=== PATIENT | male | born 1940 | race Caucasian/White ===

== ENCOUNTER → 2017-06-05 | Outpatient (CLI) | payer MEDICARE ==
[2017-02-08 11:11] VITALS: BMI 26.5
[~2017-06-05] MED LIST: ACE325 PO; ACET500T68 PO; ASPI-715 PO; CEPH500C24 PO; DIAZ-308 PO; DOCU-416 PO; FEXO-72 PO; GOLYTE PO; HYDR-4309 PO; IOPAMIDOL 76% 75 ML INFUS BTL 75 ML ONE; LEV125 PO; LEVO-3 PO; LEVO25TA61 PO; LEVO75TA73 PO; LOPE2CAP15 PO; METH-543 PO; MULT1TAB64 PO; NS 0.9% 20 ML SDV 40 ML ONE; ONDA8TAB94 PO; OXA600 PO; OXYC-854 PO; OXYC-865 PO; PEG4000S21 PO; PER PO; POTA99TA6 PO; PRE20 PO; SIME80TA65 PO; TAMS0.4C70 PO; VITA-131 PO; VITA1CAP46 PO; [UNRECOGNIZED DRUG - CODE] PO; [UNRECOGNIZED DRUG - CODE] TP; potassium PO
--- NOTE | 2017-06-05 11:45 | RADIOLOGY IMAGING REPORT ---
[place] [facility] [place] Coral Voss : 1940 MR: [id number] V: [id number] EXAM DATE: ORDERING PHYSICIAN: JOSE PERALTA TECHNOLOGIST: Location: [facility] - [place] Patient: Coral Voss : 1940 Visit/Account:[id number] Date of Sevice: 06/05/2017 ABDOMEN/PELVIS WITH CONTRAST HISTORY: Abscess of male pelvis, large bowel anastomosis leak, pelvic hematoma TECHNIQUE: Following administration of IV contrast contiguous axial images acquired through the abdom en/pelvis. Coronal and sagittal reformatting also performed. Dose Lowering Technique One of the following dose optimization techniques was utilized in the performance of this exam: Autom ated exposure control; adjustment of the mA and/or kV according to the patient's size; or use of an i terative reconstruction technique. Specific details can be referenced in the facility's radiology C T exam operational policy. CONTRAST: 75 mL Isovue-370 COMPARISON: March 27, 2017 and February 25, 2017 FINDINGS: Visualized lung bases: Negative. Hepatobiliary: Negative. Spleen: Negative. Adrenals: Negative. Pancreas: Negative. Kidneys ureters or bladder: Left renal cysts again noted. Moderate bladder wall thickening again see n. Genitalia: Negative. GI: Again noted is an ileostomy in the right lower quadrant. There is a surgical anastomosis at the rectum. There is soft tissue thickening in the presacral space although the previously noted absces ses no longer seen. There is a pigtail catheter in this location. No other abnormal collections pearl ntified within the abdomen or pelvis. Diverticular disease is noted in the sigmoid colon. Vessels/spaces/nodes: There are mild vascular calcination occasions present Bones/soft tissues: There Is a levoconvex scoliosis of the lumbar spine with associated spondylotic changes. Scarring areas in the intratrochanteric portion of the right hip in the femoral heads and r ight acetabulum all remain stable Additional findings: None pertinent. IMPRESSION: Post surgical changes are seen at the rectum with an ileostomy noted in the right lower quadrant. Th ere is soft tissue thickening in the presacral space although the previously noted abscess is no long er seen. A pigtail catheter remains in the presacral space.. No new collections identified within the abdomen or pelvis Report Dictated By: Emmy Jordan MD at 06/05/2017 11:05 AM Report E-Signed By: Emmy Jordan MD at 06/05/2017 11:41 AM BOON:CHELITA
== END ==
LOC: CT 02:31
PROVIDERS: ATTEND Surgery
DX: N28.1 Cyst of kidney, acquired (principal); K57.30 Diverticulosis of large intestine without perforation or abscess without bleeding
CPT/HCPCS: 74177; J7050; Q9967

== ENCOUNTER → 2017-06-17 | Outpatient (CLI) | payer MEDICARE ==
[2017-02-08 11:11] VITALS: BMI 26.5
[~2017-06-17] MED LIST changes: +NS 0.9% 20 ML SDV 20 ML ONE; -NS 0.9% 20 ML SDV 40 ML ONE; +SIME-8 PO; -[UNRECOGNIZED DRUG - CODE] PO
--- NOTE | 2017-06-17 11:01 | RADIOLOGY IMAGING REPORT ---
FACILITY: [facility] PATIENT NAME: Coral Voss : 1940 MR: [id number] V: [id number] EXAM DATE: ORDERING PHYSICIAN: JOSE PERALTA TECHNOLOGIST: Location: [facility] - [place] Patient: Coral Voss : 1940 Visit/Account:[id number] Date of Sevice: 06/17/2017 PELVIS W CONTRAST HISTORY: Colon cancer. Drain removal. Right hip and thigh pain ADDITIONAL HISTORY: None. TECHNIQUE: Axial CT images were obtained through the pelvis with intravenous contrast. One of the fol lowing dose optimization techniques was utilized in the performance of this exam: automated exposure control; adjustment of the mA and/or kv according to patient size; or use of iterative reconstruction technique. Specific details can be referenced in the facility's radiology CT exam operational policy . CONTRAST: 75 mL of Isovue-370 COMPARISON: CT abdomen/pelvis 06/05/2017 FINDINGS: Pelvic genitourinary: Negative. Bowel/peritoneum/mesentery: Interval removal of a right transgluteal presacral drain. Mild enhancem ent along the drain tract noted. Rectosigmoid anastomosis with a 4.2 x 2.2 x 1.5 cm peripheral enhan cing focus of fluid and gas adjacent to the anastomosis, previously 2.7 x 1.3 x 1.2 cm. Adjacent pre sacral ill-defined soft tissue extending into the right sciatic notch, unchanged. Right lower quadra nt loop ileostomy. Normal appendix. Vessels: Mild arterial calcifications. Lymph nodes: Negative. Bones/body wall: Stable tiny sclerotic lesion within the right proximal femur, likely a bone island. Grade 1 anterolisthesis at L4-L5 with degenerative changes. Other findings: None significant IMPRESSION: 1. Interval removal of a right transgluteal presacral drain. Minimal increasing size of a fluid/gas collection adjacent to the rectosigmoid anastomosis outlined above. Otherwise stable ill-defined so ft tissue in the presacral space extending to the right sciatic notch. 2. Mild enhancement along the drain tract without discrete fluid. Recommend clinical correlation fo r drainage at the skin surface. Report Dictated By: Byron Kaur MD at 06/17/2017 10:49 AM Report E-Signed By: Byron Kaur MD at 06/17/2017 10:56 AM WSN:[email or web address]
== END ==
LOC: CT 01:11
PROVIDERS: ATTEND Surgery
DX: K63.89 Other specified diseases of intestine (principal)
CPT/HCPCS: 72193; J7050; Q9967

== ENCOUNTER 2017-06-20 11:07 | Inpatient (IN) | payer MEDICARE ==
[~2017-06-20] VITALS: Ht 177.8 cm; Wt 82.1 kg
[~2017-06-20 11:07] MED LIST changes: -IOPAMIDOL 76% 75 ML INFUS BTL 75 ML ONE; -NS 0.9% 20 ML SDV 20 ML ONE
[2017-06-20] MEDS ORDERED: ONDANSETRON 4 MG/2 ML VIAL IVP ONE (11:25)
[2017-06-20] MEDS ORDERED: fentaNYL CITR 100 MCG/2 ML AMP IVP ONE (11:25)
[2017-06-20] MEDS ORDERED: NS(*) 0.9% 10 ML VIAL 30 ML ONE (11:38)
--- NOTE | 2017-06-20 11:38 | ER Report ---
History and Physical Time Seen By MD: 11:36 Hx. of Stated Complaint: HAD DRAIN REMOVED FROM RIGHT HIP APPROX 2 WEEKS AGO. REPORTS EXCRUCIATING PAIN AND INABILITY TO AMBULATE DUE TO PAIN. HPI/ROS CHIEF COMPLAINT: Hip and pelvic pain HISTORY OF PRESENT ILLNESS: Patient is a 76-year-old male who presents to department complaining of right hip and sacral pain. Patient has a history of adenocarcinoma of the colon that is post ileostomy approximately one year ago also recently had a sacral drain removed by Dr. Duffy move all of the draining he's been having discomfort and pain he describes the pain as to the right hip area and radiates down the right leg. The pain is so severe it is causing him difficulty with ambulation. The drainage from his prior sacral drain. Denies fevers or chills. REVIEW OF SYSTEMS: Constitutional: No fever, no chills. Eyes: No discharge. ENT: No sore throat. Cardiovascular: No chest pain, no palpitations. Respiratory: No cough, no shortness of breath. Gastrointestinal: No abdominal pain, no vomiting. Genitourinary: No hematuria. Musculoskeletal: Low back pain, right hip pain Skin: No rashes. Neurological: No headache. Allergies: Coded Allergies: No Known Drug Allergies (Verified , 06/20/17) Home Meds Active Scripts Oxycodone Hcl/Acet 5/325 Mg (ENDOCET 5-325 TABLET) 1 Each Tablet, 1-2 TAB PO Q4H Y for PAIN, #40 TAB 0 Refills Prov:CHUY LEE DNP, AUDIENCE DEVELOPMENT MANAGER-BC 06/17/17 Reported Medications Levothyroxine Sodium (LEVOTHYROXINE SODIUM) 0.125 Mg Tab, 125 MCG PO DAILY 02/08/17 Vitamin B Complex (VITAMIN B COMPLEX) 1 Each Capsule, 1 EACH PO QDAY, CAPSULE 02/04/17 Multivitamin (MULTI VITAMIN DAILY) 1 Each Tablet, 1 EACH PO 12/19/14 Discontinued Scripts Diazepam (DIAZEPAM) 5 Mg Tablet, 1 TAB PO TID Y for SPASMS, #15 TAB 0 Refills Prov:JOSE PERALTA MD 04/22/17 Past Medical/Surgical History Past medical history for rectal adenocarcinoma with T3 lesion by MRI of the pelvis. History of hypothyroidism. He has a history of rectal mass measuring approximate 6.1 cm with narrowing of the rectosigmoid junction. Patient did have a colonoscopy with biopsy rectal mass on 09/12/2016 he is currently receiving chemotherapy. Patient had rectal resection done on 02/07/2017 patient is also status post ileostomy. Hx Smoking: No Smoking Status: Never Smoker Exposure to Second Hand Smoke?: No Hx Substance Use Disorder: No Hx Alcohol Use: No Constitutional Vital Sign - Last 24 Hours 06/20/17 06/20/17 06/20/17 06/20/17 11:15 11:30 11:31 12:30 Temp 97.9 Pulse 77 60 54 Resp 20 B/P (MAP) 137/79 95/66 (76) 105/61 (76) Pulse Ox 95 97 100 O2 Delivery Room Air 06/20/17 06/20/17 06/20/17 06/20/17 13:00 13:30 13:30 14:00 Pulse 59 59 63 B/P (MAP) 111/67 (82) 118/64 (82) 126/67 (86) Pulse Ox 100 100 100 Physical Exam General Appearance: The patient is alert, has no immediate need for airway protection and no signs of toxicity. [ ] Eyes: Pupils equal and round no pallor or injection. ENT, Mouth: Mucous membranes are moist. Respiratory: There are no retractions, lungs are clear to auscultation. Cardiovascular: Regular rate and rhythm. [ ] Gastrointestinal: Abdomen is soft and non tender, no masses, bowel sounds normal. Neurological: Awake and alert Skin: Warm and dry, no rashes. Healing drainage track to the right sacral area Musculoskeletal: Neck is supple non tender. Extremities are nontender, nonswollen and have full range of motion. Medical Decision Making Data Points Result Diagram: 06/21/1752506/21/17525 Laboratory EKG/Imaging Imaging FACILITY: [facility] - [place] PATIENT NAME: Coral Voss : 1940 MR: [id number] V: [id number] EXAM DATE: ORDERING PHYSICIAN: BRIGID HANNA TECHNOLOGIST: Location: [facility] Patient: Coral Voss : 1940 Visit/Account:[id number] Date of Sevice: 06/20/2017 CT abdomen and pelvis without contrast Indication: Abdominal and right hip pain. History of colorectal cancer. Drainage tube recently removed from abdomen. Comparison: 06/05/2017 and 06/17/2017. Technique: Axial CT images are obtained through the abdomen and pelvis. Reformatted coronal and sagittal images were reviewed. IV contrast was not administered. One of the following dose optimization techniques was utilized in the performance of this exam: automated exposure control; adjustment of the mA and/ or kV according to the patient's size; or use of an iterative reconstruction technique. Specific details can be referenced in the facility's radiology CT exam operational policy. Findings: Lower lung richardson: Limited views lower lung field are unremarkable. Evaluation of the solid organs of the abdomen is limited without IV contrast. Liver: No focal parenchymal abnormality of the liver. Biliary: Gallbladder appears unremarkable as well as the intra and extra hepatic biliary system. Pancreas: Normal appearance. Spleen: Normal appearance. Adrenal glands: Unremarkable. Kidneys / retroperitoneum: No evidence of nephrolithiasis or hydronephrosis. Stable left renal cyst. No other discrete renal lesions. Bowel / peritoneum / mesenteries: Postsurgical changes to the rectum. There is continued soft tissue density in the presacral space which is unchanged. The previous pigtail catheter in this region has been removed. There is no appreciable fluid collection although there are foci of air within the soft tissue density. Sigmoid colon shows a few diverticula without couple scattered colonic diverticula. No pericolonic inflammation. The colon shows no other focal abnormality. The appendix is normal. A right-sided ileostomy is present and uncomplicated. The small bowel shows no focal normality or obstruction. The stomach is unremarkable. No free air, free fluid, defined fluid collection or areas of inflammation. Lymph node assessment: No pathologic adenopathy identified. Pelvic structures: Appear unremarkable. Vessels: Mild atherosclerotic calcifications seen throughout a nonaneurysmal abdominal aorta and branches. Musculoskeletal / Body wall: No acute or aggressive osseous abnormality. Degenerative changes spine. There is mild anterior spondylolisthesis of L4 over L5 of 5.5 mm due to facet arthropathy. This is stable. Degenerative changes of both hips. IMPRESSION: 1. No acute intra-abdominal abnormality identified. 2. The rectum shows postsurgical changes without sequelae. There is again soft tissue density in the presacral space. The previous pigtail catheter has been removed. No well-defined fluid collection. There is a couple small foci of air within the soft tissue density. The appearance appears not significantly changed from the previous exam. 3. Diverticulosis without radiographic indication diverticulitis. 4. Other stable chronic findings as above. Report Dictated By: Julio Conrteras at 06/20/2017 12:37 PM Report E-Signed By: Julio Contreras at 06/20/2017 12:50 PM WSN:[id number] ED Course/Re-evaluation ED Course Plan at this time will be to have the patient admitted to the hospitalist for elevated creatinine as well as ambulatory dysfunction. Case will be discussed with Dr. Alvin Bonilla. Decision to Disposition Date: Jun 20, 2017 Decision to Disposition Time: 14:00 Depart Departure Latest Vital Signs Vital Signs Date Time Temp Pulse Resp B/P (MAP) Pulse Ox O2 Delivery O2 Flow Rate FiO2 06/20/17 14:00 63 126/67 (86) 100 06/20/17 11:15 97.9 20 Room Air Impression: Primary Impression: Hip pain Additional Impression: Renal insufficiency Condition: Improved Disposition: Admitted from ER (to DR Bonilla) Referrals: JAKUB WOLF PA-C (PCP) Problem Qualifiers Primary Impression: Hip pain Laterality: right Qualified Codes: M25.551 - Pain in right hip BRIGID HANNA MD Jun 20, 2017 11:37
[2017-06-20 11:39] LABS: PLATELET COUNT, AUTOMATED 226 K/uL (150-450)
[2017-06-20] MEDS ORDERED: IOPAMIDOL 76% 75 ML INFUS BTL 75 ML ONE (11:39)
--- NOTE | 2017-06-20 12:56 | RADIOLOGY IMAGING REPORT ---
FACILITY: [facility] - [place] PATIENT NAME: Coral Voss : 1940 MR: [id number] V: [id number] EXAM DATE: ORDERING PHYSICIAN: BRIGID HANNA TECHNOLOGIST: Location: Patient: Coral Voss : 1940 Visit/Account:[id number] Date of Sevice: 06/20/2017 CT abdomen and pelvis without contrast Indication: Abdominal and right hip pain. History of colorectal cancer. Drainage tube recently remove d from abdomen. Comparison: 06/05/2017 and 06/17/2017. Technique: Axial CT images are obtained through the abdomen and pelvis. Reformatted coronal and sagit gera images were reviewed. IV contrast was not administered. One of the following dose optimization techniques was utilized in the performance of this exam: auto mated exposure control; adjustment of the mA and/or kV according to the patient's size; or use of an iterative reconstruction technique. Specific details can be referenced in the facility's radiology C T exam operational policy. Findings: Lower lung richardson: Limited views lower lung field are unremarkable. Evaluation of the solid organs of the abdomen is limited without IV contrast. Liver: No focal parenchymal abnormality of the liver. Biliary: Gallbladder appears unremarkable as well as the intra and extra hepatic biliary system. Pancreas: Normal appearance. Spleen: Normal appearance. Adrenal glands: Unremarkable. Kidneys / retroperitoneum: No evidence of nephrolithiasis or hydronephrosis. Stable left renal cyst. No other discrete renal lesions. Bowel / peritoneum / mesenteries: Postsurgical changes to the rectum. There is continued soft tissue density in the presacral space which is unchanged. The previous pigtail catheter in this region has b een removed. There is no appreciable fluid collection although there are foci of air within the soft tissue density. Sigmoid colon shows a few diverticula without couple scattered colonic diverticula. N o pericolonic inflammation. The colon shows no other focal abnormality. The appendix is normal. A rig ht-sided ileostomy is present and uncomplicated. The small bowel shows no focal normality or obstruct ion. The stomach is unremarkable. No free air, free fluid, defined fluid collection or areas of inflammation. Lymph node assessment: No pathologic adenopathy identified. Pelvic structures: Appear unremarkable. Vessels: Mild atherosclerotic calcifications seen throughout a nonaneurysmal abdominal aorta and bran ches. Musculoskeletal / Body wall: No acute or aggressive osseous abnormality. Degenerative changes spine. There is mild anterior spondylolisthesis of L4 over L5 of 5.5 mm due to facet arthropathy. This is st able. Degenerative changes of both hips. IMPRESSION: 1. No acute intra-abdominal abnormality identified. 2. The rectum shows postsurgical changes without sequelae. There is again soft tissue density in the presacral space. The previous pigtail catheter has been removed. No well-defined fluid collection. Th ere is a couple small foci of air within the soft tissue density. The appearance appears not signific antly changed from the previous exam. 3. Diverticulosis without radiographic indication diverticulitis. 4. Other stable chronic findings as above. Report Dictated By: Julio Contreras at 06/20/2017 12:37 PM Report E-Signed By: Julio Contreras at 06/20/2017 12:50 PM WSN:[id number]
--- NOTE | 2017-06-20 13:03 | RADIOLOGY IMAGING REPORT ---
[place] [facility] [place] NAME: Coral Voss : 1940 MR: [id number] V: [id number] EXAM DATE: ORDERING PHYSICIAN: BRIGID HANNA TECHNOLOGIST: [place] [facility] [place]: Coral Voss : 1940 Visit/Account:[id number] Date of Sevice: 06/20/2017 HIP RIGHT W/O CONTRAST INDICATION: Right hip pain. COMPARISON: CT of the pelvis on 06/17/2017. FINDINGS: Multiple axial images of the right hip were obtained 2 mm reconstructions without intrave nous contrast. Sagittal and coronal reconstructions were obtained. One of the following dose optimiz ation techniques was utilized in the performance of this exam: automated exposure control; adjustment of the mA and/or kV according to the patient's size; or use of an iterative reconstruction technique . Specific details can be referenced in the facility's radiology CT exam operational policy. No fracture or dislocation. The right hip does show degenerative changes including joint space narrow ing and osteophytes. There is mild over covering of the femoral head by the acetabulum. No aggressive bony lesions. No periosteal abnormality. Soft tissues of the hip show no joint effusion or focal abn ormality. The fat and muscle planes are maintained. The presacral space does show persistent soft tissue density couple foci of air without a defined flu id collection. The previously seen pigtail catheter has been removed. The appearance of the presacral region is unchanged. The remaining soft tissues are unremarkable. IMPRESSION: 1. Right hip shows no acute abnormality. There are some degenerative change seen in the right hip. Th ere is mild over covering of the femoral head by the acetabulum which could be secondary to the degen erative osteophytes however could also represent some mild impingement. Report Dictated By: Julio Contreras at 06/20/2017 12:52 PM Report E-Signed By: Julio Contreras at 06/20/2017 12:58 PM WSN:[id number]
[2017-06-20] MEDS ORDERED: methylPREDNIS SUCC 125 MG/2ML IVP ONE (13:15)
[2017-06-20] MEDS ORDERED: NS(*) 0.9% 500 ML BAG 500 ML IV ONE (13:15)
[2017-06-20] MEDS ORDERED: NS(*) 0.9% 1000 ML BAG 1,000 ML IV PRN (14:56)
[2017-06-20] MEDS ORDERED: ACETAMINOPHEN 500 MG TAB PO PRN (15:00)
[2017-06-20] MEDS ORDERED: MORPHINE 1 MG/ML 30 ML PCA IV PRN (15:00)
[2017-06-20] MEDS ORDERED: PROMETHAZINE 25 MG/ML 1 ML AMP IVP PRN (15:00)
[2017-06-20] MEDS ORDERED: NALOXONE HCL 0.4 MG/ML VIAL IVP PRN (15:00)
--- NOTE | 2017-06-20 15:38 | History & Physical ---
History of Present Illness History of Present Illness 76yo male with h/o rectal adenocarcinoma, and recent drain removal for seroma in pelvis came to the ER for worsening right buttock pain that radiates down the post/lat right leg to the knee. The pain is sharp and 12-15/10. He is unable to bear weight on the leg secondary to flaring of the pain. The pain is worsened by any activity, but bearing weight is the worst. Lying or sitting helps the pain. The pain started after placement of sacral drain in early April. The drain was placed for a seroma that was causing coccyx pain. The drain was placed in the upper lateral buttock. The drain was removed about 2 weeks ago. Initially, the pain improved some for a few days after removal, but progressively worsened. A week ago, he started walking with a cane. Yesterday , he couldn't get up on his own because of the pain. Today, he came to the ER because the pain was so excruciating and he couldn't get up. He denies fevers. He continues to have clear drainage from the drain site. He had a CT of the pelvis 3 days ago that showed minimal increasing size of fluid/gas collection compared to the day the drain was removed. No numbness or tingling in the LE's. History Problems: (1) Rectal adenocarcinoma Status: Chronic (2) Hypothyroid Status: Chronic (3) Seroma Home Meds Active Scripts Oxycodone Hcl/Acet 5/325 Mg (ENDOCET 5-325 TABLET) 1 Each Tablet, 1-2 TAB PO Q4H Y for PAIN, #40 TAB 0 Refills Prov:CHUY LEE DNP, CERTIFIED WELLNESS PROGRAM COORDINATOR-BC 06/17/17 Reported Medications Levothyroxine Sodium (LEVOTHYROXINE SODIUM) 0.125 Mg Tab, 125 MCG PO DAILY 02/08/17 Vitamin B Complex (VITAMIN B COMPLEX) 1 Each Capsule, 1 EACH PO QDAY, CAPSULE 02/04/17 Multivitamin (MULTI VITAMIN DAILY) 1 Each Tablet, 1 EACH PO 12/19/14 Discontinued Scripts Diazepam (DIAZEPAM) 5 Mg Tablet, 1 TAB PO TID Y for SPASMS, #15 TAB 0 Refills Prov:JOSE PERALTA MD 04/22/17 Allergies: Coded Allergies: No Known Drug Allergies (Verified , 06/20/17) Patient History: Patient reports no known family medical history. 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 No tobacco or alcohol use. and lives with . Hx Smoking: No Smoking Status: Never Smoker Exposure to Second Hand Smoke?: No Caffeine Intake: Coffee, Tea Caffeine/Cups Per Day: 4 CUPS COFFEE, 2 CUPS TEA PER DAY Hx Alcohol Use: No Hx Substance Use Disorder: No Social Drug Use: Never Review of Systems All Systems Reviewed/Normal: Yes, Except as Noted Exam Vital Signs Vital Signs Date Time Temp Pulse Resp B/P (MAP) Pulse Ox O2 Delivery O2 Flow Rate FiO2 06/20/17 14:00 63 126/67 (86) 100 06/20/17 11:15 97.9 20 Room Air General Appearance: Alert, Awake, Other (Appears moderately uncomfortable) Neuro: No Gross deficits (Normal sensation to light touch in feet. Normal dorsiflexion/plantar flexion strength.) Eyes: PERRLA ENT: Moist Mucous Membranes Cardiovascular: Regular Rate and Rhythm Respiratory: Clear to Auscultation GI: Abd Soft and Non-Tender (ostomy with bag/wafer overlying it. Brown stool in the bag) Musculoskeletal: Other (Right buttock with 1cm open wound with serous drainage in upper lateral quadrant. No overlying erythema/warmth. Pain with palpation around the wound. Mild atrophy of the right quadricep. Pain with passive and active hip flexion on the right.) Extremities: No Edema Integumentary: No Jaundice, No Cyanosis Medical Decision Making Data Points Result Diagram: 06/20/17 1128 06/20/17 1128 Item Value Date Time Neutrophils (%) (Auto) 76.0 % H 06/20/17 1128 Lymphocytes (%) (Auto) 6.4 % L 06/20/17 1128 Monocytes (%) (Auto) 13.4 % H 06/20/17 1128 Creatinine 1.40 mg/dl H 03/29/17 1837 Creatinine 1.30 mg/dl H 05/20/17 1010 Creatinine 2.10 mg/dl H 06/20/17 1128 Carbon Dioxide Level 20 mmol/L L 03/29/17 1837 Carbon Dioxide Level 21 mmol/L L 05/20/17 1010 Carbon Dioxide Level 17 mmol/L L 06/20/17 1128 Creatinine 1.20 mg/dl 02/26/17 1203 Carbon Dioxide Level 20 mmol/L L 02/26/17 1203 Total Bilirubin 0.3 mg/dl 06/20/17 1128 Alanine Aminotransferase (ALT/SGPT) 29 U/L 06/20/17 1128 Aspartate Amino Transf (AST/SGOT) 22 U/L 06/20/17 1128 Alkaline Phosphatase 81 U/L 06/20/17 1128 Total Protein 7.6 gm/dl 06/20/17 1128 Albumin 3.7 g/dl 06/20/17 1128 EKG / Imaging Imaging Abd/Pelvis CT - 1. No acute intra-abdominal abnormality identified. 2. The rectum shows postsurgical changes without sequelae. There is again soft tissue density in the presacral space. The previous pigtail catheter has been removed. No well-defined fluid collection. There is a couple small foci of air within the soft tissue density. The appearance appears not significantly changed from the previous exam. 3. Diverticulosis without radiographic indication diverticulitis. 4. Other stable chronic findings as above. Hip CT - 1. Right hip shows no acute abnormality. There are some degenerative change seen in the right hip. There is mild over covering of the femoral head by the acetabulum which could be secondary to the degenerative osteophytes however could also represent some mild impingement. Assessment and Plan Problems: (1) Sciatic pain Status: Acute Assessment & Plan: The pain started in early April with placement of a drain for a presacral seroma. The drain was placed in the right upper/lateral gluteal region and likely caused sciatic nerve irritation. The drain was removed about 2 weeks prior to admission with initial mild improvement of the pain, but has progressively worsened over the last 1.5 weeks. Now, he is unable to ambulate and any movement of the hip hurts. He has no worrisome neurologic signs or symptoms. CT of the pelvis showed stable presacral fluid. I spoke with Dr. Peralta, who has been following the patient for the drain, and he recommended pain control and an MRI. I spoke with Dr. Arizmendi, who recommended a course of steroids, and an MRI. The patient is getting a lumbar MRI and will be placed on a methylprednisolone IV. Morphine APPLIQUE CUTTER for pain control. Will ask OT/PT to see tomorrow. (2) ARF (acute renal failure) Status: Acute Assessment & Plan: Secondary to dehydration and NSAID use. He has had a creatinine of about 1.2-1.4 since late February. Creatinine today is 2.1. He is getting hydrated and will follow labs. (3) Hypothyroid Status: Chronic Assessment & Plan: Continue chronic levothyroxine. (4) Rectal adenocarcinoma Status: Chronic Assessment & Plan: He had rectal resection and a diverting loop ileostomy done on 02/07/17. Copies to: JAKUB WOLF PA-C; CRISTOPHER GARCIA MD; JOSE PERALTA MD Venous Thromboembolism Antithrombotics Is Pt On Any Antithrombotics?: No Exam Sepsis Risk: No Definite Risk Problem Qualifiers (1) Sciatic pain: Laterality: right Qualified Codes: M54.31 - Sciatica, right side ALESHIA DIAZ MD Jun 20, 2017 15:38
[2017-06-20] MEDS: LIDOCAINE 5% PATCH TP SCH (15:58)
--- NOTE | 2017-06-20 16:11 | RADIOLOGY IMAGING REPORT ---
FAC[place] [facility] [place]IENT NAME: Coral Voss : 1940 MR: [id number] V: [id number] EXAM DATE: ORDERING PHYSICIAN: BRIGID HANNA TECHNOLOGIST: Location: [facility] - [place] Patient: Coral Voss : 1940 Visit/Account:[id number] Date of Sevice: 06/20/2017 EXAMINATION: Lumbar spine MRI without IV contrast HISTORY: Right leg pain. COMPARISON: CT of the abdomen and pelvis from 06/05/2017. TECHNIQUE: Multi-planar, multi-sequence lumbar spine MRI was performed without intravenous contrast administration. FINDINGS: 5 lumbar type vertebral segments. Vertebral body heights are maintained. Alignment: 7 mm anterolisthesis of L4 on L5. Slight retrolisthesis of L1 on L2 and of L2 on L3, uncha nged. Vertebral marrow signal: Mild marrow edema along the posterior elements of L5 along the left L4-5 fac et joint. Distal thoracic cord: Negative. Conus: negative, terminates at L1. Cauda equina: Severe central canal stenosis at the L4-5 level with mild redundancy in the cauda equin a nerve roots above the stenosis. Paravertebral soft tissues: Negative. Visualized abdominal and pelvic structures: Negative. Disc Spaces: Lower thoracic spine: Small disc bulges at T10-11, T11-T12, and T12-L1 and mild facet hypertrophy at T10-11 and T11-T12. The thecal sac is slightly narrowed by the disc bulges at T10-11 through T12-L1. Neural foramina are mildly narrowed bilaterally at the T10-11 and T11-T12 levels. L1-2: Mild diffuse disc bulge and mild bilateral facet hypertrophy. Annular fissure in the posterior disc. The thecal sac is slightly narrowed. Moderate bilateral neural foraminal narrowing. L2-3: Diffuse disc bulge and mild bilateral facet hypertrophy. Mild central spinal canal stenosis. Mo derate left and [id number] right neural foraminal narrowing. L3-4: Diffuse disc bulge and moderate left facet hypertrophy. Ligamentum flavum thickening. Moderate central spinal canal stenosis. Severe left lateral recess stenosis. Moderate left and [id number] e right neural foraminal narrowing. L4-5: Anterolisthesis of L4 on L5 with mild diffuse disc bulge. Severe bilateral facet hypertrophy wi th ligamentum flavum thickening. Severe central spinal canal stenosis. Mild bilateral neural foramina l stenosis. L5-S1: Severe left and mild right facet hypertrophy. Mild diffuse disc bulge. Mild left lateral reces s stenosis. No central spinal canal stenosis. Mild left neural foraminal stenosis. IMPRESSION: Multilevel disc and facet degenerative changes in the lumbar spine. There is grade 1 anterolisthesis of L4 on L5 which is unchanged from prior exam. Severe central spinal canal stenosis at L4-5 and moderate spinal canal stenosis at the L3-4 level. Multilevel neural foraminal narrowing as detailed in the body of report. Report Dictated By: Elie Mills MD at 06/20/2017 3:48 PM Report E-Signed By: Elie Mills MD at 06/20/2017 4:07 PM WSN:[id number]
[2017-06-20] MEDS ORDERED: GABAPENTIN 100 MG CAP PO ONE (17:00)
[2017-06-20] MEDS ORDERED: GABAPENTIN 300 MG CAP PO ONE (17:00)
--- NOTE | 2017-06-20 17:33 | General Surgery Consultation ---
History of Present Illness Requesting Physician Dr. Alvin Bonilla, Hospitalist Service Reason for Consult Sciatica, I have been treating him for rectal cancer Chief Complaint Severe right buttock pain traveling down his posterior right thigh History of Present Illness 76-year-old gentleman, well-known to me as I performed a laparoscopic low anterior resection on him several months ago for a mid rectal cancer. He developed a presacral hematoma and subsequent anastomotic leak and this was treated with presacral drainage and we are allowing the anastomosis to heal before reversing his ileostomy. He had a CT-guided percutaneous drain placed in the presacral space through his right buttock and notes that since the drain was placed he developed right buttock pain with radiation down his right posterior thigh. We removed the drain 2 weeks ago and he noted the pain was improving but then after about a week it started to increase again until it has become unbearable in the last couple of days. This prompted him to come into the emergency department. He feels that his right leg is weaker than the left leg. He will occasionally experience right leg pain even when moving his left leg. He has had to resort to walking with a cane and then now shuffling with a walker. He feels better when he puts his weight on his upper extremities using the walker and then he notes the pain in his buttock and right leg decreases. His pain is also minimal when he is laying down. History Problems: (1) Hypothyroid Status: Chronic (2) Rectal adenocarcinoma Status: Chronic (3) Abscess of male pelvis Status: Resolved (4) Large bowel anastomotic leak Status: Chronic Home Meds Active Scripts Oxycodone Hcl/Acet 5/325 Mg (ENDOCET 5-325 TABLET) 1 Each Tablet, 1-2 TAB PO Q4H Y for PAIN, #40 TAB 0 Refills Prov:CHUY LEE DNP, CONCRETE TILE MACHINE OPERATOR-BC 06/17/17 Reported Medications Levothyroxine Sodium (LEVOTHYROXINE SODIUM) 0.125 Mg Tab, 125 MCG PO DAILY 02/08/17 Vitamin B Complex (VITAMIN B COMPLEX) 1 Each Capsule, 1 EACH PO QDAY, CAPSULE 02/04/17 Multivitamin (MULTI VITAMIN DAILY) 1 Each Tablet, 1 EACH PO 12/19/14 Discontinued Scripts Diazepam (DIAZEPAM) 5 Mg Tablet, 1 TAB PO TID Y for SPASMS, #15 TAB 0 Refills Prov:JOSE PERALTA MD 04/22/17 Allergies: Coded Allergies: No Known Drug Allergies (Verified , 06/20/17) Family History: Patient reports no known family medical history. Review of Systems All Systems Reviewed/Normal: Yes, Except as Noted Musculoskeletal: Pain (right buttock and posterior thigh) Exam Vital Signs Vital Signs Date Time Temp Pulse Resp B/P (MAP) Pulse Ox O2 Delivery O2 Flow Rate FiO2 06/20/17 17:03 16 06/20/17 16:16 94 06/20/17 16:00 Nasal Cannula 2.0 06/20/17 14:00 63 126/67 (86) 06/20/17 11:15 97.9 General Appearance: Alert, Awake, No Acute Distress, Afebrile Neuro: No Gross deficits Eyes: PERRLA GI: Abd Soft and Non-Tender (stoma is pink and functional) Extremities: Warm, Perfused Integumentary: Other (right buttock drain site is clean and dry without erythema or drainage. There is tenderness to palpation inferior to the drain site when palpating the soft tissues of the right buttock.) Medical Decision Making Data Points Result Diagram: 06/20/17 1128 06/20/17 1128 Assessment and Plan Problems: (1) Sciatic pain Status: Acute Assessment & Plan: 06/20/17: This pain really started when the CT guided percutaneous drain was placed in the presacral space through his right buttock and the obturator foramen. I was optimistic that this would improve after removing the drain and it sounds as though it had improved for several days only to worsen and become unbearable over the last several days. The CT scan 2 days ago and then again today reveals only a small fluid collection where the drain had been and this seems to be improving. There is no other findings on the CT scan to explain his symptoms. His lumbar spine MRI shows severe spinal stenosis and other chronic changes. It may be that the drain was a red joaquin or potentially decompensated in his posture or ambulation due to the drain which brought out his sciatic symptoms. I have spoken with Dr. Bonilla with the hospitalist service who has gotten Dr. Arizmendi, the spine surgeon, involved and they are treating his pain with a TELECOMMUNICATION TOWER TECHNICIAN and are adding steroids to decrease inflammation in his spine and sciatic nerve and they are adding Neurontin as well. I agree with all of this. There are no acute general surgical issues but I will follow along as he is my patient and I am actively managing his rectal cancer and recovery from his surgery. Condition Stable Time Spent: < 30 min Venous Thromboembolism Antithrombotics Is Pt On Any Antithrombotics?: No Problem Qualifiers (1) Sciatic pain: Laterality: right Qualified Codes: M54.31 - Sciatica, right side JOSE PERALTA MD Jun 20, 2017 17:33
[2017-06-20] MEDS: methylPREDNIS SUCC 125 MG/2ML IVP SCH (18:47)
[2017-06-20 21:00] VITALS: BP 117/67
[2017-06-20] MEDS ORDERED: PATCH REMOVAL 1 EA TP SCH (21:00)
[2017-06-21] MEDS: methylPREDNIS SUCC 125 MG/2ML IVP SCH ×3 (00:37→12:51)
[2017-06-21 04:01] VITALS: BP 116/72
[2017-06-21 05:45] LABS: PLATELET COUNT, AUTOMATED 214 K/uL (150-450)
[2017-06-21] MEDS ORDERED: LEVOTHYROXINE SOD 0.125 MG TAB PO SCH (06:00)
[2017-06-21 07:49] VITALS: BP 123/66
[2017-06-21] MEDS ORDERED: ENOXAPARIN 30 MG/0.3 ML SYR SC SCH (09:00)
[2017-06-21] MEDS ORDERED: GABAPENTIN 100 MG CAP PO SCH (09:00)
[2017-06-21] MEDS ORDERED: GABAPENTIN 300 MG CAP PO SCH (09:00)
[2017-06-21] MEDS: LIDOCAINE 5% PATCH TP SCH (10:05)
[2017-06-21 10:09] VITALS: Ht 177.8 cm; Wt 82.1 kg
[2017-06-21] MEDS ORDERED: PRED20TA6 PO (11:26)
[2017-06-21] MEDS ORDERED: GABA-547 PO (11:26)
--- NOTE | 2017-06-21 11:32 | Hospitalist Depart ---
Discharge Summary Reason for Hosp/Final Diag: (1) Sciatic pain Status: Acute Hospital Course & Plan: He presented with sciatic pain, which was thought to be secondary to inflammation from a drain placed in early April. However, his MRI did show lumbar stenosis. His case was reviewed with Dr. Amos, who recommended steroids and gabapentin. He is instructed to follow up with Dr. Amos as an outpatient. (2) ARF (acute renal failure) Status: Acute Hospital Course & Plan: His creatinine was elevated, which was thought to be increased secondary to NSAIDs. It has improved with IV Fluids. (3) Hypothyroid Status: Chronic Hospital Course & Plan: He is treated with chronic levothyroxine. (4) Rectal adenocarcinoma Status: Chronic Hospital Course & Plan: He is followed by Dr. Peralta. Departure Latest Vital Signs Vital Signs 06/21/17 06/21/17 07:49 10:18 Temp 97.8 Pulse 72 Resp 16 B/P (MAP) 123/66 (85) Pulse Ox 95 O2 Delivery Room Air O2 Flow Rate 3.0 Weight (Pounds): 181 Result Diagram: 06/21/1752506/21/17525 Condition: Improved Discharge: Home, Home Health Discharge Instructions Home Meds Active Scripts Prednisone (PREDNISONE) 20 Mg Tablet, 40 MG PO QDAY, #3 TAB Prov:JOSE MEJIA DO 06/21/17 Gabapentin (GABAPENTIN) 100 Mg Capsule, 100 MG PO BID, #60 CAPSULE Prov:JOSE MEJIA DO 06/21/17 Oxycodone Hcl/Acet 5/325 Mg (ENDOCET 5-325 TABLET) 1 Each Tablet, 1-2 TAB PO Q4H Y for PAIN, #40 TAB 0 Refills Prov:CHUY LEE DNP, REGULATORY LEAD-BC 06/17/17 Reported Medications Levothyroxine Sodium (LEVOTHYROXINE SODIUM) 0.125 Mg Tab, 125 MCG PO DAILY 02/08/17 Vitamin B Complex (VITAMIN B COMPLEX) 1 Each Capsule, 1 EACH PO QDAY, CAPSULE 02/04/17 Multivitamin (MULTI VITAMIN DAILY) 1 Each Tablet, 1 EACH PO 12/19/14 Discontinued Scripts Diazepam (DIAZEPAM) 5 Mg Tablet, 1 TAB PO TID Y for SPASMS, #15 TAB 0 Refills Prov:JOSE PERALTA MD 04/22/17 Diet: Regular Activity: As Tolerated Copies to: MADHU SANTOS REGULATORY LEAD-BC, ONC; SAV AMOS MD Venous Thromboembolism Antithrombotics Is Pt On Any Antithrombotics?: No Problem Qualifiers (1) Sciatic pain: Laterality: right Qualified Codes: M54.31 - Sciatica, right side JOSE MEJIA DO Jun 21, 2017 11:32
[2017-06-23] MEDS ORDERED: INFLUENZA VIRUS VAC 0.5 ML SYR IM ONLY ONE (09:00)
[2017-06-24] MEDS ORDERED: OXYC-854 PO (09:59)
[2017-06-24] MEDS ORDERED: GABA-547 PO (11:38)
== END 2017-06-21 13:30 | disposition home health service (06) | DRG 552 ==
LOC: ER 11:43 → MED 14:26
PROVIDERS: ADMIT Internal Medicine; ATTEND Internal Medicine
DX: M48.061 Spinal stenosis, lumbar region without neurogenic claudication (principal); M54.31 Sciatica, right side; T39.395A Adverse effect of other nonsteroidal anti-inflammatory drugs [NSAID], initial encounter; E03.9 Hypothyroidism, unspecified; Z92.21 Personal history of antineoplastic chemotherapy; Z93.2 Ileostomy status; Z85.048 Personal history of other malignant neoplasm of rectum, rectosigmoid junction, and anus
CPT/HCPCS: 36415; 72148; 74176; 82040; 82247; 82310; 82374; 82435; 82565; 82947; 84075; 84132; 84155; 84295; 84450; 84460; 84520; 85025; 96361; 96374; 96375; 96376; 97161; 97165; 99285; J1650; J2270; J2405; J2930; J3010; J7030; J7040; Q9967

== ENCOUNTER 2017-06-26 05:04 | Inpatient (IN) | payer MEDICARE ==
[~2017-06-26] VITALS: Ht 177.8 cm; Wt 83.9 kg
[~2017-06-26 05:04] MED LIST changes: -FAMO-67 PO; -GABA-549 PO; -OXYC5TAB38 PO
--- NOTE | 2017-06-26 05:08 | ER Report ---
History and Physical Time Seen By MD: 05:04 (REY JARRELL DO) HPI/ROS CHIEF COMPLAINT: Severe right buttocks pain HISTORY OF PRESENT ILLNESS: 76-year-old male with a history of colorectal cancer status post surgery. He subsequently developed a hematoma from an anastomotic leak. He recently had a CT-guided drainage. He had his tube removed approximately 2 weeks ago. His pain is getting worse. He was seen by Dr. Duffy recently. He had a CAT scan on 06/20/17. Dr. Duffy at plans to follow him up in 2-3 weeks with a repeat CT scan REVIEW OF SYSTEMS: Respiratory: No cough, no dyspnea. Cardiovascular: No chest pain, no palpitations. Gastrointestinal: No vomiting, no abdominal pain. Musculoskeletal: As above (REY JARRELL DO) Allergies: Coded Allergies: No Known Drug Allergies (Verified , 06/26/17) Home Meds Active Scripts Gabapentin (GABAPENTIN) 100 Mg Capsule, 100 MG PO TID, #60 CAPSULE Prov:JOSE PERALTA MD 06/24/17 Oxycodone Hcl/Acet 5/325 Mg (ENDOCET 5-325 TABLET) 1 Each Tablet, 1-2 TAB PO Q4H Y for PAIN, #60 TAB 0 Refills Prov:JOSE PERALTA MD 06/24/17 Reported Medications Levothyroxine Sodium (LEVOTHYROXINE SODIUM) 0.125 Mg Tab, 125 MCG PO DAILY 02/08/17 Vitamin B Complex (VITAMIN B COMPLEX) 1 Each Capsule, 1 EACH PO QDAY, CAPSULE 02/04/17 Multivitamin (MULTI VITAMIN DAILY) 1 Each Tablet, 1 EACH PO 12/19/14 Discontinued Scripts Prednisone (PREDNISONE) 20 Mg Tablet, 40 MG PO QDAY, #3 TAB Prov:JOSE MEJIA DO 06/21/17 Diazepam (DIAZEPAM) 5 Mg Tablet, 1 TAB PO TID Y for SPASMS, #15 TAB 0 Refills Prov:JOSE PERALTA MD 04/22/17 Reviewed Nurses Notes: Yes Old Medical Records Reviewed: Yes (REY JARRELL DO) Hx Smoking: No Smoking Status: Never Smoker Exposure to Second Hand Smoke?: No Hx Substance Use Disorder: No Hx Alcohol Use: No (REY JARRELL DO) Constitutional Vital Sign - Last 24 Hours 06/26/17 06/26/17 06/26/17 06/26/17 05:06 05:15 05:30 05:40 Temp 101.7 Pulse 78 75 57 Resp 20 B/P (MAP) 131/80 111/65 (80) Pulse Ox 98 98 98 O2 Delivery Room Air 06/26/17 06/26/17 06/26/17 06/26/17 05:45 05:50 06:40 06:45 Pulse 64 177 Resp 16 B/P (MAP) 115/63 (80) Pulse Ox 92 100 100 O2 Delivery Nasal Cannula O2 Flow Rate 2.0 2 06/26/17 07:00 B/P (MAP) 119/68 (85) Pulse Ox 100 (JESSICA STOUT MD) Physical Exam Vital signs stable, temperature 101.7 General Appearance: The patient is alert, has no immediate need for airway protection and no current signs of toxicity. Moderate distress HEENT: Pupils equal and round no injection. Oropharynx without redness or exudate, mucous membranes are moist Respiratory: Chest is non tender, lungs are clear to auscultation. Cardiac: regular rate and rhythm Gastrointestinal: Abdomen is soft and non tender, no masses, bowel sounds normal. There is a dressing on the right lateral buttocks area Musculoskeletal: Neck: Neck is supple and non tender. Extremities have full range of motion and are non tender. Right lower extremity neurovascularly intact Skin: No rashes or lesions. DIFFERENTIAL DIAGNOSIS: After history and physical exam differential diagnosis was considered for recurrence of abscess, urinary tract infection (REY JARRELL DO) Medical Decision Making Data Points Result Diagram: 06/26/1752706/26/17527 Laboratory Hematology Test 06/26/17 05:16 06/26/17 05:28 Urine Color Yellow Urine Clarity Clear Urine pH 5.0 pH (4.8-9.5) Urine Specific Holliday 1.019 Urine Protein Negative mg/dL (NEGATIVE) Urine Glucose (UA) Negative mg/dL (NEGATIVE) Urine Ketones Negative mg/dL (NEGATIVE) Urine Blood Negative (NEGATIVE) Urine Nitrite Negative (NEGATIVE) Urine Bilirubin Negative (NEGATIVE) Urine Urobilinogen Negative mg/dL (0.2-1.9) Urine Leukocyte Esterase Negative (NEGATIVE) Urine RBC None /HPF (0-2/HPF) Urine WBC 1 /HPF (0-5/HPF) Urine Squamous Epithelial Cells Few /LPF (</=FEW) Urine Bacteria Negative /HPF (NONE-FEW) Urine Mucus Few /HPF (NONE-FEW) Red Blood Count 3.56 M/uL (4.00-5.60) Mean Corpuscular Volume 84.3 fL (80.0-96.0) Mean Corpuscular Hemoglobin 28.4 pg (26.0-33.0) Mean Corpuscular Hemoglobin Concent 33.7 g/dL (32.0-36.0) Red Cell Distribution Width 16.6 % (11.5-14.5) Mean Platelet Volume 7.0 fL (7.2-11.1) Neutrophils % (Manual) 88 % (39.4-72.5) Lymphocytes % (Manual) 4 % (17.6-49.6) Monocytes % (Manual) 5 % (4.1-12.4) Eosinophils % (Manual) 3 % (0.4-6.7) Basophils % (Manual) 0 % (0.3-1.4) Erythrocyte Sedimentation Rate 48 mm/HOUR (0-20) Sodium Level 134 mmol/L (137-145) Potassium Level 3.9 mmol/L (3.5-5.0) Chloride Level 105 mmol/L (98-107) Carbon Dioxide Level 20 mmol/L (22-30) Blood Urea Nitrogen 27 mg/dl (9-21) Creatinine 1.40 mg/dl (0.66-1.25) Glomerular Filtration Rate Calc 49.1 Random Glucose 84 mg/dl (75-110) Calcium Level 8.4 mg/dl (8.4-10.2) Total Bilirubin 0.3 mg/dl (0.2-1.3) Aspartate Amino Transf (AST/SGOT) 13 U/L (0-35) Alanine Aminotransferase (ALT/SGPT) 33 U/L (0-56) Alkaline Phosphatase 63 U/L (0-126) C-Reactive Protein 5.0 mg/dl (<1.0) Total Protein 6.2 gm/dl (6.3-8.2) Albumin 2.9 g/dl (3.5-5.0) Chemistry Test 06/26/17 05:16 06/26/17 05:28 Urine Color Yellow Urine Clarity Clear Urine pH 5.0 pH (4.8-9.5) Urine Specific Holliday 1.019 Urine Protein Negative mg/dL (NEGATIVE) Urine Glucose (UA) Negative mg/dL (NEGATIVE) Urine Ketones Negative mg/dL (NEGATIVE) Urine Blood Negative (NEGATIVE) Urine Nitrite Negative (NEGATIVE) Urine Bilirubin Negative (NEGATIVE) Urine Urobilinogen Negative mg/dL (0.2-1.9) Urine Leukocyte Esterase Negative (NEGATIVE) Urine RBC None /HPF (0-2/HPF) Urine WBC 1 /HPF (0-5/HPF) Urine Squamous Epithelial Cells Few /LPF (</=FEW) Urine Bacteria Negative /HPF (NONE-FEW) Urine Mucus Few /HPF (NONE-FEW) White Blood Count 10.8 k/uL (4.5-11.0) Red Blood Count 3.56 M/uL (4.00-5.60) Hemoglobin 10.1 g/dL (14.0-18.0) Hematocrit 30.0 % (42.0-52.0) Mean Corpuscular Volume 84.3 fL (80.0-96.0) Mean Corpuscular Hemoglobin 28.4 pg (26.0-33.0) Mean Corpuscular Hemoglobin Concent 33.7 g/dL (32.0-36.0) Red Cell Distribution Width 16.6 % (11.5-14.5) Platelet Count 264 K/uL (150-450) Mean Platelet Volume 7.0 fL (7.2-11.1) Neutrophils % (Manual) 88 % (39.4-72.5) Lymphocytes % (Manual) 4 % (17.6-49.6) Monocytes % (Manual) 5 % (4.1-12.4) Eosinophils % (Manual) 3 % (0.4-6.7) Basophils % (Manual) 0 % (0.3-1.4) Erythrocyte Sedimentation Rate 48 mm/HOUR (0-20) Glomerular Filtration Rate Calc 49.1 Calcium Level 8.4 mg/dl (8.4-10.2) Total Bilirubin 0.3 mg/dl (0.2-1.3) Aspartate Amino Transf (AST/SGOT) 13 U/L (0-35) Alanine Aminotransferase (ALT/SGPT) 33 U/L (0-56) Alkaline Phosphatase 63 U/L (0-126) C-Reactive Protein 5.0 mg/dl (<1.0) Total Protein 6.2 gm/dl (6.3-8.2) Albumin 2.9 g/dl (3.5-5.0) Urinalysis Test 06/26/17 05:16 Urine Color Yellow Urine Clarity Clear Urine pH 5.0 pH (4.8-9.5) Urine Specific Holliday 1.019 Urine Protein Negative mg/dL (NEGATIVE) Urine Glucose (UA) Negative mg/dL (NEGATIVE) Urine Ketones Negative mg/dL (NEGATIVE) Urine Blood Negative (NEGATIVE) Urine Nitrite Negative (NEGATIVE) Urine Bilirubin Negative (NEGATIVE) Urine Urobilinogen Negative mg/dL (0.2-1.9) Urine Leukocyte Esterase Negative (NEGATIVE) Urine RBC None /HPF (0-2/HPF) Urine WBC 1 /HPF (0-5/HPF) Urine Squamous Epithelial Cells Few /LPF (</=FEW) Urine Bacteria Negative /HPF (NONE-FEW) Urine Mucus Few /HPF (NONE-FEW) (JESSICA STOUT MD) EKG/Imaging Imaging X-ray: Single view portable chest x-ray was obtained. I viewed the images myself on the PACS system. My interpretation of the images is: No infiltrate, no effusion, normal mediastinum, there is an intact port in the right internal jugular.. The radiologist interpretation had no clinically significant variation from this interpretation. Results: CT scan of the abdomen and pelvis without contrast was obtained. The results of the study are CT of the abdomen and pelvis without contrast: Indication: Severe right gluteal pain. History of abscess drainage. Technique: Helical CT was performed through the abdomen and pelvis without contrast. Multiplanar reconstructions are reviewed. One of the following dose optimization techniques was utilized in the performance of this exam: Automated exposure control; adjustment of the mA and/ or kV according to the patient's size; or use of an iterative reconstruction technique. Specific details can be referenced in the facility's radiology CT exam operational policy. Comparison: Multiple previous studies, the most recent of which is dated 2017. Lower lung richardson: No parenchymal or pleural abnormality is identified. Liver: Unremarkable and unchanged. Gallbladder/biliary tree: Within normal limits. Pancreas: Unremarkable and unchanged. Spleen: Unremarkable and unchanged. Adrenal glands: Within normal limits. Kidneys/urinary bladder: There are small cysts in left kidney. The kidneys are otherwise unremarkable. There are no signs of obstruction. The bladder is homogeneous and unremarkable. Intestinal structures: No evidence of obstruction or acute interval change. The appendix appears normal. The ileostomy site appears unremarkable and unchanged. Pelvis: A small amount of residual air and fluid are present in the presacral space, without appreciable change from 06/20/2017. No new fluid collections are identified in the deep pelvis, perianal region, or bilateral gluteal regions. Aorta and vascular structures: Stable. Ascites or fluid collections: None seen. Skeletal structures: Stable. Impression: No acute interval change. The study was read by the radiologist. I viewed the images myself on the PACS system. (REY JARRELL DO) ED Course/Re-evaluation Clinical Indication for ER IV: Hydration, IV Access ED Course Patient was admitted to an examination room. H&P was done. The dental diagnoses was considered. Patient with a normal white blood cell count with a left shift. Patient with leg pain and a fever. He has a history of a abscess with history of a drainage catheter that was pulled out a proximal to 2 weeks ago. His pain is recurring. He developed a fever this morning to 101.7. Diagnostic CT is pending. Care signed over to Dr. Stout at shift change with pending CT. Decision to Disposition Date: Jun 26, 2017 Decision to Disposition Time: 07:24 Turned Over The care of the patient was turned over to Dr. Chuckie Jarrell I authorize my typed signature that I authenticated this report. (REY JARRELL DO) ED Course ED clinical course medical decision making 76-year-old male signed out to me by Dr. Jarrell evaluation a CT scan shows no obvious abscess formation but with the bandemia white count shift differential fever we'll start an antibiotic spoke to Gen. surgery will be accepting is a inpatient unclear etiology of his fever pain was managed on here as well as fever management and antibiotics initiated in the emergency department Decision to Disposition Date: Jun 26, 2017 Decision to Disposition Time: 07:30 (JESSICA STOUT MD) Depart Departure Latest Vital Signs Vital Signs Date Time Temp Pulse Resp B/P (MAP) Pulse Ox O2 Delivery O2 Flow Rate FiO2 06/26/17 07:00 119/68 (85) 100 06/26/17 06:45 177 06/26/17 06:40 16 Nasal Cannula 2 06/26/17 05:06 101.7 (JESSICA STOUT MD) Impression: Primary Impression: Fever Additional Impressions: Right leg pain Abscess of male pelvis Rectal adenocarcinoma Renal insufficiency Condition: Improved Disposition: Admitted from ER Referrals: JAKUB WOLF PA-C (PCP) Problem Qualifiers Primary Impression: Fever Fever type: unspecified Qualified Codes: R50.9 - Fever, unspecified REY JARRELL DO Jun 26, 2017 05:08 JESSICA STOUT MD Jun 26, 2017 07:31
[2017-06-26] MEDS ORDERED: HYDROmorphone(ER ONLY) 1 MG/ML IVP ONE (05:20)
[2017-06-26 05:43] LABS: PLATELET COUNT, AUTOMATED 264 K/uL (150-450)
--- NOTE | 2017-06-26 06:55 | RADIOLOGY IMAGING REPORT ---
FACILITY: [facility] - [place] PATIENT NAME: Coral Voss : 1940 MR: [id number] V: [id number] EXAM DATE: ORDERING PHYSICIAN: REY WHITTAKER TECHNOLOGIST: [place] [facility] [place] Coral Voss : 1940 Visit/Account:[id number] Date of Sevice: 06/26/2017 CT of the abdomen and pelvis without contrast: Indication: Severe right gluteal pain. History of abscess drainage. Technique: Helical CT was performed through the abdomen and pelvis without contrast. Multiplanar rec onstructions are reviewed. One of the following dose optimization techniques was utilized in the performance of this exam: Autom ated exposure control; adjustment of the mA and/or kV according to the patient's size; or use of an i terative reconstruction technique. Specific details can be referenced in the facility's radiology C T exam operational policy. Comparison: Multiple previous studies, the most recent of which is dated 06/20/2017. Lower lung richardson: No parenchymal or pleural abnormality is identified. Liver: Unremarkable and unchanged. Gallbladder/biliary tree: Within normal limits. Pancreas: Unremarkable and unchanged. Spleen: Unremarkable and unchanged. Adrenal glands: Within normal limits. Kidneys/urinary bladder: There are small cysts in left kidney. The kidneys are otherwise unremarkable . There are no signs of obstruction. The bladder is homogeneous and unremarkable. Intestinal structures: No evidence of obstruction or acute interval change. The appendix appears norm al. The ileostomy site appears unremarkable and unchanged. Pelvis: A small amount of residual air and fluid are present in the presacral space, without apprecia ble change from 06/20/2017. No new fluid collections are identified in the deep pelvis, perianal regio n, or bilateral gluteal regions. Aorta and vascular structures: Stable. Ascites or fluid collections: None seen. Skeletal structures: Stable. Impression: No acute interval change. Report Dictated By: Saeed Mcrae MD at 06/26/2017 6:38 AM Report E-Signed By: Saeed Mcrae MD at 06/26/2017 6:51 AM WSN:[id number]
[2017-06-26] MEDS ORDERED: ACETAMINOPHEN 500 MG TAB PO ONE (07:25)
[2017-06-26] MEDS ORDERED: ERTAPENEM(*) 1 GM VIAL 1 GM in NS(*) 0.9% 100 ML ADDVANT BAG 100 ML IVPB ONE (07:30)
--- NOTE | 2017-06-26 07:47 | RADIOLOGY IMAGING REPORT ---
FACILITY: [facility] PATIENT NAME: Coral Voss : 1940 MR: [id number] V: [id number] EXAM DATE: ORDERING PHYSICIAN: REY WHITTAKER TECHNOLOGIST: Location: [facility] Patient: Coral Voss : 1940 Visit/Account:[id number] Date of Sevice: 06/26/2017 PORTABLE CHEST: Indication: Fever. Technique: A single frontal film was obtained. Comparison: 02/07/2017 Skeletal and soft tissue structures: There are chronic degenerative changes in the shoulders and spin e. No acute skeletal deformity is identified. Heart and mediastinum: Stable. The port catheter remains in satisfactory position. Lung richardson: Well-expanded and clear. No focal opacity or consolidation is identified. Pleural spaces: Unremarkable. Impression: No acute process. Report Dictated By: Saeed Mcrae MD at 06/26/2017 7:42 AM Report E-Signed By: Saeed Mcrae MD at 06/26/2017 7:44 AM WSN:[id number]
[2017-06-26 08:17] VITALS: BP 117/73
[2017-06-26] MEDS ORDERED: NS(*) 0.9% 1000 ML BAG 1,000 ML IV PRN (08:26)
[2017-06-26] MEDS ORDERED: FLUSH 10 ML SYR IVP PRN (08:30)
[2017-06-26] MEDS ORDERED: ONDANSETRON 4 MG/2 ML VIAL IVP PRN (08:30)
[2017-06-26] MEDS ORDERED: NALOXONE HCL 0.4 MG/ML VIAL IVP PRN (08:30)
[2017-06-26] MEDS ORDERED: ACETAMINOPHEN(*)1000 MG/100 ML 100 ML IVPB SCH (09:00)
[2017-06-26] MEDS: PANTOPRAZOLE SOD 40 MG IV VIAL IVP SCH (09:24)
[2017-06-26] MEDS: ENOXAPARIN 40 MG/0.4ML SYR SC SCH (09:24)
[2017-06-26] MEDS: NS(*) 0.9% 1000 ML BAG 1,000 ML IV PRN (11:50)
[2017-06-26] MEDS ORDERED: KETOROLAC 15 MG/ML VIAL IVP SCH (12:00)
[2017-06-26] MEDS: ACETAMINOPHEN(*)1000 MG/100 ML 100 ML IVPB SCH ×2 (14:42→20:45)
[2017-06-26 15:11] VITALS: BP 109/54
--- NOTE | 2017-06-26 17:28 | Gen Surgery History & Physical ---
History of Present Illness Chief Complaint Severe right sciatica History of Present Illness 76-year-old gentleman, well-known to me as I performed a laparoscopic low anterior resection on him several months ago for a mid rectal cancer. He developed a presacral hematoma and subsequent anastomotic leak and this was treated with presacral drainage and we are allowing the anastomosis to heal before reversing his ileostomy. He had a CT-guided percutaneous drain placed in the presacral space through his right buttock and notes that since the drain was placed he developed right buttock pain with radiation down his right posterior thigh. We removed the drain 2 weeks ago and he noted the pain was improving but then after about a week it started to increase again until it has become unbearable in the last couple of days. This prompted him to come into the emergency department last week and he was admitted to the Hospitalist Service and improved with neurontin and steroids. After discharge, his pain markedly increased and he is now unable to get out of bed. He feels that his right leg is weaker than the left leg. He will occasionally experience right leg pain even when moving his left leg. He has had to resort to walking with a cane and then now shuffling with a walker. He feels better when he puts his weight on his upper extremities using the walker and then he notes the pain in his buttock and right leg decreases. His pain is also minimal when he is laying down. History Problems: (1) Rectal cancer Status: Chronic (2) Hypothyroid Status: Chronic Home Meds Active Scripts Gabapentin (GABAPENTIN) 100 Mg Capsule, 100 MG PO TID, #60 CAPSULE Prov:JOSE PERALTA MD 06/24/17 Oxycodone Hcl/Acet 5/325 Mg (ENDOCET 5-325 TABLET) 1 Each Tablet, 1-2 TAB PO Q4H Y for PAIN, #60 TAB 0 Refills Prov:JOSE PERALTA MD 06/24/17 Reported Medications Levothyroxine Sodium (LEVOTHYROXINE SODIUM) 0.125 Mg Tab, 125 MCG PO DAILY 02/08/17 Vitamin B Complex (VITAMIN B COMPLEX) 1 Each Capsule, 1 EACH PO QDAY, CAPSULE 02/04/17 Multivitamin (MULTI VITAMIN DAILY) 1 Each Tablet, 1 EACH PO 12/19/14 Discontinued Scripts Prednisone (PREDNISONE) 20 Mg Tablet, 40 MG PO QDAY, #3 TAB Prov:OJSE MEJIA DO 06/21/17 Diazepam (DIAZEPAM) 5 Mg Tablet, 1 TAB PO TID Y for SPASMS, #15 TAB 0 Refills Prov:JOSE PERALTA MD 04/22/17 Allergies: Coded Allergies: No Known Drug Allergies (Verified , 06/26/17) Patient History: Patient reports no known family medical history. Review of Systems All Systems Reviewed/Normal: Yes, Except as Noted Exam General Appearance: Alert, Awake, No Acute Distress, Afebrile Neuro: No Gross deficits Eyes: PERRLA GI: Abd Soft and Non-Tender, Other (Stoma is pink and functional) Musculoskeletal: Other (Pain on right buttock adjacent to drain exit site and traveling down posterior right thigh.) Extremities: Warm, Perfused Medical Decision Making Data Points Result Diagram: 06/26/1752706/26/17527 Assessment and Plan Problems: (1) Sciatic pain Status: Chronic Assessment & Plan: 06/26/17: I suspect his pain is related to the drain tract, he probably has infection along the tract since it essentially connects with his rectum. Will admit for pain control and start IV abx. Will plan on transanal exploration of his rectum tomorrow with washout and attempt to close the defect in the rectal anastomosis. Pt is agreeable with this plan. 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 Time Spent: < 30 min Venous Thromboembolism VTE Risk Physician Assess for VTE Risk: Yes Patient's VTE Risk: Low VTE Diagnostic Test 2 Days Prior to Admit: No Antithrombotics Is Pt On Any Antithrombotics?: No Problem Qualifiers (1) Sciatic pain: Laterality: right Qualified Codes: M54.31 - Sciatica, right side JOSE PREALTA MD Jun 26, 2017 17:28
[2017-06-26] MEDS: HYDROmorphone PCA 6 MG/30 ML IV PRN (17:42)
[2017-06-26 19:46] VITALS: BP 154/95
[2017-06-26 22:57] VITALS: BP 118/61
[2017-06-27] VITALS (16 sets, daily range): BP systolic 103–146; BP diastolic 64–75; Ht 177.8 cm; Wt 83.9 kg
[2017-06-27] MEDS: NS(*) 0.9% 1000 ML BAG 1,000 ML IV PRN (02:36)
[2017-06-27] MEDS: ACETAMINOPHEN(*)1000 MG/100 ML 100 ML IVPB SCH ×4 (03:11→21:24)
[2017-06-27 06:58] LABS: PLATELET COUNT, AUTOMATED 265 K/uL (150-450)
--- NOTE | 2017-06-27 07:07 | General Surgery Progress Note ---
Subjective Progress Notes Subjective No new complaints. Continued intermittent "shooting" pains from right buttock down posterior right thigh. Physical Exam Vital Signs Date Time Temp Pulse Resp B/P (MAP) Pulse Ox O2 Delivery O2 Flow Rate FiO2 06/27/17 03:53 16 06/27/17 03:08 99.2 62 127/68 (87) 100 Nasal Cannula 1.0 General Appearance: Alert, Awake, No Acute Distress, Afebrile GI: Soft and Non-Tender Extremities: Warm, Perfused Result Diagram: 06/27/17 0613 06/26/17 0528 Assessment and Plan Problems: (1) Sciatic pain Status: Chronic Assessment & Plan: 06/26/17: I suspect his pain is related to the drain tract, he probably has infection along the tract since it essentially connects with his rectum. Will admit for pain control and start IV abx. Will plan on transanal exploration of his rectum tomorrow with washout and attempt to close the defect in the rectal anastomosis. Pt is agreeable with this plan. 06/27/17: Doing well. Will plan on transanal rectal/anastomosis exploration with possible washout and suture repair of the anastomosis this afternoon. 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 Time Spent: < 30 min Exam Sepsis Risk: No Definite Risk Problem Qualifiers (1) Sciatic pain: Laterality: right Qualified Codes: M54.31 - Sciatica, right side JOSE PERALTA MD Jun 27, 2017 07:06
[2017-06-27] MEDS ORDERED: ERTAPENEM(*) 1 GM VIAL 1 GM in NS(*) 0.9% 100 ML ADDVANT BAG 100 ML IVPB SCH (09:00)
[2017-06-27] MEDS: PANTOPRAZOLE SOD 40 MG IV VIAL IVP SCH (09:21)
[2017-06-27] MEDS ORDERED: NORMOSOL R SOLN(*) 1000 ML BAG 1,000 ML IV ONE ×2 (12:35→18:07)
[2017-06-27] MEDS: HYDROmorphone PCA 6 MG/30 ML IV PRN (13:56)
[2017-06-27] MEDS ORDERED: LIDOCAINE/SOD BICARB 8.4% SYR ONE (14:17)
[2017-06-27] MEDS ORDERED: ROCURONIUM BROM 10 MG/ML 5 ML ONE (16:00)
[2017-06-27] MEDS ORDERED: DEXAMETHASONE SOD PHOS 10MG/ML ONE (16:00)
[2017-06-27] MEDS ORDERED: DEXMEDETOMIDINE IV ONE (16:00)
[2017-06-27] MEDS ORDERED: SUGAMMADEX SOD 500 MG/5 ML SDV ONE (16:00)
[2017-06-27] MEDS ORDERED: ONDANSETRON 4 MG/2 ML VIAL ONE (16:00)
[2017-06-27] MEDS ORDERED: NACL IV ONE (16:00)
[2017-06-27] MEDS ORDERED: BELLADONNA ALK/OPIUM 60MG SUPP PR ONE (16:38)
--- NOTE | 2017-06-27 17:33 | Post Operative Progress Note ---
Post Operative Progress Note Date: Jun 27, 2017 Time: 17:25 Surgeon: Damon Dictation number: [id number] Anesthesia: LMA by Dr. Ortiz Pre-Op Diagnosis: Rectal anastomotic leak Post-Op Diagnosis: SYLVIA Findings: C/W dx Procedure(s): Flexible proctoscopy TAMIS rectal exploration Specimen Removed:(May be N/A): None Complications: None Fluids: See anesthesia record Estimated Blood Loss: Minimal Date OP Note Dictated: Jun 27, 2017 Time OP Note Dictated: 17:27 JOSE PERALTA MD Jun 27, 2017 17:33
[2017-06-27] MEDS ORDERED: NS 0.9% IRRIGATION 1000ML PLCT IR ONE (18:09)
[2017-06-27] MEDS ORDERED: LIDOCAINE 5% PATCH TP SCH ×2 (21:00→21:15)
--- NOTE | 2017-06-27 21:42 | OPERATIVE REPORT 1 ---
EVENT DATE: June 27, 2017 SURGEON: Mateus Jose MD ANESTHESIOLOGIST: Lyle Ortiz MD ANESTHESIA: LMA. PREOPERATIVE DIAGNOSES 1. Rectal cancer. 2. Rectal anastomotic leak. POSTOPERATIVE DIAGNOSES 1. Rectal cancer. 2. Rectal anastomotic leak. PROCEDURES PERFORMED 1. Flexible proctoscopy. 2. Transanal minimally invasive surgery, rectal exploration. COMPLICATIONS None. CONDITION Stable. BLOOD LOSS Minimal. FINDINGS The patient has an anastomotic defect on the posterior side. The rest of the anastomosis is open, and I could easily get into the colon above the anastomosis. 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 INDICATIONS This is a 76-year-old gentleman who I found to have a rectal cancer on colonoscopy last year, and he underwent neoadjuvant chemo and radiation therapy , followed by a laparoscopic low anterior resection with a diverting loop ileostomy. He developed a presacral hematoma which evolved into an abscess which was percutaneously drained through his right buttock and the obturator foramen. We have been following this and waiting for it to heal before reversing his loop ileostomy. He was admitted to the hospital with severe right buttock and posterior thigh consistent with sciatica, which I think is due to where the drain was placed and probably inflammation along the drain tract which is causing a reactive inflammation of his sciatic nerve. While he was here, I asked him if I could take a look in his rectum and see if there is any way to sew the defect shut if it is still present, which it appears to be present on the most CTs. DESCRIPTION OF PROCEDURE The patient was brought to the operating room and placed supine on the operating table. LMA anesthesia was administered, and his legs were placed in candy cane stirrups. I inserted the colonoscope into his rectum and inspected the anastomosis. I saw the posterior defect as well as the lumen, and I went past the anastomosis into the colon, and the colon looked relatively normal. The rectum looked inflamed, consistent with proctitis. I then removed the colonoscope and inserted an anal speculum, but the anastomosis was too far up for me to really do anything through an anal speculum. At this point, we opened up the TAMIS port, and I was able to insert with a little difficulty the TAMIS port through his anus into his rectum, and I secured it to his skin with 0 silk sutures. I then placed the ports through the cap and then applied the cap to the cannula and insufflated the rectum. I then attempted to see if there was enough space to sew the defect shut, but there simply was not enough space. We then used a smaller needle with a 3-0 silk suture, but could not find enough space to sew the defect shut this way. I aborted the procedure and removed the TAMIS port. The patient was awakened, LMA removed, and he was brought to the recovery room in stable condition. NEREYDA
[2017-06-28] VITALS (7 sets, daily range): BP systolic 110–137; BP diastolic 61–77
[2017-06-28] MEDS: ACETAMINOPHEN(*)1000 MG/100 ML 100 ML IVPB SCH (03:04)
--- NOTE | 2017-06-28 08:23 | General Surgery Progress Note ---
Subjective Progress Notes Subjective Feeling better this morning. No pain at the moment. Physical Exam Vital Signs Date Time Temp Pulse Resp B/P (MAP) Pulse Ox O2 Delivery O2 Flow Rate FiO2 06/28/17 07:20 95 Nasal Cannula 0.5 06/28/17 07:20 98.2 81 16 137/77 (97) Intake and Output 06/29/17 07:00 Output Total 150 ml Balance -150 ml Output Urine Total 150 ml General Appearance: Alert, Awake, No Acute Distress, Afebrile GI: Soft and Non-Tender Extremities: Warm, Perfused Result Diagram: 06/27/17 0613 06/27/17 0614 Assessment and Plan Problems: (1) Sciatic pain Status: Chronic Assessment & Plan: 06/26/17: I suspect his pain is related to the drain tract, he probably has infection along the tract since it essentially connects with his rectum. Will admit for pain control and start IV abx. Will plan on transanal exploration of his rectum tomorrow with washout and attempt to close the defect in the rectal anastomosis. Pt is agreeable with this plan. 06/27/17: Doing well. Will plan on transanal rectal/anastomosis exploration with possible washout and suture repair of the anastomosis this afternoon. 06/28/17: Doing much better. Will convert to PO meds, PT/OT today, home tomorrow if pain controlled and he does well with PT/OT today. 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 Time Spent: < 30 min Exam Sepsis Risk: No Definite Risk Problem Qualifiers (1) Sciatic pain: Laterality: right Qualified Codes: M54.31 - Sciatica, right side JOSE PERALTA MD Jun 28, 2017 08:23
[2017-06-28] MEDS ORDERED: LEVOTHYROXINE SOD 0.125 MG TAB PO SCH (09:00)
[2017-06-28] MEDS ORDERED: PATCH REMOVAL 1 EA TP SCH ×3 (09:00→21:00)
[2017-06-28] MEDS: GABAPENTIN 100 MG CAP PO SCH ×3 (09:44→21:24)
[2017-06-28] MEDS ORDERED: LIDOCAINE 5% PATCH TP ONE (11:35)
[2017-06-28] MEDS ORDERED: LIDOCAINE 5% PATCH TP SCH (21:00)
[2017-06-28] MEDS: PATCH REMOVAL 1 EA TP SCH (21:00)
[2017-06-29 05:17] VITALS: BP 123/74
[2017-06-29] MEDS: LEVOTHYROXINE SOD 0.125 MG TAB PO SCH (05:46)
[2017-06-29 07:23] VITALS: BP 140/78
--- NOTE | 2017-06-29 08:36 | General Surgery Progress Note ---
Subjective Progress Notes Subjective Pain this AM in right hip. Physical Exam Vital Signs Date Time Temp Pulse Resp B/P (MAP) Pulse Ox O2 Delivery O2 Flow Rate FiO2 06/29/17 07:46 97 06/29/17 07:23 Nasal Cannula 1.0 06/29/17 07:23 97.8 65 12 140/78 (98) Intake and Output 06/30/17 07:00 Intake Total 120 ml Output Total 475 ml Balance -355 ml Intake Oral 120 ml Output Urine Total 275 ml Stool Total 200 ml General Appearance: Alert, Awake (appears uncomfortable) Neuro: No Gross deficits ENT: Normal, Moist Mucous Membranes Cardiovascular: Normal Rhythm & Peripheral Pulses Respiratory: No Respiratory Distress, Clear to Auscultation GI: Soft and Non-Tender (Ileostomy intact, viable) Musculoskeletal: No Weakness/Pain Extremities: Soft and Non Tender, Warm Integumentary: Skin Intact without Lesion / Mass Psych: Alert & Oriented X3, Appropriate Mood & Affect Result Diagram: 06/27/1713 06/27/17613 Assessment and Plan Problems: (1) Sciatic pain Status: Chronic Assessment & Plan: 06/26/17: I suspect his pain is related to the drain tract, he probably has infection along the tract since it essentially connects with his rectum. Will admit for pain control and start IV abx. Will plan on transanal exploration of his rectum tomorrow with washout and attempt to close the defect in the rectal anastomosis. Pt is agreeable with this plan. 06/27/17: Doing well. Will plan on transanal rectal/anastomosis exploration with possible washout and suture repair of the anastomosis this afternoon. 06/28/17: Doing much better. Will convert to PO meds, PT/OT today, home tomorrow if pain controlled and he does well with PT/OT today. 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
[2017-06-29] MEDS: GABAPENTIN 100 MG CAP PO SCH ×3 (09:24→21:08)
[2017-06-29] MEDS: LIDOCAINE 5% PATCH TP SCH (09:26)
[2017-06-29] MEDS ORDERED: HYDROmorphone HCL 2 MG/ML SDV IVP ONE (10:50)
[2017-06-29 11:18] VITALS: BP 143/79
[2017-06-29 11:18] LABS: PLATELET COUNT, AUTOMATED 299 K/uL (150-450)
[2017-06-29 15:43] VITALS: BP 136/91
[2017-06-29 19:37] VITALS: BP 115/77
[2017-06-29] MEDS: PATCH REMOVAL 1 EA TP SCH (21:08)
[2017-06-29] MEDS: oxyCODONE HCL 5 MG CAP PO PRN (21:17)
[2017-06-29 23:31] VITALS: BP 117/80
[2017-06-30] MEDS: ACETAMINOPHEN 500 MG TAB PO SCH ×3 (00:54→16:45)
[2017-06-30 03:39] VITALS: BP 132/81
[2017-06-30] MEDS: LEVOTHYROXINE SOD 0.125 MG TAB PO SCH (06:00)
[2017-06-30 06:27] VITALS: BP 123/84
[2017-06-30] MEDS: oxyCODONE HCL 5 MG CAP PO PRN ×4 (07:09→22:01)
--- NOTE | 2017-06-30 08:22 | General Surgery Progress Note ---
Subjective Progress Notes Subjective Feeling better, pain better controlled. Stood at edge of bed last evening, but no walking. Physical Exam Vital Signs Date Time Temp Pulse Resp B/P (MAP) Pulse Ox O2 Delivery O2 Flow Rate FiO2 06/30/17 07:21 95 06/30/17 07:10 Nasal Cannula 1.0 06/30/17 06:27 98.8 66 14 123/84 (97) Intake and Output 07/01/17 07:00 Intake Total 120 ml Output Total 450 ml Balance -330 ml Intake Oral 120 ml Output Urine Total 300 ml Stool Total 150 ml General Appearance: Alert, Awake, No Acute Distress Cardiovascular: Normal Rhythm & Peripheral Pulses Respiratory: No Respiratory Distress GI: Soft and Non-Tender (Ileostomy viable, functioning. ) : No CVA Tenderness Extremities: Soft and Non Tender Integumentary: Skin Intact without Lesion / Mass Psych: Alert & Oriented X3, Appropriate Mood & Affect Result Diagram: 06/29/17 1110 06/27/17 0614 Assessment and Plan Problems: (1) Sciatic pain Status: Chronic Assessment & Plan: 06/26/17: I suspect his pain is related to the drain tract, he probably has infection along the tract since it essentially connects with his rectum. Will admit for pain control and start IV abx. Will plan on transanal exploration of his rectum tomorrow with washout and attempt to close the defect in the rectal anastomosis. Pt is agreeable with this plan. 06/27/17: Doing well. Will plan on transanal rectal/anastomosis exploration with possible washout and suture repair of the anastomosis this afternoon. 06/28/17: Doing much better. Will convert to PO meds, PT/OT today, home tomorrow if pain controlled and he does well with PT/OT today. 06/29/2017: Rough day yesterday, but feeling better today. Continue gabapentin , scheduled tylenol, prn oxy. Will see how he does with PT/OT today. 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
[2017-06-30] MEDS: GABAPENTIN 100 MG CAP PO SCH ×3 (08:45→20:38)
[2017-06-30] MEDS: LIDOCAINE 5% PATCH TP SCH (09:06)
[2017-06-30 11:35] VITALS: BP 128/78
[2017-06-30 15:05] VITALS: BP 117/65
[2017-06-30 19:39] VITALS: BP 118/65
[2017-06-30] MEDS: PATCH REMOVAL 1 EA TP SCH (20:39)
[2017-06-30 23:24] VITALS: BP 98/59
[2017-07-01] MEDS: ACETAMINOPHEN 500 MG TAB PO SCH ×3 (01:14→17:04)
[2017-07-01 03:26] VITALS: BP 99/76
[2017-07-01] MEDS: LEVOTHYROXINE SOD 0.125 MG TAB PO SCH (05:32)
[2017-07-01] MEDS: oxyCODONE HCL 5 MG CAP PO PRN ×2 (07:14→11:30)
[2017-07-01 07:22] VITALS: BP 113/71
--- NOTE | 2017-07-01 07:59 | General Surgery Progress Note ---
Subjective Progress Notes Subjective Still having too much right buttock/hip/posterior thigh pain to ambulate. Physical Exam Vital Signs Date Time Temp Pulse Resp B/P (MAP) Pulse Ox O2 Delivery O2 Flow Rate FiO2 07/01/17 07:28 96 Nasal Cannula 0.5 07/01/17 07:22 98.1 18 113/71 (85) 07/01/17 03:26 59 General Appearance: Alert, Awake, No Acute Distress, Afebrile GI: Soft and Non-Tender Musculoskeletal: Other (Right buttock TTP) Extremities: Warm, Perfused Result Diagram: 06/29/17 1110 06/27/17 0614 Assessment and Plan Problems: (1) Sciatic pain Status: Chronic Assessment & Plan: 06/26/17: I suspect his pain is related to the drain tract, he probably has infection along the tract since it essentially connects with his rectum. Will admit for pain control and start IV abx. Will plan on transanal exploration of his rectum tomorrow with washout and attempt to close the defect in the rectal anastomosis. Pt is agreeable with this plan. 06/27/17: Doing well. Will plan on transanal rectal/anastomosis exploration with possible washout and suture repair of the anastomosis this afternoon. 06/28/17: Doing much better. Will convert to PO meds, PT/OT today, home tomorrow if pain controlled and he does well with PT/OT today. 06/29/2017: Rough day yesterday, but feeling better today. Continue gabapentin , scheduled tylenol, prn oxy. Will see how he does with PT/OT today. 07/01/17: Will increase neurontin to 300mg tid today and will start IV steroids since he seemed to respond to these during his last hospitalization. He can go home when he's able to ambulate. 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 Time Spent: < 30 min Exam Sepsis Risk: No Definite Risk Problem Qualifiers (1) Sciatic pain: Laterality: right Qualified Codes: M54.31 - Sciatica, right side JOSE PERALTA MD Jul 01, 2017 07:59
[2017-07-01] MEDS: GABAPENTIN 300 MG CAP PO SCH ×3 (09:38→20:33)
[2017-07-01] MEDS: HYDROCORTISONE 100 MG/2 ML IVP SCH ×2 (09:41→17:05)
[2017-07-01] MEDS: LIDOCAINE 5% PATCH TP SCH (09:42)
[2017-07-01] MEDS: FAMOTIDINE 20 MG TAB PO SCH ×2 (09:42→20:33)
[2017-07-01 11:07] VITALS: BP 115/72
[2017-07-01 15:49] VITALS: BP 114/85
[2017-07-01 19:16] VITALS: BP 117/64
[2017-07-01] MEDS: PATCH REMOVAL 1 EA TP SCH (20:32)
[2017-07-01 23:36] VITALS: BP 127/73
[2017-07-02] MEDS: HYDROCORTISONE 100 MG/2 ML IVP SCH (00:55)
[2017-07-02] MEDS: ACETAMINOPHEN 500 MG TAB PO SCH (00:55)
[2017-07-02] MEDS: LEVOTHYROXINE SOD 0.125 MG TAB PO SCH (06:09)
[2017-07-02 07:05] VITALS: BP 138/104
[2017-07-02 07:28] VITALS: BP 143/79
--- NOTE | 2017-07-02 07:43 | General Surgery Progress Note ---
Subjective Progress Notes Subjective Feeling pretty good this morning. Sciatica pain much better on steroids. Physical Exam Vital Signs Date Time Temp Pulse Resp B/P (MAP) Pulse Ox O2 Delivery O2 Flow Rate FiO2 07/02/17 07:30 92 07/02/17 07:28 143/79 (100) 07/02/17 07:24 Room Air 07/02/17 07:10 12 07/02/17 07:05 97.6 63 General Appearance: Alert, Awake, No Acute Distress, Afebrile GI: Soft and Non-Tender Extremities: Warm, Perfused Result Diagram: 06/29/17 1110 Assessment and Plan Problems: (1) Sciatic pain Status: Chronic Assessment & Plan: 06/26/17: I suspect his pain is related to the drain tract, he probably has infection along the tract since it essentially connects with his rectum. Will admit for pain control and start IV abx. Will plan on transanal exploration of his rectum tomorrow with washout and attempt to close the defect in the rectal anastomosis. Pt is agreeable with this plan. 06/27/17: Doing well. Will plan on transanal rectal/anastomosis exploration with possible washout and suture repair of the anastomosis this afternoon. 06/28/17: Doing much better. Will convert to PO meds, PT/OT today, home tomorrow if pain controlled and he does well with PT/OT today. 06/29/2017: Rough day yesterday, but feeling better today. Continue gabapentin , scheduled tylenol, prn oxy. Will see how he does with PT/OT today. 07/01/17: Will increase neurontin to 300mg tid today and will start IV steroids since he seemed to respond to these during his last hospitalization. He can go home when he's able to ambulate. 07/02/17: Doing much better. Will convert IV hydrocortisone to po prednisone today and we'll see how he does with this. If he does well then will plan on d/ c to home tomorrow with outpatient steroids. 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 Time Spent: < 30 min Exam Sepsis Risk: No Definite Risk Problem Qualifiers (1) Sciatic pain: Laterality: right Qualified Codes: M54.31 - Sciatica, right side JOSE PERALTA MD Jul 02, 2017 07:43
[2017-07-02] MEDS ORDERED: predniSONE 20 MG TAB PO SCH (09:00)
[2017-07-02] MEDS: FAMOTIDINE 20 MG TAB PO SCH ×2 (09:02→20:54)
[2017-07-02] MEDS: GABAPENTIN 300 MG CAP PO SCH ×3 (09:03→20:54)
[2017-07-02] MEDS: LIDOCAINE 5% PATCH TP SCH (09:04)
[2017-07-02] MEDS: ENOXAPARIN 40 MG/0.4ML SYR SC SCH (09:09)
[2017-07-02 10:56] VITALS: BP 118/70
[2017-07-02] MEDS: oxyCODONE HCL 5 MG CAP PO PRN (12:11)
[2017-07-02 15:16] VITALS: BP 122/79
[2017-07-02 20:00] VITALS: BP 123/72
[2017-07-02] MEDS: PATCH REMOVAL 1 EA TP SCH (20:54)
[2017-07-02 23:49] VITALS: BP 120/64
[2017-07-03 03:45] VITALS: BP 141/68
[2017-07-03] MEDS: LEVOTHYROXINE SOD 0.125 MG TAB PO SCH (05:34)
[2017-07-03] MEDS: oxyCODONE HCL 5 MG CAP PO PRN ×4 (07:31→20:46)
[2017-07-03 07:32] VITALS: BP 136/79
--- NOTE | 2017-07-03 08:35 | General Surgery Progress Note ---
Subjective Progress Notes Subjective No new complaints. Pain continues to improve but goes up to about 6-7/10 when transferring from bed to chair this morning. Physical Exam Vital Signs Date Time Temp Pulse Resp B/P (MAP) Pulse Ox O2 Delivery O2 Flow Rate FiO2 07/03/17 07:39 95 07/03/17 07:39 Room Air 07/03/17 07:32 97.2 65 18 136/79 (98) 07/02/17 08:29 1.0 General Appearance: Alert, Awake, No Acute Distress, Afebrile GI: Soft and Non-Tender Extremities: Warm, Perfused Result Diagram: 06/29/17 1110 Assessment and Plan Problems: (1) Sciatic pain Status: Chronic Assessment & Plan: 06/26/17: I suspect his pain is related to the drain tract, he probably has infection along the tract since it essentially connects with his rectum. Will admit for pain control and start IV abx. Will plan on transanal exploration of his rectum tomorrow with washout and attempt to close the defect in the rectal anastomosis. Pt is agreeable with this plan. 06/27/17: Doing well. Will plan on transanal rectal/anastomosis exploration with possible washout and suture repair of the anastomosis this afternoon. 06/28/17: Doing much better. Will convert to PO meds, PT/OT today, home tomorrow if pain controlled and he does well with PT/OT today. 06/29/2017: Rough day yesterday, but feeling better today. Continue gabapentin , scheduled tylenol, prn oxy. Will see how he does with PT/OT today. 07/01/17: Will increase neurontin to 300mg tid today and will start IV steroids since he seemed to respond to these during his last hospitalization. He can go home when he's able to ambulate. 07/02/17: Doing much better. Will convert IV hydrocortisone to po prednisone today and we'll see how he does with this. If he does well then will plan on d/ c to home tomorrow with outpatient steroids. 07/03/17: Continued improvement. Will see how he does with PT/OT this morning and if OK then will d/c to home with o/p steroids and home RN and PT. 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 Time Spent: < 30 min Exam Sepsis Risk: No Definite Risk Problem Qualifiers (1) Sciatic pain: Laterality: right Qualified Codes: M54.31 - Sciatica, right side JOSE PERALTA MD Jul 03, 2017 08:35
[2017-07-03] MEDS: GABAPENTIN 300 MG CAP PO SCH ×3 (08:57→20:46)
[2017-07-03] MEDS: FAMOTIDINE 20 MG TAB PO SCH ×2 (08:58→20:46)
[2017-07-03] MEDS: LIDOCAINE 5% PATCH TP SCH (08:58)
[2017-07-03] MEDS: ENOXAPARIN 40 MG/0.4ML SYR SC SCH (08:58)
[2017-07-03] MEDS ORDERED: predniSONE 20 MG TAB PO SCH (09:00)
[2017-07-03] MEDS: ACETAMINOPHEN 325 MG TAB PO PRN (10:25)
[2017-07-03 11:15] VITALS: BP 105/65
--- NOTE | 2017-07-03 15:15 | Miscellaneous Provider Note ---
Miscellaneous Provider Note Note I checked and on Coral and he reports having a difficult time ambulating this morning with physical therapy area he still is in a lot of pain although feels that he continues to improve. He is very nervous about going home as he still feels that he isn't too much pain to independently ambulate. I have spoken a physical therapy who agrees that he could benefit from further physical therapy. I will ask for an ECF evaluation and see if we can continue physical therapy upstairs in the extended care facility. Coral is a very high risk for readmission to the hospital unless we make sure that he is truly ready for discharge to home. He is agreeable with this plan. JOSE PERALTA MD Jul 03, 2017 15:15
[2017-07-03 15:40] VITALS: BP 129/66
[2017-07-03] MEDS ORDERED: predniSONE 10 MG TAB PO ONE (17:30)
[2017-07-03 19:44] VITALS: BP 123/74
[2017-07-04 00:10] VITALS: BP 151/72
[2017-07-04] MEDS: oxyCODONE HCL 5 MG CAP PO PRN ×3 (04:52→14:13)
[2017-07-04 04:53] VITALS: BP 140/83
[2017-07-04] MEDS: LEVOTHYROXINE SOD 0.125 MG TAB PO SCH (06:04)
--- NOTE | 2017-07-04 07:17 | General Surgery Progress Note ---
Subjective Progress Notes Subjective Pt without complaints this morning but he hasn't yet gotten out of bed or ambulated. Physical Exam Vital Signs Date Time Temp Pulse Resp B/P (MAP) Pulse Ox O2 Delivery O2 Flow Rate FiO2 07/04/17 04:53 98.1 66 16 140/83 (102) 95 Room Air 07/02/17 08:29 1.0 General Appearance: Alert, Awake, No Acute Distress, Afebrile GI: Soft and Non-Tender Extremities: Warm, Perfused Assessment and Plan Problems: (1) Sciatic pain Status: Chronic Assessment & Plan: 06/26/17: I suspect his pain is related to the drain tract, he probably has infection along the tract since it essentially connects with his rectum. Will admit for pain control and start IV abx. Will plan on transanal exploration of his rectum tomorrow with washout and attempt to close the defect in the rectal anastomosis. Pt is agreeable with this plan. 06/27/17: Doing well. Will plan on transanal rectal/anastomosis exploration with possible washout and suture repair of the anastomosis this afternoon. 06/28/17: Doing much better. Will convert to PO meds, PT/OT today, home tomorrow if pain controlled and he does well with PT/OT today. 06/29/2017: Rough day yesterday, but feeling better today. Continue gabapentin , scheduled tylenol, prn oxy. Will see how he does with PT/OT today. 07/01/17: Will increase neurontin to 300mg tid today and will start IV steroids since he seemed to respond to these during his last hospitalization. He can go home when he's able to ambulate. 07/02/17: Doing much better. Will convert IV hydrocortisone to po prednisone today and we'll see how he does with this. If he does well then will plan on d/ c to home tomorrow with outpatient steroids. 07/03/17: Continued improvement. Will see how he does with PT/OT this morning and if OK then will d/c to home with o/p steroids and home RN and PT. 07/04/17: Still with significant pain during ambulation. I have asked for an ECF eval so he can continue skilled rehab to minimize the chance of readmission after discharge. If approved, he can go to ECF today. 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 Time Spent: < 30 min Exam Sepsis Risk: No Definite Risk Problem Qualifiers (1) Sciatic pain: Laterality: right Qualified Codes: M54.31 - Sciatica, right side JOSE PERALTA MD Jul 04, 2017 07:17
[2017-07-04] MEDS: GABAPENTIN 300 MG CAP PO SCH ×2 (08:15→13:23)
[2017-07-04] MEDS: ACETAMINOPHEN 325 MG TAB PO PRN (08:16)
[2017-07-04] MEDS: ENOXAPARIN 40 MG/0.4ML SYR SC SCH (08:16)
[2017-07-04] MEDS: FAMOTIDINE 20 MG TAB PO SCH (08:16)
[2017-07-04 08:37] VITALS: BP 113/79
[2017-07-04] MEDS ORDERED: HEPARIN FLSH (PORT) 500 UN/5ML ONE (08:51)
[2017-07-04] MEDS ORDERED: predniSONE 20 MG TAB PO SCH (09:00)
[2017-07-04 10:39] VITALS: BP 137/70
--- NOTE | 2017-07-04 13:55 | Short(Outpt) Discharge Summary ---
Discharge Summary Reason for Hosp/Final Diag: (1) Sciatic pain Status: Chronic Hospital Course & Plan: 06/26/17: I suspect his pain is related to the drain tract, he probably has infection along the tract since it essentially connects with his rectum. Will admit for pain control and start IV abx. Will plan on transanal exploration of his rectum tomorrow with washout and attempt to close the defect in the rectal anastomosis. Pt is agreeable with this plan. 06/27/17: Doing well. Will plan on transanal rectal/anastomosis exploration with possible washout and suture repair of the anastomosis this afternoon. 06/28/17: Doing much better. Will convert to PO meds, PT/OT today, home tomorrow if pain controlled and he does well with PT/OT today. 06/29/2017: Rough day yesterday, but feeling better today. Continue gabapentin , scheduled tylenol, prn oxy. Will see how he does with PT/OT today. 07/01/17: Will increase neurontin to 300mg tid today and will start IV steroids since he seemed to respond to these during his last hospitalization. He can go home when he's able to ambulate. 07/02/17: Doing much better. Will convert IV hydrocortisone to po prednisone today and we'll see how he does with this. If he does well then will plan on d/ c to home tomorrow with outpatient steroids. 07/03/17: Continued improvement. Will see how he does with PT/OT this morning and if OK then will d/c to home with o/p steroids and home RN and PT. 07/04/17: Still with significant pain during ambulation. I have asked for an ECF eval so he can continue skilled rehab to minimize the chance of readmission after discharge. If approved, he can go to ECF today. 07/04/17: Pt has been accepted to ECF. Will transfer to ECF today for continued rehabilitation. 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 Departure Discharge to: [facility] E[facility] Discharge Instructions Home Meds Active Scripts Gabapentin (GABAPENTIN) 100 Mg Capsule, 100 MG PO TID, #60 CAPSULE Prov:JOSE PERALTA MD 06/24/17 Oxycodone Hcl/Acet 5/325 Mg (ENDOCET 5-325 TABLET) 1 Each Tablet, 1-2 TAB PO Q4H Y for PAIN, #60 TAB 0 Refills Prov:JOSE PERALTA MD 06/24/17 Reported Medications Levothyroxine Sodium (LEVOTHYROXINE SODIUM) 0.125 Mg Tab, 125 MCG PO DAILY 02/08/17 Vitamin B Complex (VITAMIN B COMPLEX) 1 Each Capsule, 1 EACH PO QDAY, CAPSULE 02/04/17 Multivitamin (MULTI VITAMIN DAILY) 1 Each Tablet, 1 EACH PO 12/19/14 Diet: Regular Activity: As Tolerated, With Walker Special Instructions: Problem Qualifiers (1) Sciatic pain: Laterality: right Qualified Codes: M54.31 - Sciatica, right side JOSE PERALTA MD Jul 04, 2017 13:55
== END 2017-07-04 14:20 | DRG 552 ==
LOC: ER 05:09 → MED 07:43
PROVIDERS: ADMIT Surgery; ATTEND Surgery
PROC: 0DJD8ZZ Inspection of Lower Intestinal Tract, Via Natural or Artificial Opening Endoscopic (ICD-10-PCS; principal; 2017-06-27 15:58)
DX: M54.31 Sciatica, right side (principal); K91.89 Other postprocedural complications and disorders of digestive system; E03.9 Hypothyroidism, unspecified; I10 Essential (primary) hypertension; C26.0 Malignant neoplasm of intestinal tract, part unspecified; K62.89 Other specified diseases of anus and rectum; M16.0 Bilateral primary osteoarthritis of hip; M19.011 Primary osteoarthritis, right shoulder; M19.012 Primary osteoarthritis, left shoulder; M62.81 Muscle weakness (generalized); Z93.2 Ileostomy status; Z92.21 Personal history of antineoplastic chemotherapy; Z92.3 Personal history of irradiation
CPT/HCPCS: 36415; 71045; 74176; 81001; 82040; 82247; 82310; 82374; 82435; 82565; 82947; 84075; 84132; 84155; 84295; 84450; 84460; 84520; 85007; 85025; 85027; 85651; 86140; 87040; 87088; 96365; 96375; 97161; 97165; 99285; C9113; J0131; J1100; J1170; J1335; J1642; J1650; J1720; J2001; J2405; J2704; J3010; J7030; J7050; J7512

== ENCOUNTER → 2017-06-26 | Outpatient (CLI) | payer MEDICARE ==
[~2017-06-26] MED LIST changes: +FAMO-67 PO; +GABA-547 PO; +GABA-549 PO; +OXYC5TAB38 PO; +PRED20TA6 PO
[2017-06-27 11:46] VITALS: BMI 26.5
== END ==
LOC: AMB 04:30
PROVIDERS: ATTEND Nurse Practitioner
DX: M25.551 Pain in right hip (principal)
CPT/HCPCS: A0425; A0427

== ENCOUNTER 2017-07-04 14:20 | Inpatient (IN) | payer MEDICARE ==
[2017-06-27 11:46] VITALS: Ht 177.8 cm; Wt 83.9 kg
[~2017-07-04] VITALS: Ht 177.8 cm; Wt 83.9 kg
[2017-07-04 14:40] VITALS: BP 144/69
[2017-07-04] MEDS ORDERED: ONDANSETRON 4 MG/2 ML VIAL IVP PRN (14:56)
[2017-07-04] MEDS ORDERED: FLUSH 10 ML SYR IVP PRN (14:56)
--- NOTE | 2017-07-04 16:01 | OT ECF NOTE ---
Type of Note: Initial Note Primary Medical Diagnosis: Weakness s/p R LE pain Occupational Therapy Evaluation Date: 07/04/17 SUBJECTIVE: Prior Hospitalization: [facility] 06/26/17 thru 07/04/17 with previous admission thru 06/21/17. Prior Level of Function: (I) with ADLs. Assist from spouse for IADLs. Prior Living Status: Multilevel house, Spouse Community Services: Support adequate Home health care No known needs Home Accessibility: Stairs with rails Tub/shower combination Equipment Owned: Front wheeled walker Cane Medical Complications/Past Medical History: Please refer to EMR. Psychosocial Support: Supportive spouse. Pain Scale (0-10): 06/15 upon initial evaluation OBJECTIVE: Strength: MMT: Right Left Shoulder Flexion WFL WFL Elbow Flexion WFL WFL Wrist Extension WFL WFL Fulfillment Mail Clerk WFL WFL (5= normal, 4= good, 3= fair, 2= poor, 1= trace) ROM: Both upper extremities, WFL Sensation: Intact, No concerns Functional Transfer: Assistive Device: Front wheeled walker, Gait belt Transfer Ability: SBA ADL: Upper body dressing: Assistive device: Upper body dressing ability: N/T Lower body dressing: Assistive device: Lower body dressing ability: SBA Toileting: Assistive device: Toileting ability: SBA Grooming/hygiene: Assistive device: Grooming ability: N/T Bathing: Assistive device: Bathing ability: N/T ASSESSMENT: Coral presents to [facility] with significant pain limiting safe and consistent engagement in ADLs/IADLs. Encouraged pt to discuss goals and pt reports he is detention to where he believes he needs to be for a safe discharge home. He will benefit from skilled OT services to improve strength and endurance for engagement in ADLs. He will also benefit from receiving appropriate resources and AE recommendations to ensure a safe discharge home. Problem List/Current Limitations: Pain Short Term Goals: 1) Pt will be Mod (I) tub transfer. 2) Pt will be (I) UB HEP. 3) Pt will be Mod (I) UB/LB dressing. Foot Miter Operator Goals: Return home with assist from spouse and services Patient Goals: "Be able to take care of myself" Rehabilitation Prognosis: Good Barriers to Discharge: Pain, PLAN: The patient will benefit from skilled occupational therapy services 5 times per week for 2 weeks including: Ther ex ADL training Safety training Ther act IADL training Transfer training Adaptive equip training Bed mobility Energy conservation Thank you for this referral. If you have any questions, concerns, or comments about this report or plan, please contact me at . Winsome Penny MS, OTR/L Occupational Therapist [email or web address]
--- NOTE | 2017-07-04 17:48 | Consultant Pharmacy Review ---
Customs Opener Verifier Packer Review Medication Review Do All Mecications have a Diag: Yes Pneumococcal Vaccine HX Pneumo Vac (Ooxqabl23): Yes HX Pneumo Vac (Pneumovax): Yes () Comments Regarding the Review * Print * Help Title OxyCODONE / LEAD SOFTWARE QA ENGINEER Depressants Risk Rating D: Consider therapy modification Summary LEAD SOFTWARE QA ENGINEER Depressants may enhance the LEAD SOFTWARE QA ENGINEER depressant effect of OxyCODONE. Severity Major Reliability Rating Fair Patient Management Avoid concomitant use of oxycodone and benzodiazepines or other LEAD SOFTWARE QA ENGINEER depressants when possible. These agents should only be combined if alternative treatment options are inadequate. If combined, limit the dosages and duration of each drug to the minimum possible while achieving the desired clinical effect. The extended release oxycodone starting dose should be reduced 50% to 67% when initiated in patients already receiving LEAD SOFTWARE QA ENGINEER depressants. Warn patients and caregivers about the risk of slowed or difficult breathing and/or sedation and monitor patients closely for evidence of excessive LEAD SOFTWARE QA ENGINEER depression ( ie, respiratory depression, hypotension, sedation, or coma). LEAD SOFTWARE QA ENGINEER Depressants Interacting Members Acrivastine; Afloqualone; Alcohol (Ethyl); Alfentanil; ALPRAZolam; Amisulpride; Amitriptyline; Amobarbital; Amoxapine; ARIPiprazole; ARIPiprazole Lauroxil; Asenapine; Baclofen; Benperidol; Bilastine ; Blonanserin; Brexpiprazole; Brimonidine (Ophthalmic); Brivaracetam; Bromazepam ; Bromperidol; Brompheniramine; Buclizine; Buprenorphine; BusPIRone; Butabarbital; Butalbital; Butorphanol; CarBAMazepine; Carbinoxamine; Cariprazine ; Carisoprodol; Cetirizine (Systemic); Chloral Betaine; Chloral Hydrate; ChlordiazePOXIDE; Chlormethiazole; Chlorpheniramine; ChlorproMAZINE; Chlorzoxazone; Cinnarizine; Clemastine; CloBAZam; ClomiPRAMINE; ClonazePAM; CloNIDine; Clorazepate; Clothiapine; CloZAPine; Codeine; Cyclizine; Cyclobenzaprine; Cyproheptadine; Dantrolene; Desflurane; Desipramine; Desloratadine; Deutetrabenazine; Dexbrompheniramine; Dexchlorpheniramine; DiazePAM; Difenoxin; Dihydrocodeine; DimenhyDRINATE; Dimethindene (Systemic); DiphenhydrAMINE (Systemic); DiphenhydrAMINE (Topical); Diphenoxylate; Dosulepin ; Doxepin (Systemic); Doxepin (Topical); Doxylamine; Droperidol; Ebastine; Efavirenz; Emedastine; Entacapone; Eperisone; Estazolam; Eszopiclone; Ethosuximide; Ethotoin; Ethyl Loflazepate; Etizolam; Ezogabine; Felbamate; FentaNYL; Fexofenadine; Flibanserin; Flunarizine; Flunitrazepam; Flupentixol; FluPHENAZine; Flurazepam; Fosphenytoin; Gabapentin; Gabapentin Enacarbil; Glutethimide; GuanFACINE; Haloperidol; Halothane; Heroin; HYDROcodone; HYDROmorphone; HydrOXYzine; Iloperidone; Imipramine; Isoflurane; Ketamine; Ketotifen (Systemic); LamoTRIgine; LevETIRAcetam; Levocetirizine; Levorphanol; Lofepramine; Loprazolam; Loratadine; LORazepam; Lormetazepam; Loxapine; Lurasidone; Maprotiline; Meclizine; Melitracen [INT]; Meperidine; Meprobamate; Meptazinol; Mequitazine; Metaxalone; Methadone; Methocarbamol; Methohexital; Methotrimeprazine; Methoxyflurane; Methsuximide; Mianserin; Midazolam; Mirtazapine; Molindone; Morphine (Liposomal); Morphine (Systemic); Moxonidine; Nalbuphine; Nalfurafine; Nefopam; Nitrazepam; Nitrous Oxide; Nordazepam; Nortriptyline; OLANZapine; Olopatadine (Systemic); Opium; Opium Tincture; Orphenadrine; Oxatomide; Oxazepam; Oxomemazine; OxyCODONE; OxyMORphone; Paliperidone; Paraldehyde; Paregoric; Pentazocine; PENTobarbital; Perampanel; Periciazine; Perphenazine; Pheniramine; PHENobarbital; Phenyltoloxamine; Phenytoin; Pholcodine; Pimozide; Pipamperone [INT]; Pipotiazine; Pizotifen; Pomalidomide; Prazepam; Pregabalin; Primidone; Prochlorperazine; Promazine; Promethazine; Propofol; Protriptyline; Pyrilamine (Systemic); Quazepam; QUEtiapine; Ramelteon; Remifentanil; Reserpine; Rilmenidine; RisperiDONE; Rupatadine; Scopolamine (Ophthalmic); Scopolamine (Systemic); Secobarbital; Sevoflurane; Sodium Oxybate; Stiripentol; SUFentanil; Sulpiride; Suvorexant; Tapentadol; Tasimelteon; Temazepam; Tetrabenazine; Thalidomide; Thiopental; Thioridazine; Thiothixene; Thonzylamine; TiaGABine; TiZANidine; Tofisopam; Tolcapone; Topiramate; TraMADol; Triazolam; Trifluoperazine; Trimeprazine; Trimipramine; Triprolidine; Valerian; Vigabatrin; Zaleplon; Ziconotide; Ziprasidone; Zolpidem; Zonisamide; Zopiclone; Zuclopenthixol BRIAN VELEZ Jul 04, 2017 17:48
[2017-07-04] MEDS: GABAPENTIN 300 MG CAP PO SCH (20:44)
[2017-07-04] MEDS: FAMOTIDINE 20 MG TAB PO SCH (20:44)
[2017-07-05] MEDS: LEVOTHYROXINE SOD 0.125 MG TAB PO SCH (06:34)
[2017-07-05] MEDS: oxyCODONE HCL 5 MG CAP PO PRN ×3 (06:48→20:25)
[2017-07-05 07:30] VITALS: BP 121/52
[2017-07-05] MEDS: ENOXAPARIN 40 MG/0.4ML SYR SC SCH (09:02)
[2017-07-05] MEDS: predniSONE 20 MG TAB PO SCH (09:03)
[2017-07-05] MEDS: FAMOTIDINE 20 MG TAB PO SCH ×2 (09:03→20:25)
[2017-07-05] MEDS: GABAPENTIN 300 MG CAP PO SCH ×3 (09:03→20:25)
--- NOTE | 2017-07-05 09:07 | Gen Surgery History & Physical ---
History of Present Illness Chief Complaint Sciatica History of Present Illness 76-year-old male with a history of rectal cancer who received neoadjuvant chemoradiation therapy followed by surgical resection complicated by a presacral hematoma and abscess and anastomotic leak which was drained with a CT guided percutaneous drainage of his right buttock. He began having right buttock pain radiating to his right posterior thigh after the drain was placed. He's had this ever since an infected is been getting worse. He is required to recent hospital admissions to treat the pain. He is now being admitted to extended care facility for further rehabilitation as he is slowly improving but not yet ready for home with the expectation that he would not have to be readmitted. History Problems: (1) Rectal cancer Status: Chronic (2) Hypothyroid Status: Chronic Home Meds Active Scripts Gabapentin (GABAPENTIN) 100 Mg Capsule, 100 MG PO TID, #60 CAPSULE Prov:JOSE PERALTA MD 06/24/17 Oxycodone Hcl/Acet 5/325 Mg (ENDOCET 5-325 TABLET) 1 Each Tablet, 1-2 TAB PO Q4H Y for PAIN, #60 TAB 0 Refills Prov:JOSE PERALTA MD 06/24/17 Reported Medications Levothyroxine Sodium (LEVOTHYROXINE SODIUM) 0.125 Mg Tab, 125 MCG PO DAILY 02/08/17 Vitamin B Complex (VITAMIN B COMPLEX) 1 Each Capsule, 1 EACH PO QDAY, CAPSULE 02/04/17 Multivitamin (MULTI VITAMIN DAILY) 1 Each Tablet, 1 EACH PO 12/19/14 Allergies: Coded Allergies: No Known Drug Allergies (Verified , 06/26/17) Patient History: FH: cancer MOTHER FH: congestive heart failure FATHER Review of Systems All Systems Reviewed/Normal: Yes, Except as Noted Musculoskeletal: Pain Exam General Appearance: Alert, Awake, No Acute Distress, Afebrile Neuro: No Gross deficits Eyes: PERRLA GI: Abd Soft and Non-Tender (stoma is pink and functional) Musculoskeletal: Other (pain on right buttock where the old drain used to be and radiating down the posterior right thigh. There is no erythema and minimal drainage.) Extremities: Warm, Perfused Assessment and Plan Problems: (1) Sciatic pain Status: Chronic Assessment & Plan: 07/04/17: Admitted to extended care facility for further physical therapy. We'll continue the steroids is a seem to be helping his pain. I'm hopeful that he will be ready to go home in the next week or so. Condition Stable Time Spent: < 30 min Venous Thromboembolism VTE Risk Physician Assess for VTE Risk: Yes Patient's VTE Risk: Low VTE Diagnostic Test 2 Days Prior to Admit: No Antithrombotics Is Pt On Any Antithrombotics?: No Problem Qualifiers (1) Sciatic pain: Laterality: right Qualified Codes: M54.31 - Sciatica, right side JOSE PERALTA MD Jul 05, 2017 09:07
[2017-07-05] MEDS: ACETAMINOPHEN 325 MG TAB PO PRN (10:28)
--- NOTE | 2017-07-05 13:47 | Medical Nutrition Therapy ---
Nutrition Anthropometrics Weight (Pounds): 185 BMI Calculated: 26.54 Eric Nutrition Score: Probably Inadequate Eric Nutrition Risk Score: 16 Dietary Referral Nutrition Risk Factors: Nutrition Risk Comment: Physical Findings Physical Appearance: Skin Appearance Skin Appearance: Edema Edema Location Modifier: Both Edema Location: Lower Extremity Type of Edema: Degree of Edema: Gastrointestinal Symptoms GI Symtoms: Tube Present: Bowel Sounds: Recent Bowel Pattern: Stool Characteristics: Nutritional Diagnosis Nutritional Risk Acuity 3: Cancer Nutritional Risk Acuity 4: Good Appetite Nutritional Acuity: 3-Mild Energy Requirement: 2490 (30kcal/kg) Protein Requirement: 83 (1g/kg) Fluid Requirement: 2075 (25mL/kg) Nutrition Intervention: Cont diet as ordered, Encourage intake Nutrition Monitoring & Eval Nutrition Goals: Eat 50-100% Meal RD Patient Assessment Time: [address] Assessment Type: RD Assessment Patient Nutrition Acuity: 3-Mild Follow Up Date: Jul 09, 2017 Nutritional Comment: Pt. admitted from the med floor for rehab. PMH rectal cancer, hypothyroid. No recent significant labs. YUDITH po intake 100% EBONIE BIRMINGHAM Jul 05, 2017 10:18
[2017-07-05 15:45] VITALS: BP 113/63
[2017-07-06] MEDS: LEVOTHYROXINE SOD 0.125 MG TAB PO SCH (05:28)
[2017-07-06 07:35] VITALS: BP 122/73
[2017-07-06] MEDS: ENOXAPARIN 40 MG/0.4ML SYR SC SCH (09:21)
[2017-07-06] MEDS: FAMOTIDINE 20 MG TAB PO SCH ×2 (09:21→20:46)
[2017-07-06] MEDS: oxyCODONE HCL 5 MG CAP PO PRN ×2 (09:21→23:20)
[2017-07-06] MEDS: GABAPENTIN 300 MG CAP PO SCH ×3 (09:22→20:46)
[2017-07-06] MEDS: predniSONE 20 MG TAB PO SCH (09:22)
[2017-07-06] MEDS: ACETAMINOPHEN 325 MG TAB PO PRN (10:01)
--- NOTE | 2017-07-06 12:32 | PT ECF NOTE ---
Type of Note: Initial Note Primary Medical Diagnosis: Weakness s/p R) LE pain Physical Therapy Evaluation Date: 07/05/17 SUBJECTIVE: Prior Hospitalization: [facility] 06/26/17 thru 07/04/17 with previous admission thru 06/21/17. Prior Level of Function: (I) with ADLs. Assist from spouse for IADLs. Prior Living Status: Multilevel house, Spouse Community Services: Support adequate, Home health care, No known needs Home Accessibility: Stairs with rails, Tub/shower combination Equipment Owned: Front wheeled walker, Cane Medical Complications/Past Medical History: Please refer to EMR. Psychosocial Support: Supportive spouse. Pain Scale (0-10): 2/10 upon initial evaluation OBJECTIVE: Strength: Formal MMT not attempted due to increased pain at R) LE, however, functional mobility indicates that pt has at least 3+/5 strength available and pt is able to lift B) LE's in/out of bed indep. ROM: (please note any abnormalities) Limited at R) hip due to discomfort. Sensation: (please note any abnormalities) No paresthesias reported Other Neuro findings: Pt describes a somewhat radiating pain, pointing to SI joint on R) and extending into area of piriformis. Bed Mobility: SBA/CGA for safety Assistive device: Bed rail Transfers: Verbal cues, SBA/CGA for safety Assistive Device: Front wheeled walker Gait: Verbal cues, SBA/CGA Assistive device: Front wheeled walker Stairs: Not yet addressed Assistive device: Timed Up and Go (>12 seconds indicated increased risk for falls): 40 seconds with FWW 10 meter walk test (0.6m/second cannot function independently): n/a Other Objective Measures: Slight anterior rotation of R) SI joint ASSESSMENT: Pt tolerated mobility after pain medications given and notes that the medications seem to take longer to be effective for him. Pt was then agreeable to mobility within the room and was SBA/CGA for transfers and ambulation. Pt managed colostomy bag care in the bathroom indep. Pt then transferred to supine on bed with [id number] instruction for proper log roll technique to protect low back and avoid twisting. PT provided instruction and assist to complete a muscle energy technique to encourage isometric contraction against resistance to R) hamstrings and L) quads in order to rotate SI joint gently into place. This was performed with a 5 second hold and completed with 3 reps followed by brief manual therapy by PT. Pt then tolerated a bridge to recenter himself on the bed and noted that the pain was already decreased with that motion. PT then reviewed log roll technique again with pt, with very little carry over noted from previous instruction. Pt was able to participate in ambulation into hallway x 100' with good step length and some off-loading required with use of walker. Pt encouraged to continue utilizing a variety of tools to assist in managing his discomfort, including moist heat (K-Pad), frequent mobility, medication as prescribed and proper body mechanics, such as log roll technique for bed mobility and off-loading as needed with use of walker. Problem List/Current Limitations: Pain, Decreased activity dimple, Decreased ROM, Decreased balance Short Term Goals: 1. Pt to tolerate muscle energy technique for SI joint alignment and demo understanding of self application for home use. 2. Pt to be modified indep with all bed mobility and supine to/from sit transfers using proper log roll technique. 3. Pt to be modified indep with all sit to/from stand transfers. 4. Pt to ambulate 100' with least restrictive device and pain in manageable range throughout. 5. Pt to dimple up/down 4 steps with rail and one platform step with FWW and CGA /SBA. Halfway Goals: Pt to return home with ability to attend out pt PT sessions , to continue with musculoskeletal manual therapy techniques to address pt's pain/spasm cycle and encourage improved self modulation of pain management. Patient Goals: Reduce pain such that he is indep with basic ADL's and improved quality of life. Rehabilitation Prognosis: Good Barriers for Discharge: Pt does demo limited carry over of instruction. Written instructions as well as repetition will likely be required to foster indep with self-management of pain with more conservative methods in addition to medication. PLAN: The patient will benefit from skilled physical therapy services 5 times per week for 2 weeks including: Therapeutic Exercise, Therapeutic Activities, Transfer Training, Gait Training, Stair Training, Manual Therapy, ADL's, Safety Training, Pt/Caregiver Training, Bed Mobility Thank you for this referral. If you have any questions, concerns, or comments about this report or plan, please contact me at . h. Scarlet Zuñiga, PT, MPT MTDD
[2017-07-07] MEDS: LEVOTHYROXINE SOD 0.125 MG TAB PO SCH (05:36)
[2017-07-07 08:10] VITALS: BP 137/78
[2017-07-07] MEDS: GABAPENTIN 300 MG CAP PO SCH ×3 (08:41→21:32)
[2017-07-07] MEDS: ENOXAPARIN 40 MG/0.4ML SYR SC SCH (08:41)
[2017-07-07] MEDS: FAMOTIDINE 20 MG TAB PO SCH ×2 (08:41→21:32)
[2017-07-07] MEDS: predniSONE 20 MG TAB PO SCH (08:42)
[2017-07-07] MEDS: oxyCODONE HCL 5 MG CAP PO PRN ×2 (13:23→21:32)
[2017-07-07 17:02] VITALS: BP 103/66
[2017-07-08] MEDS: LEVOTHYROXINE SOD 0.125 MG TAB PO SCH (06:06)
[2017-07-08 08:33] VITALS: BP 134/76
[2017-07-08] MEDS: GABAPENTIN 300 MG CAP PO SCH ×3 (09:13→21:21)
[2017-07-08] MEDS: FAMOTIDINE 20 MG TAB PO SCH ×2 (09:14→21:21)
[2017-07-08] MEDS: predniSONE 20 MG TAB PO SCH (09:14)
[2017-07-08] MEDS: ENOXAPARIN 40 MG/0.4ML SYR SC SCH (09:14)
--- NOTE | 2017-07-08 09:18 | General Surgery Progress Note ---
Subjective Progress Notes Subjective Patient reports that his pain is slowly improving over time. He still goes up to about a 6 out of 10 when ambulating. He has a small amount of drainage from the drain opening site on his right buttock and a small amount of mucus discharge from his rectum which she thinks is tapering off. Physical Exam Vital Signs Date Time Temp Pulse Resp B/P (MAP) Pulse Ox O2 Delivery O2 Flow Rate FiO2 07/08/17 08:33 97.8 44 20 134/76 (95) 94 Room Air General Appearance: Alert, Awake, No Acute Distress, Afebrile GI: Soft and Non-Tender Extremities: Warm, Perfused Assessment and Plan Problems: (1) Sciatic pain Status: Chronic Assessment & Plan: 07/04/17: Admitted to extended care facility for further physical therapy. We'll continue the steroids is a seem to be helping his pain. I'm hopeful that he will be ready to go home in the next week or so. 07/08/17: Doing well. Slow pain control. We'll keep him on 60 mg a day of prednisone for now. We'll need to start tapering it down his his pain improves. He will be able to go home when he is able to ambulate and perform all activities of daily living with minimal or no assistance and his pain is adequately controlled with oral pain medications. Condition Stable. Time Spent: < 30 min Problem Qualifiers (1) Sciatic pain: Laterality: right Qualified Codes: M54.31 - Sciatica, right side JOSE PERALTA MD Jul 08, 2017 09:18
[2017-07-08] MEDS: oxyCODONE HCL 5 MG CAP PO PRN ×3 (10:55→21:21)
--- NOTE | 2017-07-08 16:23 | Medical Nutrition Therapy ---
Nutrition Anthropometrics Height (Inches): 70 (stated) Weight (Pounds): 185 BMI Calculated: 26.54 Eric Nutrition Score: Probably Inadequate Eric Nutrition Risk Score: 16 Dietary Referral Nutrition Risk Factors: Nutrition Risk Comment: Nutritional Diagnosis Nutritional Risk Acuity 3: Cancer Nutritional Risk Acuity 4: Good Appetite Nutritional Acuity: 3-Mild Energy Requirement: 2490 (30kcal/kg) Protein Requirement: 83 (1g/kg) Fluid Requirement: 2075 (25mL/kg) Diet Type: Diet as Tolerated YUDITH/REG Nutrition Intervention: Cont diet as ordered, Encourage intake Nutrition Monitoring & Eval Nutrition Goals: Eat 75-100% Meal Nutrition Follow-Up: Good Intake RD Patient Assessment Time: [address] Assessment Type: RD Re-Assessment Patient Nutrition Acuity: 3-Mild Follow Up Date: Jul 16, 2017 Nutritional Comment: Pt. admitted from the med floor for rehab. PMH rectal cancer, hypothyroid. No recent significant labs. YUDITH po intake 100% 3/5 Pt eating 75 -100% of meals. No new wt or labs. Will cont to monitor and encourage intake. ARMOND WALLER Jul 08, 2017 16:23
[2017-07-08 16:55] VITALS: BP 118/53
[2017-07-09] MEDS: LEVOTHYROXINE SOD 0.125 MG TAB PO SCH (06:17)
[2017-07-09 07:35] VITALS: BP 132/65
[2017-07-09] MEDS: oxyCODONE HCL 5 MG CAP PO PRN ×2 (07:41→13:20)
[2017-07-09] MEDS: ENOXAPARIN 40 MG/0.4ML SYR SC SCH (09:28)
[2017-07-09] MEDS: GABAPENTIN 300 MG CAP PO SCH ×3 (09:29→20:35)
[2017-07-09] MEDS: predniSONE 20 MG TAB PO SCH (09:29)
[2017-07-09] MEDS: FAMOTIDINE 20 MG TAB PO SCH ×2 (09:29→20:35)
[2017-07-09 16:15] VITALS: BP 116/63
[2017-07-10] MEDS: LEVOTHYROXINE SOD 0.125 MG TAB PO SCH (05:49)
[2017-07-10 08:04] VITALS: BP 126/78
[2017-07-10] MEDS: predniSONE 20 MG TAB PO SCH (09:03)
[2017-07-10] MEDS: FAMOTIDINE 20 MG TAB PO SCH ×2 (09:03→20:34)
[2017-07-10] MEDS: GABAPENTIN 300 MG CAP PO SCH ×3 (09:03→20:34)
[2017-07-10] MEDS: oxyCODONE HCL 5 MG CAP PO PRN (09:03)
[2017-07-10] MEDS: ENOXAPARIN 40 MG/0.4ML SYR SC SCH (09:04)
[2017-07-10 16:35] VITALS: BP 142/63
[2017-07-11] MEDS: LEVOTHYROXINE SOD 0.125 MG TAB PO SCH (05:56)
[2017-07-11 08:05] VITALS: BP 102/55
[2017-07-11] MEDS: GABAPENTIN 300 MG CAP PO SCH ×3 (09:19→20:34)
[2017-07-11] MEDS: FAMOTIDINE 20 MG TAB PO SCH ×2 (09:19→20:34)
[2017-07-11] MEDS: ENOXAPARIN 40 MG/0.4ML SYR SC SCH (09:19)
[2017-07-11] MEDS: ACETAMINOPHEN 325 MG TAB PO PRN (09:20)
[2017-07-11] MEDS: predniSONE 20 MG TAB PO SCH (09:20)
--- NOTE | 2017-07-11 13:00 | OT ECF NOTE ---
Type of Note: Discharge Note Primary Medical Diagnosis: Weakness s/p R LE pain Occupational Therapy Evaluation Date: 07/04/17 SUBJECTIVE: Prior Hospitalization: [facility] 06/26/17 thru 07/04/17 with previous admission thru 06/21/17. Prior Level of Function: (I) with ADLs. Assist from spouse for IADLs. Prior Living Status: Multilevel house, Spouse Community Services: Support adequate Home health care No known needs Home Accessibility: Stairs with rails Tub/shower combination Equipment Owned: Front wheeled walker Cane Medical Complications/Past Medical History: Please refer to EMR. Psychosocial Support: Supportive spouse. Pain Scale (0-10): 10 upon initial evaluation OBJECTIVE: Strength: MMT: Right Left Shoulder Flexion WFL WFL Elbow Flexion WFL WFL Wrist Extension WFL WFL Martial Arts Instructor WFL WFL (5= normal, 4= good, 3= fair, 2= poor, 1= trace) ROM: Both upper extremities, WFL Sensation: Intact, No concerns Functional Transfer: Assistive Device: Front wheeled walker Transfer Ability: Modified Independent ADL: Upper body dressing: Assistive device: None Upper body dressing ability: Independent Lower body dressing: Assistive device: None Lower body dressing ability: Independent Toileting: Assistive device: None Toileting ability: Independent Grooming/hygiene: Assistive device: Standing Grooming ability: Independent Bathing: Assistive device: Recommending shower chair or extended tub transfer bench Bathing ability: Independent ASSESSMENT: Coral presented to [facility] with significant pain limiting safe and consistent engagement in ADLs/IADLs. Recommendations have been provided for equipment including shower chair/extended tub transfer bench, medication process planner to be completed with spouse/HH, and bed cane to promote safe log roll technique. He has met all skilled OT goals and presents with no further questions/concerns for OT at time of discharge. Problem List/Current Limitations: Pain Short Term Goals: 1) Pt will be Mod (I) tub transfer. Goal Met. 2) Pt will be (I) UB HEP. Goal Met. 3) Pt will be Mod (I) UB/LB dressing. Goal Met. Facility Technician Goals: Return home with assist from spouse and HH services Patient Goals: "Be able to take care of myself" Rehabilitation Prognosis: Good Barriers to Discharge: Pain, PLAN: The patient will discharge home with HH services and assist from spouse. Thank you for this referral. If you have any questions, concerns, or comments about this report or plan, please contact me at . Winsome Penny MS, OTR/L Occupational Therapist NEREYDA
[2017-07-11 20:00] VITALS: BP 131/70
[2017-07-12] MEDS: LEVOTHYROXINE SOD 0.125 MG TAB PO SCH (05:54)
[2017-07-12] MEDS ORDERED: OXYC5TAB38 PO (08:08)
[2017-07-12] MEDS ORDERED: PRED20TA6 PO (08:08)
[2017-07-12] MEDS ORDERED: FAMO-67 PO (08:08)
[2017-07-12] MEDS ORDERED: GABA-549 PO (08:08)
--- NOTE | 2017-07-12 08:09 | Short(Outpt) Discharge Summary ---
Discharge Summary Reason for Hosp/Final Diag: (1) Sciatic pain Status: Chronic Hospital Course & Plan: 07/04/17: Admitted to extended care facility for further physical therapy. We'll continue the steroids is a seem to be helping his pain. I'm hopeful that he will be ready to go home in the next week or so. 07/08/17: Doing well. Slow pain control. We'll keep him on 60 mg a day of prednisone for now. We'll need to start tapering it down his his pain improves. He will be able to go home when he is able to ambulate and perform all activities of daily living with minimal or no assistance and his pain is adequately controlled with oral pain medications. 07/12/17: Doing well. Plan is to send him home tomorrow with home health RN and PT. I will see him back in the office next week and will start tapering the steroids. Departure Discharge to: Home, Home Health Discharge Instructions Home Meds Active Scripts Prednisone (PREDNISONE) 20 Mg Tablet, 3 TAB PO QDAY, #60 TAB 0 Refills Prov:JOSE PERALTA MD 07/12/17 Oxycodone Hcl (OXYCODONE HCL) 5 Mg Tablet, 1-2 TAB PO Q4H Y for PAIN, #60 TAB 0 Refills Prov:JOSE PERALTA MD 07/12/17 Gabapentin (GABAPENTIN) 300 Mg Capsule, 1 CAP PO TID, #90 CAPSULE 3 Refills Prov:JOSE PERALTA MD 07/12/17 Famotidine (FAMOTIDINE) 20 Mg Tablet, 1 TAB PO BID, #60 TAB 3 Refills Prov:JOSE PERALTA MD 07/12/17 Gabapentin (GABAPENTIN) 100 Mg Capsule, 100 MG PO TID, #60 CAPSULE Prov:JOSE PERALTA MD 06/24/17 Oxycodone Hcl/Acet 5/325 Mg (ENDOCET 5-325 TABLET) 1 Each Tablet, 1-2 TAB PO Q4H Y for PAIN, #60 TAB 0 Refills Prov:JOSE PERALTA MD 06/24/17 Reported Medications Levothyroxine Sodium (LEVOTHYROXINE SODIUM) 0.125 Mg Tab, 125 MCG PO DAILY 02/08/17 Vitamin B Complex (VITAMIN B COMPLEX) 1 Each Capsule, 1 EACH PO QDAY, CAPSULE 02/04/17 Multivitamin (MULTI VITAMIN DAILY) 1 Each Tablet, 1 EACH PO 12/19/14 Follow up Referrals: General Surgery - 07/16/17 @ Surgery, General with Jose Peralta Md You have a follow up appointment scheduled with Dr. Peralta on 07/16/17, at 11: 30am. Diet: Regular Activity: As Tolerated Problem Qualifiers (1) Sciatic pain: Laterality: right Qualified Codes: M54.31 - Sciatica, right side JOSE PERALTA MD Jul 12, 2017 08:09
[2017-07-12 08:18] VITALS: BP 122/60
[2017-07-12] MEDS: predniSONE 20 MG TAB PO SCH (08:30)
[2017-07-12] MEDS: FAMOTIDINE 20 MG TAB PO SCH ×2 (08:31→20:35)
[2017-07-12] MEDS: ENOXAPARIN 40 MG/0.4ML SYR SC SCH (08:31)
[2017-07-12] MEDS: ACETAMINOPHEN 325 MG TAB PO PRN (08:31)
[2017-07-12] MEDS: GABAPENTIN 300 MG CAP PO SCH ×3 (08:31→20:35)
--- NOTE | 2017-07-12 11:09 | PT ECF NOTE ---
Type of Note: Discharge Summary Primary Medical Diagnosis: Weakness s/p R) LE pain Physical Therapy Discharge Date: 07/12/17 SUBJECTIVE: Prior Hospitalization: [facility] 06/26/17 thru 07/04/17 with previous admission thru 06/21/17. Prior Level of Function: (I) with ADLs. Assist from spouse for IADLs. Prior Living Status: Multilevel house, Spouse Community Services: Support adequate, Home health care, No known needs Home Accessibility: Stairs with rails, Tub/shower combination Equipment Owned: Front wheeled walker, Cane Medical Complications/Past Medical History: Please refer to EMR. Psychosocial Support: Supportive spouse. Pain Scale (0-10): no pain number given at d/c OBJECTIVE: Strength: R) LE: Hip flexion: 4/5 Knee extension: 4/5 Knee flexion: 4/5 DF: 5/5 L) LE: Hip flexion: 5/5 Knee extension: 5/5 Knee flexion: 5/5 DF: 5/5 ROM: (please note any abnormalities) Limited at R) hip due to discomfort. Sensation: distal L) LE diminished to light touch Other Neuro findings: Pt describes a somewhat radiating pain, pointing to SI joint on R) and extending into area of piriformis. Bed Mobility: Nori with verbal and printed cues for log roll provided Transfers: Nori with RW Gait: Nori x400' with RW Stairs: mod! x 4 Timed Up and Go (>12 seconds indicated increased risk for falls): 13 seconds with FWW ASSESSMENT: Pt has met all PT goals and is safe to d/c home with assistance from spouse and [facility] services when medically appropriate. Coral demonstrates increased tolerance to all functional mobility and improved pain management allowing for increased safety. He improved his TUG test time from 40 seconds at evaluation, to 13 seconds at discharge. We recommend that the pt f/u with OP PT services upon d/c from [facility] services. The patient was provided with tools to assist with conservative pain management with MET and gentle stretching. Problem List/Current Limitations: Pain, Decreased activity dimple, Decreased ROM, Decreased balance Short Term Goals: *all goals met 1. Pt to tolerate muscle energy technique for SI joint alignment and demo understanding of self application for home use. 2. Pt to be modified indep with all bed mobility and supine to/from sit transfers using proper log roll technique. 3. Pt to be modified indep with all sit to/from stand transfers. 4. Pt to ambulate 100' with least restrictive device and pain in manageable range throughout. 5. Pt to dimple up/down 4 steps with rail and one platform step with FWW and CGA /SBA. Jail Goals: Pt to return home with ability to attend out pt PT sessions , to continue with musculoskeletal manual therapy techniques to address pt's pain/spasm cycle and encourage improved self modulation of pain management. (goal met, it was decided to start with [facility] services and transition to OP PT) Patient Goals: Reduce pain such that he is indep with basic ADL's and improved quality of life. (met) PLAN: The patient will discharge home with [facility] services and assistance from spouse. It was recommended that the patient continue with OP PT services upon d/ c from [facility]. Thank you for this referral. If you have any questions, concerns, or comments about this report or plan, please contact me at . Marilu Butler, PT, DPT NEILD
[2017-07-12 15:37] VITALS: BP 137/74
[2017-07-13] MEDS: LEVOTHYROXINE SOD 0.125 MG TAB PO SCH (06:02)
[2017-07-13 08:06] VITALS: BP 112/47
[2017-07-13] MEDS: predniSONE 20 MG TAB PO SCH (08:17)
[2017-07-13] MEDS: GABAPENTIN 300 MG CAP PO SCH ×2 (08:17→14:28)
[2017-07-13] MEDS: FAMOTIDINE 20 MG TAB PO SCH (08:17)
[2017-07-13] MEDS: ENOXAPARIN 40 MG/0.4ML SYR SC SCH (08:18)
[2017-07-13] MEDS: ACETAMINOPHEN 325 MG TAB PO PRN (10:56)
== END 2017-07-13 15:08 | disposition home health service (06) | DRG 552 ==
LOC: ECF 14:20
PROVIDERS: ADMIT Surgery; ATTEND Surgery
DX: M54.31 Sciatica, right side (principal); C20 Malignant neoplasm of rectum; E03.9 Hypothyroidism, unspecified; Z93.2 Ileostomy status; Z92.21 Personal history of antineoplastic chemotherapy
CPT/HCPCS: 81001; 87088; 97161; 97165; J1650; J7512

== ENCOUNTER 2017-07-22 10:09 | Outpatient (RCR) | payer MEDICARE ==
[2017-02-08 11:11] VITALS: Ht 177.8 cm; Wt 86.2 kg
[2017-05-20 10:24] LABS: PLATELET COUNT, AUTOMATED 334 K/uL (150-450)
[2017-05-20 10:42] VITALS: BP 108/55
[2017-05-20] MEDS: HEPARIN FLSH (PORT) 500 UN/5ML IVP PRN (10:43)
[2017-05-20] MEDS: LIDOCAINE/SOD BICARB 8.4% SYR ID PRN (10:44)
[2017-05-23 13:06] VITALS: BP 133/69
--- NOTE | 2017-05-23 18:43 | ONCOLOGY FOLLOW UP NOTE ---
EVENT DATE: May 23, 2017 DIAGNOSIS 1. 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 2. Hypothyroidism. 3. Hayfever. CHIEF COMPLAINT Patient is here today for followup of his rectal adenocarcinoma. ONCOLOGY HISTORY Patient is a 76-year-old male who presented with passing small amounts of bright red blood when he passes a bowel movement. CT pelvis, chest, abdomen done on September 13, 2016 did reveal soft tissue defect within the rectum consistent with clinical history of rectal mass measuring about 6.1 cm. There was moderate narrowing of the rectosigmoid junction. There was 4 mm noncalcified nodule in the right middle lobe of the lung. MRI of the pelvis done on September 14, 2016 did reveal rectal mass measuring 5 cm with findings suggesting of transmural extension of the tumor into the posterior perirectal fat, but no evidence of organ invasion or distant metastatic disease. Patient had a colonoscopy with biopsy of the rectal mass done on September 12, 2016. A polyp was removed from the hepatic flexure of the colon with hyperplastic polyp. Two polyps from the splenic flexure, one was hyperplastic polyp and the other one was tubular adenoma. Biopsy of the rectal mass came back positive for invasive colonic adenocarcinoma. MLH1, MSH2, MSH6, and PMAC2 all came back positive. This is not consistent with microsatellite instability. Patient started chemoradiation on October 08, 2016 with weekly 5-FU intravenous continuous infusion. Patient received six weekly doses of 5FU intravenous continuous infusion completed on November 16, 2016. Patient had rectal resection done on February 07, 2017, and the pathology came back negative for residual cancer. HISTORY OF PRESENT ILLNESS Patient is here today for followup of his rectal adenocarcinoma. He is complaining of bilateral shoulder pain. He has tingling and numbness in the hands and feet. He has weakness and fatigue. Patient has a drain also, most probably for a seroma. He has pain at the site of the drain. CURRENT MEDICATIONS 1. Levothyroxine 125 mcg daily. 2. Michelle 60 mg daily. ALLERGIES No known drug allergies. PAST MEDICAL HISTORY 1. Hypothyroidism. 2. Hayfever. PAST SURGICAL HISTORY 1. Right rotator cuff surgery. 2. Bilateral carpal tunnel surgery. 3. Bilateral cataract surgery. 4. Rectal excision done on February 07, 2017. FAMILY HISTORY Patient does not know about his family history. SOCIAL HISTORY The patient is with four children. 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 He is never a smoker, never a drinker. Denies any abuse of illicit drugs. REVIEW OF SYSTEMS CONSTITUTIONAL: No appetite or weight change. No fever, chills or sweating. No recent infection. HEENT: Ears: No tinnitus or hearing problem. Nose: He has a runny nose. Throat: He has sore throat. Eyes: No diplopia or visual changes. RESPIRATORY: No shortness of breath. No cough, expectoration or hemoptysis. CARDIOVASCULAR: No chest pain, orthopnea, or paroxysmal nocturnal dyspnea (PND) . No edema. No palpitations. GASTROINTESTINAL: He has gaseous distention and wet gases. GENITOURINARY: He has urgency of urine. MUSCULOSKELETAL: Patient has bilateral shoulder pain. NEUROLOGICAL: He has tingling and numbness of the hands and feet. HEMATOLOGIC/LYMPHATIC: He is weak, tired and fatigued. SKIN: He has a skin rash over the forearms bilaterally. PSYCHIATRIC: No anxiety or depression. PHYSICAL EXAMINATION GENERAL: Looks stable. Well-developed, well-nourished, and in no acute distress. VITAL SIGNS: Blood pressure 133/69, pulse 66 per minute, respirations 16 per minute, temperature 97.5, pulse ox 94% on room air. HEENT: Head: Atraumatic. No sinus tenderness to palpation. Eyes: No icterus or conjunctivitis. Mouth and throat: No oral thrush or mucositis. NECK: Supple. No cervical or supraclavicular lymphadenopathy. LUNGS: Clear to auscultation and percussion bilaterally. HEART: Regular rate and rhythm. No gallops, murmurs, clicks or rubs. ABDOMEN: Stoma is noted and working well. Also the bag from the drainage is also noted. EXTREMITIES: No cyanosis, clubbing or edema. LYMPHATICS: No peripheral lymphadenopathy. NEUROLOGICAL: Conscious, alert and oriented times three. No focal motor or sensory deficits. PSYCHIATRIC: Mood and affect appear normal. SKIN: No skin rash, bruise or purpuric eruption. DIAGNOSTIC DATA CBC showed white count 7.2, hemoglobin 10.4, hematocrit 31.7, platelets 334, 000. Chem panel totally normal except carbon dioxide 21, BUN 24, creatinine 1.3. CEA is 2.1. ASSESSMENT 1. Rectal adenocarcinoma with stage T3 lesion by MRI of the pelvis done September, which showed 5 cm rectal mass with findings suggestive of transmural extension of the tumor into the posterior perirectal fat. No evidence of organ invasion or metastatic disease. Colonoscopy with biopsy done September 12, 2016 did reveal three polyps, one from the hepatic flexure which was hyperplastic polyp, two from the splenic flexure, one was hyperplastic polyp, the other one was tubular adenoma. The rectal mass biopsy came back positive for invasive colonic adenocarcinoma. Patient received neoadjuvant chemoradiation between October 08, 2016 through November 16, 2016. He finished radiation therapy November 19, 2016. He had rectal resection of the tumor done February 07, 2017, and the pathology was negative for residual disease. He had what looks like a seroma, and the patient has drainage for that. Given all this situation and given that the patient is nearly three months since his surgery, I do not think adjuvant chemotherapy will be reasonable or beneficial at this point of time. I am planning to continue followup. I will see him again in 3 months with CBC, chem panel and CEA. 2. Anemia due to previous chemotherapy and surgery. Current hemoglobin 10.4, which is stable. Will continue to monitor. 3. Hypothyroidism on supplement. PLAN 1. Continue followup. 2. Patient to return in three months with CBC, chem panel and CEA. 3. Patient to contact us for any new concern or complaints. NEILD
[2017-06-24] MEDS: LIDOCAINE/SOD BICARB 8.4% SYR ID PRN (10:41)
[2017-06-24 10:42] VITALS: BP 116/62
[2017-06-24] MEDS: HEPARIN FLSH (PORT) 500 UN/5ML IVP PRN (10:42)
[~2017-07-22] VITALS: Ht 177.8 cm; Wt 86.2 kg
[~2017-07-22 10:09] MED LIST changes: +ALTEPLASE RECOMB 2 MG VIAL IVP PRN; +DEXAMETHASONE SOD PHOS 10MG/ML ONE; +DEXTROSE 5%(*) 100 ML BAG 100 ML IVPB PRN; +FAMO-67 PO; +GABA-549 PO; +LIDOCAINE 2% JELLY 5 ML TUBE ONE; +LIDOCAINE MPF 1% 5 ML VIAL ONE; +NS(*) 0.9% 100 ML BAG 100 ML IVPB PRN; +NS(*) 0.9% 500 ML BAG 500 ML IV PRN; +ONDANSETRON 4 MG/2 ML VIAL ONE; +OXYC5TAB38 PO; +PROPOFOL EMUL(*) 10MG/ML 20 ML 20 ML ONE; +WATER STERILE 10 ML VIAL IVP PRN; +ePHEDrine 25 MG/5 ML DISP.SYR IVP ONE; +fentaNYL CITR 100 MCG/2 ML AMP ONE
[2017-07-22 11:22] VITALS: BP 116/62
[2017-07-22] MEDS: HEPARIN FLSH (PORT) 500 UN/5ML IVP PRN (11:25)
[2017-07-22] MEDS: LIDOCAINE/SOD BICARB 8.4% SYR ID PRN (11:25)
[2017-08-07] MEDS ORDERED: FAMO-67 PO (13:53)
[2017-08-07] MEDS ORDERED: GABA-549 PO (13:53)
== END 2017-08-15 ==
LOC: SPU 10:09
PROVIDERS: ATTEND Internal Medicine Hematology
DX: Z85.048 Personal history of other malignant neoplasm of rectum, rectosigmoid junction, and anus (principal); D64.81 Anemia due to antineoplastic chemotherapy; Z92.21 Personal history of antineoplastic chemotherapy; Z92.3 Personal history of irradiation; E03.9 Hypothyroidism, unspecified; R53.1 Weakness; R53.83 Other fatigue; M25.512 Pain in left shoulder; M25.511 Pain in right shoulder
CPT/HCPCS: 82378; 85025; 96523; G0463; J1642; 82040; 82247; 82310; 82374; 82435; 82565; 82947; 84075; 84132; 84155; 84295; 84450; 84460; 84520; 99212; J1100; J2001; J2405; J2704; J3010

== ENCOUNTER → 2017-08-27 | Outpatient (CLI) | payer MEDICARE ==
[2017-06-27 11:46] VITALS: BMI 26.5
[~2017-08-27] MED LIST changes: -ALTEPLASE RECOMB 2 MG VIAL IVP PRN; +ASCO-182 PO; -DEXAMETHASONE SOD PHOS 10MG/ML ONE; -DEXTROSE 5%(*) 100 ML BAG 100 ML IVPB PRN; +FERR325T24 PO; -LIDOCAINE 2% JELLY 5 ML TUBE ONE; -LIDOCAINE MPF 1% 5 ML VIAL ONE; -NS(*) 0.9% 100 ML BAG 100 ML IVPB PRN; -NS(*) 0.9% 500 ML BAG 500 ML IV PRN; -ONDANSETRON 4 MG/2 ML VIAL ONE; -PROPOFOL EMUL(*) 10MG/ML 20 ML 20 ML ONE; -WATER STERILE 10 ML VIAL IVP PRN; -ePHEDrine 25 MG/5 ML DISP.SYR IVP ONE; -fentaNYL CITR 100 MCG/2 ML AMP ONE
== END ==
LOC: LAB 12:20
PROVIDERS: ATTEND Surgery
DX: C20 Malignant neoplasm of rectum (principal); N17.9 Acute kidney failure, unspecified
CPT/HCPCS: 36415; 82565

== ENCOUNTER → 2017-08-28 | Outpatient (CLI) | payer MEDICARE ==
[2017-06-27 11:46] VITALS: BMI 26.5
[~2017-08-28] MED LIST changes: +AZIT-17 PO; +GADOBENATE 529MG/1ML 15ML VIAL IVP ONE; +NS 0.9% 20 ML SDV 40 ML ONE; +RIVA15TA PO; +RIVA20TA PO
--- NOTE | 2017-08-28 12:54 | RADIOLOGY IMAGING REPORT ---
FACILITY: [facility] PATIENT NAME: Coral Voss : 1940 MR: [id number] V: [id number] EXAM DATE: ORDERING PHYSICIAN: JOSE PERALTA TECHNOLOG[place]: [place] [facility] [place] : 1940 Visit/Account:[id number] Date of Sevice: 08/28/2017 CHEST PA AND LAT Indication: See Dx Comparison: Chest x-ray 06/26/2017. Findings: Lungs: Hazy airspace opacities are seen throughout the right lung, increased from the prior study. L eft lung is clear. Mediastinum/pulmonary vasculature: Heart size and pulmonary vasculature are normal. Bones/soft tissues: Severe degenerative changes in the right shoulder are seen. There is a right-ledy ed portacatheter with its tip in the low superior vena cava in good position. IMPRESSION: 1. Mild hazy opacity right lung, which may represent early pneumonia. 2. Clear left lung. Report Dictated By: Stanford Gray at 08/28/2017 12:48 PM Report E-Signed By: Stanford Gray at 08/28/2017 12:49 PM WSN:[id number]
--- NOTE | 2017-08-28 15:13 | RADIOLOGY IMAGING REPORT ---
FACILITY: [facility] [place] PATIENT NAME: Coral Voss : 1940 MR: [id number] V: [id number] EXAM DATE: ORDERING PHYSICIAN: JOSE PERALTA TECHNOLOGIST: Location: [facility] [place] Patient: Coral Voss : 1940 Visit/Account:[id number] Date of Sevice: 08/28/[address] scan without contrast HISTORY: Rectal carcinoma COMPARISONS: February 04, 2009 TECHNIQUE: Non-contrast head CT was performed with sagittal and coronal reformations. One of the following dose optimization techniques was utilized in the performance of this exam: autom ated exposure control; adjustment of the mA and/or kV according to patient size; or use of iterative reconstruction technique. Specific details can be referenced in the facility's radiology CT exam ope rational policy. FINDINGS: There is no intracranial hemorrhage, hydrocephalus or midline shift. The basal cisterns, de la torre-white differentiation, and convexity sulci are maintained. Right cataract postsurgical change noted. Mild patchy white matter hypoattenuation. No apparent mass. The mastoid air cells are clear. The paranasal sinuses are clear. The osseous structures are normal . IMPRESSION: No acute intracranial abnormality. Mild chronic small vessel ischemic change. Report Dictated By: Stephen Cho MD at 08/28/2017 2:51 PM Report E-Signed By: Stephen Cho MD at 08/28/2017 3:09 PM WSN:[id number]
--- NOTE | 2017-08-29 12:24 | RADIOLOGY IMAGING REPORT ---
[place] [facility] [place] Coral Voss : 1940 MR: [id number] V: [id number] EXAM DATE: ORDERING PHYSICIAN: JOSE PERALTA TECHNOLOGIST: Location: [facility] Patient: Coral Voss : 1940 Visit/Account:[id number] Date of Sevice: 08/28/2017 PELVIS W W/O CONTRAST HISTORY: Rectal adenocarcinoma TECHNIQUE: Multiplanar multisequence magnetic resonance imaging of the pelvis without and with intra venous contrast. CONTRAST: 20 mL MultiHance IV contrast COMPARISON: December 18, 2016. FINDINGS: Visualized GI: Interval postsurgical changes from right lower quadrant loop ileostomy. Post interva l changes at the rectosigmoid colon. There is edema within the presacral fat, likely related to nader tment changes. No definitive persistent rectal wall thickening. There is a focal gas and fluid deb ection posterior to the anastomosis with probable direct connection measuring approximately 3.4 x 1.7 x 2.7 cm (image 15 of series 6 and image 21 of series 8). There is restricted diffusion and periphe ral enhancement of this collection. Findings are concerning for a anastomotic breakdown with contain ed perforation and subsequent abscess. No visualized mesorectal lymphadenopathy. : Negative. Vessels/spaces/nodes: There appears to be thrombus within the left common femoral vein extending into the superficial and deep femoral veins. There is thrombus within the visualized right superficial f emoral vein. No visualized lymphadenopathy. Bones/soft tissues: There is a enhancing linear tract within the right gluteal soft tissues, possibly related to a prior drainage catheter. There could be a direct connection to the presacral fluid col lection/stranding. IMPRESSION: 1. Post surgical changes at the rectosigmoid junction without definitive evidence for residual/recur rent disease. There are findings suggestive of an anastomotic breakdown with a small abscess in the presacral space with a direct connection to the posterior aspect of the anastomosis. There is surrou nding presacral heterogeneity and enhancement which may be postsurgical or infectious in etiology. 2. Subcutaneous track within the right gluteal soft tissues which may have a direct connection to th e presacral heterogeneity and the small abscess. Recommend correlation for drainage. 3. No evidence for metastatic disease. 4. Incidental note of bilateral lower extremity DVTs. Recommend correlation with ultrasound. Results were discussed with JOSE PERALTA at 08/29/2017 12:20 PM. Report Dictated By: Stephen Marrufo MD at 08/29/2017 10:49 AM Report E-Signed By: Stephen Marrufo MD at 08/29/2017 12:20 PM WSN:[id number]
== END ==
LOC: RAD 10:18
PROVIDERS: ATTEND Surgery
DX: R91.8 Other nonspecific abnormal finding of lung field (principal); I82.403 Acute embolism and thrombosis of unspecified deep veins of lower extremity, bilateral; R06.02 Shortness of breath; R97.0 Elevated carcinoembryonic antigen [CEA]
CPT/HCPCS: 70450; 71046; 72197; A9577; J7050

== ENCOUNTER → 2017-08-30 | Outpatient (CLI) | payer MEDICARE ==
[2017-06-27 11:46] VITALS: BMI 26.5
[~2017-08-30] MED LIST changes: -GADOBENATE 529MG/1ML 15ML VIAL IVP ONE; -NS 0.9% 20 ML SDV 40 ML ONE
--- NOTE | 2017-08-30 13:34 | RADIOLOGY IMAGING REPORT ---
FACILITY: [facility] - [place] PATIENT NAME: Coral Voss : 1940 MR: [id number] V: [id number] EXAM DATE: ORDERING PHYSICIAN: JOSE PERALTA TECHNOLOGIST: [place] [facility] [place]: Coral Voss : 1940 Visit/Account:[id number] Date of Sevice: 08/30/2017 Exam type: VENOUS DOPP LOWER BILAT EXTREM History: Bilateral leg swelling Comparison: December 19, 2016. Findings: Extensive thrombus is identified in the proximal mid right superficial femoral vein, profunda femoral vein, the right popliteal vein, right peroneal vein distal right posterior tibial vein Extensive thrombus also identified in the left common femoral vein greater saphenous vein throughout the superficial femoral vein profunda femoral vein popliteal vein peroneal vein posterior tibial vein and anterior tibial vein IMPRESSION: 1. Extensive DVT seen throughout the lower extremity veins bilaterally. Findings were conveyed to Dr. Duffy's office by the child care attendant at the time the examination Report Dictated By: Emmy Jordan MD at 08/30/2017 1:24 PM Report E-Signed By: Emmy Jordan MD at 08/30/2017 1:28 PM WSN:[email or web address]
== END ==
LOC: US 09:47
PROVIDERS: ATTEND Surgery
DX: I82.413 Acute embolism and thrombosis of femoral vein, bilateral (principal); I82.890 Acute embolism and thrombosis of other specified veins; I82.443 Acute embolism and thrombosis of tibial vein, bilateral; I82.433 Acute embolism and thrombosis of popliteal vein, bilateral
CPT/HCPCS: 93970

== ENCOUNTER 2017-09-18 01:11 | Day surgery (SDC) | payer MEDICARE ==
[2017-06-27 11:46] VITALS: Ht 177.8 cm; Wt 83.0 kg
[~2017-09-18] VITALS: Ht 177.8 cm; Wt 83.0 kg
[2017-09-18 06:05] VITALS: BP 117/78
[2017-09-18] MEDS ORDERED: NORMOSOL R SOLN(*) 1000 ML BAG 1,000 ML IV PRN (06:30)
[2017-09-18] MEDS ORDERED: LIDOCAINE/SOD BICARB 8.4% SYR ID ONE (06:30)
[2017-09-18] MEDS ORDERED: PROPOFOL EMUL(*) 10MG/ML 20 ML 20 ML ONE (07:06)
[2017-09-18 08:00] VITALS: BP 93/57
--- NOTE | 2017-09-18 08:10 | Short(Outpt) Discharge Summary ---
Discharge Summary Reason for Hosp/Final Diag: (1) Rectal adenocarcinoma Status: Chronic Hospital Course & Plan: Colonoscopy to proximal sigmoid colon/descending colon with biopsies at anastomosis completed without problems. (2) Colocutaneous fistula Status: Chronic Departure Discharge to: Home, Self Care Discharge Instructions Home Meds Active Scripts Gabapentin (GABAPENTIN) 300 Mg Capsule, 1 CAP PO TID, #90 CAPSULE 3 Refills Prov:JOSE PERALTA MD 09/10/17 Rivaroxaban 20 Mg (XARELTO 20 MG) 20 Mg Tablet, 1 TAB PO QDAY, #60 TAB 3 Refills Take 1 tablet every day AFTER finishing the 21 day course of twice a day 15mg tablets Prov:JOSE PERALTA MD 08/30/17 Rivaroxaban 15 Mg (XARELTO 15 MG) 15 Mg Tablet, 1 TAB PO BID, #42 TAB 0 Refills Prov:JOSE PERALTA MD 08/30/17 Ascorbic Acid (VITAMIN C) 500 Mg Tablet, 1 TAB PO TID, #90 TAB 3 Refills Prov:JOSE PERALTA MD 08/27/17 Ferrous Sulfate (IRON) 325 Mg Tablet, 1 TAB PO TID, #90 TAB 3 Refills Prov:JOSE PERALTA MD 08/27/17 Famotidine (FAMOTIDINE) 20 Mg Tablet, 1 TAB PO BID, #60 TAB 3 Refills Prov:JOSE PERALTA MD 08/07/17 Reported Medications Levothyroxine Sodium (LEVOTHYROXINE SODIUM) 0.125 Mg Tab, 125 MCG PO DAILY 02/08/17 Vitamin B Complex (VITAMIN B COMPLEX) 1 Each Capsule, 1 EACH PO QDAY, CAPSULE 02/04/17 Multivitamin (MULTI VITAMIN DAILY) 1 Each Tablet, 1 EACH PO 12/19/14 Discontinued Scripts Azithromycin (Z-PACK) 250 Mg Tablet, 1 TAB PO QDAY, #6 DOSE-PACK 0 Refills Take 2 tablets on day 1, then 1 tablet per day on days 2-5. Prov:JOSE PERALTA MD 08/30/17 Follow up Referrals: General Surgery - 10/07/17 @ Surgery, General with Jose Peralta Md You have a follow up appointment scheduled with Dr. Peralta on 10/07/17, at 10:00am. Diet: Regular Activity: As Tolerated Special Instructions: Your scope was completed without problems. There continues to be a lot of inflammation in your rectum and the hole in the anastomosis is still open and is not healing. I biopsied some tissue in the cavity next to the anastomosis. Because of the biopsies, don't restart the Xarelto until 09/21/17. Decrease gabapentin to 1 pill twice each day for 1 week then decrease to 1 pill once each day for 1 week then stop it. JOSE PERALTA MD September 18, 2017 08:10
[2017-09-18 08:23] VITALS: BP 113/67
== END 2017-09-18 10:20 | disposition home health service (06) ==
LOC: OR 01:11
PROVIDERS: ATTEND Surgery
DX: K62.89 Other specified diseases of anus and rectum (principal)
CPT/HCPCS: 00811; 45380; 88305; J2704

== ENCOUNTER → 2017-10-07 | Outpatient (CLI) | payer MEDICARE ==
[2017-06-27 11:46] VITALS: BMI 26.5
[2017-10-07 11:30] LABS: PLATELET COUNT, AUTOMATED 303 K/uL (150-450)
== END ==
LOC: LAB 10:58
PROVIDERS: ATTEND Surgery
DX: C20 Malignant neoplasm of rectum (principal)
CPT/HCPCS: 36415; 82040; 82247; 82248; 82310; 82374; 82435; 82565; 82947; 84075; 84132; 84155; 84295; 84450; 84460; 84520; 85025

== ENCOUNTER 2017-10-22 14:00 | Outpatient (RCR) | payer MEDICARE ==
[2017-06-27 11:46] VITALS: Wt 84.7 kg
[2017-08-22] MEDS: HEPARIN FLSH (PORT) 500 UN/5ML IVP PRN (13:35)
[2017-08-22 13:36] LABS: PLATELET COUNT, AUTOMATED 270 K/uL (150-450)
[2017-08-22] MEDS: LIDOCAINE/SOD BICARB 8.4% SYR ID PRN (13:36)
[2017-08-22 13:41] VITALS: BP 112/68
--- NOTE | 2017-08-23 16:32 | ONCOLOGY FOLLOW UP NOTE ---
EVENT DATE: August 22, 2017 DIAGNOSIS 1. 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 2. Hypothyroidism. 3. Hayfever. CHIEF COMPLAINT Patient is here today for followup of his rectal adenocarcinoma. ONCOLOGY HISTORY Patient is a 76-year-old male who presented with passing small amounts of bright red blood when he passes a bowel movement. CT pelvis, chest, abdomen done on September 13, 2016 did reveal soft tissue defect within the rectum consistent with clinical history of rectal mass measuring about 6.1 cm. There was moderate narrowing of the rectosigmoid junction. There was 4 mm noncalcified nodule in the right middle lobe of the lung. MRI of the pelvis done on September 14, 2016 did reveal rectal mass measuring 5 cm with findings suggesting of transmural extension of the tumor into the posterior perirectal fat, but no evidence of organ invasion or distant metastatic disease. Patient had a colonoscopy with biopsy of the rectal mass done on September 12, 2016. A polyp was removed from the hepatic flexure of the colon with hyperplastic polyp. Two polyps from the splenic flexure, one was hyperplastic polyp and the other one was tubular adenoma. Biopsy of the rectal mass came back positive for invasive colonic adenocarcinoma. MLH1, MSH2, MSH6, and PMAC2 all came back positive. This is not consistent with microsatellite instability. Patient started chemoradiation on October 08, 2016 with weekly 5-FU intravenous continuous infusion. Patient received six weekly doses of 5FU intravenous continuous infusion completed on November 16, 2016. Patient had rectal resection done on February 07, 2017, and the pathology came back negative for residual cancer. HISTORY OF PRESENT ILLNESS Patient is here today for followup of his rectal adenocarcinoma. He is complaining of Pain in his right hip and right shoulder. He has also cramps in his legs. 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 He has headache. He bruises easily. He is weak, tired and fatigued and he has chills lately. CURRENT MEDICATIONS 1. Levothyroxine 125 mcg daily. 2. Michelle 60 mg daily. ALLERGIES No known drug allergies. PAST MEDICAL HISTORY 1. Hypothyroidism. 2. Hayfever. PAST SURGICAL HISTORY 1. Right rotator cuff surgery. 2. Bilateral carpal tunnel surgery. 3. Bilateral cataract surgery. 4. Rectal excision done on February 07, 2017. FAMILY HISTORY Patient does not know about his family history. SOCIAL HISTORY The patient is with four children. 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 He is never a smoker, never a drinker. Denies any abuse of illicit drugs. REVIEW OF SYSTEMS CONSTITUTIONAL: No appetite or weight change. No fever or sweating. Patient has some chills. No recent infection. HEENT: Ears: No tinnitus or hearing problem. Nose: He has a runny nose. Throat: He has sore throat. Eyes: No diplopia or visual changes. RESPIRATORY: No shortness of breath. No cough, expectoration or hemoptysis. CARDIOVASCULAR: No chest pain, orthopnea, or paroxysmal nocturnal dyspnea (PND) . No edema. No palpitations. GASTROINTESTINAL: He has gaseous distention and wet gases. GENITOURINARY: He has urgency of urine. MUSCULOSKELETAL: He has pain in the right hip and the right shoulder. He has also cramps in his legs. NEUROLOGICAL: He has tingling and numbness in his hands and headache. HEMATOLOGIC/LYMPHATIC: He bruises easily. He is weak, tired and fatigued. SKIN: He has a skin rash over the forearms bilaterally. PSYCHIATRIC: No anxiety or depression. PHYSICAL EXAMINATION GENERAL: Looks stable. Well-developed, well-nourished, and in no acute distress. VITAL SIGNS: Blood pressure 112/65, pulse 90 per minute, respirations 16 per minute, temperature 98.8, pulse ox 91% on room air. HEENT: Head: Atraumatic. No sinus tenderness to palpation. Eyes: No icterus or conjunctivitis. Mouth and throat: No oral thrush or mucositis. NECK: Supple. No cervical or supraclavicular lymphadenopathy. LUNGS: Clear to auscultation and percussion bilaterally. HEART: Regular rate and rhythm. No gallops, murmurs, clicks or rubs. ABDOMEN: Stoma is noted and working well. Also the bag from the drainage is also noted. EXTREMITIES: No cyanosis, clubbing or edema. LYMPHATICS: No peripheral lymphadenopathy. NEUROLOGICAL: Conscious, alert and oriented times three. No focal motor or sensory deficits. PSYCHIATRIC: Mood and affect appear normal. SKIN: No skin rash, bruise or purpuric eruption. DIAGNOSTIC DATA CBC showed white count 8.7, hemoglobin 10.3, hematocrit 30, platelets 270,000. Chem panel and CEA are still pending. ASSESSMENT 1. Rectal adenocarcinoma with stage T3 lesion by MRI of the pelvis done September, which showed 5 cm rectal mass with findings suggestive of transmural extension of the tumor into the posterior perirectal fat. There is no evidence of organ invasion or metastatic disease. Colonoscopy with biopsy done September 12, 2016 did reveal three polyps, one from the hepatic flexure which was hyperplastic polyp, two from the splenic flexure, one was hyperplastic polyp, the other one was tubular adenoma. The rectal mass biopsy came back positive for invasive colonic adenocarcinoma. Patient received neoadjuvant chemoradiation between October 08, 2016 through November 16, 2016. He finished radiation therapy November 19, 2016. He had rectal resection of the tumor done February 07, 2017. Pathology came back negative for residual disease. He had a seroma after surgery which was drained. Patient currently in complete remission. He is doing very well. I am planning to see him again in three months with CBC, chem panel and CEA. 2. Anemia due to previous chemotherapy and surgery. Current hemoglobin 10.3, which is stable. I will continue to monitor. 3. Hypothyroidism on supplement. PLAN 1. Continue followup. 2. Patient to return in three months with CBC, chem panel and CEA. 3. Patient to contact us for any new concerns or complaints. [facility]
[2017-08-28] MEDS: HEPARIN FLSH (PORT) 500 UN/5ML IVP PRN (11:30)
[2017-08-28] MEDS: LIDOCAINE/SOD BICARB 8.4% SYR ID PRN (11:30)
[2017-09-16 14:40] VITALS: BP 102/73
[2017-09-16] MEDS: HEPARIN FLSH (PORT) 500 UN/5ML IVP PRN (14:47)
[~2017-10-22 14:00] MED LIST changes: +ALTEPLASE RECOMB 2 MG VIAL IVP PRN; +DEXTROSE 5%(*) 100 ML BAG 100 ML IVPB PRN; +NS(*) 0.9% 100 ML BAG 100 ML IVPB PRN; +NS(*) 0.9% 500 ML BAG 500 ML IV PRN; +WATER FOR INJ,STERILE 20 ML IVP PRN
[2017-10-22] MEDS: HEPARIN FLSH (PORT) 500 UN/5ML IVP PRN (14:13)
[2017-10-22] MEDS: LIDOCAINE/SOD BICARB 8.4% SYR ID PRN (14:13)
[2017-10-22 14:14] VITALS: BP 109/66
== END 2017-11-14 ==
LOC: SPU 14:00
PROVIDERS: ATTEND Internal Medicine Hematology
DX: Z85.048 Personal history of other malignant neoplasm of rectum, rectosigmoid junction, and anus (principal); D64.81 Anemia due to antineoplastic chemotherapy; Z92.21 Personal history of antineoplastic chemotherapy; Z92.3 Personal history of irradiation; E03.9 Hypothyroidism, unspecified; G62.9 Polyneuropathy, unspecified; R51 Headache; R53.1 Weakness; R53.83 Other fatigue
CPT/HCPCS: 36591; 82378; 85025; 96523; G0463; J1642; 70450; 71046; 72197; 82040; 82247; 82310; 82374; 82435; 82565; 82947; 84075; 84132; 84155; 84295; 84450; 84460; 84520; 99212; A9577; J7050

== ENCOUNTER → 2017-11-18 | Outpatient (CLI) | payer MEDICARE ==
[2017-06-27 11:46] VITALS: BMI 26.5
[~2017-11-18] MED LIST changes: -ALTEPLASE RECOMB 2 MG VIAL IVP PRN; -DEXTROSE 5%(*) 100 ML BAG 100 ML IVPB PRN; -NS(*) 0.9% 100 ML BAG 100 ML IVPB PRN; -NS(*) 0.9% 500 ML BAG 500 ML IV PRN; -WATER FOR INJ,STERILE 20 ML IVP PRN
[2017-11-18 13:23] LABS: PLATELET COUNT, AUTOMATED 280 K/uL (150-450)
== END ==
LOC: LAB 12:18
PROVIDERS: ATTEND Surgery
DX: C20 Malignant neoplasm of rectum (principal); Z86.718 Personal history of other venous thrombosis and embolism
CPT/HCPCS: 36415; 82040; 82247; 82248; 82310; 82374; 82378; 82435; 82565; 82947; 84075; 84132; 84155; 84295; 84450; 84460; 84520; 85025

== ENCOUNTER 2017-11-19 13:00 | Outpatient (RCR) | payer MEDICARE ==
[2017-06-27 11:46] VITALS: BMI 26.5
--- NOTE | 2017-08-23 15:12 | PT INITIAL EVALUATION ---
MEDICAL DIAGNOSIS: Lumbar spinal stenosis, R leg pain TREATMENT DIAGNOSIS: same DATE OF ONSET: 07/01/17 SUBJECTIVE: Coral Voss presents to physical therapy with complaints of R buttock pain that radiates to R posterior/lateral thigh that started following a procedure to place a drain tube near his R buttock sometime in April 2017. He reports that he continues to have drainage from where the drain tube that was placed in the right buttock. He reports that his changes the dressing two times per day. He reports that he becomes extremely fatigued with simple activities such as walking from room to room or going to the bathroom, which requires him to rest for 30 minutes following. He reports that over the last 5 days, he has had moments of being freezing cold, trembling, and shacking. He denies that it is associated with a fever. He reports that he is currently utilizing the walker since his R LE will give out on him requiring him to use his B UE's to prevent a fall. He reports that his activity level has significantly decreased since his rectal cancer treatment along with these different procedures performed since April. Furthermore, he reports that he would like to get back to his active lifestyle, which includes feeding and working with his three horses and with his tractor. He reports that he was independent with all functional activities and hobbies prior to his medical problems. The reports that his R low back pain with radiating pain is worse with bending, standing, and walking and better with sitting and lying. He reports that he has not received any treatment for this current pain. He reports that he feels like it is getting better. He reports that he occasionally has that sharp pain that makes him lose his balance since his R LE feels like it gives out. He reports that changing his posture while sitting does not change the pain for the better or worse. He rates his current pain to be 0/10. He reports that if he stands or walks his pain will increase to at least a 5/10. REHAB PROBLEM LIST: Increased Pain Decreased ROM Decreased Strength Decreased Endurance Decreased Balance Decreased Function Decreased ADL's Decreased Mobility Decreased Gait PREVIOUS MEDICAL HISTORY: See EMR OCCUPATION: Retired OBJECTIVE: Posture: He demonstrates B rounded shoulders, increased thoracic kyphosis, and decreased lumbar lordosis. ROM: Trunk AROM: flexion: moderate restriction with muscular end feel. extension: minimal restriction with muscular end feel. side gliding R: minimal restriction with muscular end feel. Strength: R hip flexion, abduction, extension: 4-/5. R knee extension and flexion: 4/5, R ankle DF and PF: 4/5. L hip flexion, abduction, extension: 4/ 5. L knee extension and flexion: 4+/5. L ankle DF and PF: 4+/5. Special Tests: Repeated standing extension: muscular stretch during the test and better following the test. Repeated standing flexion: muscular stretch during the test and worse following the test. Mobility: Modified independent Gait: With his FWW, he demonstrated the following mechanics: increased base of support, decreased velocity, decreased B step lengths, decreased pelvic rotation, decreased swing time during the gait cycle, increased double limb stance time during the gait cycle, increased stance time during the gait cycle , and no LOB. Balance: Will test in the future ASSESSMENT: Coral Voss will benefit from skilled physical therapy to address the listed impairments to improve function and QOL. Based on his examination, his provisional classification is a posterior derangement that responded well to extension based ther ex with decreased pain and increased trunk AROM. He is independent on his specific exercise. Short Term Goals 2 weeks: Pt will demonstrate centralized low back pain and abolished R radiating pain to improve function and QOL. 4 weeks: Pt will demonstrate abolished low back pain along with abolished radiating pain to improve function and QOL. 6 weeks: Pt will improve core and B LE strength from baseline to 4+/5 or greater to improve function and QOL. 8 weeks: Pt will demonstrate a significant improvement with gait mechanics, endurance, and returning closer to prior level of function. Patient's Goals reduce R hip pain, improve strength, improve walking, and improve strength PLAN: Patient to be seen for Manual Therapy/STM/MET Strengthening/condition Range of Motion Spinal Stabilization Work Hardening/Cond Stretching Neuromuscular Re-ed Closed Chain Program Posture/Body mechanics Gait Trg/Balance Trg Home Exercise Program Therapeutic Activities 2-3x/week for 2 Months If you have any questions, comments, or concerns about this report or plan, please contact me at . Thank you, Roberto Louis, PT, DPT MTDD
--- NOTE | 2017-09-26 16:14 | PT PLAN OF CARE ---
Physician: Mateus Jose MD Patient is being seen: 2x/week Therapist: Roberto Louis, PT, DPT Medical Diagnosis: Lumbar spinal stenosis, R leg pain Treatment Diagnosis: same, B shoulder pain, cervical and thoracic pain Date of Onset: 07/01/17 Date of Initial Evaluation: 08/22/17 Date patient was last seen: 09/26/17 Number of treatments: 10 Number of cancellations/No shows: 0 INTERVENTIONS: Manual Therapy/STM/MET Strengthening/condition Range of Motion Spinal Stabilization Work Hardening/Cond Stretching Neuromuscular Re-ed Closed Chain Program Posture/Body mechanics Gait Trg/Balance Trg Home Exercise Program Therapeutic Activities GOALS: 2 weeks: Pt will demonstrate centralized low back pain and abolished R radiating pain to improve function and QOL. MET 4 weeks: Pt will demonstrate abolished low back pain along with abolished radiating pain to improve function and QOL. MET 6 weeks: Pt will improve core and B LE strength from baseline to 4+/5 or greater to improve function and QOL. Progressing well 8 weeks: Pt will demonstrate a significant improvement with gait mechanics, endurance, and returning closer to prior level of function. Progressing well PATIENT'S GOAL: reduce R hip pain, improve strength, improve walking, and improve strength: Progressing well Status of Patient's Goals: Progressing well Patient Compliance: Good Prognosis: Good Reasons for continuing therapy: This is a progress note for Coral Voss. He reports that he feels like he is doing much better. He reports that his low back pain and his hip pain have abolished. He reports that he has developed some shoulder pain along with some thoracic and cervical pain. He reports that he feels like his endurance has improved. He denies any falls or buckling of his B LE's. He reports that he was able to work outside and put up an electric fence today for the first time, which he feels like is a significant accomplishment. He continues to report initial lightheadedness when moving from sitting to standing for a few seconds. He reports that the lightheadedness has improved but continues to bother him.He has demonstrated significant improvements within PT with the following items: abolished low back pain, abolished R hip pain, improved gait mechanics and transitioned from FWW to independent without any recorded falls or his B LE's giving out, reduced Oswestry from 51% to 37%, increased endurance, and increased B LE strength. We will continue to improve strength, balance, ROM, and return to prior level of function. Posture: He demonstrates B rounded shoulders, increased thoracic kyphosis, and decreased lumbar lordosis. ROM: Trunk AROM: flexion: moderate restriction with muscular end feel. extension: minimal restriction with muscular end feel. side gliding R: minimal restriction with muscular end feel. Strength: R hip flexion, abduction, extension: 4+/5. R knee extension and flexion: 4+/5, R ankle DF and PF: 4+/5. L hip flexion, abduction, extension: 4+ /5. L knee extension and flexion: 4+/5. L ankle DF and PF: 4+/5. Special Tests: Repeated standing extension: muscular stretch during the test and better following the test. Repeated standing flexion: muscular stretch during the test and worse following the test. Mobility: Independent If you have any questions or concerns, please contact me at [phone]. Thank you, Roberto Louis, PT, DPT NEREYDA
--- NOTE | 2017-11-05 16:08 | PT PLAN OF CARE ---
Physician: Mateus Jose MD Patient is being seen: 2x/week Therapist: Roberto Louis, PT, DPT Medical Diagnosis: Lumbar spinal stenosis, R leg pain, L shoulder pain Treatment Diagnosis: same Date of Onset: 07/01/17 Date of Initial Evaluation: 08/22/17 Date patient was last seen: 11/05/17 Number of treatments: 20 Number of cancellations/No shows: 2 INTERVENTIONS: Manual Therapy/STM/MET Strengthening/condition Range of Motion Spinal Stabilization Work Hardening/Cond Stretching Neuromuscular Re-ed Closed Chain Program Posture/Body mechanics Gait Trg/Balance Trg Home Exercise Program Therapeutic Activities GOALS: 2 weeks: Pt will demonstrate centralized low back pain and abolished R radiating pain to improve function and QOL. MET 4 weeks: Pt will demonstrate abolished low back pain along with abolished radiating pain to improve function and QOL. MET 6 weeks: Pt will improve core and B LE strength from baseline to 4+/5 or greater to improve function and QOL. Progressing well 8 weeks: Pt will demonstrate a significant improvement with gait mechanics, endurance, and returning closer to prior level of function. Progressing well 10 weeks: Pt will demonstrate full PROM of L shoulder in all directions equal to R shoulder PROM in all directions. Progressing 12 weeks: Pt will demonstrate full AAROM of L shoulder in all directions equal to R shoulder AAROM in all directions. Progressing 14 weeks: Pt will demonstrated full AROM of L shoulder in all directions equal to R shoulder AROM in all directions. Progressing PATIENT'S GOAL: reduce R hip pain, improve strength, improve walking, and improve strength: Progressing well Status of Patient's Goals: Progressing well Patient Compliance: Good Prognosis: Good Reasons for continuing therapy: This is a progress note for Coral Voss. He reports that he feels like he is doing much better. He reports that his low back pain and his hip pain have abolished. He reports that he feels like his endurance has improved. He denies any falls or buckling of his B LE's. Coral reports that the taping seems to be helping. That his shoulder pain now is 0/10 with activity it increases to 3/10. He also feels like he is able to do more ( dishes on 2nd shelf). He has demonstrated significant improvements within PT with the following items: abolished low back pain, abolished R hip pain, improved gait mechanics and transitioned from FWW to independent without any recorded falls or his B LE's giving out, reduced Oswestry from 51% to 37%, increased endurance, and increased B LE strength. We will continue to improve strength, balance, ROM, and return to prior level of function. Posture: He demonstrates B rounded shoulders, increased thoracic kyphosis, and decreased lumbar lordosis. ROM: Trunk AROM: flexion: minimal restriction with muscular end feel. extension : NIL restriction with muscular end feel. side gliding R: NIL restriction with muscular end feel. Strength: R hip flexion, abduction, extension: 4+/5. R knee extension and flexion: 4+/5, R ankle DF and PF: 4+/5. L hip flexion, abduction, extension: 4+ /5. L knee extension and flexion: 4+/5. L ankle DF and PF: 4+/5. Special Tests: Repeated standing extension: muscular stretch during the test and better following the test. Repeated standing flexion: muscular stretch during the test and worse following the test. Mobility: Independent If you have any questions or concerns, please contact me at [phone]. Thank you, Roberto Louis, PT, DPT MTDD
[2017-12-02] MEDS ORDERED: FERR325T24 PO (09:37)
== END 2017-11-20 ==
LOC: PT 13:00
PROVIDERS: ATTEND Surgery
DX: M48.061 Spinal stenosis, lumbar region without neurogenic claudication (principal); M79.604 Pain in right leg; M25.551 Pain in right hip; C20 Malignant neoplasm of rectum; Z93.3 Colostomy status
CPT/HCPCS: 97163

== ENCOUNTER → 2017-11-22 | Outpatient (CLI) | payer MEDICARE ==
[2017-06-27 11:46] VITALS: BMI 26.5
--- NOTE | 2017-11-22 15:17 | RADIOLOGY IMAGING REPORT ---
FACILITY: [facility] - [place] PATIENT NAME: Coral Voss : 1940 MR: [id number] V: [id number] EXAM DATE: ORDERING PHYSICIAN: JOSE PERALTA TECHNOLOGIST: [place] [facility] [place] Coral Voss : 1940 Visit/Account:[id number] Date of Sevice: 11/22/2017 VENOUS DOPP LOWER BILAT EXTREM HISTORY: History of DVT. COMPARISON: Ultrasound dated August 30, 2017 FINDINGS: Grayscale, duplex and color Doppler interrogation of the bilateral lower extremity deep veins from co mmon femoral vein to proximal calf was completed. The greater saphenous vein in the right and left pr oximal thigh was evaluated using similar technique. RIGHT lower extremity: Common femoral vein - Negative. Femoral vein - Negative. Deep femoral vein - Negative. Popliteal vein - Negative. Visualized deep calf veins - Negative. Popliteal fossa: Negative. Greater saphenous vein in the proximal thigh: Negative. LEFT lower extremity: Common femoral vein - Negative. Femoral vein - Negative. Deep femoral vein - Negative. Popliteal vein - Negative. Visualized deep calf veins - Negative. Popliteal fossa: Negative. Greater saphenous vein in the proximal thigh: Negative. IMPRESSION: Resolution of previously identified DVT. No thrombus currently identified. Report Dictated By: Stephen Marrufo MD at 11/22/2017 3:12 PM Report E-Signed By: Stephen Marrufo MD at 11/22/2017 3:14 PM WSN:[id number]
== END ==
LOC: US 03:01
PROVIDERS: ATTEND Surgery
DX: Z86.718 Personal history of other venous thrombosis and embolism (principal)
CPT/HCPCS: 93970

== ENCOUNTER 2018-01-27 08:00 | Outpatient (RCR) | payer MEDICARE ==
[2017-06-27 11:46] VITALS: BMI 26.5
[~2018-01-27 08:00] MED LIST changes: -HYDR-4309 PO; +HYDR-653 PO
[2018-01-27 13:05] LABS: PLATELET COUNT, AUTOMATED 243 K/uL (150-450)
[2018-01-27] MEDS ORDERED: FERR325T24 PO (13:14)
[2018-01-30] MEDS ORDERED: GADOBENATE 529MG/1ML 15ML VIAL IVP ONE (08:18)
[2018-01-30] MEDS ORDERED: NS(*) 0.9% 50 ML BAG 50 ML ONE (08:18)
--- NOTE | 2018-02-03 14:10 | RADIOLOGY IMAGING REPORT ---
FACILITY: [facility] - [place] PATIENT NAME: Coral Voss : 1940 MR: [id number] V: [id number] EXAM DATE: ORDERING PHYSICIAN: JOSE PERALTA TECHNOLOGIST: Location: [facility] Patient: Coral Voss : 1940 Visit/Account:[id number] Date of Sevice: 01/30/2018 EXAMINATION: MRI pelvis without MRI pelvis with IV contrast 01/30/2018 8:00 AM HISTORY: Rectal adenocarcinoma. Fistula. TECHNIQUE: Multiplanar multisequence imaging of the pelvis was done before and after intravenous cont rast. Contrast: 15 mL of IV MultiHance COMPARISON STUDIES: 08/28/2017 FINDINGS: Bowel / mesenteries: Patient is status post rectal resection with reanastomosis. There is a small fl uid collection extending above the anastomotic site which measures about 1.5 cm oblique craniocaudal by 1.3 cm oblique AP by 1.5 cm transverse. This is smaller than the August study. On sagittal images , the configuration raises the possibility that this is the blind-ending rectal loop with an end to s pearl rectosigmoid anastomosis, but given the diminishment in caliber of this from the previous think t his probably is a small persistent leak or abscess although correlation with patient's surgical anato my would be useful in that regard. There is some edema and enhancement of tissues around this which might favor that this is a small abscess rather than simply a blind-ending bowel loop with end to ledy e anastomosis. Diverticulosis of the colon is present. Patient does have a right lower quadrant ostom y. Bladder and prostate: negative Musculoskeletal/soft tissue: Cutaneous defect in the right gluteal area with a fistulous tract which extends deep along the inferior edge of the SI joint. There is fluid and enhancement within the joint itself and there is also edema and enhancement within the adjacent iliac bone and probably more subt ly the right sacral tirny. There is a just over 1 cm focal collection along the inferior edge of the S I joint and an additional 7 mm rim-enhancing collection just above and in front of this along the ant erior-inferior aspect of the SI joint itself. In addition to the joint and bony involvement there is significant asymmetric swelling and enhancement of iliac is muscle on the right without a well-define d intramuscular abscess. Vascular structures: negative. Other: none significant. LN assessment: No substantially enlarged lymph nodes evident. IMPRESSION: 1. Persistent fluid collection along the top of the rectosigmoid anastomosis. As discussed above I th ink this is probably a persistent small extra luminal collection with surrounding inflammation althou gh conceivably could be a blind ending loop for an end-to-side bowel anastomosis. Correlation with th e postsurgical anatomy would be useful in that regard. 2. 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
== END 2018-01-30 18:00 | disposition home or self-care (01) ==
LOC: MRI 08:00 → EDSTATUS 14:47 → MRI 01-30 18:00
PROVIDERS: ATTEND Surgery
DX: D64.9 Anemia, unspecified (principal); N17.9 Acute kidney failure, unspecified; C20 Malignant neoplasm of rectum; K60.4 Rectal fistula; M86.9 Osteomyelitis, unspecified
CPT/HCPCS: 36415; 72197; 82310; 82374; 82378; 82435; 82565; 82947; 84132; 84295; 84520; 85025; A9577; J7050

== ENCOUNTER 2018-01-30 14:00 | Outpatient (RCR) | payer MEDICARE ==
[2017-06-27 11:46] VITALS: Wt 83.9 kg
[2017-11-19] MEDS: LIDOCAINE/SOD BICARB 8.4% SYR ID PRN (14:20)
[2017-11-19] MEDS: HEPARIN FLSH (PORT) 500 UN/5ML IVP PRN (14:20)
[2017-11-26 08:55] VITALS: BP 124/62
[2017-11-26 09:10] LABS: PLATELET COUNT, AUTOMATED 282 K/uL (150-450)
[2017-11-28 08:49] VITALS: BP 116/65
--- NOTE | 2017-11-28 16:33 | ONCOLOGY FOLLOW UP NOTE ---
EVENT DATE: November 28, 2017 DIAGNOSES 1. 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 2. Hypothyroidism. 3. Hayfever. CHIEF COMPLAINT Patient is here today for followup of his rectal adenocarcinoma. ONCOLOGY HISTORY Patient is a 77-year-old male who presented with passing small amounts of bright red blood when he passes a bowel movement. CT pelvis, chest, abdomen done on September 13, 2016 did reveal soft tissue defect within the rectum consistent with clinical history of rectal mass measuring about 6.1 cm. There was moderate narrowing of the rectosigmoid junction. There was 4 mm noncalcified nodule in the right middle lobe of the lung. MRI of the pelvis done on September 14, 2016 did reveal rectal mass measuring 5 cm with findings suggesting of transmural extension of the tumor into the posterior perirectal fat, but no evidence of organ invasion or distant metastatic disease. Patient had a colonoscopy with biopsy of the rectal mass done on September 12, 2016. A polyp was removed from the hepatic flexure of the colon with hyperplastic polyp. Two polyps from the splenic flexure, one was hyperplastic polyp and the other one was tubular adenoma. Biopsy of the rectal mass came back positive for invasive colonic adenocarcinoma. MLH1, MSH2, MSH6, and PMAC2 all came back positive. This is not consistent with microsatellite instability. Patient started chemoradiation on October 08, 2016 with weekly 5-FU intravenous continuous infusion. Patient received six weekly doses of 5FU intravenous continuous infusion completed on November 16, 2016. Patient had rectal resection done on February 07, 2017, and the pathology came back negative for residual cancer. HISTORY OF PRESENT ILLNESS Patient is here today for followup of his rectal adenocarcinoma. He is doing fine currently. He had a permanent ileostomy and he noticed dark stools, but he is taking iron pills. He still has drainage from his seroma. He has occasional epistaxis. He has pain in his shoulders. He has numbness in his left hand. PAST MEDICAL HISTORY 1. Hypothyroidism. 2. Hayfever. PAST SURGICAL HISTORY 1. Right rotator cuff surgery. 2. Bilateral carpal tunnel surgery. 3. Bilateral cataract surgery. 4. Rectal excision done on February 07, 2017. FAMILY HISTORY Patient does not know about his family history. SOCIAL HISTORY The patient is with four children. 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 He is never a smoker, never a drinker. Denies any abuse of illicit drugs. CURRENT MEDICATIONS 1. Levothyroxine 125 mcg daily. 2. Michelle 60 mg daily. ALLERGIES No known drug allergies. REVIEW OF SYSTEMS CONSTITUTIONAL: No appetite or weight change. No fever or sweating. Patient has some chills. No recent infection. HEENT: Ears: No tinnitus or hearing problem. Nose: He has occasional epistaxis. Throat: He has sore throat. Eyes: No diplopia or visual changes. RESPIRATORY: No shortness of breath. No cough, expectoration or hemoptysis. CARDIOVASCULAR: No chest pain, orthopnea, or paroxysmal nocturnal dyspnea (PND) . No edema. No palpitations. GASTROINTESTINAL: The ileostomy is working well. He has some dark stools sometimes, but he is taking iron. He still has bloody drainage from s seroma after his surgery. GENITOURINARY: He has urgency of urine. MUSCULOSKELETAL: He has pain in the shoulders. NEUROLOGICAL: He has numbness in the left hand. HEMATOLOGIC/LYMPHATIC: He bruises easily. He is weak, tired and fatigued. SKIN: He has a skin rash over the forearms bilaterally. PSYCHIATRIC: No anxiety or depression. PHYSICAL EXAMINATION GENERAL: Looks stable. Well-developed, well-nourished, and in no acute distress. VITAL SIGNS: Blood pressure 116/65, pulse 64 per minute, respirations 16 per minute, temperature 96.7, pulse ox 96% on room air. HEENT: Head: Atraumatic. No sinus tenderness to palpation. Eyes: No icterus or conjunctivitis. Mouth and throat: No oral thrush or mucositis. NECK: Supple. No cervical or supraclavicular lymphadenopathy. LUNGS: Clear to auscultation and percussion bilaterally. HEART: Regular rate and rhythm. No gallops, murmurs, clicks or rubs. ABDOMEN: Stoma is noted and working well. Also the bag from the drainage is also noted. EXTREMITIES: No cyanosis, clubbing or edema. LYMPHATICS: No peripheral lymphadenopathy. NEUROLOGICAL: Conscious, alert and oriented times three. No focal motor or sensory deficits. PSYCHIATRIC: Mood and affect appear normal. SKIN: No skin rash, bruise or purpuric eruption. DIAGNOSTIC DATA CBC showed white count 5.6, hemoglobin 12.1, hematocrit 36.4, platelets 282, 000. Chem panel totally normal except chloride 111, carbon dioxide 20, BUN 38, creatinine 1.8. CEA is normal at 2.8 which is stable. ASSESSMENT 1. Rectal adenocarcinoma with stage T3 lesion by MRI of the pelvis done September, which showed 5 cm rectal mass with findings suggestive of transmural extension of the tumor into the posterior perirectal fat. There is no evidence of organ invasion or metastatic disease. Colonoscopy with biopsy done September 12, 2016 did reveal three polyps, one from the hepatic flexure which was hyperplastic polyp, two from the splenic flexure, one was hyperplastic polyp, the other one was tubular adenoma. The rectal mass biopsy came back positive for invasive colonic adenocarcinoma. Patient received neoadjuvant chemoradiation between October 08, 2016 through November 16, 2016. He finished radiation therapy November 19, 2016. He had rectal resection of the tumor February. Pathology came back negative for residual disease. He had a seroma after surgery which continues to drain so far. He is currently in complete remission. His CEA is normal at 2.8. I am planning to continue followup. I will see him again in three months with CBC, chem panel and CEA. 2. Anemia due to previous chemotherapy and surgery. Current hemoglobin is 12.1 , which is up from 10.3 last visit. We will continue to monitor. 3. Hypothyroidism, on supplement. PLAN 1. Continue followup. 2. Patient to return in three months with CBC, chem panel and CEA. 3. Patient to contact us for any new concerns or complaints. NEILD
[2017-12-30 10:05] VITALS: BP 117/68
[2017-12-30] MEDS: HEPARIN FLSH (PORT) 500 UN/5ML IVP PRN (10:18)
[2017-12-30] MEDS: LIDOCAINE/SOD BICARB 8.4% SYR ID PRN (10:18)
[~2018-01-30 14:00] MED LIST changes: +ALTEPLASE RECOMB 2 MG VIAL IVP PRN; +DEXTROSE 5%(*) 100 ML BAG 100 ML IVPB PRN; +NS(*) 0.9% 100 ML BAG 100 ML IVPB PRN; +NS(*) 0.9% 500 ML BAG 500 ML IV PRN; +WATER FOR INJ,STERILE 20 ML IVP PRN
[2018-01-30] MEDS: LIDOCAINE/SOD BICARB 8.4% SYR ID PRN (14:44)
[2018-01-30] MEDS: HEPARIN FLSH (PORT) 500 UN/5ML IVP PRN (14:44)
== END 2018-02-16 ==
LOC: SPU 14:00
PROVIDERS: ATTEND Internal Medicine Hematology
DX: Z85.048 Personal history of other malignant neoplasm of rectum, rectosigmoid junction, and anus (principal); D64.81 Anemia due to antineoplastic chemotherapy; Z92.21 Personal history of antineoplastic chemotherapy; Z92.3 Personal history of irradiation; E03.9 Hypothyroidism, unspecified; G62.9 Polyneuropathy, unspecified; R51 Headache; R53.1 Weakness; R53.83 Other fatigue
CPT/HCPCS: 36415; 72197; 82378; 85025; 96523; A9577; G0463; J1642; J7050; 82040; 82247; 82310; 82374; 82435; 82565; 82947; 84075; 84132; 84155; 84295; 84450; 84460; 84520; 99212

== ENCOUNTER 2018-02-04 13:00 | Outpatient (RCR) | payer MEDICARE ==
[2017-06-27 11:46] VITALS: BMI 26.5
--- NOTE | 2017-11-27 14:16 | PT PLAN OF CARE ---
Physician: Mateus Jose MD Patient is being seen: 2x/week Therapist: Roberto Louis, PT, DPT Medical Diagnosis: Lumbar spinal stenosis, R leg pain Treatment Diagnosis: same Date of Onset: 07/01/17 Date of Initial Evaluation: 08/22/17 Date patient was last seen: 11/26/17 Number of treatments: 26 Number of cancellations/No shows: 0 INTERVENTIONS: Manual Therapy/STM/MET Strengthening/condition Range of Motion Spinal Stabilization Work Hardening/Cond Stretching Neuromuscular Re-ed Closed Chain Program Posture/Body mechanics Gait Trg/Balance Trg Home Exercise Program Therapeutic Activities GOALS: 2 weeks: Pt will demonstrate centralized low back pain and abolished R radiating pain to improve function and QOL. MET 4 weeks: Pt will demonstrate abolished low back pain along with abolished radiating pain to improve function and QOL. MET 6 weeks: Pt will improve core and B LE strength from baseline to 4+/5 or greater to improve function and QOL. Progressing well 8 weeks: Pt will demonstrate a significant improvement with gait mechanics, endurance, and returning closer to prior level of function. Progressing well 10 weeks: Pt will demonstrate full PROM of L shoulder in all directions equal to R shoulder PROM in all directions. Progressing 12 weeks: Pt will demonstrate full AAROM of L shoulder in all directions equal to R shoulder AAROM in all directions. Progressing 14 weeks: Pt will demonstrated full AROM of L shoulder in all directions equal to R shoulder AROM in all directions. Progressing PATIENT'S GOAL: reduce R hip pain, improve strength, improve walking, and improve strength: Progressing well Status of Patient's Goals: Progressing well Patient Compliance: Good Prognosis: Good Reasons for continuing therapy: This is a progress note for Coral Voss. He reports that he feels like he is doing much better. He reports that his low back pain and his hip pain have abolished. He reports that he feels like his endurance has improved. He denies any falls or buckling of his B LE's. Coral reports that the taping seems to be helping. That his shoulder pain now is 0/10 with activity it increases to 3/10. He also feels like he is able to do more ( dishes on 2nd shelf). He has demonstrated significant improvements within PT with the following items: abolished low back pain, abolished R hip pain, improved gait mechanics and transitioned from FWW to independent without any recorded falls or his B LE's giving out, reduced Oswestry from 51% to 37%, increased endurance, and increased B LE strength. We will continue to improve strength, balance, ROM, and return to prior level of function. Posture: He demonstrates B rounded shoulders, increased thoracic kyphosis, and decreased lumbar lordosis. ROM: Trunk AROM: flexion: minimal restriction with muscular end feel. extension : NIL restriction with muscular end feel. side gliding R: NIL restriction with muscular end feel. Strength: R hip flexion, abduction, extension: 4+/5. R knee extension and flexion: 4+/5, R ankle DF and PF: 4+/5. L hip flexion, abduction, extension: 4+ /5. L knee extension and flexion: 4+/5. L ankle DF and PF: 4+/5. Special Tests: Repeated standing extension: muscular stretch during the test and better following the test. Repeated standing flexion: muscular stretch during the test and worse following the test. Mobility: Independent If you have any questions or concerns, please contact me at [phone]. Thank you, Roberto Louis, PT, DPT NEREYDA
--- NOTE | 2018-01-02 14:09 | PT PLAN OF CARE ---
Physician: Mateus Jose MD Patient is being seen: 2x/week Therapist: Roberto Louis, PT, DPT Medical Diagnosis: Lumbar spinal stenosis, R leg pain Treatment Diagnosis: same Date of Onset: 07/01/17 Date of Initial Evaluation: 08/22/17 Date patient was last seen: 01/02/18 Number of treatments: 36 Number of cancellations/No shows: 0 INTERVENTIONS: Manual Therapy/STM/MET Strengthening/condition Range of Motion Spinal Stabilization Work Hardening/Cond Stretching Neuromuscular Re-ed Closed Chain Program Posture/Body mechanics Gait Trg/Balance Trg Home Exercise Program Therapeutic Activities GOALS: 2 weeks: Pt will demonstrate centralized low back pain and abolished R radiating pain to improve function and QOL. MET 4 weeks: Pt will demonstrate abolished low back pain along with abolished radiating pain to improve function and QOL. MET 6 weeks: Pt will improve core and B LE strength from baseline to 4+/5 or greater to improve function and QOL. Progressing well 8 weeks: Pt will demonstrate a significant improvement with gait mechanics, endurance, and returning closer to prior level of function. Progressing well 10 weeks: Pt will demonstrate full PROM of L shoulder in all directions equal to R shoulder PROM in all directions. Progressing 12 weeks: Pt will demonstrate full AAROM of L shoulder in all directions equal to R shoulder AAROM in all directions. Progressing 14 weeks: Pt will demonstrated full AROM of L shoulder in all directions equal to R shoulder AROM in all directions. Progressing PATIENT'S GOAL: reduce R hip pain, improve strength, improve walking, and improve strength: Progressing well Status of Patient's Goals: Progressing well Patient Compliance: Good Prognosis: Good Reasons for continuing therapy: This is a progress note for Coral Jordanagely. He reports that he feels like he is improving with his endurance, muscle strength, and motion in B shoulders. He reports that he has occasional achiness in his B shoulder joints with the L being worse than the R. Overall, he reports that he is able to do much more activities and feels like he continues to be less and less restricted by pain or running out of gas. He continues to progress with increased PROM-AROM of B shoulders into flexion, abduction, scaption, IR, and ER. He also continues to increase with periscapular and RTC strength, increased overall endurance, and increased trunk AROM with centralized low back pain. We will continue to improve flexibility, strength, endurance, and reduce his overall low back pain along with his B shoulder pain over the next 10 sessions. Posture: He demonstrates B rounded shoulders, increased thoracic kyphosis, and decreased lumbar lordosis. ROM: Trunk AROM: flexion: minimal restriction with muscular end feel. extension: NIL restriction with muscular end feel. side gliding R: NIL restriction with muscular end feel. Strength: R hip flexion, abduction, extension: 4+/5. R knee extension and flexion: 4+/5, R ankle DF and PF: 4+/5. L hip flexion, abduction, extension: 4+/5. L knee extension and flexion: 4+/5. L ankle DF and PF: 4+/5. Special Tests: Repeated standing extension: muscular stretch during the test and better following the test. Repeated standing flexion: muscular stretch during the test and worse following the test. Mobility: Independent If you have any questions or concerns, please contact me at [phone]. Thank you, Roberto Louis, PT, DPT NEREYDA
--- NOTE | 2018-01-31 10:01 | RADIOLOGY IMAGING REPORT ---
FACILITY: PATIENT NAME: Coral Voss : 1940 MR: [id number] V: [id number] EXAM DATE: ORDERING PHYSICIAN: JOSE PERALTA TECHNOLOGIST: Location: [facility] - [place] Patient: Coral Voss : 1940 Visit/Account:[id number] Date of Sevice: 01/30/2018 EXAMINATION: MRI pelvis without MRI pelvis with IV contrast 01/30/2018 8:00 AM HISTORY: Rectal adenocarcinoma. Fistula. TECHNIQUE: Multiplanar multisequence imaging of the pelvis was done before and after intravenous cont rast. Contrast: 15 mL of IV MultiHance COMPARISON STUDIES: 08/28/2017 FINDINGS: Bowel / mesenteries: Patient is status post rectal resection with reanastomosis. There is a small fl uid collection extending above the anastomotic site which measures about 1.5 cm oblique craniocaudal by 1.3 cm oblique AP by 1.5 cm transverse. This is smaller than the August study. On sagittal images , the configuration raises the possibility that this is the blind-ending rectal loop with an end to s pearl rectosigmoid anastomosis, but given the diminishment in caliber of this from the previous think t his probably is a small persistent leak or abscess although correlation with patient's surgical anato my would be useful in that regard. There is some edema and enhancement of tissues around this which might favor that this is a small abscess rather than simply a blind-ending bowel loop with end to ledy e anastomosis. Diverticulosis of the colon is present. Patient does have a right lower quadrant ostom y. Bladder and prostate: negative Musculoskeletal/soft tissue: Cutaneous defect in the right gluteal area with a fistulous tract which extends deep along the inferior edge of the SI joint. There is fluid and enhancement within the joint itself and there is also edema and enhancement within the adjacent iliac bone and probably more subt ly the right sacral triny. There is a just over 1 cm focal collection along the inferior edge of the S I joint and an additional 7 mm rim-enhancing collection just above and in front of this along the ant erior-inferior aspect of the SI joint itself. In addition to the joint and bony involvement there is significant asymmetric swelling and enhancement of iliac is muscle on the right without a well-define d intramuscular abscess. Vascular structures: negative. Other: none significant. LN assessment: No substantially enlarged lymph nodes evident. IMPRESSION: 1. Persistent fluid collection along the top of the rectosigmoid anastomosis. As discussed above I th ink this is probably a persistent small extra luminal collection with surrounding inflammation althou gh conceivably could be a blind ending loop for an end-to-side bowel anastomosis. Correlation with th e postsurgical anatomy would be useful in that regard. 2. 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
[~2018-02-04 13:00] MED LIST changes: -ALTEPLASE RECOMB 2 MG VIAL IVP PRN; -DEXTROSE 5%(*) 100 ML BAG 100 ML IVPB PRN; +HYDR-4309 PO; -HYDR-653 PO; -NS(*) 0.9% 100 ML BAG 100 ML IVPB PRN; -NS(*) 0.9% 500 ML BAG 500 ML IV PRN; -WATER FOR INJ,STERILE 20 ML IVP PRN
--- NOTE | 2018-02-10 10:00 | PT PLAN OF CARE ---
Physician: Mateus Jose MD Patient is being seen: 2x/week Therapist: Roberto Louis, PT, DPT Medical Diagnosis: Lumbar spinal stenosis, R leg pain Treatment Diagnosis: same Date of Onset: 07/01/17 Date of Initial Evaluation: 08/22/17 Date patient was last seen: 02/07/18 Number of treatments: 45 Number of cancellations/No shows: 3 INTERVENTIONS: Manual Therapy/STM/MET Strengthening/condition Range of Motion Spinal Stabilization Work Hardening/Cond Stretching Neuromuscular Re-ed Closed Chain Program Posture/Body mechanics Gait Trg/Balance Trg Home Exercise Program Therapeutic Activities GOALS: 2 weeks: Pt will demonstrate centralized low back pain and abolished R radiating pain to improve function and QOL. MET 4 weeks: Pt will demonstrate abolished low back pain along with abolished radiating pain to improve function and QOL. MET 6 weeks: Pt will improve core and B LE strength from baseline to 4+/5 or greater to improve function and QOL. Progressing well 8 weeks: Pt will demonstrate a significant improvement with gait mechanics, endurance, and returning closer to prior level of function. Progressing well 10 weeks: Pt will demonstrate full PROM of L shoulder in all directions equal to R shoulder PROM in all directions. Progressing 12 weeks: Pt will demonstrate full AAROM of L shoulder in all directions equal to R shoulder AAROM in all directions. Progressing 14 weeks: Pt will demonstrated full AROM of L shoulder in all directions equal to R shoulder AROM in all directions. Progressing PATIENT'S GOAL: reduce R hip pain, improve strength, improve walking, and improve strength: Progressing well Status of Patient's Goals: Progressing well Patient Compliance: Good Prognosis: Good Reasons for continuing therapy: This is a discharge note for Coral Jordanagely. He reports that he feels like he is improving with his endurance, muscle strength, and motion in B shoulders. He reports that he has occasional achiness in his B shoulder joints with the L being worse than the R. Overall, he reports that he is able to do much more activities and feels like he continues to be less and less restricted by pain or running out of gas. He continues to progress with increased PROM-AROM of B shoulders into flexion, abduction, scaption, IR, and ER. He also continues to increase with periscapular and RTC strength, increased overall endurance, and increased trunk AROM with centralized low back pain. He will be discharged from PT as he is going to have surgery. Posture: He demonstrates B rounded shoulders, increased thoracic kyphosis, and decreased lumbar lordosis. ROM: Trunk AROM: flexion: minimal restriction with muscular end feel. extension: NIL restriction with muscular end feel. side gliding R: NIL restriction with muscular end feel. Strength: R hip flexion, abduction, extension: 4+/5. R knee extension and flexion: 4+/5, R ankle DF and PF: 4+/5. L hip flexion, abduction, extension: 4+/5. L knee extension and flexion: 4+/5. L ankle DF and PF: 4+/5. Special Tests: Repeated standing extension: muscular stretch during the test and better following the test. Repeated standing flexion: muscular stretch during the test and worse following the test. Mobility: Independent If you have any questions or concerns, please contact me at [phone]. Thank you, Roberto Louis, PT, DPT NEREYDA
== END 2018-02-04 18:00 | disposition home or self-care (01) ==
LOC: PT 13:00
PROVIDERS: ATTEND Surgery
DX: M48.061 Spinal stenosis, lumbar region without neurogenic claudication (principal); M79.604 Pain in right leg; M25.551 Pain in right hip; C20 Malignant neoplasm of rectum; Z93.3 Colostomy status
CPT/HCPCS: 72197

== ENCOUNTER 2018-02-05 00:58 | Day surgery (SDC) | payer MEDICARE ==
[2017-06-27 11:46] VITALS: Ht 177.8 cm; Wt 83.5 kg
[~2018-02-05] VITALS: Ht 177.8 cm; Wt 83.5 kg
[2018-02-05 09:31] VITALS: BP 138/74
[2018-02-05] MEDS ORDERED: LIDOCAINE/SOD BICARB 8.4% SYR ID ONE (09:50)
[2018-02-05] MEDS ORDERED: NORMOSOL R SOLN(*) 1000 ML BAG 1,000 ML IV PRN (09:50)
[2018-02-05] MEDS ORDERED: PROPOFOL EMUL(*) 10MG/ML 20 ML 60 ML ONE (10:36)
[2018-02-05] MEDS ORDERED: LIDOCAINE MPF 1% 5 ML VIAL ONE (10:36)
[2018-02-05 11:31] VITALS: BP 105/66
--- NOTE | 2018-02-05 11:39 | Short(Outpt) Discharge Summary ---
Discharge Summary Reason for Hosp/Final Diag: (1) Rectal adenocarcinoma Status: Chronic Hospital Course & Plan: Colonoscopy completed without problems. (2) Colocutaneous fistula Status: Chronic (3) History of low anterior resection of rectum Status: Chronic Departure Discharge to: Home, Self Care Discharge Instructions Home Meds Active Scripts Ferrous Sulfate (IRON) 325 Mg Tablet, 1 TAB PO TID, #90 TAB 3 Refills Prov:JOSE PERALTA MD 01/27/18 Reported Medications Levothyroxine Sodium (LEVOTHYROXINE SODIUM) 0.125 Mg Tab, 125 MCG PO DAILY 02/08/17 Vitamin B Complex (VITAMIN B COMPLEX) 1 Each Capsule, 1 EACH PO QDAY, CAPSULE 02/04/17 Multivitamin (MULTI VITAMIN DAILY) 1 Each Tablet, 1 EACH PO 12/19/14 Diet: Regular Activity: As Tolerated Special Instructions: I was able to advance the colonoscope all the way to the first part of your colon although there is some residual stool in your colon. I would not call this a thorough screening test for colon cancer due to the residual stool but I didn't find any other cancers in your colon and I didn't find any recurrent cancer in your rectum. The opening to the fistula is still present. You may experience increased bloody discharge from your rectum due to irritation from the colonoscopy for the next several days so don't be alarmed about this. I will have Bisi call you to go over the pre-operative instructions with you and I will see you before surgery on 02/11/18. JOSE PERALTA MD Feb 05, 2018 11:39
[2018-02-05 12:08] VITALS: BP 123/70
[2018-02-05 12:10] VITALS: BP 115/87
[2018-02-12] MEDS ORDERED: NORMOSOL R SOLN(*) 1000 ML BAG 1,000 ML IV PRN (09:40)
[2018-02-12] MEDS ORDERED: LIDOCAINE/SOD BICARB 8.4% SYR ID ONE (09:40)
== END 2018-02-05 12:50 | disposition home or self-care (01) ==
LOC: OR 00:58
PROVIDERS: ATTEND Surgery
DX: K63.2 Fistula of intestine (principal); K91.89 Other postprocedural complications and disorders of digestive system; Z85.048 Personal history of other malignant neoplasm of rectum, rectosigmoid junction, and anus
CPT/HCPCS: 00811; 45378; J2001; J2704

== ENCOUNTER 2018-02-11 00:08 | Inpatient (IN) | payer MEDICARE ==
[2017-06-27 11:46] VITALS: Ht 177.8 cm; Wt 89.4 kg
[2018-02-10 10:27] LABS: PLATELET COUNT, AUTOMATED 233 K/uL (150-450)
[2018-02-11] VITALS (10 sets, daily range): BP systolic 111–151; BP diastolic 63–88
[~2018-02-11] VITALS: Ht 177.8 cm; Wt 89.4 kg
[~2018-02-11 00:08] MED LIST changes: -HYDR-4309 PO; +HYDR-653 PO
[2018-02-11] MEDS ORDERED: PREGABALIN 75 MG CAPSULE PO ONE ×2 (08:10→08:12)
[2018-02-11] MEDS ORDERED: fentaNYL CITR 250 MCG/5 ML AMP ONE (08:15)
[2018-02-11] MEDS ORDERED: ROPIVACAINE 0.5% 20 ML VIAL ONE (08:16)
[2018-02-11] MEDS ORDERED: LIDOCAINE MPF 1% 5 ML VIAL ONE (08:17)
[2018-02-11] MEDS ORDERED: DEXAMETHASONE SOD 4 MG/ML VIAL ONE (08:17)
[2018-02-11] MEDS ORDERED: PROPOFOL EMUL(*) 10MG/ML 20 ML 20 ML ONE (08:17)
[2018-02-11] MEDS ORDERED: ONDANSETRON 4 MG/2 ML VIAL ONE (08:17)
[2018-02-11] MEDS ORDERED: KETAMINE HCL 200 MG/20 ML MDV ONE ×3 (08:21→14:56)
[2018-02-11] MEDS ORDERED: FAMOTIDINE 20 MG TAB PO ONE (08:40)
[2018-02-11] MEDS ORDERED: ACETAMINOPHEN 500 MG TAB PO ONE (08:40)
[2018-02-11] MEDS ORDERED: NORMOSOL R SOLN(*) 1000 ML BAG 1,000 ML IV PRN (08:40)
[2018-02-11] MEDS ORDERED: LIDOCAINE/SOD BICARB 8.4% SYR ID ONE (08:40)
[2018-02-11] MEDS ORDERED: metroNIDAZOLE* 500MG/100ML BAG 100 ML IVPB ONE (08:40)
[2018-02-11] MEDS ORDERED: PREGABALIN 150 MG CAPSULE PO ONE (08:40)
[2018-02-11] MEDS ORDERED: ENOXAPARIN 40 MG/0.4ML SYR SC ONE (08:40)
[2018-02-11] MEDS ORDERED: LEVOFLOXACIN/D5W*500 MG/100 ML 100 ML IVPB ONE (08:40)
[2018-02-11] MEDS ORDERED: MIDAZOLAM 2 MG/2 ML VIAL IVP PRN (08:40)
[2018-02-11] MEDS ORDERED: INDOCYANINE GREEN 25 MG VIAL IVP ONE (10:02)
[2018-02-11] MEDS ORDERED: ROCURONIUM BROM 10 MG/ML 10 ML ONE (10:30)
[2018-02-11] MEDS ORDERED: SUGAMMADEX SOD 200 MG/2 ML SDV ONE (11:03)
[2018-02-11] MEDS ORDERED: ARTIFICIAL TEARS OINT 3.5 GM ONE (11:10)
[2018-02-11] MEDS ORDERED: HYDROmorphone HCL 2 MG/ML SDV ONE (11:25)
[2018-02-11] MEDS ORDERED: NS(*) 0.9% 100 ML BAG 100 ML ONE (16:04)
[2018-02-11] MEDS ORDERED: HYDROGEN PEROXID 3% 473 ML BTL TP ONE (17:30)
[2018-02-11] MEDS ORDERED: fentaNYL CITR 100 MCG/2 ML AMP ONE (18:21)
[2018-02-11] MEDS ORDERED: NALOXONE HCL 0.4 MG/ML VIAL IVP PRN (18:50)
[2018-02-11] MEDS ORDERED: FLUSH 10 ML SYR IVP PRN (18:50)
--- NOTE | 2018-02-11 19:10 | Post Operative Progress Note ---
Post Operative Progress Note Date: Feb 11, 2018 Time: 18:58 Surgeon: Damon Dictation number: [id number] Anesthesia: GETA by Dr. Montero Pre-Op Diagnosis: Rectal cancer, s/p LAR Anastomotic dehiscence Colocutaneous fistula Sacral osteomyelitis Post-Op Diagnosis: SYLVIA Findings: C/W dx Procedure(s): Ileostomy takedown Robotic pelvic anastomosis takedown Colostomy Specimen Removed:(May be N/A): Anastomosis Complications: None Fluids: 4L crystalloid 250mL UOP Estimated Blood Loss: 400mL Date OP Note Dictated: Feb 11, 2018 Time OP Note Dictated: 19:01 JOSE PERALTA MD Feb 11, 2018 19:10
[2018-02-11] MEDS: metroNIDAZOLE* 500MG/100ML BAG 100 ML IVPB SCH (19:15)
[2018-02-11] MEDS: HYDROmorphone PCA 6 MG/30 ML IV PRN (20:46)
[2018-02-11] MEDS: NS(*) 0.9% 1000 ML BAG 1,000 ML IV PRN (20:47)
[2018-02-11] MEDS ORDERED: PCA LOCKBOX KEYS XX ONE (20:48)
[2018-02-11] MEDS ORDERED: PCA LOCKBOX KEYS XX PRN (21:00)
[2018-02-11] MEDS: ACETAMINOPHEN(*)1000 MG/100 ML 100 ML IVPB SCH (23:26)
[2018-02-12] VITALS (13 sets, daily range): BP systolic 92–130; BP diastolic 51–69
[2018-02-12] MEDS: metroNIDAZOLE* 500MG/100ML BAG 100 ML IVPB SCH ×4 (02:18→19:33)
[2018-02-12 06:00] LABS: PLATELET COUNT, AUTOMATED 180 K/uL (150-450)
[2018-02-12] MEDS: LEVOTHYROXINE SOD 0.125 MG TAB PO SCH (06:03)
[2018-02-12] MEDS: ACETAMINOPHEN(*)1000 MG/100 ML 100 ML IVPB SCH ×4 (06:03→23:35)
[2018-02-12] MEDS: NS(*) 0.9% 1000 ML BAG 1,000 ML IV PRN ×2 (06:10→18:37)
--- NOTE | 2018-02-12 07:24 | General Surgery Progress Note ---
Subjective Progress Notes Subjective Main complaint is postop pain. No other complaints today. Pain seems to be controlled. Physical Exam Vital Signs Date Time Temp Pulse Resp B/P (MAP) Pulse Ox O2 Delivery O2 Flow Rate FiO2 02/12/18 05:15 14 94 02/12/18 04:00 101/57 (72) 02/12/18 03:10 70 Nasal Cannula 1.0 02/12/18 02:06 98.7 Intake and Output 02/12/18 06:59 Intake Total 9557 ml Output Total 2060 ml Balance 7497 ml Intake IV Total 5407 ml Other 4150 ml Output Urine Total 1550 ml Drainage Total 110 ml Estimated Blood Loss 400 ml General Appearance: Alert, Awake, No Acute Distress, Afebrile GI: Other (Soft, appropriate postop TTP, dressings C/D/I. Stoma is pink. No gas or stool in bag yet.) Extremities: Warm, Perfused Result Diagram: 02/12/18 0536 02/12/1836 Assessment and Plan Problems: (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 Doing well. H/H down as expected. Will follow and transfuse if it gets below Hb of 8. Will start ice chips, popsickles, etc today but limit volume. PPI for GI prophylaxis, lovenox for VTE prophylaxis. Ambulate and OOB to chair today. PT/OT, pulmonary hygiene, IS. Await return of bowel function. 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 Time Spent: < 30 min Exam Sepsis Risk: No Definite Risk JOSE PERALTA MD Feb 12, 2018 07:24
[2018-02-12] MEDS: PANTOPRAZOLE SOD 40 MG IV VIAL IVP SCH (08:20)
[2018-02-12] MEDS: ENOXAPARIN 40 MG/0.4ML SYR SC SCH (08:20)
[2018-02-12] MEDS: LEVOFLOXACIN/D5W*500 MG/100 ML 100 ML IVPB SCH (09:33)
--- NOTE | 2018-02-12 09:57 | OPERATIVE REPORT 1 ---
EVENT DATE: February 11, 2018 SURGEON: Mateus Jose M.D. ANESTHESIOLOGIST: Roberto Montero MD ANESTHESIA: General endotracheal. PREOPERATIVE DIAGNOSIS 1. Rectal cancer treated with laparoscopic lower anterior resection (LAR) a year ago. 2. Anastomotic dehiscence. 3. Colocutaneous fistula. 4. Sacral osteomyelitis. POSTOPERATIVE DIAGNOSIS 1. Rectal cancer treated with laparoscopic lower anterior resection (LAR) a year ago. 2. Anastomotic dehiscence. 3. Colocutaneous fistula. 4. Sacral osteomyelitis. PROCEDURE PERFORMED 1. Ileostomy reversal. 2. Robotic deep pelvic anastomosis takedown. 3. Colostomy. COMPLICATIONS None. CONDITION Stable. ESTIMATED BLOOD LOSS 400 mL. URINE OUTPUT 250 Ml. IV FLUIDS 4L Crystalloid SPECIMEN 1. Anastomosis. 2. Ileostomy. INDICATIONS This is a 77-year-old gentleman who was diagnosed with rectal cancer over a year ago and this was treated with neoadjuvant chemo and radiation therapy. After this was completed, he underwent a laparoscopic lower anterior resection complicated by anastomotic dehiscence and then presacral fluid collection treated with percutaneous drainage and then he developed a fistula tract where the drain had been. He has really been doing pretty well all things considered, although he has persistent low volume drainage out of his right buttock where the drain site was and where the fistula opening currently is. A recent MRI to look at his pelvis for evidence of cancer recurrence suspicious for osteomyelitis in the sacrum related to the fistula. There is no evidence of continued recurring rectal cancer. With this information, I have recommended that we take down the anastomosis as well as the source of the fistula and take down his ileostomy and give him a colostomy. DESCRIPTION OF PROCEDURE The patient was brought to the operating room and placed supine on the operating table. General endotracheal anesthesia was administered and his abdomen was prepped and draped in sterile fashion. Time-out was completed and I injected the skin around the ileostomy with 0.5% rup1 plain. I made an incision in the skin right where the mucosa joins the skin on the ileostomy and dissected completely around this through the dermis and subcutaneous tissues. I then dissected the small bowel completely free from the surrounding tissues, entered the peritoneal cavity where there was really no adhesions and then delivered the small bowel through this ileostomy wound outside the abdomen. It did not appear that it would come together very well by just closing the ileostomy so I found healthy bowel proximal and distal to the ileostomy without removing too much length that made windows in the mesentery and then used the JUAN MANUEL stapler with blue load and divided the small bowel proximal and distal to the ileostomy and then suture ligated the mesentery with a 2-0 silk suture and removed the small bowel and passed it off the field. I then created a [id number]-yc-[id number] functional end-to-end anastomosis by laying the two segments of small bowel next to each other, making a neurotomy next to each other and using the JUAN MANUEL stapler with blue load and fired it to create this anastomosis. The resulting conjoined enterotomy was closed with a running 4-0 Monocryl suture, inner layer suture, and then I oversewed the entire staple and suture line with Lembert interrupted 3-0 silk sutures. It looked nice and under no tension and with good blood flow in the tissue that all looked nice and perfused. I reduced the small bowel back into the abdomen and then closed the fascia with running 0 Vicryl suture but left a space to accommodate a 12 mm Beasley-type robotic port, which I inserted into this after changing to clean gloves. I insufflated the abdomen to a pressure of 15 mmHg and under direct visualization placed an 8 mm port in the left upper quadrant, one in the epigastric midline and one in the right mid abdomen, all about 8 cm apart from each other and in the diagonal. We then placed the patient in steep Trendelenburg and brought in the robot, docked he robot, targeted the robot and inserted the instruments. I then went to the console and pulled the small bowel out of the pelvis and began dissecting the colon away from the pelvis. There had been adhesions that formed laterally and these were easily taken down and ultimately with some work was able to identify the staple line. I could not get enough exposure down on the rectum and so ended up just cutting the anastomosis down and pulling the colon back up into the abdomen. Then I basically debrided the rectal stump to get rid of all of the staple line and also got it well away from the fistula. I could clearly see the fistula opening posteriorly. Once it was debrided, I oversewed the rectal stump with two layers of V-Loc absorbable suture. It closed quite nicely. I then irrigated and dried the pelvis and then inserted a specimen bag and then removed all of the debrided portions of the rectum out in the specimen bag. I then placed a 10 mm flat Wale-Hurd drain down in the pelvis, running especially where the opening to the fistula tract was and this exited through one of the 8 mm port sites up in the right mid abdomen. I then went and scrubbed back in and made a quarter-size hole in the left abdominal skin, which I had previously marked after assessing a good place for the stoma. I removed this circular piece of skin and then dissected to the fat and identified the anterior rectus sheath and then made a cruciate incision in this, split the muscles without dividing them and then went through the peritoneum and into the abdominal cavity. I was then able to pull the colon up through this and fashioned the colostomy by sewing it in a Oxana-type fashion to the skin with series of interrupted 4-0 Monocryl sutures and then another layer on the skin to mucosa of running 4-0 Monocryl sutures. Also, before bringing up the colostomy, while I was still at the console, I did place a running V-Loc absorbable suture in the abdominal wall at the ileostomy site with good closure at this site as well. I then placed a second fascial layer of #1 PDS suture on the anterior rectus sheath and the ileostomy site. His abdomen was then cleaned and dried and I placed a stoma appliance around the colostomy and closed the skin at the port site with 4-0 Monocryl subcuticular sutures and then sewed the drain in with an 0 silk suture and then closed the skin loosely at the ileostomy takedown site with vickie and 0.25-inch Elliot drains going into the wound to facilitate continued drainage so this will heal by secondary intention. I then applied steri-strips over the small incisions followed by sterile surgical dressings and then drain dressings around the drain site and dry 4x4 gauze, which were taped into place over the ostomy site. The patient was awakened and extubated in the operating room and transported to the recovery room in stable condition, having tolerated the procedure without any apparent problems. NEREYDA
--- NOTE | 2018-02-12 15:24 | Medical Nutrition Therapy ---
Nutrition Anthropometrics Height (Inches): 70.50 Height (Calculated Centimeters: 179.011421 Weight (Pounds): 190 Weight (Calculated Kilograms): 86.183 Eric Nutrition Score: Probably Inadequate Eric Nutrition Risk Score: 17 Dietary Referral Nutrition Risk Factors: Nutrition Risk Comment: Physical Findings Physical Appearance: Overweight BMI 25-29 Skin Appearance Skin Appearance: Edema Edema Location Modifier: Both Edema Location: Ankle Type of Edema: Degree of Edema: 1+ Gastrointestinal Symptoms GI Symtoms: Change in Bowel Pattern Tube Present: Bowel Sounds: Recent Bowel Pattern: Stool Characteristics: Nutritional Diagnosis Nutritional Risk Acuity 2: Head/Neck/GI Cancer (rectal Ca), New Colostomy Nutritional Acuity: 2-Moderate Nutrition Diagnosis: Inadequate Food Intake Nutrition Etiology: Physiological Causes Nutrition Problem/Etiology/Sym: AEB Pt NPO Energy Requirement: 2430 (M- StJ X 1.2 SF) Protein Requirement: 85 (1.1gm/kg) Fluid Requirement: 2580 (30ml/kg) Diet Type: NPO (Nothing by Mouth) Nutrition Intervention: Incr diet as tolerated Nutrition Monitoring & Eval RD Patient Assessment Time: [address] Assessment Type: RD Assessment Patient Nutrition Acuity: 2-Moderate Follow Up Date: Feb 15, 2018 Nutritional Comment: 02/12 Pt with dx rectal Ca and new colostomy. Currently NPO with hypoactive bowel sounds. BUN and creatinine elevated at 32 and 1.8. Will cont to monitor. ARMOND WALLER Feb 12, 2018 15:23
[2018-02-13] MEDS: metroNIDAZOLE* 500MG/100ML BAG 100 ML IVPB SCH ×4 (02:17→20:02)
[2018-02-13 02:28] VITALS: BP 130/69
[2018-02-13] MEDS: NS(*) 0.9% 1000 ML BAG 1,000 ML IV PRN (04:52)
[2018-02-13] MEDS: ACETAMINOPHEN(*)1000 MG/100 ML 100 ML IVPB SCH ×4 (05:24→23:16)
[2018-02-13] MEDS: LEVOTHYROXINE SOD 0.125 MG TAB PO SCH (05:25)
[2018-02-13 05:48] LABS: PLATELET COUNT, AUTOMATED 175 K/uL (150-450)
--- NOTE | 2018-02-13 06:59 | General Surgery Progress Note ---
Subjective Progress Notes Subjective C/O weakness and postop abdominal pain. Physical Exam Vital Signs Date Time Temp Pulse Resp B/P (MAP) Pulse Ox O2 Delivery O2 Flow Rate FiO2 02/13/18 05:34 14 93 02/13/18 02:28 98.7 80 130/69 (89) Room Air 1.0 Intake and Output 02/13/18 06:59 Intake Total 2791 ml Output Total 2110 ml Balance 681 ml Intake Oral 0 ml IV Total 2791 ml Output Urine Total 1675 ml Drainage Total 435 ml General Appearance: Alert, Awake, No Acute Distress, Afebrile GI: Other (Soft, appropriate postop TTP, stoma is a little pale, light pink, not purple or dusky. Dressings removed, incisions look good. RLQ wound looks good, jose manuel drains in place. Drain with serous output.) Extremities: Warm, Perfused Result Diagram: 02/13/1852102/13/18521 Assessment and Plan Problems: (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 Doing well. H/H down as expected. Will follow and transfuse if it gets below Hb of 8. Will start ice chips, popsickles, etc today but limit volume. PPI for GI prophylaxis, lovenox for VTE prophylaxis. Ambulate and OOB to chair today. PT/OT, pulmonary hygiene, IS. Await return of bowel function. 02/13/18: POD#2. Doing well. H/H stable. Stoma a little pale, will need to keep an eye on this. Continue current limited diet. Continue ambulation, IS, pulmonary hygiene, PT/OT, lovenox, PPI. Awaiting return of bowel function. Recommended removing jaffe this morning but pt reports feeling too weak to get up and use the restroom. Will continue PT today and will recommend removing the catheter tomorrow morning. 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 Time Spent: < 30 min Exam Sepsis Risk: No Definite Risk JOSE PERALTA MD Feb 13, 2018 06:59
[2018-02-13] MEDS: KCL/D1/2NS 20 MEQ 1000 ML 1,000 ML IV SCH ×2 (08:07→23:15)
[2018-02-13] MEDS: ENOXAPARIN 40 MG/0.4ML SYR SC SCH (09:07)
[2018-02-13] MEDS: PANTOPRAZOLE SOD 40 MG IV VIAL IVP SCH (09:08)
[2018-02-13] MEDS: LEVOFLOXACIN/D5W*500 MG/100 ML 100 ML IVPB SCH (09:33)
[2018-02-13 09:53] VITALS: BP 130/81
[2018-02-13 12:12] VITALS: BP 122/80
[2018-02-13 14:53] VITALS: BP 140/78
[2018-02-13 19:55] VITALS: BP 133/82
[2018-02-13 23:21] VITALS: BP 136/81
[2018-02-14] MEDS: metroNIDAZOLE* 500MG/100ML BAG 100 ML IVPB SCH ×4 (01:45→19:29)
[2018-02-14 04:24] VITALS: BP 149/84
[2018-02-14] MEDS: LEVOTHYROXINE SOD 0.125 MG TAB PO SCH (05:37)
[2018-02-14] MEDS: ACETAMINOPHEN(*)1000 MG/100 ML 100 ML IVPB SCH ×3 (05:37→17:15)
[2018-02-14 06:03] LABS: PLATELET COUNT, AUTOMATED 205 K/uL (150-450)
--- NOTE | 2018-02-14 07:16 | General Surgery Progress Note ---
Subjective Progress Notes Subjective Main complaint is postop abdominal pain. No other complaints today. Physical Exam Vital Signs Date Time Temp Pulse Resp B/P (MAP) Pulse Ox O2 Delivery O2 Flow Rate FiO2 02/14/18 05:52 16 94 02/14/18 04:24 98.3 78 149/84 (105) Nasal Cannula 1.0 Intake and Output 02/14/18 07:00 Intake Total 2204 ml Output Total 2380 ml Balance -176 ml IV Total 2204 ml Output Urine Total 1375 ml Stool Total 75 ml Drainage Total 930 ml General Appearance: Alert, Awake, No Acute Distress, Afebrile GI: Other (Soft, appropriate postop TTP, incisions look good. Removed stoma bag and inspected stoma, there was a lot of mucus on stoma but after wiping this off, the mucosa is bright red and perfused.) Extremities: Warm, Perfused Result Diagram: 02/14/1854502/14/18545 Assessment and Plan Problems: (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 Doing well. H/H down as expected. Will follow and transfuse if it gets below Hb of 8. Will start ice chips, popsickles, etc today but limit volume. PPI for GI prophylaxis, lovenox for VTE prophylaxis. Ambulate and OOB to chair today. PT/OT, pulmonary hygiene, IS. Await return of bowel function. 02/13/18: POD#2. Doing well. H/H stable. Stoma a little pale, will need to keep an eye on this. Continue current limited diet. Continue ambulation, IS, pulmonary hygiene, PT/OT, lovenox, PPI. Awaiting return of bowel function. Recommended removing jaffe this morning but pt reports feeling too weak to get up and use the restroom. Will continue PT today and will recommend removing the catheter tomorrow morning.' 02/14/18: POD#3. Doing well. H/H stable. Stoma looks good. No gas or stool in bag. Will continue current very limited diet as we await return of bowel f unction. Continue ambulation, IS, pulmonary hygiene, PT/OT, lovenox, PPI. Will see how he does today with PT and getting out of bed. Will, in any case, remove the jaffe later today or tomorrow morning. (2) Rectal adenocarcinoma Status: Chronic (3) History of low anterior resection of rectum Status: Chronic Condition STable. Time Spent: < 30 min Exam Sepsis Risk: No Definite Risk JOSE PERALTA MD Feb 14, 2018 07:16
[2018-02-14 07:22] VITALS: BP 107/69
[2018-02-14] MEDS ORDERED: NEOMYCIN/POLYMYX/BACITR OINT 1 PACKET TP ONE (07:32)
[2018-02-14] MEDS: ENOXAPARIN 40 MG/0.4ML SYR SC SCH (08:24)
[2018-02-14] MEDS: PANTOPRAZOLE SOD 40 MG IV VIAL IVP SCH (08:25)
[2018-02-14] MEDS: LEVOFLOXACIN/D5W*500 MG/100 ML 100 ML IVPB SCH (09:20)
[2018-02-14 11:15] VITALS: BP_SYST 117; BP_DIAS 7; BP_DIAS 77
[2018-02-14] MEDS: KCL/D1/2NS 20 MEQ 1000 ML 1,000 ML IV SCH (13:38)
[2018-02-14 15:17] VITALS: BP 109/73
[2018-02-14 19:27] VITALS: BP 111/78
[2018-02-15] VITALS (7 sets, daily range): BP systolic 105–126; BP diastolic 59–81
[2018-02-15] MEDS: ACETAMINOPHEN(*)1000 MG/100 ML 100 ML IVPB SCH ×5 (00:15→23:14)
[2018-02-15] MEDS: KCL/D1/2NS 20 MEQ 1000 ML 1,000 ML IV SCH ×2 (01:56→16:24)
[2018-02-15] MEDS: metroNIDAZOLE* 500MG/100ML BAG 100 ML IVPB SCH ×4 (01:56→23:25)
[2018-02-15] MEDS: LEVOTHYROXINE SOD 0.125 MG TAB PO SCH (05:48)
[2018-02-15 06:18] LABS: PLATELET COUNT, AUTOMATED 207 K/uL (150-450)
--- NOTE | 2018-02-15 09:51 | General Surgery Progress Note ---
Subjective Progress Notes Subjective "I just don't feel clear headed this morning" Physical Exam Vital Signs Date Time Temp Pulse Resp B/P (MAP) Pulse Ox O2 Delivery O2 Flow Rate FiO2 02/15/18 08:06 Room Air 02/15/18 08:06 91 02/15/18 07:20 16 02/15/18 07:20 98.6 54 105/66 (79) 02/15/18 04:00 1.0 Intake and Output 02/15/18 06:59 Intake Total 3085 ml Output Total 1435 ml Balance 1650 ml Intake Oral 200 ml IV Total 2885 ml Output Urine Total 850 ml Stool Total 25 ml Drainage Total 560 ml General Appearance: Alert, Awake, Other (Sitting up in chair) ENT: Moist Mucous Membranes Cardiovascular: Regular Rate and Rhythm, Other (heart sounds distant) Respiratory: Clear to Auscultation, Other (except slightly decreased breath sounds at the bases of his lungs) GI: Other (Mildly protuberant, robotic incisions ok, drain site draining serous fluid, moderate amounts, drains in old ileostomy site, colostomy with some flatus and some stool) Result Diagram: 02/15/1853202/15/18532 Assessment and Plan Problems: (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 Doing well. H/H down as expected. Will follow and transfuse if it gets below Hb of 8. Will start ice chips, popsickles, etc today but limit volume. PPI for GI prophylaxis, lovenox for VTE prophylaxis. Ambulate and OOB to chair today. PT/OT, pulmonary hygiene, IS. Await return of bowel function. 02/13/18: POD#2. Doing well. H/H stable. Stoma a little pale, will need to keep an eye on this. Continue current limited diet. Continue ambulation, IS, pulmonary hygiene, PT/OT, lovenox, PPI. Awaiting return of bowel function. Recommended removing jaffe this morning but pt reports feeling too weak to get up and use the restroom. Will continue PT today and will recommend removing the catheter tomorrow morning.' 02/14/18: POD#3. Doing well. H/H stable. Stoma looks good. No gas or stool in bag. Will continue current very limited diet as we await return of bowel function. Continue ambulation, IS, pulmonary hygiene, PT/OT, lovenox, PPI. Will see how he does today with PT and getting out of bed. Will, in any case, remove the jaffe later today or tomorrow morning. 02/15/2018 10am, POD#4: Continues to slowly improve. Stoma viable and functioning this morning, although not large volumes. Continue limited diet today. decrease intravenous fluids slightly. As above, continue ambulation, IS, lovenox. Voiding. 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
[2018-02-15] MEDS: LEVOFLOXACIN/D5W*500 MG/100 ML 100 ML IVPB SCH (10:22)
[2018-02-15] MEDS: PANTOPRAZOLE SOD 40 MG IV VIAL IVP SCH (10:23)
[2018-02-15] MEDS: ENOXAPARIN 40 MG/0.4ML SYR SC SCH (10:27)
--- NOTE | 2018-02-15 13:05 | Medical Nutrition Therapy ---
Nutrition Anthropometrics Height (Inches): 70.50 Height (Calculated Centimeters: 179.392751 Weight (Pounds): 190 Weight (Calculated Kilograms): 86.183 Eric Nutrition Score: Probably Inadequate Eric Nutrition Risk Score: 17 Dietary Referral Nutrition Risk Factors: Nutrition Risk Comment: Physical Findings Physical Appearance: Overweight BMI 25-29 Skin Appearance Skin Appearance: Edema Edema Location Modifier: Both Edema Location: Ankle Type of Edema: Degree of Edema: 1+ Gastrointestinal Symptoms GI Symtoms: Appetite Changes, Change in Bowel Pattern Tube Present: Bowel Sounds: Recent Bowel Pattern: Stool Characteristics: Nutritional Diagnosis Nutritional Risk Acuity 1: NPO/CL > 3 days Nutritional Risk Acuity 2: Head/Neck/GI Cancer (rectal Ca), New Colostomy Nutritional Acuity: 1-High Nutrition Diagnosis: Inadequate Food Intake Nutrition Etiology: Physiological Causes Nutrition Problem/Etiology/Sym: AEB Pt NPO Energy Requirement: 2430 (M- StJ X 1.2 SF) Protein Requirement: 85 (1.1gm/kg) Fluid Requirement: 2580 (30ml/kg) Diet Type: NPO (Nothing by Mouth) Nutrition Intervention: Incr diet as tolerated Nutritional Support Recommended Enteral / Parental: TPN Recommended Rate: start at 1L/24 hrs, increase to 2L/24 hrs + lipids Recommended Duration: 24 Recommended Calories: 1760 Recommended Protein: 100 Recommended Lipids Calories: 500 Nutrition Monitoring & Eval RD Patient Assessment Time: [address] Assessment Type: RD Assessment Patient Nutrition Acuity: 2-Moderate Follow Up Date: Feb 17, 2018 Nutritional Comment: 02/12 Pt with dx rectal Ca and new colostomy. Currently NPO with hypoactive bowel sounds. BUN and creatinine elevated at 32 and 1.8. Will cont to monitor. 02/15 Pt cont 4th day NPO. Recommend nutr support unless diet advanced. TPN at 2L/24 hrs + lipids would provide 2260 kcal and 100gm protein which would meet 93% est kcal and 117% est protein needs. Will cont to monitor. ARMOND CASTILLO Feb 15, 2018 13:05
--- NOTE | 2018-02-15 14:03 | Antimicrobial Stewardship ---
Antimicrobial Time Out Antimicrobial Stewardship MD Service: Other (GENERAL SURGERY) Indications: Other (ABDOMINAL SURGERY-POSSIBLE FISTULA) Antimicrobial Used LEVAQUIN 500 Q24H METRONIDAZOLE 500 Q6H Start Date: Feb 11, 2018 Culture Results: N/A Eligible for PO Conversion Eligable for PO Conversion: No (NPO) Reviewed with Provider Reviewed w/ Provider on Rounds: Yes Date Reviewed w/ Provider: Feb 15, 2018 Comments Comments CONSULTED WITH DR CASIANO VIA TELEPHONE REGARDING ABX DOSING RECOMMENDED SWITCH TO LEVAQUIN 750 Q48H BASED ON CRCL OF 45ML/MIN RECOMMENDED SWITCH TO METRONIDAZOLE 500MG Q8H BASED ON INDICATION DR CASIANO AGREED TO BOTH DOSING CHANGES AND PATIENT IS NOT A CANDIDATE FOR PO CONVERSION BECAUSE HE IS NPO AT THIS TIME ARSLAN PANTOJA Feb 15, 2018 14:03
[2018-02-16 04:11] VITALS: BP 104/68
[2018-02-16] MEDS: KCL/D1/2NS 20 MEQ 1000 ML 1,000 ML IV SCH ×2 (05:21→21:12)
[2018-02-16] MEDS: ACETAMINOPHEN(*)1000 MG/100 ML 100 ML IVPB SCH ×4 (05:28→23:29)
[2018-02-16] MEDS: LEVOTHYROXINE SOD 0.125 MG TAB PO SCH (05:28)
[2018-02-16] MEDS: metroNIDAZOLE* 500MG/100ML BAG 100 ML IVPB SCH ×3 (07:18→23:29)
[2018-02-16] MEDS: HYDROmorphone PCA 6 MG/30 ML IV PRN (07:49)
[2018-02-16 07:53] VITALS: BP 115/74
[2018-02-16] MEDS: ENOXAPARIN 40 MG/0.4ML SYR SC SCH (08:32)
[2018-02-16] MEDS: PANTOPRAZOLE SOD 40 MG IV VIAL IVP SCH (08:33)
[2018-02-16] MEDS ORDERED: LEVOFLOXACIN/D5W 750 MG/150 ML 150 ML IVPB SCH (10:00)
--- NOTE | 2018-02-16 11:34 | General Surgery Progress Note ---
Subjective Progress Notes Subjective "I feel more clear mentally than I did yesterday and I feel better than I did." Physical Exam Vital Signs Date Time Temp Pulse Resp B/P (MAP) Pulse Ox O2 Delivery O2 Flow Rate FiO2 02/16/18 10:19 94 Room Air 02/16/18 07:53 98.1 56 16 115/74 (88) 1.0 Intake and Output 02/16/18 07:00 Intake Total 3060 ml Output Total 560 ml Balance 2500 ml Intake Oral 300 ml IV Total 2760 ml Output Urine Total 200 ml Stool Total 75 ml Drainage Total 285 ml # Voids 5 # Bowel Movements 2 General Appearance: Alert, Awake, No Acute Distress, Other (Sitting up in chair) Cardiovascular: Regular Rate and Rhythm, Other (distant heart sounds) Respiratory: Clear to Auscultation GI: Other (right lower quadrant site clean with jose manuel drains in place, without cellulitis, MARK drain with serous drainage and leaking around drain, (L) lower quadrant stoma somewhat pale but with some liquid stool, + bowel sounds) Extremities: Soft and Non Tender, Edema, Other (SCDs in place, 1+ edema at ankles) Result Diagram: 02/15/18 0502/15/18 0533 Assessment and Plan Problems: (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 Doing well. H/H down as expected. Will follow and transfuse if it gets below Hb of 8. Will start ice chips, popsickles, etc today but limit volume. PPI for GI prophylaxis, lovenox for VTE prophylaxis. Ambulate and OOB to chair today. PT/OT, pulmonary hygiene, IS. Await return of bowel function. 02/13/18: POD#2. Doing well. H/H stable. Stoma a little pale, will need to keep an eye on this. Continue current limited diet. Continue ambulation, IS, pulmonary hygiene, PT/OT, lovenox, PPI. Awaiting return of bowel function. Recommended removing jaffe this morning but pt reports feeling too weak to get up and use the restroom. Will continue PT today and will recommend removing the catheter tomorrow morning.' 02/14/18: POD#3. Doing well. H/H stable. Stoma looks good. No gas or stool in bag. Will continue current very limited diet as we await return of bowel function. Continue ambulation, IS, pulmonary hygiene, PT/OT, lovenox, PPI. Will see how he does today with PT and getting out of bed. Will, in any case, remove the jaffe later today or tomorrow morning. 02/15/2018 10am, POD#4: Continues to slowly improve. Stoma viable and functioning this morning, although not large volumes. Continue limited diet today. decrease intravenous fluids slightly. As above, continue ambulation, IS, lovenox. Voiding. Creatinine stable at 1.8 02/16/2018 11:30am POD#5: Slow progress. Improved stoma function. Advance diet to more full liquids/soft. Doing well with ambulation with less pain getting up. Lab repeat in am. 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
[2018-02-16 11:44] VITALS: BP 96/67
[2018-02-16 14:28] VITALS: BP 103/64
[2018-02-16 18:32] VITALS: BP_SYST 158; BP_SYST 99; BP_DIAS 66; BP_DIAS 96
[2018-02-16 23:43] VITALS: BP 148/75
[2018-02-17 03:47] VITALS: BP 112/71
[2018-02-17] MEDS: ACETAMINOPHEN(*)1000 MG/100 ML 100 ML IVPB SCH ×4 (05:30→23:59)
[2018-02-17] MEDS: LEVOTHYROXINE SOD 0.125 MG TAB PO SCH (05:30)
[2018-02-17 06:09] LABS: PLATELET COUNT, AUTOMATED 248 K/uL (150-450)
--- NOTE | 2018-02-17 07:24 | General Surgery Progress Note ---
Subjective Progress Notes Subjective No complaints today. Postop abdominal pain is improving. Urinating without problems. Physical Exam Vital Signs Date Time Temp Pulse Resp B/P (MAP) Pulse Ox O2 Delivery O2 Flow Rate FiO2 02/17/18 05:40 16 98 02/17/18 03:47 98.1 55 112/71 (85) Nasal Cannula 1.0 Intake and Output 02/17/18 06:59 Intake Total 1920 ml Output Total 87 ml Balance 1833 ml Intake Oral 400 ml IV Total 1520 ml Stool Total 50 ml Drainage Total 37 ml # Voids 5 General Appearance: Alert, Awake, No Acute Distress, Afebrile GI: Other (Soft, appropriate postop TTP, incisions look good. Stoma is pink, small amount of mucus and stool in the bag, mostly mucus. Small amount of gas in the bag. MARK drain removed, only serous fluid in it. Ileostomy takedown wound looks good, jose manuel drains removed this morning.) Integumentary: Other (Fistula opening on right buttock is clean with scant drainage. 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 Doing well. H/H down as expected. Will follow and transfuse if it gets below Hb of 8. Will start ice chips, popsickles, etc today but limit volume. PPI for GI prophylaxis, lovenox for VTE prophylaxis. Ambulate and OOB to chair today. PT/OT, pulmonary hygiene, IS. Await return of bowel function. 02/13/18: POD#2. Doing well. H/H stable. Stoma a little pale, will need to keep an eye on this. Continue current limited diet. Continue ambulation, IS, pulmonary hygiene, PT/OT, lovenox, PPI. Awaiting return of bowel function. Recommended removing jaffe this morning but pt reports feeling too weak to get up and use the restroom. Will continue PT today and will recommend removing the catheter tomorrow morning.' 02/14/18: POD#3. Doing well. H/H stable. Stoma looks good. No gas or stool in bag. Will continue current very limited diet as we await return of bowel function. Continue ambulation, IS, pulmonary hygiene, PT/OT, lovenox, PPI. Will see how he does today with PT and getting out of bed. Will, in any case, remove the jaffe later today or tomorrow morning. 02/15/2018 10am, POD#4: Continues to slowly improve. Stoma viable and functioning this morning, although not large volumes. Continue limited diet today. decrease intravenous fluids slightly. As above, continue ambulation, IS, lovenox. Voiding. Creatinine stable at 1.8 02/16/2018 11:30am POD#5: Slow progress. Improved stoma function. Advance diet to more full liquids/soft. Doing well with ambulation with less pain getting up. Lab repeat in am. 02/17/18: POD#6. Doing well but awaiting return of bowel function. Tolerating clear diet. Will try full liquid diet today. Continue ambulation, IS, PT/OT, lovenox, PPI, etc. Labs look good this morning. Will stop checking them unless clinically he is looking worse. Continue IV abx, will switch to PO abx when tolerating diet and will keep him on these for at least 30 days. 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 Time Spent: < 30 min Exam Sepsis Risk: No Definite Risk JOSE PERALTA MD Feb 17, 2018 07:24
[2018-02-17] MEDS: metroNIDAZOLE* 500MG/100ML BAG 100 ML IVPB SCH ×2 (07:34→15:38)
[2018-02-17 07:41] VITALS: BP 101/69
[2018-02-17] MEDS: HYDROmorphone PCA 6 MG/30 ML IV PRN (09:25)
--- NOTE | 2018-02-17 09:27 | Medical Nutrition Therapy ---
Nutrition Anthropometrics Height (Inches): 70.50 Height (Calculated Centimeters: 179.980294 Weight (Pounds): 190 Weight (Calculated Kilograms): 86.183 Eric Nutrition Score: Probably Inadequate Eric Nutrition Risk Score: 19 Dietary Referral Nutrition Risk Factors: Nutrition Risk Comment: Physical Findings Physical Appearance: Overweight BMI 25-29 Skin Appearance Skin Appearance: Edema Edema Location Modifier: Both Edema Location: Ankle Type of Edema: Degree of Edema: 1+ Gastrointestinal Symptoms GI Symtoms: Bloating Tube Present: Bowel Sounds: Recent Bowel Pattern: Stool Characteristics: Nutritional Diagnosis Nutritional Risk Acuity 2: Head/Neck/GI Cancer (rectal Ca), New Colostomy Nutritional Acuity: 2-Moderate Nutrition Diagnosis: Inadequate Food Intake Nutrition Etiology: Physiological Causes Nutrition Problem/Etiology/Sym: AEB Pt NPO Energy Requirement: 2430 (M- StJ X 1.2 SF) Protein Requirement: 85 (1.1gm/kg) Fluid Requirement: 2580 (30ml/kg) Diet Type: Medical Liquid/GI soft Nutrition Intervention: Incr diet as tolerated Additional Diet Restrictions: OFFER NUTR SUPPLMENTS Nutrition Monitoring & Eval Nutrition Goals: Eat 75-100% Meal Nutrition Follow-Up: Poor Intake RD Patient Assessment Time: [address] Assessment Type: RD Re-Assessment Patient Nutrition Acuity: 2-Moderate Follow Up Date: Feb 20, 2018 Nutritional Comment: 02/12 Pt with dx rectal Ca and new colostomy. Currently NPO with hypoactive bowel sounds. BUN and creatinine elevated at 32 and 1.8. Will cont to monitor. 02/15 Pt cont 4th day NPO. Recommend nutr support unless diet advanced. TPN at 2L/24 hrs + lipids would provide 2260 kcal and 100gm protein which would meet 93% est kcal and 117% est protein needs. Will cont to monitor. BK 02/17 Diet advanced to med liquids/GI soft. Significant labs; Hgb 10.1, Hct 30.5, BUN 23, creatinine 1.7. Will offer nutr supplment to increase kcal and protein intake. ARMOND CASTILLO Feb 17, 2018 09:27
[2018-02-17] MEDS: ENOXAPARIN 40 MG/0.4ML SYR SC SCH (09:43)
[2018-02-17] MEDS: PANTOPRAZOLE SOD 40 MG IV VIAL IVP SCH (09:43)
[2018-02-17] MEDS: KCL/D1/2NS 20 MEQ 1000 ML 1,000 ML IV SCH ×2 (10:26→23:59)
[2018-02-17 11:57] VITALS: BP 114/67
[2018-02-17 14:33] VITALS: BP 116/64
[2018-02-17 18:37] VITALS: BP 145/105
[2018-02-17 19:01] VITALS: BP 103/70
[2018-02-18 00:02] VITALS: BP 128/79
[2018-02-18] MEDS: metroNIDAZOLE* 500MG/100ML BAG 100 ML IVPB SCH (00:10)
[2018-02-18 05:38] VITALS: BP 130/78
[2018-02-18] MEDS: LEVOTHYROXINE SOD 0.125 MG TAB PO SCH (05:41)
[2018-02-18] MEDS: ACETAMINOPHEN(*)1000 MG/100 ML 100 ML IVPB SCH (05:41)
--- NOTE | 2018-02-18 07:28 | General Surgery Progress Note ---
Subjective Progress Notes Subjective Only complaint is postop pain (improving) and he's fearful of being discharged too early and he's concerned that he's not able to get out of bed on his own and get up and do the things he'll need to do at home after discharge. Physical Exam Vital Signs Date Time Temp Pulse Resp B/P (MAP) Pulse Ox O2 Delivery O2 Flow Rate FiO2 02/18/18 05:40 16 95 02/18/18 05:38 98.3 65 130/78 (95) Room Air 02/18/18 00:02 0.5 Intake and Output 02/18/18 07:00 Intake Total 2845 ml Output Total 157 ml Balance 2688 ml Intake Oral 170 ml IV Total 2675 ml Stool Total 150 ml Drainage Total 7 ml # Voids 5 General Appearance: Alert, Awake, No Acute Distress, Afebrile GI: Other (Soft, appropriate postop TTP, stoma is pink with stool and flatus in the bag. Ileostomy wound is clean with serous drainage. 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 Doing well. H/H down as expected. Will follow and transfuse if it gets below Hb of 8. Will start ice chips, popsickles, etc today but limit volume. PPI for GI prophylaxis, lovenox for VTE prophylaxis. Ambulate and OOB to chair today. PT/OT, pulmonary hygiene, IS. Await return of bowel function. 02/13/18: POD#2. Doing well. H/H stable. Stoma a little pale, will need to keep an eye on this. Continue current limited diet. Continue ambulation, IS, pulmonary hygiene, PT/OT, lovenox, PPI. Awaiting return of bowel function. Recommended removing jaffe this morning but pt reports feeling too weak to get up and use the restroom. Will continue PT today and will recommend removing the catheter tomorrow morning.' 02/14/18: POD#3. Doing well. H/H stable. Stoma looks good. No gas or stool in bag. Will continue current very limited diet as we await return of bowel function. Continue ambulation, IS, pulmonary hygiene, PT/OT, lovenox, PPI. Will see how he does today with PT and getting out of bed. Will, in any case, remove the jaffe later today or tomorrow morning. 02/15/2018 10am, POD#4: Continues to slowly improve. Stoma viable and functioning this morning, although not large volumes. Continue limited diet today. decrease intravenous fluids slightly. As above, continue ambulation, IS, lovenox. Voiding. Creatinine stable at 1.8 02/16/2018 11:30am POD#5: Slow progress. Improved stoma function. Advance diet to more full liquids/soft. Doing well with ambulation with less pain getting up. Lab repeat in am. 02/17/18: POD#6. Doing well but awaiting return of bowel function. Tolerating clear diet. Will try full liquid diet today. Continue ambulation, IS, PT/OT, lovenox, PPI, etc. Labs look good this morning. Will stop checking them unless clinically he is looking worse. Continue IV abx, will switch to PO abx when tolerating diet and will keep him on these for at least 30 days. 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 02/18/18: POD#7. Doing well. Bowel function returning. Will advance his diet to regular today. Convert meds to PO. Continue PT, OT, IS, ambulation, pu lmonary hygiene, PPI. 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 Switch abx to PO today. He is looking very good today; his main concern is going home too soon although I've reassured him that he's doing very good and almost ready to go home, possibly even tomorrow, and he'll have help including his and home health nursing and PT and I'll be seeing him in the office. Will change his stoma appliance today and he can shower as well. 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 Time Spent: < 30 min Exam Sepsis Risk: No Definite Risk JOSE PERALTA MD Feb 18, 2018 07:28
[2018-02-18 07:33] VITALS: BP 108/74
[2018-02-18] MEDS: METRONIDAZOLE 500 MG TABLET PO SCH ×4 (08:50→20:52)
[2018-02-18] MEDS: PANTOPRAZOLE SOD 40 MG TABEC PO SCH (08:51)
[2018-02-18] MEDS: RIVAROXABAN 10 MG TAB PO SCH (08:51)
[2018-02-18] MEDS: LEVOFLOXACIN 500 MG TAB PO SCH (08:52)
[2018-02-18 14:16] VITALS: BP 103/73
[2018-02-18 20:00] VITALS: BP 120/74
[2018-02-19] VITALS (7 sets, daily range): BP systolic 104–131; BP diastolic 67–80
[2018-02-19] MEDS: LEVOTHYROXINE SOD 0.125 MG TAB PO SCH (05:57)
--- NOTE | 2018-02-19 06:21 | General Surgery Progress Note ---
Subjective Progress Notes Subjective Feeling a little better this morning, less lower abdominal cramps, less left shoulder pain with k-pad. No N/V, less belching, doesn't feel bloated. Physical Exam Vital Signs Date Time Temp Pulse Resp B/P (MAP) Pulse Ox O2 Delivery O2 Flow Rate FiO2 02/19/18 04:18 93 02/19/18 03:50 78 14 126/67 (86) Room Air 02/19/18 01:30 98.1 02/18/18 07:33 0.1 Intake and Output 02/19/18 07:00 Intake Total 1603 ml Output Total 232 ml Balance 1371 ml Intake Oral 903 ml IV Total 700 ml Stool Total 225 ml Drainage Total 7 ml # Voids 6 # Bowel Movements 1 General Appearance: Alert, Awake, No Acute Distress, Afebrile GI: Soft and Non-Tender (Incisions look good without erythema or drainage. Stoma is pink with gas/stool in bag. 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 Doing well. H/H down as expected. Will follow and transfuse if it gets below Hb of 8. Will start ice chips, popsickles, etc today but limit volume. PPI for GI prophylaxis, lovenox for VTE prophylaxis. Ambulate and OOB to chair today. PT/OT, pulmonary hygiene, IS. Await return of bowel function. 02/13/18: POD#2. Doing well. H/H stable. Stoma a little pale, will need to keep an eye on this. Continue current limited diet. Continue ambulation, IS, pulmonary hygiene, PT/OT, lovenox, PPI. Awaiting return of bowel function. Recommended removing jaffe this morning but pt reports feeling too weak to get up and use the restroom. Will continue PT today and will recommend removing the catheter tomorrow morning.' 02/14/18: POD#3. Doing well. H/H stable. Stoma looks good. No gas or stool in bag. Will continue current very limited diet as we await return of bowel function. Continue ambulation, IS, pulmonary hygiene, PT/OT, lovenox, PPI. Will see how he does today with PT and getting out of bed. Will, in any case, remove the jaffe later today or tomorrow morning. 02/15/2018 10am, POD#4: Continues to slowly improve. Stoma viable and functioning this morning, although not large volumes. Continue limited diet today. decrease intravenous fluids slightly. As above, continue ambulation, IS, lovenox. Voiding. Creatinine stable at 1.8 02/16/2018 11:30am POD#5: Slow progress. Improved stoma function. Advance diet to more full liquids/soft. Doing well with ambulation with less pain getting up. Lab repeat in am. 02/17/18: POD#6. Doing well but awaiting return of bowel function. Tolerating clear diet. Will try full liquid diet today. Continue ambulation, IS, PT/OT, lovenox, PPI, etc. Labs look good this morning. Will stop checking them unless clinically he is looking worse. Continue IV abx, will switch to PO abx when tolerating diet and will keep him on these for at least 30 days. 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 02/18/18: POD#7. Doing well. Bowel function returning. Will advance his diet to regular today. Convert meds to PO. Continue PT, OT, IS, ambulation, pulmo nary hygiene, PPI. 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 Switch abx to PO today. He is looking very good today; his main concern is going home too soon although I've reassured him that he's doing very good and almost ready to go home, possibly even tomorrow, and he'll have h elp including his and home health nursing and PT and I'll be seeing him in the office. Will change his stoma appliance today and he can shower as well. 02/19/18: POD#8. Doing well. Still feeling weak. He's very tentative about going home. He would like to work on strength and testing out ADLs today. Tolerating diet. Stoma seems to be functioning well. Continue PT/OT, IS, pulmonary hygiene, ambulation, xarelto, PPI, etc. Hopeful for d/c to home tomorrow. 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 Time Spent: < 30 min Exam Sepsis Risk: No Definite Risk JOSE PERALTA MD Feb 19, 2018 06:21
[2018-02-19] MEDS: METRONIDAZOLE 500 MG TABLET PO SCH ×4 (07:56→21:12)
[2018-02-19] MEDS: RIVAROXABAN 10 MG TAB PO SCH (07:57)
[2018-02-19] MEDS: PANTOPRAZOLE SOD 40 MG TABEC PO SCH (07:57)
[2018-02-19] MEDS: LEVOFLOXACIN 500 MG TAB PO SCH (09:14)
[2018-02-20 01:31] VITALS: BP 99/59
[2018-02-20 04:27] VITALS: BP 124/76
[2018-02-20] MEDS: LEVOTHYROXINE SOD 0.125 MG TAB PO SCH (05:48)
[2018-02-20] MEDS ORDERED: FUROSEMIDE 40 MG TAB PO ONE (07:00)
[2018-02-20] MEDS ORDERED: POTASSIUM CHL 20 MEQ TABCR PO ONE (07:05)
--- NOTE | 2018-02-20 07:08 | General Surgery Progress Note ---
Subjective Progress Notes Subjective Not much pain this morning. Not much from stoma since yesterday morning. Periods of bloating and belching, no N/V. Physical Exam Vital Signs Date Time Temp Pulse Resp B/P (MAP) Pulse Ox O2 Delivery O2 Flow Rate FiO2 02/20/18 04:27 97.8 84 16 124/76 (92) 93 Room Air 02/18/18 07:33 0.1 Intake and Output 02/20/18 06:59 Intake Total 1398 ml Output Total 32 ml Balance 1366 ml Intake Oral 1398 ml Stool Total 25 ml Drainage Total 7 ml # Voids 7 General Appearance: Alert, Awake, No Acute Distress, Afebrile GI: Soft and Non-Tender (Incisions look good, stoma takedown site is healing well. 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 Doing well. H/H down as expected. Will follow and transfuse if it gets below Hb of 8. Will start ice chips, popsi ckles, etc today but limit volume. PPI for GI prophylaxis, lovenox for VTE prophylaxis. Ambulate and OOB to chair today. PT/OT, pulmonary hygiene, IS. Await return of bowel function. 02/13/18: POD#2. Doing well. H/H stable. Stoma a little pale, will need to keep an eye on this. Continue current limited diet. Continue ambulation, IS, pulmonary hygiene, PT/OT, lovenox, PPI. Awaiting return of bowel function. Recommended removing jaffe this morning but pt reports feeling too weak to get up and use the restroom. Will continue PT today and will recommend removing the catheter tomorrow morning.' 02/14/18: POD#3. Doing well. H/H stable. Stoma looks good. No gas or stool in bag. Will continue current very limited diet as we await return of bowel function. Continue ambulation, IS, pulmonary hygiene, PT/OT, lovenox, PPI. Will see how he does today with PT and getting out of bed. Will, in any case, remove the jaffe later today or tomorrow morning. 02/15/2018 10am, POD#4: Continues to slowly improve. Stoma viable and functioning this morning, although not large volumes. Continue limited diet today. decrease intravenous fluids slightly. As above, continue ambulation, IS, lovenox. Voiding. Creatinine stable at 1.8 02/16/2018 11:30am POD#5: Slow progress. Improved stoma function. Advance diet to more full liquids/soft. Doing well with ambulation with less pain getting up. Lab repeat in am. 02/17/18: POD#6. Doing well but awaiting return of bowel function. Tolerating clear diet. Will try full liquid diet today. Continue ambulation, IS, PT/OT, lovenox, PPI, etc. Labs look good this morning. Will stop checking them unless clinically he is looking worse. Continue IV abx, will switch to PO abx when tolerating diet and will keep him on these for at least 30 days. 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 02/18/18: POD#7. Doing well. Bowel function returning. Will advance his diet to regular today. Convert meds to PO. Continue PT, OT, IS, ambulation, pulmonary hygiene, PPI. 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 Switch abx to PO today. He is looking very good today; his main concern is going home too soon although I've reassured him that he's doing very good and almost ready to go home, possibly even tomorrow, and he'll have help including his and home health nursing and PT and I'll be seeing him in the office. Will change his stoma appliance today and he can shower as well. 02/19/18: POD#8. Doing well. Still feeling weak. He's very tentative about going home. He would like to work on strength and testing out ADLs today. Megha erating diet. Stoma seems to be functioning well. Continue PT/OT, IS, pulmonary hygiene, ambulation, xarelto, PPI, etc. Hopeful for d/c to home tomorrow. 02/20/18: POD#9. Bowel function is worse and stoma isn't putting much out over the last 24 hours. Pt advised to decrease PO intake if bloated or nauseated and we'll have to follow this. He also has bilateral LE edema. I have him on xarel to for DVT prophylaxis given his h/o DVT. Will give him lasix and potassium today and will check BNP and electrolytes today and tomorrow morning. Continue inpatient care until GI function returns with consistently good stoma output. Continue PPI, xarelto, IS, PT/OT, pulmonary hygiene, ambulation, etc. 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 Time Spent: < 30 min Exam Sepsis Risk: No Definite Risk JOSE PERALTA MD Feb 20, 2018 07:08
[2018-02-20 07:42] VITALS: BP 124/73
[2018-02-20 07:47] LABS: PLATELET COUNT, AUTOMATED 295 K/uL (150-450)
[2018-02-20] MEDS: RIVAROXABAN 10 MG TAB PO SCH (07:56)
[2018-02-20] MEDS: PANTOPRAZOLE SOD 40 MG TABEC PO SCH (07:56)
[2018-02-20] MEDS: METRONIDAZOLE 500 MG TABLET PO SCH ×4 (07:56→21:15)
[2018-02-20] MEDS: ACETAMINOPHEN 325 MG TAB PO PRN ×2 (13:13→19:15)
[2018-02-20] MEDS: LEVOFLOXACIN 500 MG TAB PO SCH (13:14)
[2018-02-20 19:45] VITALS: BP 115/71
[2018-02-21 03:12] VITALS: BP 110/75
[2018-02-21] MEDS: LEVOTHYROXINE SOD 0.125 MG TAB PO SCH (05:53)
[2018-02-21 05:55] LABS: PLATELET COUNT, AUTOMATED 344 K/uL (150-450)
--- NOTE | 2018-02-21 07:21 | General Surgery Progress Note ---
Subjective Progress Notes Subjective Doesn't feel too bad this morning. Still poor appetite. Stoma not putting much out. Physical Exam Vital Signs Date Time Temp Pulse Resp B/P (MAP) Pulse Ox O2 Delivery O2 Flow Rate FiO2 02/21/18 05:00 96 02/21/18 03:12 98.4 74 16 110/75 (87) Room Air 02/18/18 07:33 0.1 Intake and Output 02/21/18 07:00 Intake Total 1300 ml Output Total 150 ml Balance 1150 ml Intake Oral 1300 ml Stool Total 150 ml # Voids 8 General Appearance: Alert, Awake, No Acute Distress, Afebrile GI: Other (Soft, mild TTP, incisions look good. stoma is pink with small stool and no gas in bag. 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 Doing well. H/H down as expected. Will follow and transfuse if it gets below Hb of 8. Will start ice chips, popsickles, etc today but limit volume. PPI for GI prophylaxis, lovenox for VTE prophylaxis. Ambulate and OOB to chair today. PT/OT, pulmonary hygiene, IS. Await return of bowel function. 02/13/18: POD#2. Doing well. H/H stable. Stoma a little pale, will need to keep an eye on this. Continue current limited diet. Continue ambulation, IS, pulmonary hygiene, PT/OT, lovenox, PPI. Awaiting return of bowel function. Recommended removing jaffe this morning but pt reports feeling too weak to get up and use the restroom. Will continue PT today and will recommend removing the catheter tomorrow morning.' 02/14/18: POD#3. Doing well. H/H stable. Stoma looks good. No gas or stool in bag. Will continue current very limited diet as we await return of bowel function. Continue ambulation, IS, pulmonary hygiene, PT/OT, lovenox, PPI. Will see how he does today with PT and getting out of bed. Will, in any case, remove the jaffe later today or tomorrow morning. 02/15/2018 10am, POD#4: Continues to slowly improve. Stoma viable and functioning this morning, although not large volumes. Continue limited diet today. decrease intravenous fluids slightly. As above, continue ambulation, IS, lovenox. Voiding. Creatinine stable at 1.8 02/16/2018 11:30am POD#5: Slow progress. Improved stoma function. Advance diet to more full liquids/soft. Doing well with ambulation with less pain getti ng up. Lab repeat in am. 02/17/18: POD#6. Doing well but awaiting return of bowel function. Tolerating clear diet. Will try full liquid diet today. Continue ambulation, IS, PT/OT, lovenox, PPI, etc. Labs look good this morning. Will stop checking them unless clinically he is looking worse. Continue IV abx, will switch to PO abx when tolerating diet and will keep him on these for at least 30 days. 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 02/18/18: POD#7. Doing well. Bowel function returning. Will advance his diet to regular today. Convert meds to PO. Continue PT, OT, IS, ambulation, pulmonary hygiene, PPI. 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 Switch abx to PO today. He is looking very good today; his main concern is going home too soon although I've reassured him that he's doing very good and almost ready to go home, possibly even tomorrow, and he'll have help including his and home health nursing and PT and I'll be seeing him in the office. Will change his stoma appliance today and he can shower as well. 02/19/18: POD#8. Doing well. Still feeling weak. He's very tentative about going home. He would like to work on strength and testing out ADLs today. Tolerating diet. Stoma seems to be functioning well. Continue PT/OT, IS, pulmonary hygiene, ambulation, xarelto, PPI, etc. Hopeful for d/c to home tomorrow. 02/20/18: POD#9. Bowel function is worse and stoma isn't putting much out over the last 24 hours. Pt advised to decrease PO intake if bloated or nauseated and we'll have to follow this. He also has bilateral LE edema. I have him on xarelto for DVT prophylaxis given his h/o DVT. Will give him lasix and potassium today and will check BNP and electrolytes today and tomorrow morning. Continue inpatient care until GI function returns with consistently good stoma output. Continue PPI, xarelto, IS, PT/OT, pulmonary hygiene, ambulation, etc. 02/21/18: POD#10. Bowel function isn't great. Will place PICC line and start TPN, back off on PO intake and give bowel more time to recover. Will give more lasix and potassium today to decrease edema which may be affecting bowel as well. BNP normal so I think this is a postop inflammatory response causing his 3rd space fluids. No fevers and labs all look good, no WBC, etc. Continue xarelto, avoid narcotics, continue PPI, IS, pulmonary hygiene, ambulation, etc. Will await bowel function to improve. 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 Time Spent: < 30 min Exam Sepsis Risk: No Definite Risk JOSE PERALTA MD Feb 21, 2018 07:21
[2018-02-21] MEDS ORDERED: POTASSIUM CHL 20 MEQ TABCR PO ONE ×2 (07:25→10:30)
[2018-02-21] MEDS ORDERED: FUROSEMIDE 40 MG TAB PO ONE ×2 (07:25→10:30)
[2018-02-21 08:07] VITALS: BP 117/69
[2018-02-21] MEDS: PANTOPRAZOLE SOD 40 MG TABEC PO SCH (10:21)
[2018-02-21] MEDS: RIVAROXABAN 10 MG TAB PO SCH (10:22)
[2018-02-21] MEDS: METRONIDAZOLE 500 MG TABLET PO SCH ×4 (10:22→20:32)
[2018-02-21] MEDS: LEVOFLOXACIN 500 MG TAB PO SCH (10:22)
[2018-02-21 11:34] VITALS: BP 141/86
--- NOTE | 2018-02-21 15:13 | RADIOLOGY IMAGING REPORT ---
FACILITY: [facility] - [place] PATIENT NAME: Coral Voss : 1940 MR: [id number] V: [id number] EXAM DATE: ORDERING PHYSICIAN: JOSE PERALTA TECHNOLOGIST: Location: [facility] Patient: Coral Voss : 1940 Visit/Account:[id number] Date of Sevice: 02/21/2018 Exam type: PICC LINE PLACEMENT, PICC LINE INSERTION History: prolonged ileus, will need TPN Comparison: None. Findings: Informed consent was obtained. The patient's left arm was prepped and draped usual sterile fashion. Local anesthesia was accomplished with 1% lidocaine. Utilizing both fluoroscopic and sonographic gu idance a 40 cm long trimmed 5 [place] double lumen power PICC was inserted via the patent left basilic vein with the distal tip resting in superior vena cava. Both lumens of power PICC were flushed with 5 mL of saline flush. Proximal portion PICC line was adhered the patient's arm the sterile dressing . The sonographic images were saved to PACS. The procedure was accomplished without apparent compli cation. The fluoroscopy dose area product was 67.07 micro-Salas per meter squared. IMPRESSION: 1. Successful placement of a 40 cm long trimmed 5 [place] double lumen power PICC inserted via the pa tent left basilic vein with the distal tip resting in superior vena cava Report Dictated By: Emmy Jordan MD at 02/21/2018 3:05 PM Report E-Signed By: Emmy Jordan MD at 02/21/2018 3:08 PM WSN:[email or web address]
--- NOTE | 2018-02-21 15:13 | RADIOLOGY IMAGING REPORT ---
FACILITY: [facility] - [place] PATIENT NAME: Coral Voss : 1940 MR: [id number] V: [id number] EXAM DATE: ORDERING PHYSICIAN: JOSE PERALTA TECHNOLOGIST: Location: [facility] Patient: Coral Voss : 1940 Visit/Account:[id number] Date of Sevice: 02/21/2018 Exam type: PICC LINE PLACEMENT, PICC LINE INSERTION History: prolonged ileus, will need TPN Comparison: None. Findings: Informed consent was obtained. The patient's left arm was prepped and draped usual sterile fashion. Local anesthesia was accomplished with 1% lidocaine. Utilizing both fluoroscopic and sonographic gu idance a 40 cm long trimmed 5 [place] double lumen power PICC was inserted via the patent left basilic vein with the distal tip resting in superior vena cava. Both lumens of power PICC were flushed with 5 mL of saline flush. Proximal portion PICC line was adhered the patient's arm the sterile dressing . The sonographic images were saved to PACS. The procedure was accomplished without apparent compli cation. The fluoroscopy dose area product was 67.07 micro-Salas per meter squared. IMPRESSION: 1. Successful placement of a 40 cm long trimmed 5 [place] double lumen power PICC inserted via the pa tent left basilic vein with the distal tip resting in superior vena cava Report Dictated By: Emmy Jordan MD at 02/21/2018 3:05 PM Report E-Signed By: Emmy Jordan MD at 02/21/2018 3:08 PM WSN:[email or web address]
[2018-02-21 15:50] VITALS: BP 99/79
[2018-02-21] MEDS ORDERED: INSULIN HUM REG 100 UN/ML 3 ML 10 UNIT, MULTIVITAMINS(*) 10 ML VIAL 10 ML, TRACE METALS... IV ONE (16:00)
--- NOTE | 2018-02-21 16:05 | Medical Nutrition Therapy ---
Nutrition Anthropometrics Height (Inches): 70.00 Height (Calculated Centimeters: 177.110010 Weight (Pounds): 200 Weight (Calculated Kilograms): 90.718 Eric Nutrition Score: Probably Inadequate Eric Nutrition Risk Score: 19 Dietary Referral Nutrition Risk Factors: Nutrition Risk Comment: Nutritional Diagnosis Nutritional Risk Acuity 1: TPN/PPN Nutritional Risk Acuity 2: Head/Neck/GI Cancer (rectal Ca), New Colostomy Nutritional Acuity: 1-High Nutrition Diagnosis: Inadequate Food Intake Nutrition Etiology: Physiological Causes Nutrition Problem/Etiology/Sym: AEB Pt NPO Energy Requirement: 2430 (M- StJ X 1.2 SF) Protein Requirement: 85 (1.1gm/kg) Fluid Requirement: 2580 (30ml/kg) Diet Type: NPO (Nothing by Mouth) Nutrition Intervention: Nutrition support, Incr diet as tolerated Additional Diet Restrictions: OFFER NUTR SUPPLMENTS Nutritional Support Current Enteral / Parental: TPN Current Tube Feeding Formula C: 75ml/hr Current Duration: 24 Current Calories: 1584 Current Protein: 90 Recommended Enteral / Parental: TPN Recommended Tube Feeding Formu: 83ml/hr + lipids Recommended Duration: 24 Recommended Calories: 1760 Recommended Protein: 100 Recommended Lipids Calories: 500 Total Recommended Calories: 2260 Nutritional Education Nutrition Education Topic: Other (colostomy) Learning Readiness: Interested Teaching Methods: Discussion, Handout Response to Teaching: Verbalize understanding Teaching Recipient: Patient Nutrition Monitoring & Eval RD Patient Assessment Time: [address] Assessment Type: RD Re-Assessment Patient Nutrition Acuity: 1-High Follow Up Date: Feb 24, 2018 Nutritional Comment: 02/12 Pt with dx rectal Ca and new colostomy. Currently NPO with hypoactive bowel sounds. BUN and creatinine elevated at 32 and 1.8. Will cont to monitor. 02/15 Pt cont 4th day NPO. Recommend nutr support unless diet advanced. TPN at 2L/24 hrs + lipids would provide 2260 kcal and 100gm protein which would meet 93% est kcal and 117% est protein needs. Will cont to monitor. BK 02/17 Diet advanced to med liquids/GI soft. Significant labs; Hgb 10.1, Hct 30.5, BUN 23, creatinine 1.7. Will offer nutr supplment to increase kcal and protein intake. BK 02/21 Bowel function poor per surgeon. Pt started on TPN and changed to NPO. Pt recieving TPN at 75ml/hr which is meeting 65% est kcal and 88% est protien needs Recommend increase to 83ml/hr and add lipids to provide additional 500 kcal and % est kcal and 117% est protein needs. Will cont to monitor. . ARMOND WALLER Feb 21, 2018 16:05
[2018-02-21 18:56] VITALS: BP 114/70
[2018-02-21] MEDS: ACETAMINOPHEN 325 MG TAB PO PRN (20:32)
[2018-02-21 23:41] VITALS: BP 125/68
[2018-02-22 03:47] VITALS: BP 122/74
[2018-02-22] MEDS: LEVOTHYROXINE SOD 0.125 MG TAB PO SCH (05:34)
[2018-02-22 06:29] LABS: PLATELET COUNT, AUTOMATED 364 K/uL (150-450)
[2018-02-22 09:20] VITALS: BP 124/67
[2018-02-22] MEDS: METRONIDAZOLE 500 MG TABLET PO SCH ×4 (09:32→20:41)
[2018-02-22] MEDS: RIVAROXABAN 10 MG TAB PO SCH (09:32)
[2018-02-22] MEDS: PANTOPRAZOLE SOD 40 MG TABEC PO SCH (09:32)
[2018-02-22] MEDS: LEVOFLOXACIN 500 MG TAB PO SCH (09:32)
[2018-02-22] MEDS: ACETAMINOPHEN 325 MG TAB PO PRN ×2 (09:34→20:41)
--- NOTE | 2018-02-22 12:05 | General Surgery Progress Note ---
Subjective Progress Notes Subjective No complaints this morning. Less abdominal pain. No bloating or N/V. Feeling stronger. Physical Exam Vital Signs Date Time Temp Pulse Resp B/P (MAP) Pulse Ox O2 Delivery O2 Flow Rate FiO2 02/22/18 10:00 94 Room Air 02/22/18 09:20 98.8 73 16 124/67 (86) 02/18/18 07:33 0.1 Intake and Output 02/22/18 06:59 Intake Total 554 ml Output Total 150 ml Balance 404 ml IV Total 554 ml Stool Total 150 ml # Voids 6 General Appearance: Alert, Awake, No Acute Distress, Afebrile GI: Other (Soft, mild appropriate improving lower TTP, stoma is pink with stool in bag. Ileostomy takedown wound is clean with decreasing serous drainage. Rest of incisions look good withou erythema or drainage.) Extremities: Warm, Perfused Result Diagram: 02/22/1853202/22/18532 Assessment and Plan Problems: (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 Doing well. H/H down as expected. Will follow and transfuse if it gets below Hb of 8. Will start ice chips, popsickles, etc today but limit volume. PPI for GI prophylaxis, lovenox for VTE prophylaxis. Ambulate and OOB to chair today. PT/OT, pulmonary hygiene, IS. Await return of bowel function. 02/13/18: POD#2. Doing well. H/H stable. Stoma a little pale, will need to keep an eye on this. Continue current limited diet. Continue ambulation, IS, pulmonary hygiene, PT/OT, lovenox, PPI. Awaiting return of bowel function. Recommended removing jaffe this morning but pt reports feeling too weak to get up and use the restroom. Will continue PT today and will recommend removing the catheter tomorrow morning.' 02/14/18: POD#3. Doing well. H/H stable. Stoma looks good. No gas or stool in bag. Will continue current very limited diet as we await return of bowel function. Continue ambulation, IS, pulmonary hygiene, PT/OT, lovenox, PPI. Will see how he does today with PT and getting out of bed. Will, in any case, remove the jaffe later today or tomorrow morning. 02/15/2018 10am, POD#4: Continues to slowly improve. Stoma viable and functioning this morning, although not large volumes. Continue limited diet today. decrease intravenous fluids slightly. As above, continue ambulation, IS, lovenox. Voiding. Creatinine stable at 1.8 02/16/2018 11:30am POD#5: Slow progress. Improved stoma function. Advance diet to more full liquids/soft. Doing well with ambulation with less pain getting up. Lab repeat in am. 02/17/18: POD#6. Doing well but awaiting return of bowel function. Tolerating clear diet. Will try full liquid diet today. Continue ambulation, IS, PT/OT, lovenox, PPI, etc. Labs look good this morning. Will stop checking them unless clinically he is looking worse. Continue IV abx, will switch to PO abx when tolerating diet and will keep him on these for at least 30 days. 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 02/18/18: POD#7. Doing well. Bowel function returning. Will advance his diet to regular today. Convert meds to PO. Continue PT, OT, IS, ambulation, pulmonary hygiene, PPI. 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 Switch abx to PO today. He is looking very good today; his main concern is going home too soon although I've reassured him that he's doing very good and almost ready to go home, possibly even tomorrow, and he'll have help including his and home health nursing and PT and I'll be seeing him in the office. Will change his stoma appliance today and he can shower as well. 02/19/18: POD#8. Doing well. Still feeling weak. He's very tentative about going home. He would like to work on strength and testing out ADLs today. Tolerating diet. Stoma seems to be functioning well. Continue PT/OT, IS, pulmonary hygiene, ambulation, xarelto, PPI, etc. Hopeful for d/c to home tomorrow. 02/20/18: POD#9. Bowel function is worse and stoma isn't putting much out over the last 24 hours. Pt advised to decrease PO intake if bloated or nauseated and we'll have to follow this. He also has bilateral LE edema. I have him on xarelto for DVT prophylaxis given his h/o DVT. Will give him lasix and potassium today and will check BNP and electrolytes today and tomorrow morning. Continue inpatient care until GI function returns with consistently good stoma output. Continue PPI, xarelto, IS, PT/OT, pulmonary hygiene, ambulation, etc. 02/21/18: POD#10. Bowel function isn't great. Will place PICC line and start TPN, back off on PO intake and give bowel more time to recover. Will give more lasix and potassium today to decrease edema which may be affecting bowel as well. BNP normal so I think this is a postop inflammatory response causing his 3rd space fluids. No fevers and labs all look good, no WBC, etc. Continue xarelto, avoid narcotics, continue PPI, IS, pulmonary hygiene, ambulation, etc. Will await bowel function to improve. 02/22/18: POD#11. Bowel function possibly improving? Will restart clear liquid diet today. Continue TPN, will increase rate and add lipids per dietary's recs. Lasix and potassium dose today, wt today is 89kg down from 90kg yesterday..his baseline is 82kg. Labs, vitals all look good. Creatinine stable with the diuresis. Continue xarelto, avoid narcotics, continue PPI, IS, pulmonary hygiene, ambulation, etc. 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 Time Spent: < 30 min Exam Sepsis Risk: No Definite Risk JOSE PERALTA MD Feb 22, 2018 12:05
[2018-02-22] MEDS ORDERED: KCL (*) 20 MEQ/100 ML PREMIX 100 ML IV ONE (12:15)
[2018-02-22] MEDS ORDERED: FUROSEMIDE 40 MG/4 ML VIAL IVP ONE (12:15)
[2018-02-22 13:42] VITALS: BP 118/85
[2018-02-22] MEDS ORDERED: KCL (*) 20 MEQ/100 ML PREMIX 100 ML ONE (15:41)
[2018-02-22] MEDS ORDERED: 1: INSULIN HUM REG 100 UN/ML 3 ML 10 UNIT, MULTIVITAMINS(*) 10 ML VIAL 10 ML, TRACE META IV SCH ×2 (16:00)
[2018-02-22] MEDS: FAT EMULSION 20% 250 ML BAG 250 ML IVPB SCH (16:29)
[2018-02-22] MEDS: INS HUM REG* 100 U/ML(ER ONLY) 20 UNIT, MULTIVITAMINS(*) 10 ML VIAL 10 ML, TRACE METALS... IV SCH (16:31)
[2018-02-22 17:24] VITALS: BP 110/74
[2018-02-22 19:11] VITALS: BP 137/77
[2018-02-22 23:28] VITALS: BP 108/73
[2018-02-23] MEDS: INSULIN HUM LISPRO 100 UN/ML 3 ML VIAL SUBQ PRN (00:01)
[2018-02-23 05:17] VITALS: BP 119/65
[2018-02-23] MEDS: LEVOTHYROXINE SOD 0.125 MG TAB PO SCH (05:19)
[2018-02-23 06:46] LABS: PLATELET COUNT, AUTOMATED 392 K/uL (150-450)
[2018-02-23 08:02] VITALS: BP_SYST 119; BP_SYST 97; BP_DIAS 65; BP_DIAS 70
[2018-02-23] MEDS: ACETAMINOPHEN 325 MG TAB PO PRN (08:15)
[2018-02-23] MEDS: RIVAROXABAN 10 MG TAB PO SCH (08:15)
[2018-02-23] MEDS: PANTOPRAZOLE SOD 40 MG TABEC PO SCH (08:15)
[2018-02-23] MEDS: METRONIDAZOLE 500 MG TABLET PO SCH ×4 (08:15→20:22)
[2018-02-23] MEDS: LEVOFLOXACIN 500 MG TAB PO SCH (09:31)
--- NOTE | 2018-02-23 09:51 | General Surgery Progress Note ---
Subjective Progress Notes Subjective No complaints today. Not much pain. Some stool and flatus from stoma. No other complaints today. Physical Exam Vital Signs Date Time Temp Pulse Resp B/P (MAP) Pulse Ox O2 Delivery O2 Flow Rate FiO2 02/23/18 08:02 99.2 75 14 119/65 (83) 95 Room Air Intake and Output 02/23/18 07:00 Intake Total 2096 ml Output Total 1850 ml Balance 246 ml Intake Oral 150 ml IV Total 1946 ml Output Urine Total 1850 ml # Voids 4 # Bowel Movements 1 General Appearance: Alert, Awake, No Acute Distress, Afebrile GI: Other (Soft, appropriate postop TTP, stoma is pink with softserve stool in bag, a little gas. 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 Doing well. H/H down as expected. Will follow and transfuse if it gets below Hb of 8. Will start ice chips, popsickles, etc today but limit volume. PPI for GI prophylaxis, lovenox for VTE prophylaxis. Ambulate and OOB to chair today. PT/OT, pulmonary hygiene, IS. Await return of bowel function. 02/13/18: POD#2. Doing well. H/H stable. Stoma a little pale, will need to keep an eye on this. Continue current limited diet. Continue ambulation, IS, pulmonary hygiene, PT/OT, lovenox, PPI. Awaiting return of bowel function. Recommended removing jaffe this morning but pt reports feeling too weak to get up and use the restroom. Will continue PT today and will recommend removing the catheter tomorrow morning.' 02/14/18: POD#3. Doing well. H/H stable. Stoma looks good. No gas or stool in bag. Will continue current very limited diet as we await return of bowel function. Continue ambulation, IS, pulmonary hygiene, PT/OT, lovenox, PPI. Will see how he does today with PT and getting out of bed. Will, in any case, remove the jaffe later today or tomorrow morning. 02/15/2018 10am, POD#4: Continues to slowly improve. Stoma viable and functioning this morning, although not large volumes. Continue limited diet today. decrease intravenous fluids slightly. As above, continue ambulation, IS, lovenox. Voiding. Creatinine stable at 1.8 02/16/2018 11:30am POD#5: Slow progress. Improved stoma function. Advance diet to more full liquids/soft. Doing well with ambulation with less pain getting up. Lab repeat in am. 02/17/18: POD#6. Doing well but awaiting return of bowel function. Tolerating clear diet. Will try full liquid diet today. Continue ambulation, IS, PT/OT, lovenox, PPI, etc. Labs look good this morning. Will stop checking them unless clinically he is looking worse. Continue IV abx, will switch to PO abx when tolerating diet and will keep him on these for at least 30 days. 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 02/18/18: POD#7. Doing well. Bowel function returning. Will advance his diet to regular today. Convert meds to PO. Continue PT, OT, IS, ambulation, pulmonary hygiene, PPI. 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 Switch abx to PO today. He is looking very good today; his main concern is going home too soon although I've reassured him that he's doing very good and almost ready to go home, possibly even tomorrow, and he'll have help including his and home health nursing and PT and I'll be seeing him in the office. Will change his stoma appliance today and he can shower as well. 02/19/18: POD#8. Doing well. Still feeling weak. He's very tentative about going home. He would like to work on strength and testing out ADLs today. Tolerating diet. Stoma seems to be functioning well. Continue PT/OT, IS, pulmonary hygiene, ambulation, xarelto, PPI, etc. Hopeful for d/c to home tomorrow. 02/20/18: POD#9. Bowel function is worse and stoma isn't putting much out over the last 24 hours. Pt advised to decrease PO intake if bloated or nauseated and we'll have to follow this. He also has bilateral LE edema. I have him on xarelto for DVT prophylaxis given his h/o DVT. Will give him lasix and potassium today and will check BNP and electrolytes today and tomorrow morning. Continue inpatient care until GI function returns with consistently good stoma output. Continue PPI, xarelto, IS, PT/OT, pulmonary hygiene, ambulation, etc. 02/21/18: POD#10. Bowel function isn't great. Will place PICC line and start TPN, back off on PO intake and give bowel more time to recover. Will give more lasix and potassium today to decrease edema which may be affecting bowel as we ll. BNP normal so I think this is a postop inflammatory response causing his 3rd space fluids. No fevers and labs all look good, no WBC, etc. Continue xarelto, avoid narcotics, continue PPI, IS, pulmonary hygiene, ambulation, etc. Will await bowel function to improve. 02/22/18: POD#11. Bowel function possibly improving? Will restart clear liquid diet today. Continue TPN, will increase rate and add lipids per dietary's recs. Lasix and potassium dose today, wt today is 89kg down from 90kg yesterday..his baseline is 82kg. Labs, vitals all look good. Creatinine stable with the diuresis. Continue xarelto, avoid narcotics, continue PPI, IS, pulmonary hygiene, ambulation, etc. 02/23/18: POD#12. Doing better. Has some bowel function but wish it was putting out more gas. Will try regular diet today but will continue TPN/lipids until he's clearly tolerating regular diet. Will give him another round of lasix/KCl today to get more fluid off, he is still 6Kg above his baseline we ight. Labs/vitals all look good. Creatinine is stable. Continue xarelto, PPI, IS, pulmonary hygiene, ambulation, etc. 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 Time Spent: < 30 min Exam Sepsis Risk: No Definite Risk JOSE PERALTA MD Feb 23, 2018 09:51
[2018-02-23] MEDS ORDERED: FUROSEMIDE 40 MG/4 ML VIAL IVP ONE (10:00)
[2018-02-23] MEDS: KCL (*) 20 MEQ/100 ML PREMIX 100 ML IV SCH ×2 (11:38→13:56)
[2018-02-23 12:15] VITALS: BP 109/75
[2018-02-23 16:42] VITALS: BP 131/77
[2018-02-23] MEDS: FAT EMULSION 20% 250 ML BAG 250 ML IVPB SCH (17:05)
[2018-02-23] MEDS: INS HUM REG* 100 U/ML(ER ONLY) 20 UNIT, MULTIVITAMINS(*) 10 ML VIAL 10 ML, TRACE METALS... IV SCH (17:05)
[2018-02-23 19:05] VITALS: BP 107/71
[2018-02-24 00:09] VITALS: BP 130/71
[2018-02-24] MEDS: ACETAMINOPHEN 325 MG TAB PO PRN ×2 (00:09→10:56)
[2018-02-24 05:47] LABS: PLATELET COUNT, AUTOMATED 415 K/uL (150-450)
[2018-02-24] MEDS: LEVOTHYROXINE SOD 0.125 MG TAB PO SCH (06:01)
[2018-02-24] MEDS ORDERED: FUROSEMIDE 40 MG/4 ML VIAL IVP ONE (07:55)
[2018-02-24] MEDS ORDERED: KCL (*) 20 MEQ/100 ML PREMIX 100 ML IV ONE (07:55)
--- NOTE | 2018-02-24 07:59 | General Surgery Progress Note ---
Subjective Progress Notes Subjective No complaints this morning. Not much pain. Tolerating regular diet but not eating much. Occasional abdominal cramps, quite a bit of belching. Physical Exam Vital Signs Date Time Temp Pulse Resp B/P (MAP) Pulse Ox O2 Delivery O2 Flow Rate FiO2 02/24/18 00:09 98.3 80 20 130/71 (90) 95 Room Air Intake and Output 02/24/18 06:59 Intake Total 770 ml Output Total 250 ml Balance 520 ml Intake Oral 770 ml Stool Total 250 ml # Voids 7 General Appearance: Alert, Awake, No Acute Distress, Afebrile GI: Soft and Non-Tender (Incisions look good. RLQ wound is clean with de creasing serous drainage. 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 Doing well. H/H down as expected. Will follow and transfuse if it gets below Hb of 8. Will start ice chips, popsickles, etc today but limit volume. PPI for GI prophylaxis, lovenox for VTE prophylaxis. Ambulate and OOB to chair today. PT/OT, pulmonary hygiene, IS. Await return of bowel function. 02/13/18: POD#2. Doing well. H/H stable. Stoma a little pale, will need to keep an eye on this. Continue current limited diet. Continue ambulation, IS, pulmonary hygiene, PT/OT, lovenox, PPI. Awaiting return of bowel function. Recommended removing jaffe this morning but pt reports feeling too weak to get up and use the restroom. Will continue PT today and will recommend removing the catheter tomorrow morning.' 02/14/18: POD#3. Doing well. H/H stable. Stoma looks good. No gas or stool in bag. Will continue current very limited diet as we await return of bowel function. Continue ambulation, IS, pulmonary hygiene, PT/OT, lovenox, PPI. Will see how he does today with PT and getting out of bed. Will, in any case, remove the jaffe later today or tomorrow morning. 02/15/2018 10am, POD#4: Continues to slowly improve. Stoma viable and functioning this morning, although not large volumes. Continue limited diet today. decrease intravenous fluids slightly. As above, continue ambulation, IS, lovenox. Voiding. Creatinine stable at 1.8 02/16/2018 11:30am POD#5: Slow progress. Improved stoma function. Advance diet to more full liquids/soft. Doing well with ambulation with less pain getting up. Lab repeat in am. 02/17/18: POD#6. Doing well but awaiting return of bowel function. Tolerating clear diet. Will try full liquid diet today. Continue ambulation, IS, PT/OT, lovenox, PPI, etc. Labs look good this morning. Will stop checking them unless clinically he is looking worse. Continue IV abx, will switch to PO abx when tolerating diet and will keep him on these for at least 30 days. 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 02/18/18: POD#7. Doing well. Bowel function returning. Will advance his diet to regular today. Convert meds to PO. Continue PT, OT, IS, ambulation, pulmonary hygiene, PPI. 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 Switch abx to PO today. He is looking very good today; his main concern is going home too soon although I've reassured him that he's doing very good and almost ready to go home, possibly even tomorrow, and he'll have help including his and home health nursing and PT and I'll be seeing him in the office. Will change his stoma appliance today and he can shower as well. 02/19/18: POD#8. Doing well. Still feeling weak. He's very tentative about going home. He would like to work on strength and testing out ADLs today. Tolerating diet. Stoma seems to be functioning well. Continue PT/OT, IS, pu lmonary hygiene, ambulation, xarelto, PPI, etc. Hopeful for d/c to home tomorrow. 02/20/18: POD#9. Bowel function is worse and stoma isn't putting much out over the last 24 hours. Pt advised to decrease PO intake if bloated or nauseated and we'll have to follow this. He also has bilateral LE edema. I have him on xarelto for DVT prophylaxis given his h/o DVT. Will give him lasix and potassi um today and will check BNP and electrolytes today and tomorrow morning. Continue inpatient care until GI function returns with consistently good stoma output. Continue PPI, xarelto, IS, PT/OT, pulmonary hygiene, ambulation, etc. 02/21/18: POD#10. Bowel function isn't great. Will place PICC line and start TPN, back off on PO intake and give bowel more time to recover. Will give more lasix and potassium today to decrease edema which may be affecting bowel as well. BNP normal so I think this is a postop inflammatory response causing his 3rd space fluids. No fevers and labs all look good, no WBC, etc. Continue xarelto, avoid narcotics, continue PPI, IS, pulmonary hygiene, ambulation, etc. Will await bowel function to improve. 02/22/18: POD#11. Bowel function possibly improving? Will restart clear liquid diet today. Continue TPN, will increase rate and add lipids per dietary' s recs. Lasix and potassium dose today, wt today is 89kg down from 90kg yesterday..his baseline is 82kg. Labs, vitals all look good. Creatinine stable with the diuresis. Continue xarelto, avoid narcotics, continue PPI, IS, pulmonary hygiene, ambulation, etc. 02/23/18: POD#12. Doing better. Has some bowel function but wish it was putting out more gas. Will try regular diet today but will continue TPN/lipids until he's clearly tolerating regular diet. Will give him another round of lasix/KCl today to get more fluid off, he is still 6Kg above his baseline weight. Labs/vitals all look good. Creatinine is stable. Continue xarelto, PPI, IS, pulmonary hygiene, ambulation, etc. 02/24/18? POD#13. Continued improvement but still waiting for better bowel function as there's not much stool and almost no gas in the bag. Will continue regular diet, pt encourage to increase intake, will come down on TPN and will try prune juice and activia yogurt to see how his bowels respond to this. He still has LE edema and he's still 7kg above his baseline, even 1kg up from yesterday in spite if getting lasix although his creatinine is stable. H/H stable. WBC normal, no fevers. Will give another dose of lasix 40mg and 60mEq KCl since K is down this morning. Continue xarelto, PPI, IS, pulmonary hygiene, ambulation, etc. 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 Time Spent: < 30 min Exam Sepsis Risk: No Definite Risk JOSE PERALTA MD Feb 24, 2018 07:59
[2018-02-24 08:21] VITALS: BP 121/67
[2018-02-24] MEDS: PANTOPRAZOLE SOD 40 MG TABEC PO SCH (08:22)
[2018-02-24] MEDS: RIVAROXABAN 10 MG TAB PO SCH (08:23)
[2018-02-24] MEDS: METRONIDAZOLE 500 MG TABLET PO SCH ×4 (08:23→20:32)
[2018-02-24] MEDS: KCL (*) 20 MEQ/100 ML PREMIX 100 ML IV SCH ×2 (08:24→10:56)
[2018-02-24 10:36] VITALS: BP 106/73
[2018-02-24] MEDS: LEVOFLOXACIN 500 MG TAB PO SCH (10:55)
--- NOTE | 2018-02-24 14:13 | Medical Nutrition Therapy ---
Nutrition Anthropometrics Height (Inches): 70.00 Height (Calculated Centimeters: 177.428992 Weight (Pounds): 197 Weight (Calculated Kilograms): 89.358 Eric Nutrition Score: Adequate Eric Nutrition Risk Score: 20 Dietary Referral Nutrition Risk Factors: Nutrition Risk Comment: Nutritional Diagnosis Nutritional Risk Acuity 1: TPN/PPN Nutritional Risk Acuity 2: Head/Neck/GI Cancer (rectal Ca), New Colostomy Nutritional Acuity: 1-High Nutrition Diagnosis: Inadequate Food Intake Nutrition Etiology: Physiological Causes Nutrition Problem/Etiology/Sym: AEB intake 75-100% of small portions Energy Requirement: 2430 (M- StJ X 1.2 SF) Protein Requirement: 85 (1.1gm/kg) Fluid Requirement: 2580 (30ml/kg) Diet Type: Diet as Tolerated YUDITH/REG Nutrition Intervention: Cont diet as ordered, Nutrition support Additional Diet Restrictions: OFFER NUTR SUPPLMENTS & YOUGURT Diet Comment To [facility]: PROVIDE PRUNE JUICE AT BREAKFAST AND SUPPER Nutritional Support Current Enteral / Parental: TPN Current Tube Feeding Formula C: 50ml/hr + LIPIDS Current Duration: 24 Current Calories: 1056 Current Protein: 60 Current Lipids Calories: 500 Total Current Calories: 1556 Nutrition Monitoring & Eval Nutrition Goals: Eat 75-100% Meal RD Patient Assessment Time: [address] Assessment Type: RD Re-Assessment Patient Nutrition Acuity: 1-High Follow Up Date: Feb 27, 2018 Nutritional Comment: 02/12 Pt with dx rectal Ca and new colostomy. Currently NPO with hypoactive bowel sounds. BUN and creatinine elevated at 32 and 1.8. Will cont to monitor. 02/15 Pt cont 4th day NPO. Recommend nutr support unless diet advanced. TPN at 2L/24 hrs + lipids would provide 2260 kcal and 100gm protein which would meet 93% est kcal and 117% est protein needs. Will cont to monitor. BK 02/17 Diet advanced to med liquids/GI soft. Significant labs; Hgb 10.1, Hct 30.5, BUN 23, creatinine 1.7. Will offer nutr supplment to increase kcal and protein intake. BK 02/21 Bowel function poor per surgeon. Pt started on TPN and changed to NPO. Pt recieving TPN at 75ml/hr which is meeting 65% est kcal and 88% est protien needs Recommend increase to 83ml/hr and add lipids to provide additional 500 kcal and [id number]% est kcal and 117% est protein needs. Will cont to monitor. 02/24 Diet advanced to regular. Pt eating 75-100% of small portions. TPN tapered down to 50ml/hr plus lipid which meet 64% est kcal and 70% est protein needs. Pt cont hypoactive bowel with little output. Provideing prune ashley bid and yogurt 1X/ day. Pt agreed to try this. alb 2.3. Wt up 18#. Will cont to monitor and encourage intake. ARMOND HINTON Feb 24, 2018 14:13
[2018-02-24] MEDS ORDERED: [UNRECOGNIZED DRUG - OTHER] IV SCH (16:00)
[2018-02-24] MEDS ORDERED: INS HUM REG U IV SCH (16:00)
[2018-02-24] MEDS ORDERED: MULTIVITAMINS IV SCH (16:00)
[2018-02-24] MEDS: FAT EMULSION 20% 250 ML BAG 250 ML IVPB SCH (16:28)
[2018-02-24 16:56] VITALS: BP 119/80
[2018-02-24 20:23] VITALS: BP 109/67
[2018-02-24] MEDS: ONDANSETRON 4 MG/2 ML VIAL IVP PRN (21:10)
[2018-02-24 22:49] VITALS: BP 123/73
[2018-02-25] MEDS: INSULIN HUM LISPRO 100 UN/ML 3 ML VIAL SUBQ PRN ×3 (00:43→13:14)
[2018-02-25 05:10] VITALS: BP 124/81
[2018-02-25 05:53] LABS: PLATELET COUNT, AUTOMATED 454 K/uL (150-450)
[2018-02-25] MEDS: LEVOTHYROXINE SOD 0.125 MG TAB PO SCH (06:00)
--- NOTE | 2018-02-25 06:21 | RADIOLOGY IMAGING REPORT ---
FACILITY: [facility] - [place] PATIENT NAME: Coral Voss : 1940 MR: [id number] V: [id number] EXAM DATE: ORDERING PHYSICIAN: JOSE PERALTA TECHNOLOGIST: Location: [facility] - [place] Patient: Coral Voss : 1940 Visit/Account:[id number] Date of Sevice: 02/25/2018 Abdomen: Indication: Bloating Technique: Supine views of the abdomen and pelvis were obtained. Comparison: None. Findings: There are multiple dilated loops of small intestine in the upper abdomen and mid abdomen. T here appears to be a small amount of gas in the proximal colon, which is not dilated. The pattern sug gests partial small bowel obstruction. A few surgical clips are present in the left midabdomen and pa raspinal region. No suspicious calcifications are identified. There are are mild degenerative changes and scoliosis in the spine. Impression: Partial small bowel obstruction is suspected. Report Dictated By: Saeed Mcrae MD at 02/25/2018 6:13 AM Report E-Signed By: Saeed Mcrae MD at 02/25/2018 6:18 AM WSN:[id number]
[2018-02-25] MEDS: INS HUM REG* 100 U/ML(ER ONLY) 20 UNIT, MULTIVITAMINS(*) 10 ML VIAL 10 ML, TRACE METALS... IV SCH (08:02)
[2018-02-25] MEDS: ONDANSETRON 4 MG/2 ML VIAL IVP PRN (08:02)
--- NOTE | 2018-02-25 08:33 | General Surgery Progress Note ---
Subjective Progress Notes Subjective Developed N/V overnight. Feels poorly this morning due to N/V. Not much pain. Physical Exam Vital Signs Date Time Temp Pulse Resp B/P (MAP) Pulse Ox O2 Delivery O2 Flow Rate FiO2 02/25/18 08:10 Room Air 02/25/18 05:10 98.9 87 14 124/81 (95) 93 Intake and Output 02/25/18 07:00 Intake Total 2821 ml Output Total 125 ml Balance 2696 ml Intake Oral 356 ml IV Total 2465 ml Stool Total 125 ml # Voids 6 # Emeses 1 General Appearance: Alert, Awake, Afebrile GI: Other (Soft, distended, mild diffuse TTP, no peritoneal signs. Stoma is pink, no gas in bag, small stool in bag.) Extremities: Warm, Perfused Result Diagram: 02/25/18 0530 02/25/18 0530 Assessment and Plan Problems: (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 Doing well. H/H down as expected. Will follow and transfuse if it gets below Hb of 8. Will start ice chips, popsickles, etc today but limit volume. PPI for GI prophylaxis, lovenox for VTE prophylaxis. Ambulate and OOB to chair today. PT/OT, pulmonary hygiene, IS. Await return of bowel function. 02/13/18: POD#2. Doing well. H/H stable. Stoma a little pale, will need to keep an eye on this. Continue current limited diet. Continue ambulation, IS, pulmonary hygiene, PT/OT, lovenox, PPI. Awaiting return of bowel function. Recommended removing jaffe this morning but pt reports feeling too weak to get up and use the restroom. Will continue PT today and will recommend removing the catheter tomorrow morning.' 02/14/18: POD#3. Doing well. H/H stable. Stoma looks good. No gas or stool in bag. Will continue current very limited diet as we await return of bowel function. Continue ambulation, IS, pulmonary hygiene, PT/OT, lovenox, PPI. Will see how he does today with PT and getting out of bed. Will, in any case, remove the jaffe later today or tomorrow morning. 02/15/2018 10am, POD#4: Continues to slowly improve. Stoma viable and functioning this morning, although not large volumes. Continue limited diet today. decrease intravenous fluids slightly. As above, continue ambulation, IS, lovenox. Voiding. Creatinine stable at 1.8 02/16/2018 11:30am POD#5: Slow progress. Improved stoma function. Advance diet to more full liquids/soft. Doing well with ambulation with less pain getting up. Lab repeat in am. 02/17/18: POD#6. Doing well but awaiting return of bowel function. Tolerating clear diet. Will try full liquid diet today. Continue ambulation, IS, PT/OT, lovenox, PPI, etc. Labs look good this morning. Will stop checking them unless clinically he is looking worse. Continue IV abx, will switch to PO abx when tolerating diet and will keep him on these for at least 30 days. 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 02/18/18: POD#7. Doing well. Bowel function returning. Will advance his diet to regular today. Convert meds to PO. Continue PT, OT, IS, ambulation, pulmonary hygiene, PPI. 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 Switch abx to PO today. He is looking very good today; his main concern is going home too soon although I've reassured him that he's doing very good and almost ready to go home, possibly even tomorrow, and he'll have help including his and home health nursing and PT and I'll be seeing him in the office. Will change his stoma appliance today and he can shower as well. 02/19/18: POD#8. Doing well. Still feeling weak. He's very tentative about going home. He would like to work on strength and testing out ADLs today. Tolerating diet. Stoma seems to be functioning well. Continue PT/OT, IS, pulmonary hygiene, ambulation, xarelto, PPI, etc. Hopeful for d/c to home tomorrow. 02/20/18: POD#9. Bowel function is worse and stoma isn't putting much out over the last 24 hours. Pt advised to decrease PO intake if bloated or nauseated and we'll have to follow this. He also has bilateral LE edema. I have him on xarelto for DVT prophylaxis given his h/o DVT. Will give him lasix and potassium today and will check BNP and electrolytes today and tomorrow morning. Continue inpatient care until GI function returns with consistently good stoma output. Continue PPI, xarelto, IS, PT/OT, pulmonary hygiene, ambulation, etc. 02/21/18: POD#10. Bowel function isn't great. Will place PICC line and start TPN, back off on PO intake and give bowel more time to recover. Will give more lasix and potassium today to decrease edema which may be affecting bowel as well. BNP normal so I think this is a postop inflammatory response causing his 3rd space fluids. No fevers and labs all look good, no WBC, etc. Continue xarelto, avoid narcotics, continue PPI, IS, pulmonary hygiene, ambulation, etc. Will await bowel function to improve. 02/22/18: POD#11. Bowel function possibly improving? Will restart clear liquid diet today. Continue TPN, will increase rate and add lipids per dietary's recs. Lasix and potassium dose today, wt today is 89kg down from 90kg yesterday..his baseline is 82kg. Labs, vitals all look good. Creatinine stable with the diuresis. Continue xarelto, avoid narcotics, continue PPI, IS, pulmonary hygiene, ambulation, etc. 02/23/18: POD#12. Doing better. Has some bowel function but wish it was putting out more gas. Will try regular diet today but will continue TPN/lipids until he's clearly tolerating regular diet. Will give him another round of lasix/KCl today to get more fluid off, he is still 6Kg above his baseline weight. Labs/vitals all look good. Creatinine is stable. Continue xarelto, PPI, IS, pulmonary hygiene, ambulation, etc. 02/24/18: POD#13. Continued improvement but still waiting for better bowel function as there's not much stool and almost no gas in the bag. Will continue regular diet, pt encourage to increase intake, will come down on TPN and will try prune juice and activia yogurt to see how his bowels respond to this. He still has LE edema and he's still 7kg above his baseline, even 1kg up from yesterday in spite if getting lasix although his creatinine is stable. H/H stable. WBC normal, no fevers. Will give another dose of lasix 40mg and 60mEq KCl since K is down this morning. Continue xarelto, PPI, IS, pulmonary hygiene, ambulation, etc. 02/25/18: POD#14. Pt has developed an SBO. Will place NG tube to decompress GI tract and stop diet, increase TPN to goal. Vitals and labs OK, no fevers although WBC is slightly elevated this morning, likely related to the obstruction and N/V. Will recheck tomorrow. If he fails to clinically improve over the next couple of days then will need to get an abdominal CT. Will convert blood thinner to lovenox and rest of meds to IV although will continue PO levothyroxine. Continue PPI, IS, pulmonary hygiene, ambulation, etc. 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 Time Spent: < 30 min Exam Sepsis Risk: No Definite Risk JOSE PEARLTA MD Feb 25, 2018 08:33
[2018-02-25] MEDS ORDERED: MORPHINE 2 MG/ML SYR IVP ONE (08:55)
[2018-02-25] MEDS ORDERED: BENZOCAINE/MENTHOL 1 EACH LOZG PO ONE (08:55)
[2018-02-25] MEDS ORDERED: LIDOCAINE 2% JELLY 5 ML TUBE TP ONE (08:55)
[2018-02-25] MEDS ORDERED: NS(*) 0.9% 250 ML BAG 250 ML ONE (09:23)
[2018-02-25 09:28] VITALS: BP 125/79
[2018-02-25] MEDS: PANTOPRAZOLE SOD 40 MG IV VIAL IVP SCH (09:30)
[2018-02-25] MEDS: ENOXAPARIN 40 MG/0.4ML SYR SC SCH (09:31)
[2018-02-25] MEDS: metroNIDAZOLE* 500MG/100ML BAG 100 ML IVPB SCH ×3 (09:37→20:52)
[2018-02-25] MEDS: LEVOFLOXACIN/D5W*500 MG/100 ML 100 ML IVPB SCH (10:35)
--- NOTE | 2018-02-25 11:22 | RADIOLOGY IMAGING REPORT ---
[place] [facility] [place] NAME: Coral Voss : 1940 MR: [id number] V: [id number] EXAM DATE: ORDERING PHYSICIAN: JOSE PERALTA TECHNOLOGIST: Location: [facility] Patient: Coral Voss : 1940 Visit/Account:[id number] Date of Sevice: 02/25/2018 CHEST SINGLE AP Indication: NG tube placement Comparison: Chest x-ray 08/28/2017 Findings: Lungs: Clear. Mediastinum/pulmonary vasculature: Heart size and pulmonary vasculature are normal. Bones/soft tissues: There is a new nasogastric tube with its tip in the fundus of the stomach in good position. There is a right-sided portacatheter with its tip in the low superior vena cava. Degener ative changes are seen in the right shoulder. IMPRESSION: 1. New nasogastric tube with tip in good position in the stomach. 2. Clear lungs. Report Dictated By: Stanford Gray at 02/25/2018 11:14 AM Report E-Signed By: Stanford Gray at 02/25/2018 11:18 AM WSN:[id number]
--- NOTE | 2018-02-25 13:52 | Medical Nutrition Therapy ---
Nutrition Anthropometrics Height (Inches): 70.00 Height (Calculated Centimeters: 177.433737 Weight (Pounds): 198 Weight (Calculated Kilograms): 89.811 Eric Nutrition Score: Probably Inadequate Eric Nutrition Risk Score: 19 Dietary Referral Nutrition Risk Factors: Nutrition Risk Comment: Nutritional Diagnosis Nutritional Risk Acuity 1: TPN/PPN Nutritional Risk Acuity 2: Head/Neck/GI Cancer (rectal Ca), New Colostomy Nutritional Acuity: 1-High Nutrition Diagnosis: Altered GI Function Nutrition Etiology: Physiological Causes Nutrition Problem/Etiology/Sym: AEB dx SBO on TPN Energy Requirement: 2430 (M- StJ X 1.2 SF) Protein Requirement: 85 (1.1gm/kg) Fluid Requirement: 2580 (30ml/kg) Diet Type: NPO (Nothing by Mouth), TPN/PPN Nutrition Intervention: Nutrition support, Incr diet as tolerated Nutritional Support Current Enteral / Parental: TPN Current Tube Feeding Formula C: 83ml/hr + LIPIDS Current Duration: 24 Current Calories: 1760 Current Protein: 100 Current Lipids Calories: 500 Total Current Calories: 2260 Nutrition Monitoring & Eval Nutritional Goals Comment: TPN will meet nutr needs until oral intake can meet needs RD Patient Assessment Time: [address] Assessment Type: RD Re-Assessment Patient Nutrition Acuity: 1-High Follow Up Date: Feb 27, 2018 Nutritional Comment: 02/12 Pt with dx rectal Ca and new colostomy. Currently NPO with hypoactive bowel sounds. BUN and creatinine elevated at 32 and 1.8. Will cont to monitor. 02/15 Pt cont 4th day NPO. Recommend nutr support unless diet advanced. TPN at 2L/24 hrs + lipids would provide 2260 kcal and 100gm protein which would meet 93% est kcal and 117% est protein needs. Will cont to monitor. BK 02/17 Diet advanced to med liquids/GI soft. Significant labs; Hgb 10.1, Hct 30.5, BUN 23, creatinine 1.7. Will offer nutr supplment to increase kcal and protein intake. BK 02/21 Bowel function poor per surgeon. Pt started on TPN and changed to NPO. Pt recieving TPN at 75ml/hr which is meeting 65% est kcal and 88% est protien needs Recommend increase to 83ml/hr and add lipids to provide additional 500 kcal and ozpxpwp51% est kcal and 117% est protein needs. Will cont to monitor. 02/24 Diet advanced to regular. Pt eating 75-100% of small portions. TPN tapered down to 50ml/hr plus lipid which meet 64% est kcal and 70% est protein needs. Pt cont hypoactive bowel with little output. Provideing prune ashley bid and yogurt 1X/ day. Pt agreed to try this. alb 2.3. Wt up 18#. Will cont to monitor and encourage intake. BK 02/25 Pt has SBO. TPN resumed to 83ml/hr plus lipids which is meeting 93% est kcal and 117% est protein needs. Will cont to monitor. BETO . ARMOND WALLER Feb 25, 2018 13:12
[2018-02-25] MEDS: FAT EMULSION 20% 250 ML BAG 250 ML IVPB SCH (16:27)
[2018-02-25 16:35] VITALS: BP 105/65
[2018-02-25 20:19] VITALS: BP 112/66
[2018-02-26 00:51] VITALS: BP 106/60
[2018-02-26] MEDS: INSULIN HUM LISPRO 100 UN/ML 3 ML VIAL SUBQ PRN (00:57)
[2018-02-26] MEDS: metroNIDAZOLE* 500MG/100ML BAG 100 ML IVPB SCH ×4 (02:20→20:38)
[2018-02-26] MEDS: LEVOTHYROXINE SOD 0.125 MG TAB PO SCH (05:47)
--- NOTE | 2018-02-26 06:01 | RADIOLOGY IMAGING REPORT ---
FACILITY: [facility] PATIENT NAME: Coral Voss : 1940 MR: [id number] V: [id number] EXAM DATE: ORDERING PHYSICIAN: JOSE PERALTA TECHNOLOGIST: Location: [facility] Patient: Coral Voss : 1940 Visit/Account:[id number] Date of Sevice: 02/26/2018 Abdomen: Indication: Small bowel obstruction. Technique: Supine views of the abdomen and pelvis were obtained. Comparison: 02/25/2018 Findings: A nasogastric tube is now in place. There is persistent dilatation of multiple small bowel loops, compatible with obstruction. There has been no significant change. The skeletal and soft tissu e structures are also unchanged. IMPRESSION: The pattern of small bowel obstruction is not significantly changed. Report Dictated By: Saeed Mcrae MD at 02/26/2018 5:53 AM Report E-Signed By: Saeed Mcrae MD at 02/26/2018 5:57 AM WSN:[id number]
[2018-02-26 06:11] LABS: PLATELET COUNT, AUTOMATED 364 K/uL (150-450)
--- NOTE | 2018-02-26 06:51 | General Surgery Progress Note ---
Subjective Progress Notes Subjective Main complaint this morning is a sore throat due to the NG tube. Not much abdominal pain or belching. 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 Doing well. H/H down as expected. Will follow and transfuse if it gets below Hb of 8. Will start ice chips, popsickles, etc today but limit volume. PPI for GI prophylaxis, lovenox for VTE prophylaxis. Ambulate and OOB to chair today. PT/OT, pulmonary hygiene, IS. Await return of bowel function. 02/13/18: POD#2. Doing well. H/H stable. Stoma a little pale, will need to keep an eye on this. Continue current limited diet. Continue ambulation, IS, pulmonary hygiene, PT/OT, lovenox, PPI. Awaiting return of bowel function. Recommended removing jaffe this morning but pt reports feeling too weak to get up and use the restroom. Will continue PT today and will recommend removing the catheter tomorrow morning.' 02/14/18: POD#3. Doing well. H/H stable. Stoma looks good. No gas or stool in bag. Will continue current very limited diet as we await return of bowel function. Continue ambulation, IS, pulmonary hygiene, PT/OT, lovenox, PPI. Will see how he does today with PT and getting out of bed. Will, in any case, remove the jaffe later today or tomorrow morning. 02/15/2018 10am, POD#4: Continues to slowly improve. Stoma viable and functioning this morning, although not large volumes. Continue limited diet today. decrease intravenous fluids slightly. As above, continue ambulation, IS, lovenox. Voiding. Creatinine stable at 1.8 02/16/2018 11:30am POD#5: Slow progress. Improved stoma function. Advance diet to more full liquids/soft. Doing well with ambulation with less pain getting up. Lab repeat in am. 02/17/18: POD#6. Doing well but awaiting return of bowel function. Tolerating clear diet. Will try full liquid diet today. Continue ambulation, IS, PT/OT, lovenox, PPI, etc. Labs look good this morning. Will stop checking them unless clinically he is looking worse. Continue IV abx, will switch to PO abx when tolerating diet and will keep him on these for at least 30 days. 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 02/18/18: POD#7. Doing well. Bowel function returning. Will advance his diet to regular today. Convert meds to PO. Continue PT, OT, IS, ambulation, pulmonary hygiene, PPI. 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 Switch abx to PO today. He is looking very good today; his main concern is going home too soon although I've reassured him that he's doing very good and almost ready to go home, possibly even tomorrow, and he'll have help including his and home health nursing and PT and I'll be seeing him in the office. Will change his stoma appliance today and he can shower as well. 02/19/18: POD#8. Doing well. Still feeling weak. He's very tentative about going home. He would like to work on strength and testing out ADLs today. Tolerating diet. Stoma seems to be functioning well. Continue PT/OT, IS, pulmonary hygiene, ambulation, xarelto, PPI, etc. Hopeful for d/c to home tomorrow. 02/20/18: POD#9. Bowel function is worse and stoma isn't putting much out over the last 24 hours. Pt advised to decrease PO intake if bloated or nauseated and we'll have to follow this. He also has bilateral LE edema. I have him on xarelto for DVT prophylaxis given his h/o DVT. Will give him lasix and potassium today and will check BNP and electrolytes today and tomorrow morning. Continue inpatient care until GI function returns with consistently good stoma output. Continue PPI, xarelto, IS, PT/OT, pulmonary hygiene, ambulation, etc. 02/21/18: POD#10. Bowel function isn't great. Will place PICC line and start TPN, back off on PO intake and give bowel more time to recover. Will give more lasix and potassium today to decrease edema which may be affecting bowel as well. BNP normal so I think this is a postop inflammatory response causing his 3rd space fluids. No fevers and labs all look good, no WBC, etc. Continue xarelto, avoid narcotics, continue PPI, IS, pulmonary hygiene, ambulation, etc. Will await bowel function to improve. 02/22/18: POD#11. Bowel function possibly improving? Will restart clear liquid diet today. Continue TPN, will increase rate and add lipids per dietary's recs. Lasix and potassium dose today, wt today is 89kg down from 90kg yesterday..his baseline is 82kg. Labs, vitals all look good. Creatinine stable with the diuresis. Continue xarelto, avoid narcotics, continue PPI, IS, pulmonary hygiene, ambulation, etc. 02/23/18: POD#12. Doing better. Has some bowel function but wish it was putting out more gas. Will try regular diet today but will continue TPN/lipids until he's clearly tolerating regular diet. Will give him another round of lasix/KCl today to get more fluid off, he is still 6Kg above his baseline weight. Labs/vitals all look good. Creatinine is stable. Continue xarelto, PPI, IS, pulmonary hygiene, ambulation, etc. 02/24/18: POD#13. Continued improvement but still waiting for better bowel function as there's not much stool and almost no gas in the bag. Will continue regular diet, pt encourage to increase intake, will come down on TPN and will try prune juice and activia yogurt to see how his bowels respond to this. He still has LE edema and he's still 7kg above his baseline, even 1kg up from yesterday in spite if getting lasix although his creatinine is stable. H/H stable. WBC normal, no fevers. Will give another dose of lasix 40mg and 60mEq KCl since K is down this morning. Continue xarelto, PPI, IS, pulmonary hygiene, ambulation, etc. 02/25/18: POD#14. Pt has developed an SBO. Will place NG tube to decompress GI tract and stop diet, increase TPN to goal. Vitals and labs OK, no fevers although WBC is slightly elevated this morning, likely related to the obstruction and N/V. Will recheck tomorrow. If he fails to clinically improve over the next couple of days then will need to get an abdominal CT. Will convert blood thinner to lovenox and rest of meds to IV although will continue PO levothyroxine. Continue PPI, IS, pulmonary hygiene, ambulation, etc. 02/26/18: POD#15. Continued SBO without anything from stoma and KUB still with dilated small bowel and minimal gas in colon. Will continue bowel rest and TPN. Will get a CT abd/pelvis today. H/H is down a little but no other evidence of bleeding. Will follow this. Continue lovenox, ambulation, PPI, IS, ambulation, pulmonary hygiene, etc. 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 Time Spent: < 30 min Exam Sepsis Risk: No Definite Risk JOSE PERALTA MD Feb 26, 2018 06:51
[2018-02-26 08:03] VITALS: BP 107/69
[2018-02-26] MEDS: INS HUM REG* 100 U/ML(ER ONLY) 20 UNIT, MULTIVITAMINS(*) 10 ML VIAL 10 ML, TRACE METALS... IV SCH (09:10)
[2018-02-26] MEDS: ENOXAPARIN 40 MG/0.4ML SYR SC SCH (09:10)
[2018-02-26] MEDS: PANTOPRAZOLE SOD 40 MG IV VIAL IVP SCH (09:11)
--- NOTE | 2018-02-26 10:55 | RADIOLOGY IMAGING REPORT ---
FACILITY: [facility] [place] PATIENT NAME: Coral Voss : 1940 MR: [id number] V: [id number] EXAM DATE: ORDERING PHYSICIAN: JOSE PERALTA TECHNOLOGIST: Location: [facility] Patient: Coral Voss : 1940 Visit/Account:[id number] Date of Sevice: 02/26/2018 ABDOMEN/PELVIS W/O CONTRAST HISTORY: Postop SBO TECHNIQUE: Axial images acquired through the abdomen/pelvis. Coronal and sagittal reformatting also performed. No IV contrast administered.Dose Lowering Technique One of the following dose optimization techniques was utilized in the performance of this exam: Autom ated exposure control; adjustment of the mA and/or kV according to the patient's size; or use of an i terative reconstruction technique. Specific details can be referenced in the facility's radiology C T exam operational policy. COMPARISON: June 26, 2017 FINDINGS: Visualized lung bases: Calcified granuloma in the right middle lobe. Peripheral reticular changes a re seen throughout the lower lungs with subtle groundglass opacities seen in the right middle lobe an d right lower lobe . This may represent dependent change versus mild developing infiltrates Hepatobiliary: Negative. Spleen: Negative. Adrenals: There is mild nodular thickening of the left adrenal gland that appear some are to the levon or study Pancreas: Negative. Kidneys ureters and bladder: There is mild to moderate perinephric stranding bilaterally there is a 1 mm nonobstructing calculus lower pole calyx of the left kidney. There is a 1.2 cm cortical hypoatte nuating mass anterior lower pole the left kidney appears relatively unchanged and likely represents a cyst also noted is a 9 mm anterior cortical mass in the left kidney which is too small to character ize although appears slightly more prominent compared the prior study no evidence of hydronephrosis o r hydroureter. Genitalia: Negative. GI: There is a descending colon ostomy in the left lower quadrant. There is a peristomal hernia con taining edematous fat. The previous ileostomy has been reversed a small amount of soft tissue air an d induration the subcutaneous fat and anastomosis is seen at the rectum. There are several small bow el anastomoses seen low within the pelvis. There are multiple loops of moderately distended fluid-fi lled small bowel throughout the abdomen measuring up to 4.3 cm in diameter. The distalmost portion o f the small bowel appears decompressed a definite transitional point is not seen . There is an esophagogastric tube in the stomach the distal tip is in the anterior gastric body Vessels/spaces/nodes: There is soft tissue thickening seen in the presacral space similar to the levon or study although the previously noted air is no longer identified there are moderate vascular calcif ications in the abdominal aorta and branch vessels. Bones/soft tissues: Left lower quadrant ostomy with peristomal hernia containing fat and postsurgica l changes from reversal of previous ileostomy. A sclerotic changes seen in the pelvis and hips appea r relatively unchanged. There are increasing arthritic changes at the right SI joint. There is a levoconvex scoliosis lumbar spine with spondylotic changes Additional findings: None pertinent. IMPRESSION: Postsurgical changes from descending colon ostomy in the left lower quadrant with a small peristomal hernia containing fat Postsurgical changes from reversal of previous ileostomy Multiple moderately distended loops of small bowel are seen throughout the abdomen which may be relat ed to an ileus versus small bowel obstruction. Definite transitional point is not seen Peripheral reticular changes are seen throughout the lower lung richardson with subtle groundglass opacit ies in the right middle and right lower lobe which may represent dependent changes versus developing infiltrates Nonobstructing nephrolithiasis left kidney 1.2 cm cortical hypoattenuating mass lower pole the left kidney appears w ll totally unchanged likely represents a cyst. There is an additional 9 mm anterior cortical mass left kidney which appears slightly increased in si ze when compared the prior study and is too small to characterizeIncreasing arthritic changes of the right SI joint Report Dictated By: Emmy Jordan MD at 02/26/2018 10:20 AM Report E-Signed By: Emmy Jordan MD at 02/26/2018 10:50 AM WSN:[id number]
[2018-02-26] MEDS: LEVOFLOXACIN/D5W*500 MG/100 ML 100 ML IVPB SCH (11:01)
[2018-02-26 11:12] VITALS: BP 116/71
[2018-02-26 14:47] VITALS: BP 103/67
[2018-02-26] MEDS: FAT EMULSION 20% 250 ML BAG 250 ML IVPB SCH (16:14)
[2018-02-26 19:45] VITALS: BP 123/68
[2018-02-26] MEDS ORDERED: NS(*) 0.9% 500 ML BAG 500 ML ONE (20:45)
[2018-02-26 23:48] VITALS: BP 128/79
[2018-02-27] MEDS: metroNIDAZOLE* 500MG/100ML BAG 100 ML IVPB SCH ×4 (02:45→20:40)
--- NOTE | 2018-02-27 05:47 | General Surgery Progress Note ---
Subjective Progress Notes Subjective No complaints this morning. No abdominal pain. Stoma with increased stool output overnight, not much gas. Physical Exam Vital Signs Date Time Temp Pulse Resp B/P (MAP) Pulse Ox O2 Delivery O2 Flow Rate FiO2 02/26/18 23:48 98.0 84 16 128/79 (95) 95 Room Air 02/26/18 08:03 0.1 Intake and Output 02/27/18 07:00 Intake Total 460 ml Output Total 200 ml Balance 260 ml IV Total 460 ml Stool Total 175 ml Gastric Drainage Total 25 ml # Voids 3 General Appearance: Alert, Awake, No Acute Distress, Afebrile GI: Soft and Non-Tender (Incisions all look good. Stoma is pink with stool in the bag. 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 Doing well. H/H down as expected. Will follow and transfuse if it gets below Hb of 8. Will start ice chips, popsickles, etc today but limit volume. PPI for GI prophylaxis, lovenox for VTE prophylaxis. Ambulate and OOB to chair today. PT/OT, pulmonary hygiene, IS. Await return of bowel function. 02/13/18: POD#2. Doing well. H/H stable. Stoma a little pale, will need to keep an eye on this. Continue current limited diet. Continue ambulation, IS, pulmonary hygiene, PT/OT, lovenox, PPI. Awaiting return of bowel function. Recommended removing jaffe this morning but pt reports feeling too weak to get up and use the restroom. Will continue PT today and will recommend removing the catheter tomorrow morning.' 02/14/18: POD#3. Doing well. H/H stable. Stoma looks good. No gas or stool in bag. Will continue current very limited diet as we await return of bowel function. Continue ambulation, IS, pulmonary hygiene, PT/OT, lovenox, PPI. Will see how he does today with PT and getting out of bed. Will, in any case, remove the jaffe later today or tomorrow morning. 02/15/2018 10am, POD#4: Continues to slowly improve. Stoma viable and functioning this morning, although not large volumes. Continue limited diet today. decrease intravenous fluids slightly. As above, continue ambulation, IS, lovenox. Voiding. Creatinine stable at 1.8 02/16/2018 11:30am POD#5: Slow progress. Improved stoma function. Advance diet to more full liquids/soft. Doing well with ambulation with less pain getting up. Lab repeat in am. 02/17/18: POD#6. Doing well but awaiting return of bowel function. Tolerating clear diet. Will try full liquid diet today. Continue ambulation, IS, PT/OT, lovenox, PPI, etc. Labs look good this morning. Will stop checking them unless clinically he is looking worse. Continue IV abx, will switch to PO abx when tolerating diet and will keep him on these for at least 30 days. 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 02/18/18: POD#7. Doing well. Bowel function returning. Will advance his diet to regular today. Convert meds to PO. Continue PT, OT, IS, ambulation, pulmonary hygiene, PPI. 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 Switch abx to PO today. He is looking very good today; his main concern is going home too soon although I've reassured him that he's doing very good and almost ready to go home, possibly even tomorrow, and he'll have help including his and home health nursing and PT and I'll be seeing him in the office. Will change his stoma appliance today and he can shower as well. 02/19/18: POD#8. Doing well. Still feeling weak. He's very tentative about going home. He would like to work on strength and testing out ADLs today. Tolerating diet. Stoma seems to be functioning well. Continue PT/OT, IS, pulmonary hygiene, ambulation, xarelto, PPI, etc. Hopeful for d/c to home tomorrow. 02/20/18: POD#9. Bowel function is worse and stoma isn't putting much out over the last 24 hours. Pt advised to decrease PO intake if bloated or nauseated and we'll have to follow this. He also has bilateral LE edema. I have him on xarelto for DVT prophylaxis given his h/o DVT. Will give him lasix and potassium today and will check BNP and electrolytes today and tomorrow morning. Continue inpatient care until GI function returns with consistently good stoma output. Continue PPI, xarelto, IS, PT/OT, pulmonary hygiene, ambulation, etc. 02/21/18: POD#10. Bowel function isn't great. Will place PICC line and start TPN, back off on PO intake and give bowel more time to recover. Will give more lasix and potassium today to decrease edema which may be affecting bowel as w ell. BNP normal so I think this is a postop inflammatory response causing his 3rd space fluids. No fevers and labs all look good, no WBC, etc. Continue xarelto, avoid narcotics, continue PPI, IS, pulmonary hygiene, ambulation, etc. Will await bowel function to improve. 02/22/18: POD#11. Bowel function possibly improving? Will restart clear liquid diet today. Continue TPN, will increase rate and add lipids per dietary's recs. Lasix and potassium dose today, wt today is 89kg down from 90kg yesterday..his baseline is 82kg. Labs, vitals all look good. Creatinine stable with the diuresis. Continue xarelto, avoid narcotics, continue PPI, IS, pulmonary hygiene, ambulation, etc. 02/23/18: POD#12. Doing better. Has some bowel function but wish it was putting out more gas. Will try regular diet today but will continue TPN/lipids until he's clearly tolerating regular diet. Will give him another round of lasix/KCl today to get more fluid off, he is still 6Kg above his baseline w eight. Labs/vitals all look good. Creatinine is stable. Continue xarelto, PPI, IS, pulmonary hygiene, ambulation, etc. 02/24/18: POD#13. Continued improvement but still waiting for better bowel function as there's not much stool and almost no gas in the bag. Will continue regular diet, pt encourage to increase intake, will come down on TPN and will try prune juice and activia yogurt to see how his bowels respond to this. He still has LE edema and he's still 7kg above his baseline, even 1kg up from yesterday in spite if getting lasix although his creatinine is stable. H/H stable. WBC normal, no fevers. Will give another dose of lasix 40mg and 60mEq KCl since K is down this morning. Continue xarelto, PPI, IS, pulmonary hygiene, ambulation, etc. 02/25/18: POD#14. Pt has developed an SBO. Will place NG tube to decompress GI tract and stop diet, increase TPN to goal. Vitals and labs OK, no fevers although WBC is slightly elevated this morning, likely related to the obstruct ion and N/V. Will recheck tomorrow. If he fails to clinically improve over the next couple of days then will need to get an abdominal CT. Will convert blood thinner to lovenox and rest of meds to IV although will continue PO levothyroxine. Continue PPI, IS, pulmonary hygiene, ambulation, etc. 02/26/18: POD#15. Continued SBO without anything from stoma and KUB still with dilated small bowel and minimal gas in colon. Will continue bowel rest and TPN. Will get a CT abd/pelvis today. H/H is down a little but no other evidence of bleeding. Will follow this. Continue lovenox, ambulation, PPI, IS, ambulation, pulmonary hygiene, etc. 02/27/18: POD#16. Seems to be improving; had increased stool from stoma but not much gas. NG tube isn't putting out much. KUB has not yet been done. Labs not yet done either. CT yesterday looks good without fluid collection, evidence of anastomotic leak or other issues other than ileus vs SBO (no transition point seen). Continue current management of bowel rest and TPN, decompression with NG tube. If KUB reveals decreasing small bowel dilation then may remove the NG tube later today vs tomorrow. O/W CCM. 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 Time Spent: < 30 min Exam Sepsis Risk: No Definite Risk Problem Qualifiers (1) Anemia: Anemia type: unspecified type Qualified Codes: D64.9 - Anemia, unspecified JOSE PERALTA MD Feb 27, 2018 05:47
[2018-02-27] MEDS: LEVOTHYROXINE SOD 0.125 MG TAB PO SCH (06:09)
[2018-02-27 06:39] LABS: PLATELET COUNT, AUTOMATED 376 K/uL (150-450)
--- NOTE | 2018-02-27 07:16 | RADIOLOGY IMAGING REPORT ---
FACILITY: [facility] [place] PATIENT NAME: Coral Voss : 1940 MR: [id number] V: [id number] EXAM DATE: ORDERING PHYSICIAN: JOSE PERALTA TECHNOLOGIST: Location: [facility] - [place] Patient: Coral Voss : 1940 Visit/Account:[id number] Date of Sevice: 02/27/2018 KUB SINGLE VIEW ABDOMEN COMPARISONS: Views of the abdomen dated February 26, 2018 ADDITIONAL PERTINENT HISTORY: Follow-up small bowel obstruction versus ileus. FINDINGS: Lung bases: Negative. Supine evidence of free air: None. Bowel gas pattern: NG tube with its tip in the midportion of the stomach. Continued multiple dilated loops of small bowel without significant air noted within the colon most consistent with an underlyin g small bowel obstruction. Degree of distention is stable from previous exam. Surrounding soft tissues and solid organs: Multiple surgical clips in the left abdomen. Osseous structures: Negative. IMPRESSION: 1. Continued findings of multiple dilated loops of small bowel most consistent with a small bowel obs truction. 2. No new findings from previous exam. Report Dictated By: Eliot Robledo MD at 02/27/2018 7:10 AM Report E-Signed By: Eliot Robledo MD at 02/27/2018 7:13 AM [id number]
[2018-02-27] MEDS: INS HUM REG* 100 U/ML(ER ONLY) 20 UNIT, MULTIVITAMINS(*) 10 ML VIAL 10 ML, TRACE METALS... IV SCH (07:49)
[2018-02-27 08:00] VITALS: BP 134/71
[2018-02-27] MEDS: ENOXAPARIN 40 MG/0.4ML SYR SC SCH (08:57)
[2018-02-27] MEDS: PANTOPRAZOLE SOD 40 MG IV VIAL IVP SCH (08:58)
[2018-02-27] MEDS: LEVOFLOXACIN/D5W*500 MG/100 ML 100 ML IVPB SCH (10:08)
[2018-02-27] MEDS ORDERED: FUROSEMIDE 40 MG/4 ML VIAL IVP ONE (10:15)
[2018-02-27] MEDS ORDERED: KCL (*) 20 MEQ/100 ML PREMIX 100 ML IV ONE (10:30)
[2018-02-27 13:11] VITALS: BP 115/64
[2018-02-27] MEDS: KCL (*) 20 MEQ/100 ML PREMIX 100 ML IV SCH ×2 (14:24→18:01)
[2018-02-27] MEDS: FAT EMULSION 20% 250 ML BAG 250 ML IVPB SCH (15:34)
--- NOTE | 2018-02-27 16:51 | Medical Nutrition Therapy ---
Nutrition Anthropometrics Height (Inches): 70.00 Height (Calculated Centimeters: 177.603681 Weight (Pounds): 202 Weight (Calculated Kilograms): 91.626 Eric Nutrition Score: Probably Inadequate Eric Nutrition Risk Score: 19 Dietary Referral Nutrition Risk Factors: Nutrition Risk Comment: Nutritional Diagnosis Nutritional Risk Acuity 1: TPN/PPN Nutritional Risk Acuity 2: Head/Neck/GI Cancer (rectal Ca), New Colostomy Nutritional Acuity: 1-High Nutrition Diagnosis: Altered GI Function Nutrition Etiology: Physiological Causes Nutrition Problem/Etiology/Sym: AEB dx SBO on TPN Energy Requirement: 2430 (M- StJ X 1.2 SF) Protein Requirement: 85 (1.1gm/kg) Fluid Requirement: 2580 (30ml/kg) Diet Type: NPO (Nothing by Mouth), TPN/PPN Nutrition Intervention: Nutrition support, Incr diet as tolerated Nutritional Support Current Enteral / Parental: TPN Current Tube Feeding Formula C: 83ml/hr + LIPIDS Current Duration: 24 Current Calories: 1760 Current Protein: 100 Current Lipids Calories: 500 Total Current Calories: 2260 Nutrition Monitoring & Eval Nutritional Goals Comment: TPN will meet nutr needs until oral intake can meet needs. RD Patient Assessment Time: [address] Assessment Type: RD Re-Assessment Patient Nutrition Acuity: 1-High Follow Up Date: Mar 02, 2018 Nutritional Comment: 02/12 Pt with dx rectal Ca and new colostomy. Currently NPO with hypoactive bowel sounds. BUN and creatinine elevated at 32 and 1.8. Will cont to monitor. 02/15 Pt cont 4th day NPO. Recommend nutr support unless diet advanced. TPN at 2L/24 hrs + lipids would provide 2260 kcal and 100gm protein which would meet 93% est kcal and 117% est protein needs. Will cont to monitor. BK 02/17 Diet advanced to med liquids/GI soft. Significant labs; Hgb 10.1, Hct 30.5, BUN 23, creatinine 1.7. Will offer nutr supplment to increase kcal and protein intake. BK 02/21 Bowel function poor per surgeon. Pt started on TPN and changed to NPO. Pt recieving TPN at 75ml/hr which is meeting 65% est kcal and 88% est protien needs Recommend increase to 83ml/hr and add lipids to provide additional 500 kcal and [id number]% est kcal and 117% est protein needs. Will cont to monitor. 02/24 Diet advanced to regular. Pt eating 75-100% of small portions. TPN tapered down to 50ml/hr plus lipid which meet 64% est kcal and 70% est protein needs. Pt cont hypoactive bowel with little output. Provideing prune ashley bid and yogurt 1X/ day. Pt agreed to try this. alb 2.3. Wt up 18#. Will cont to monitor and encourage intake. BETO 02/25 Pt has SBO. TPN resumed to 83ml/hr plus lipids which is meeting 93% est kcal and 117% est protein needs. Will cont to monitor. BETO 02/27 Pt cont TPN which is meeting 93% est kcal, 117% est protein needs. Alb stable at 2.3. Wt is up 21# probably r/t fluids. Will cont to monitor. BETO . ARMOND WALLER Feb 27, 2018 16:51
[2018-02-27] MEDS ORDERED: HEPARIN FLSH (PORT) 500 UN/5ML ONE (17:16)
[2018-02-27 19:21] VITALS: BP 134/74
[2018-02-27] MEDS ORDERED: NS(*) 0.9% 250 ML BAG 250 ML ONE (21:51)
[2018-02-28] MEDS: metroNIDAZOLE* 500MG/100ML BAG 100 ML IVPB SCH ×4 (03:11→20:19)
[2018-02-28 04:37] VITALS: BP 141/76
[2018-02-28 05:29] LABS: PLATELET COUNT, AUTOMATED 344 K/uL (150-450)
[2018-02-28] MEDS: LEVOTHYROXINE SOD 0.125 MG TAB PO SCH (06:25)
--- NOTE | 2018-02-28 07:19 | RADIOLOGY IMAGING REPORT ---
FACILITY: [facility] PATIENT NAME: Coral Voss : 1940 MR: [id number] V: [id number] EXAM DATE: ORDERING PHYSICIAN: JOSE PERALTA TECHNOLOGIST: Location: [facility] Patient: Coral Voss : 1940 Visit/Account:[id number] Date of Sevice: 02/28/2018 KUB SINGLE VIEW ABDOMEN COMPARISONS: February 27, 2018 ADDITIONAL PERTINENT HISTORY: Follow-up small bowel obstruction versus ileus. FINDINGS: Lung bases: Negative. Supine evidence of free air: None. Bowel gas pattern: Continued NG tube with its tip in the midportion of the stomach. Continued dilated loops of small bowel in the midabdomen again most consistent with a small bowel obstruction. Degree of dilatation is stable from previous exam. Surrounding soft tissues and solid organs: Multiple surgical clips in the left midabdomen. Osseous structures: Negative. IMPRESSION: 1. Continued findings most consistent with an underlying small bowel obstruction. 2. No new findings from previous exam. Report Dictated By: Eliot Robledo MD at 02/28/2018 7:13 AM Report E-Signed By: Eliot Robledo MD at 02/28/2018 7:14 AM WSN:[id number]
[2018-02-28] MEDS: INS HUM REG* 100 U/ML(ER ONLY) 20 UNIT, MULTIVITAMINS(*) 10 ML VIAL 10 ML, TRACE METALS... IV SCH (07:35)
[2018-02-28 07:48] VITALS: BP 120/66
[2018-02-28] MEDS ORDERED: FUROSEMIDE 40 MG/4 ML VIAL IVP ONE (07:55)
--- NOTE | 2018-02-28 07:57 | General Surgery Progress Note ---
Subjective Progress Notes Subjective No complaints this morning. Not much pain. Main complaint is sore throat due to NG tube. Physical Exam Vital Signs Date Time Temp Pulse Resp B/P (MAP) Pulse Ox O2 Delivery O2 Flow Rate FiO2 02/28/18 07:48 98.8 87 16 120/66 (84) 94 Room Air 02/26/18 08:03 0.1 Intake and Output 02/28/18 07:00 Intake Total 1880 ml Output Total 499 ml Balance 1381 ml IV Total 1880 ml Stool Total 235 ml Gastric Drainage Total 250 ml Drainage Total 14 ml # Voids 6 General Appearance: Alert, Awake, No Acute Distress, Afebrile GI: Soft and Non-Tender (Stoma is pink with some gas and stool in the bag, RLQ stoma takedown wound is clean with small amount of serous drainage.) Extremities: Warm, Perfused Result Diagram: 02/28/18 0502/28/18 06 Assessment and Plan Problems: (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 Doing well. H/H down as expected. Will follow and transfuse if it gets below Hb of 8. Will start ice chips, popsickles, etc today but limit volume. PPI for GI prophylaxis, lovenox for VTE prophylaxis. Ambulate and OOB to chair today. PT/OT, pulmonary hygiene, IS. Await return of bowel function. 02/13/18: POD#2. Doing well. H/H stable. Stoma a little pale, will need to keep an eye on this. Continue current limited diet. Continue ambulation, IS, pulmonary hygiene, PT/OT, lovenox, PPI. Awaiting return of bowel function. Recommended removing jaffe this morning but pt reports feeling too weak to get up and use the restroom. Will continue PT today and will recommend removing the catheter tomorrow morning.' 02/14/18: POD#3. Doing well. H/H stable. Stoma looks good. No gas or stool in bag. Will continue current very limited diet as we await return of bowel function. Continue ambulation, IS, pulmonary hygiene, PT/OT, lovenox, PPI. Will see how he does today with PT and getting out of bed. Will, in any case, remove the jaffe later today or tomorrow morning. 02/15/2018 10am, POD#4: Continues to slowly improve. Stoma viable and functioning this morning, although not large volumes. Continue limited diet today. decrease intravenous fluids slightly. As above, continue ambulation, IS, lovenox. Voiding. Creatinine stable at 1.8 02/16/2018 11:30am POD#5: Slow progress. Improved stoma function. Advance diet to more full liquids/soft. Doing well with ambulation with less pain getting up. Lab repeat in am. 02/17/18: POD#6. Doing well but awaiting return of bowel function. Tolerating clear diet. Will try full liquid diet today. Continue ambulation, IS, PT/OT, lovenox, PPI, etc. Labs look good this morning. Will stop checking them unless clinically he is looking worse. Continue IV abx, will switch to PO abx when tolerating diet and will keep him on these for at least 30 days. 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 02/18/18: POD#7. Doing well. Bowel function returning. Will advance his diet to regular today. Convert meds to PO. Continue PT, OT, IS, ambulation, pulmonary hygiene, PPI. 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 Switch abx to PO today. He is looking very good today; his main concern is going home too soon although I've reassured him that he's doing very good and almost ready to go home, possibly even tomorrow, and he'll have help including his and home health nursing and PT and I'll be seeing him in the office. Will change his stoma appliance today and he can shower as well. 02/19/18: POD#8. Doing well. Still feeling weak. He's very tentative about going home. He would like to work on strength and testing out ADLs today. Tolerating diet. Stoma seems to be functioning well. Continue PT/OT, IS, pulmonary hygiene, ambulation, xarelto, PPI, etc. Hopeful for d/c to home tomorrow. 02/20/18: POD#9. Bowel function is worse and stoma isn't putting much out over the last 24 hours. Pt advised to decrease PO intake if bloated or nauseated and we'll have to follow this. He also has bilateral LE edema. I have him on xarelto for DVT prophylaxis given his h/o DVT. Will give him lasix and potassium today and will check BNP and electrolytes today and tomorrow morning. Continue inpatient care until GI function returns with consistently good stoma output. Continue PPI, xarelto, IS, PT/OT, pulmonary hygiene, ambulation, etc. 02/21/18: POD#10. Bowel function isn't great. Will place PICC line and start TPN, back off on PO intake and give bowel more time to recover. Will give more lasix and potassium today to decrease edema which may be affecting bowel as well. BNP normal so I think this is a postop inflammatory response causing his 3rd space fluids. No fevers and labs all look good, no WBC, etc. Continue xarelto, avoid narcotics, continue PPI, IS, pulmonary hygiene, ambulation, etc. Will await bowel function to improve. 02/22/18: POD#11. Bowel function possibly improving? Will restart clear l iquid diet today. Continue TPN, will increase rate and add lipids per dietary's recs. Lasix and potassium dose today, wt today is 89kg down from 90kg yesterday..his baseline is 82kg. Labs, vitals all look good. Creatinine stable with the diuresis. Continue xarelto, avoid narcotics, continue PPI, IS, pulmonary hygiene, ambulation, etc. 02/23/18: POD#12. Doing better. Has some bowel function but wish it was putting out more gas. Will try regular diet today but will continue TPN/lipids until he's clearly tolerating regular diet. Will give him another round of lasix/KCl today to get more fluid off, he is still 6Kg above his baseline weight. Labs/vitals all look good. Creatinine is stable. Continue xarelto, PPI, IS, pulmonary hygiene, ambulation, etc. 02/24/18: POD#13. Continued improvement but still waiting for better bowel function as there's not much stool and almost no gas in the bag. Will continue regular diet, pt encourage to increase intake, will come down on TPN and will try prune juice and activia yogurt to see how his bowels respond to this. He still has LE edema and he's still 7kg above his baseline, even 1kg up from yesterday in spite if getting lasix although his creatinine is stable. H/H stable. WBC normal, no fevers. Will give another dose of lasix 40mg and 60mEq KCl since K is down this morning. Continue xarelto, PPI, IS, pulmonary hygiene, ambulation, etc. 02/25/18: POD#14. Pt has developed an SBO. Will place NG tube to decompress GI tract and stop diet, increase TPN to goal. Vitals and labs OK, no fevers although WBC is slightly elevated this morning, likely related to the obstruction and N/V. Will recheck tomorrow. If he fails to clinically improve over the next couple of days then will need to get an abdominal CT. Will conve rt blood thinner to lovenox and rest of meds to IV although will continue PO levothyroxine. Continue PPI, IS, pulmonary hygiene, ambulation, etc. 02/26/18: POD#15. Continued SBO without anything from stoma and KUB still with dilated small bowel and minimal gas in colon. Will continue bowel rest and TPN. Will get a CT abd/pelvis today. H/H is down a little but no other evidence of bleeding. Will follow this. Continue lovenox, ambulation, PPI, IS, ambulation, pulmonary hygiene, etc. 02/27/18: POD#16. Seems to be improving; had increased stool from stoma but not much gas. NG tube isn't putting out much. KUB has not yet been done. Labs not yet done either. CT yesterday looks good without fluid collection, evidence of anastomotic leak or other issues other than ileus vs SBO (no transition point seen). Continue current management of bowel rest and TPN, decompression with NG tube. If KUB reveals decreasing small bowel dilation then may remove the NG tube later today vs tomorrow. O/W CCM. 02/28/18: POD#17. Continued improvement. Stoma output is slowly increasing. KUB still with dilated small bowel but improving. Not a whole lot out of NG tube. Continue bowel rest, NG tube decompression, TPN, etc. Will remove NG tube hopefully in the next day or two if stoma output and KUB continue to improve. Continue PPI, lovenox, ambulation, IS, etc. 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 Time Spent: < 30 min Exam Sepsis Risk: No Definite Risk Problem Qualifiers (1) Anemia: Anemia type: unspecified type Qualified Codes: D64.9 - Anemia, unspecified JOSE PERALTA MD Feb 28, 2018 07:57
[2018-02-28] MEDS ORDERED: KCL (*) 20 MEQ/100 ML PREMIX 100 ML IV SCH (08:00)
[2018-02-28] MEDS: PANTOPRAZOLE SOD 40 MG IV VIAL IVP SCH (09:19)
[2018-02-28] MEDS: ENOXAPARIN 40 MG/0.4ML SYR SC SCH (09:20)
[2018-02-28] MEDS: LEVOFLOXACIN/D5W*500 MG/100 ML 100 ML IVPB SCH (10:37)
[2018-02-28] MEDS: KCL (*) 20 MEQ/100 ML PREMIX 100 ML IV SCH ×2 (11:39→13:56)
[2018-02-28] MEDS: FAT EMULSION 20% 250 ML BAG 250 ML IVPB SCH (15:35)
[2018-02-28 15:39] VITALS: BP 115/76
[2018-02-28 20:27] VITALS: BP 125/74
[2018-03-01] MEDS: metroNIDAZOLE* 500MG/100ML BAG 100 ML IVPB SCH ×4 (03:34→21:04)
[2018-03-01] MEDS: LEVOTHYROXINE SOD 0.125 MG TAB PO SCH (05:39)
--- NOTE | 2018-03-01 06:01 | RADIOLOGY IMAGING REPORT ---
[place] [facility] [place] Coral Voss : 1940 MR: [id number] V: [id number] EXAM DATE: ORDERING PHYSICIAN: JOSE PERALTA TECHNOLOGIST: Location: [facility] - [place] Patient: Coral Voss : 1940 Visit/Account:[id number] Date of Sevice: 03/01/2018 INDICATION: Ileus versus small bowel obstruction. EXAM DATE: 03/01/2018 5:00 AM COMPARISON: Yesterday and previous. FINDINGS: Single AP view of the abdomen Redemonstration multiple dilated loops of small bowel, grossly similar to prior. No pneumatosis, pneu moperitoneum or portal venous gas. No evidence of large volume ascites or mass. Multiple surgical cl ips over the abdomen compared No acute osseous abnormality. IMPRESSION: Dilated small bowel similar to yesterday. Report Dictated By: Jordan Lambert MD at 03/01/2018 5:54 AM Report E-Signed By: Jordan Lambert MD at 03/01/2018 5:57 AM [id number]
[2018-03-01 06:53] LABS: PLATELET COUNT, AUTOMATED 362 K/uL (150-450)
[2018-03-01 09:00] VITALS: BP 111/66
[2018-03-01] MEDS: PANTOPRAZOLE SOD 40 MG IV VIAL IVP SCH (09:04)
[2018-03-01] MEDS: INS HUM REG* 100 U/ML(ER ONLY) 20 UNIT, MULTIVITAMINS(*) 10 ML VIAL 10 ML, TRACE METALS... IV SCH (09:04)
[2018-03-01] MEDS ORDERED: NS(*) 0.9% 500 ML BAG 500 ML ONE (09:19)
[2018-03-01] MEDS: ENOXAPARIN 40 MG/0.4ML SYR SC SCH (09:28)
[2018-03-01] MEDS ORDERED: FUROSEMIDE 40 MG/4 ML VIAL IVP ONE (09:45)
--- NOTE | 2018-03-01 09:54 | General Surgery Progress Note ---
Subjective Progress Notes Subjective No complaints this morning. Not much abdominal pain. Physical Exam Vital Signs Date Time Temp Pulse Resp B/P (MAP) Pulse Ox O2 Delivery O2 Flow Rate FiO2 03/01/18 09:00 98.7 82 14 111/66 (81) 96 Room Air 02/26/18 08:03 0.1 Intake and Output 03/01/18 07:00 Intake Total 2689 ml Output Total 540 ml Balance 2149 ml IV Total 2689 ml Stool Total 215 ml Gastric Drainage Total 325 ml # Voids 4 General Appearance: Alert, Awake, No Acute Distress, Afebrile GI: Soft and Non-Tender (Incisions all look good. Stoma is pink and functional. 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 Doing well. H/H down as expected. Will follow and transfuse if it gets below Hb of 8. Will start ice chips, popsickles, etc today but limit volume. PPI for GI prophylaxis, lovenox for VTE prophylaxis. Ambulate and OOB to chair today. PT/OT, pulmonary hygiene, IS. Await return of bowel function. 02/13/18: POD#2. Doing well. H/H stable. Stoma a little pale, will need to keep an eye on this. Continue current limited diet. Continue ambulation, IS, pulmonary hygiene, PT/OT, lovenox, PPI. Awaiting return of bowel function. Recommended removing jaffe this morning but pt reports feeling too weak to get up and use the restroom. Will continue PT today and will recommend removing the catheter tomorrow morning.' 02/14/18: POD#3. Doing well. H/H stable. Stoma looks good. No gas or stool in bag. Will continue current very limited diet as we await return of bowel function. Continue ambulation, IS, pulmonary hygiene, PT/OT, lovenox, PPI. Will see how he does today with PT and getting out of bed. Will, in any case, remove the jaffe later today or tomorrow morning. 02/15/2018 10am, POD#4: Continues to slowly improve. Stoma viable and fu nctioning this morning, although not large volumes. Continue limited diet today. decrease intravenous fluids slightly. As above, continue ambulation, IS, lovenox. Voiding. Creatinine stable at 1.8 02/16/2018 11:30am POD#5: Slow progress. Improved stoma function. Advance diet to more full liquids/soft. Doing well with ambulation with less pain getting up. Lab repeat in am. 02/17/18: POD#6. Doing well but awaiting return of bowel function. Tolerating clear diet. Will try full liquid diet today. Continue ambulation, IS, PT/OT, lovenox, PPI, etc. Labs look good this morning. Will stop checking them unless clinically he is looking worse. Continue IV abx, will switch to PO abx when tolerating diet and will keep him on these for at least 30 days. 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 02/18/18: POD#7. Doing well. Bowel function returning. Will advance his diet to regular today. Convert meds to PO. Continue PT, OT, IS, ambulation, pulmonary hygiene, PPI. 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 Switch abx to PO today. He is looking very good today; his main concern is going home too soon although I've reassured him that he's doing very good and almost ready to go home, possibly even tomorrow, and he'll have help including his and home health nursing and PT and I'll be seeing him in the office. Will change his stoma appliance today and he can shower as well. 02/19/18: POD#8. Doing well. Still feeling weak. He's very tentative about going home. He would like to work on strength and testing out ADLs today. Tolerating diet. Stoma seems to be functioning well. Continue PT/OT, IS, pulmonary hygiene, ambulation, xarelto, PPI, etc. Hopeful for d/c to home [facility]. 02/20/18: POD#9. Bowel function is worse and stoma isn't putting much out over the last 24 hours. Pt advised to decrease PO intake if bloated or nauseated and we'll have to follow this. He also has bilateral LE edema. I have him on xarelto for DVT prophylaxis given his h/o DVT. Will give him lasix and potassium today and will check BNP and electrolytes today and tomorrow morning. Continue inpatient care until GI function returns with consistently good stoma output. Continue PPI, xarelto, IS, PT/OT, pulmonary hygiene, ambulation, etc. 02/21/18: POD#10. Bowel function isn't great. Will place PICC line and start TPN, back off on PO intake and give bowel more time to recover. Will give more lasix and potassium today to decrease edema which may be affecting bowel as well. BNP normal so I think this is a postop inflammatory response causing his 3rd space fluids. No fevers and labs all look good, no WBC, etc. Continue xarelto, avoid narcotics, continue PPI, IS, pulmonary hygiene, ambulation, etc. Will await bowel function to improve. 02/22/18: POD#11. Bowel function possibly improving? Will restart clear liquid diet today. Continue TPN, will increase rate and add lipids per dietary's recs. Lasix and potassium dose today, wt today is 89kg down from 90kg yesterday..his baseline is 82kg. Labs, vitals all look good. Creatinine stable with the diuresis. Continue xarelto, avoid narcotics, continue PPI, IS, pulmonary hygiene, ambulation, etc. 02/23/18: POD#12. Doing better. Has some bowel function but wish it was putting out more gas. Will try regular diet today but will continue TPN/lipids until he's clearly tolerating regular diet. Will give him another round of lasix/KCl today to get more fluid off, he is still 6Kg above his baseline weight. Labs/vitals all look good. Creatinine is stable. Continue xarelto, PPI, IS, pulmonary hygiene, ambulation, etc. 02/24/18: POD#13. Continued improvement but still waiting for better bowel function as there's not much stool and almost no gas in the bag. Will continue regular diet, pt encourage to increase intake, will come down on TPN and will try prune juice and activia yogurt to see how his bowels respond to this. He still has LE edema and he's still 7kg above his baseline, even 1kg up from yesterday in spite if getting lasix although his creatinine is stable. H/H stable. WBC normal, no fevers. Will give another dose of lasix 40mg and 60mEq KCl since K is down this morning. Continue xarelto, PPI, IS, pulmonary hygiene, ambulation, etc. 02/25/18: POD#14. Pt has developed an SBO. Will place NG tube to decompress GI tract and stop diet, increase TPN to goal. Vitals and labs OK, no fevers although WBC is slightly elevated this morning, likely related to the obstruction and N/V. Will recheck tomorrow. If he fails to clinically improve over the next couple of days then will need to get an abdominal CT. Will convert blood thinner to lovenox and rest of meds to IV although will continue PO levothyroxine. Continue PPI, IS, pulmonary hygiene, ambulation, etc. 02/26/18: POD#15. Continued SBO without anything from stoma and KUB still with dilated small bowel and minimal gas in colon. Will continue bowel rest and TPN. Will get a CT abd/pelvis today. H/H is down a little but no other evidence of bleeding. Will follow this. Continue lovenox, ambulation, PPI, IS, ambulation, pulmonary hygiene, etc. 02/27/18: POD#16. Seems to be improving; had increased stool from stoma but not much gas. NG tube isn't putting out much. KUB has not yet been done. Labs not yet done either. CT yesterday looks good without fluid collection, evidence of anastomotic leak or other issues other than ileus vs SBO (no transition point seen). Continue current management of bowel rest and TPN, decompression with NG tube. If KUB reveals decreasing small bowel dilation then may remove the NG tube later today vs tomorrow. O/W CCM. 02/28/18: POD#17. Continued improvement. Stoma output is slowly increasing. KUB still with dilated small bowel but improving. Not a whole lot out of NG tube. Continue bowel rest, NG tube decompression, TPN, etc. Will remove NG tube hopefully in the next day or two if stoma output and KUB continue to improve. Continue PPI, lovenox, ambulation, IS, etc. 03/01/18: POD#18. Doing well. Small bowel maybe a little less dilated on KUB. Stoma output still marginal. NG not putting out much liquid but will keep it in to facilitate GI decompression (removal of enteric gas). Will have him chewing gum and suck on hard candy to try and facilitate bowel function through centrally mediated mechanisms. Continue TPN. Continue PPI, lovenox, ambulation, IS, etc. TSH was a little high at just over 8, will go up on levothyroxine to 137mcg. Weight down a little and creatinine down as well. Will continue diuresis with a dose of furosemide 40mg IV and 40mEq of KCl IV today and follow weight, potassium, and creatinine. Will give him some calcium today as well. 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 Time Spent: < 30 min Exam Sepsis Risk: No Definite Risk Problem Qualifiers (1) Anemia: Anemia type: unspecified type Qualified Codes: D64.9 - Anemia, unspecified JOSE PERALTA MD Mar 01, 2018 09:54
[2018-03-01] MEDS ORDERED: CALCIUM CL 100 MG/1 ML SYR 1,000 MG in NS(*) 0.9% 100 ML BAG 100 ML IVPB ONE (10:30)
[2018-03-01] MEDS: LEVOFLOXACIN/D5W*500 MG/100 ML 100 ML IVPB SCH (10:37)
[2018-03-01] MEDS: KCL (*) 20 MEQ/100 ML PREMIX 100 ML IV SCH ×2 (12:05→14:10)
[2018-03-01 12:08] VITALS: BP 106/71
[2018-03-01] MEDS: FAT EMULSION 20% 250 ML BAG 250 ML IVPB SCH (16:41)
[2018-03-01 16:47] VITALS: BP 111/75
[2018-03-01 19:36] VITALS: BP 130/72
[2018-03-02] MEDS: metroNIDAZOLE* 500MG/100ML BAG 100 ML IVPB SCH ×4 (04:16→20:58)
[2018-03-02 05:44] VITALS: BP 120/63
[2018-03-02] MEDS: LEVOTHYROXINE SOD 0.137 MG TAB PO SCH (05:57)
--- NOTE | 2018-03-02 07:11 | RADIOLOGY IMAGING REPORT ---
FACILITY: [facility] PATIENT NAME: Coral Voss : 1940 MR: [id number] V: [id number] EXAM DATE: [id number] ORDERING PHYSICIAN: JOSE PERALTA TECHNOLOGIST: Location: [facility] Patient: Coral Voss : 1940 Visit/Account:[id number] Date of Sevice: 03/02/2018 INDICATION: SBO vs ileus EXAM DATE: 03/02/2018 5:00 AM COMPARISON: None. FINDINGS: 2 AP images of the abdomen. Redemonstration multiple dilated loops of small bowel. Dilation may be slightly decreased in the lef t midabdomen. No pneumatosis, pneumoperitoneum or portal venous gas. Multiple surgical clips over the abdomen. IMPRESSION: Persistently dilated small bowel loops, possibly slightly decreased in the left midabdome n. Report Dictated By: Jordan Lambert MD at 03/02/2018 7:05 AM Report E-Signed By: Jordan Lambert MD at 03/02/2018 7:07 AM WSN:[id number]
[2018-03-02 08:13] VITALS: BP 116/63
[2018-03-02] MEDS: ENOXAPARIN 40 MG/0.4ML SYR SC SCH (08:52)
[2018-03-02] MEDS: PANTOPRAZOLE SOD 40 MG IV VIAL IVP SCH (08:52)
--- NOTE | 2018-03-02 09:14 | General Surgery Progress Note ---
Subjective Progress Notes Subjective No complaints this morning. Physical Exam Vital Signs Date Time Temp Pulse Resp B/P (MAP) Pulse Ox O2 Delivery O2 Flow Rate FiO2 03/02/18 08:13 98.9 78 16 116/63 (80) 92 Room Air 02/26/18 08:03 0.1 Intake and Output 03/02/18 07:00 Intake Total 4459 ml Output Total 400 ml Balance 4059 ml IV Total 4459 ml Stool Total 50 ml Gastric Drainage Total 350 ml # Voids 6 General Appearance: Alert, Awake, No Acute Distress, Afebrile GI: Soft and Non-Tender (Stoma is pink with only small gas and stool in bag. 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 Doing well. H/H down as expected. Will follow and transfuse if it gets below Hb of 8. Will start ice chips, popsickles, etc today but limit volume. PPI for GI prophylaxis, lovenox for VTE prophylaxis. Ambulate and OOB to chair today. PT/OT, pulmonary hygiene, IS. Await return of bowel function. 02/13/18: POD#2. Doing well. H/H stable. Stoma a little pale, will need to keep an eye on this. Continue current limited diet. Continue ambulation, IS, pulmonary hygiene, PT/OT, lovenox, PPI. Awaiting return of bowel function. Recommended removing jaffe this morning but pt reports feeling too weak to get up and use the restroom. Will continue PT today and will recommend removing the catheter tomorrow morning.' 02/14/18: POD#3. Doing well. H/H stable. Stoma looks good. No gas or stool in bag. Will continue current very limited diet as we await return of bowel function. Continue ambulation, IS, pulmonary hygiene, PT/OT, lovenox, PPI. Will see how he does today with PT and getting out of bed. Will, in any case, remove the jaffe later today or tomorrow morning. 02/15/2018 10am, POD#4: Continues to slowly improve. Stoma viable and functioning this morning, although not large volumes. Continue limited diet today. decrease intravenous fluids slightly. As above, continue ambulation, IS, lovenox. Voiding. Creatinine stable at 1.8 02/16/2018 11:30am POD#5: Slow progress. Improved stoma function. Advance diet to more full liquids/soft. Doing well with ambulation with less pain getting up. Lab repeat in am. 02/17/18: POD#6. Doing well but awaiting return of bowel function. Tolerating clear diet. Will try full liquid diet today. Continue ambulation, IS, PT/OT, lovenox, PPI, etc. Labs look good this morning. Will stop checking them unless clinically he is looking worse. Continue IV abx, will switch to PO abx when tolerating diet and will keep him on these for at least 30 days. 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 02/18/18: POD#7. Doing well. Bowel function returning. Will advance his diet to regular today. Convert meds to PO. Continue PT, OT, IS, ambulation, pulmonary hygiene, PPI. 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 Switch abx to PO today. He is looking very good today; his main concern is going home too soon although I've reassured him that he's doing very good and almost ready to go home, possibly even tomorrow, and he'll have help including his and home health nursing and PT and I'll be seeing him in the office. Will change his stoma appliance today and he can shower as well. 02/19/18: POD#8. Doing well. Still feeling weak. He's very tentative about going home. He would like to work on strength and testing out ADLs today. Tolerating diet. Stoma seems to be functioning well. Continue PT/OT, IS, pulmonary hygiene, ambulation, xarelto, PPI, etc. Hopeful for d/c to home tomorrow. 02/20/18: POD#9. Bowel function is worse and stoma isn't putting much out over the last 24 hours. Pt advised to decrease PO intake if bloated or nauseated and we'll have to follow this. He also has bilateral LE edema. I have him on xarelto for DVT prophylaxis given his h/o DVT. Will give him lasix and potassium today and will check BNP and electrolytes today and tomorrow morning. Continue inpatient care until GI function returns with consistently good stoma output. Continue PPI, xarelto, IS, PT/OT, pulmonary hygiene, ambulation, etc. 02/21/18: POD#10. Bowel function isn't great. Will place PICC line and start TPN, back off on PO intake and give bowel more time to recover. Will give more lasix and potassium today to decrease edema which may be affecting bowel as well. BNP normal so I think this is a postop inflammatory response causing his 3rd space fluids. No fevers and labs all look good, no WBC, etc. Continue xarelto, avoid narcotics, continue PPI, IS, pulmonary hygiene, ambulation, etc. Will await bowel function to improve. 02/22/18: POD#11. Bowel function possibly improving? Will restart clear liquid diet today. Continue TPN, will increase rate and add lipids per dietary's recs. Lasix and potassium dose today, wt today is 89kg down from 90kg yesterday..his baseline is 82kg. Labs, vitals all look good. Creatinine stable with the diuresis. Continue xarelto, avoid narcotics, continue PPI, IS, pulmonary hygiene, ambulation, etc. 02/23/18: POD#12. Doing better. Has some bowel function but wish it was putting out more gas. Will try regular diet today but will continue TPN/lipids until he's clearly tolerating regular diet. Will give him another round of lasix/KCl today to get more fluid off, he is still 6Kg above his baseline weight. Labs/vitals all look good. Creatinine is stable. Continue xarelto, PPI, IS, pulmonary hygiene, ambulation, etc. 02/24/18: POD#13. Continued improvement but still waiting for better bowel function as there's not much stool and almost no gas in the bag. Will continue regular diet, pt encourage to increase intake, will come down on TPN and will try prune juice and activia yogurt to see how his bowels respond to this. He still has LE edema and he's still 7kg above his baseline, even 1kg up from yesterday in spite if getting lasix although his creatinine is stable. H/H stable. WBC normal, no fevers. Will give another dose of lasix 40mg and 60mEq KCl since K is down this morning. Continue xarelto, PPI, IS, pulmonary hygiene, ambulation, etc. 02/25/18: POD#14. Pt has developed an SBO. Will place NG tube to decompress GI tract and stop diet, increase TPN to goal. Vitals and labs OK, no fevers although WBC is slightly elevated this morning, likely related to the obstruction and N/V. Will recheck tomorrow. If he fails to clinically improve over the next couple of days then will need to get an abdominal CT. Will c onvert blood thinner to lovenox and rest of meds to IV although will continue PO levothyroxine. Continue PPI, IS, pulmonary hygiene, ambulation, etc. 02/26/18: POD#15. Continued SBO without anything from stoma and KUB still with dilated small bowel and minimal gas in colon. Will continue bowel rest and TPN. Will get a CT abd/pelvis today. H/H is down a little but no other evidence of bleeding. Will follow this. Continue lovenox, ambulation, PPI, IS, ambulation, pulmonary hygiene, etc. 02/27/18: POD#16. Seems to be improving; had increased stool from stoma but not much gas. NG tube isn't putting out much. KUB has not yet been done. Labs not yet done either. CT yesterday looks good without fluid collection, evidence of anastomotic leak or other issues other than ileus vs SBO (no transition point seen). Continue current management of bowel rest and TPN, decompression with NG tube. If KUB reveals decreasing small bowel dilation then may remove the NG tube later today vs tomorrow. O/W CCM. 02/28/18: POD#17. Continued improvement. Stoma output is slowly increasing. KUB still with dilated small bowel but improving. Not a whole lot out of NG tube. Continue bowel rest, NG tube decompression, TPN, etc. Will remove NG tube hopefully in the next day or two if stoma output and KUB continue to improve. Continue PPI, lovenox, ambulation, IS, etc. 03/01/18: POD#18. Doing well. Small bowel maybe a little less dilated on KUB. Stoma output still marginal. NG not putting out much liquid but will keep it in to facilitate GI decompression (removal of enteric gas). Will have him chewing gum and suck on hard candy to try and facilitate bowel function through centrally mediated mechanisms. Continue TPN. Continue PPI, lovenox, ambulation, IS, etc. TSH was a little high at just over 8, will go up on levothyroxine to 137mcg. Weight down a little and creatinine down as well. Will continue diuresis with a dose of furosemide 40mg IV and 40mEq of KCl IV tod ay and follow weight, potassium, and creatinine. Will give him some calcium today as well. 03/02/18: POD#19. Doing well. Still poor bowel function, KUB still with dilated small bowel loops. Stoma output is minimal. Will continue NG tube decompression, NPO, TPN, etc, PPI, lovenox, ambulation, IS, etc. 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 Time Spent: < 30 min Exam Sepsis Risk: No Definite Risk Problem Qualifiers (1) Anemia: Anemia type: unspecified type Qualified Codes: D64.9 - Anemia, unspecified JOSE PERALTA MD Mar 02, 2018 09:14
[2018-03-02] MEDS: INS HUM REG* 100 U/ML(ER ONLY) 20 UNIT, MULTIVITAMINS(*) 10 ML VIAL 10 ML, TRACE METALS... IV SCH (09:40)
--- NOTE | 2018-03-02 10:00 | Medical Nutrition Therapy ---
Nutrition Anthropometrics Height (Inches): 70.00 Height (Calculated Centimeters: 177.521428 Weight (Pounds): 200 Weight (Calculated Kilograms): 90.718 Eric Nutrition Score: Probably Inadequate Eric Nutrition Risk Score: 19 Dietary Referral Nutrition Risk Factors: Nutrition Risk Comment: Nutritional Diagnosis Nutritional Risk Acuity 1: TPN/PPN Nutritional Risk Acuity 2: Head/Neck/GI Cancer (rectal Ca), New Colostomy Nutritional Acuity: 1-High Nutrition Diagnosis: Altered GI Function Nutrition Etiology: Physiological Causes Nutrition Problem/Etiology/Sym: AEB dx SBO on TPN Energy Requirement: 2430 (M- StJ X 1.2 SF) Protein Requirement: 85 (1.1gm/kg) Fluid Requirement: 2580 (30ml/kg) Diet Type: NPO (Nothing by Mouth), TPN/PPN Nutrition Intervention: Nutrition support, Incr diet as tolerated Nutritional Support Current Enteral / Parental: TPN Current Tube Feeding Formula C: 83ml/hr + LIPIDS Current Duration: 24 Current Calories: 1760 Current Protein: 100 Current Lipids Calories: 500 Total Current Calories: 2260 Nutrition Monitoring & Eval Nutritional Goals Comment: TPN will meet nutr needs until oral intake can meet needs. RD Patient Assessment Time: [address] Assessment Type: RD Re-Assessment Patient Nutrition Acuity: 1-High Follow Up Date: Mar 05, 2018 Nutritional Comment: 02/12 Pt with dx rectal Ca and new colostomy. Currently NPO with hypoactive bowel sounds. BUN and creatinine elevated at 32 and 1.8. Will cont to monitor. 02/15 Pt cont 4th day NPO. Recommend nutr support unless diet advanced. TPN at 2L/24 hrs + lipids would provide 2260 kcal and 100gm protein which would meet 93% est kcal and 117% est protein needs. Will cont to monitor. BK 02/17 Diet advanced to med liquids/GI soft. Significant labs; Hgb 10.1, Hct 30.5, BUN 23, creatinine 1.7. Will offer nutr supplment to increase kcal and protein intake. BK 02/21 Bowel function poor per surgeon. Pt started on TPN and changed to NPO. Pt recieving TPN at 75ml/hr which is meeting 65% est kcal and 88% est protien needs Recommend increase to 83ml/hr and add lipids to provide additional 500 kcal and oowadqw97% est kcal and 117% est protein needs. Will cont to monitor. 02/24 Diet advanced to regular. Pt eating 75-100% of small portions. TPN tapered down to 50ml/hr plus lipid which meet 64% est kcal and 70% est protein needs. Pt cont hypoactive bowel with little output. Provideing prune ashley bid and yogurt 1X/ day. Pt agreed to try this. alb 2.3. Wt up 18#. Will cont to monitor and encourage intake. BK 02/25 Pt has SBO. TPN resumed to 83ml/hr plus lipids which is meeting 93% est kcal and 117% est protein needs. Will cont to monitor. BK 02/27 Pt cont TPN which is meeting 93% est kcal, 117% est protein needs. Alb stable at 2.3. Wt is up 21# probably r/t fluids. Will cont to monitor. BK 03/02 Pt cont TPN which is meeting 93% est kcal, 117% est protein needs. Alb stable at 2.3. Wt is stable at 200#, up from admitssion wt probably r/t fluids. Will cont to monitor. ARMOND HINTON Mar 02, 2018 10:00
[2018-03-02] MEDS: CALCIUM CARBONATE 600 MG TAB PO SCH ×2 (10:31→17:18)
[2018-03-02] MEDS: LEVOFLOXACIN/D5W*500 MG/100 ML 100 ML IVPB SCH (10:32)
[2018-03-02] MEDS: INSULIN HUM LISPRO 100 UN/ML 3 ML VIAL SUBQ PRN (12:10)
[2018-03-02 12:15] VITALS: BP 107/68
[2018-03-02] MEDS: FAT EMULSION 20% 250 ML BAG 250 ML IVPB SCH (16:12)
[2018-03-02 19:25] VITALS: BP 128/72
[2018-03-03] MEDS: metroNIDAZOLE* 500MG/100ML BAG 100 ML IVPB SCH ×4 (02:31→21:04)
[2018-03-03] MEDS: LEVOTHYROXINE SOD 0.137 MG TAB PO SCH (05:44)
[2018-03-03 05:52] LABS: PLATELET COUNT, AUTOMATED 317 K/uL (150-450)
--- NOTE | 2018-03-03 06:37 | RADIOLOGY IMAGING REPORT ---
FACILITY: [facility] PATIENT NAME: Coral Voss : 1940 MR: [id number] V: [id number] EXAM DATE: ORDERING PHYSICIAN: JOSE PERALTA TECHNOLOGIST: Location: [facility] Patient: Coral Voss : 1940 Visit/Account:[id number] Date of Sevice: 03/03/2018 KUB SINGLE VIEW ABDOMEN COMPARISONS: Single view of the abdomen dated 03/02/2018 ADDITIONAL PERTINENT HISTORY: History of small bowel obstruction versus ileus FINDINGS: Lung bases: Not imaged Supine evidence of free air: None. Bowel gas pattern: Continued presence of an NG tube with its tip in the midportion of the stomach. Co ntinued dilated loops of small bowel within the midportion of the abdomen. There is a small amount of air noted within the bonita ascending colon. Pattern is not significantly changed since previous exam. Surrounding soft tissues and solid organs: Negative. Osseous structures: Mild osteoarthritic changes involving both hips. IMPRESSION: 1. Continued findings suggestive of a resolving small bowel obstruction. 2. No new findings from previous exam. Report Dictated By: Eliot Robledo MD at 03/03/2018 6:29 AM Report E-Signed By: Eliot Robledo MD at 03/03/2018 6:32 AM [id number]
--- NOTE | 2018-03-03 08:12 | General Surgery Progress Note ---
Subjective Progress Notes Subjective Main complaint is throat irritation and mucus production from NG tube. No abdominal pain. Physical Exam Vital Signs Date Time Temp Pulse Resp B/P (MAP) Pulse Ox O2 Delivery O2 Flow Rate FiO2 03/02/18 21:00 96 Room Air 03/02/18 19:25 98.7 84 16 128/72 (90) Intake and Output 03/03/18 06:59 Intake Total 2681.2 ml Output Total 357 ml Balance 2324.2 ml IV Total 2681.2 ml Stool Total 50 ml Gastric Drainage Total 300 ml Drainage Total 7 ml # Voids 4 General Appearance: Alert, Awake, No Acute Distress, Afebrile GI: Soft and Non-Tender (Stoma is pink, small amount of stool, no gas in bag.) Extremities: Warm, Perfused Result Diagram: 03/03/18 0542 03/03/18 0542 Assessment and Plan Problems: (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 Doing well. H/H down as expected. Will follow and transfuse if it gets below Hb of 8. Will start ice chips, popsickles, etc today but limit volume. PPI for GI prophylaxis, lovenox for VTE prophylaxis. Ambulate and OOB to chair today. PT/OT, pulmonary hygiene, IS. Await return of bowel function. 02/13/18: POD#2. Doing well. H/H stable. Stoma a little pale, will need to keep an eye on this. Continue current limited diet. Continue ambulation, IS, pulmonary hygiene, PT/OT, lovenox, PPI. Awaiting return of bowel function. Recommended removing jaffe this morning but pt reports feeling too weak to get up and use the restroom. Will continue PT today and will recommend removing the catheter tomorrow morning.' 02/14/18: POD#3. Doing well. H/H stable. Stoma looks good. No gas or stool in bag. Will continue current very limited diet as we await return of bowel function. Continue ambulation, IS, pulmonary hygiene, PT/OT, lovenox, PPI. Will see how he does today with PT and getting out of bed. Will, in any case, remove the jaffe later today or tomorrow morning. 02/15/2018 10am, POD#4: Continues to slowly improve. Stoma viable and functioning this morning, although not large volumes. Continue limited diet today. decrease intravenous fluids slightly. As above, continue ambulation, IS, lovenox. Voiding. Creatinine stable at 1.8 02/16/2018 11:30am POD#5: Slow progress. Improved stoma function. Advance diet to more full liquids/soft. Doing well with ambulation with less pain getting up. Lab repeat in am. 02/17/18: POD#6. Doing well but awaiting return of bowel function. Tolerating clear diet. Will try full liquid diet today. Continue ambulation, IS, PT/OT, lovenox, PPI, etc. Labs look good this morning. Will stop checking them unless clinically he is looking worse. Continue IV abx, will switch to PO abx when tolerating diet and will keep him on these for at least 30 days. 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 02/18/18: POD#7. Doing well. Bowel function returning. Will advance his diet to regular today. Convert meds to PO. Continue PT, OT, IS, ambulation, pulmonary hygiene, PPI. 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 Switch abx to PO today. He is looking very good today; his main concern is going home too soon although I've reassured him that he's doing very good and almost ready to go home, possibly even tomorrow, and he'll have help including his and home health nursing and PT and I'll be seeing him in the office. Will change his stoma appliance today and he can shower as well. 02/19/18: POD#8. Doing well. Still feeling weak. He's very tentative about going home. He would like to work on strength and testing out ADLs today. Tolerating diet. Stoma seems to be functioning well. Continue PT/OT, IS, pulmonary hygiene, ambulation, xarelto, PPI, etc. Hopeful for d/c to home tomorrow. 02/20/18: POD#9. Bowel function is worse and stoma isn't putting much out over the last 24 hours. Pt advised to decrease PO intake if bloated or nauseated and we'll have to follow this. He also has bilateral LE edema. I have him on xarelto for DVT prophylaxis given his h/o DVT. Will give him lasix and potassium today and will check BNP and electrolytes today and tomorrow morning. Continue inpatient care until GI function returns with consistently good stoma output. Continue PPI, xarelto, IS, PT/OT, pulmonary hygiene, ambulation, etc. 02/21/18: POD#10. Bowel function isn't great. Will place PICC line and start TPN, back off on PO intake and give bowel more time to recover. Will give more lasix and potassium today to decrease edema which may be affecting bowel as well. BNP normal so I think this is a postop inflammatory response causing his 3rd space fluids. No fevers and labs all look good, no WBC, etc. Continue xarelto, avoid narcotics, continue PPI, IS, pulmonary hygiene, ambulation, etc. Will await bowel function to improve. 02/22/18: POD#11. Bowel function possibly improving? Will restart clear liquid diet today. Continue TPN, will increase rate and add lipids per dietary's recs. Lasix and potassium dose today, wt today is 89kg down from 90kg yesterday..his baseline is 82kg. Labs, vitals all look good. Creatinine stable with the diuresis. Continue xarelto, avoid narcotics, continue PPI, IS, pulmonary hygiene, ambulation, etc. 02/23/18: POD#12. Doing better. Has some bowel function but wish it was putting out more gas. Will try regular diet today but will continue TPN/lipids until he's clearly tolerating regular diet. Will give him another round of lasix/KCl today to get more fluid off, he is still 6Kg above his baseline weight. Labs/vitals all look good. Creatinine is stable. Continue xarelto, PPI, IS, pulmonary hygiene, ambulation, etc. 02/24/18: POD#13. Continued improvement but still waiting for better bowel function as there's not much stool and almost no gas in the bag. Will continue regular diet, pt encourage to increase intake, will come down on TPN and will try prune juice and activia yogurt to see how his bowels respond to this. He still has LE edema and he's still 7kg above his baseline, even 1kg up from yesterday in spite if getting lasix although his creatinine is stable. H/H stable. WBC normal, no fevers. Will give another dose of lasix 40mg and 60mEq KCl since K is down this morning. Continue xarelto, PPI, IS, pulmonary hygiene, ambulation, etc. 02/25/18: POD#14. Pt has developed an SBO. Will place NG tube to decompress GI tract and stop diet, increase TPN to goal. Vitals and labs OK, no fevers although WBC is slightly elevated this morning, likely related to the obstruction and N/V. Will recheck tomorrow. If he fails to clinically improve over the next couple of days then will need to get an abdominal CT. Will convert blood thinner to lovenox and rest of meds to IV although will continue PO levothyroxine. Continue PPI, IS, pulmonary hygiene, ambulation, etc. 02/26/18: POD#15. Continued SBO without anything from stoma and KUB still with dilated small bowel and minimal gas in colon. Will continue bowel rest and TPN. Will get a CT abd/pelvis today. H/H is down a little but no other evidence of bleeding. Will follow this. Continue lovenox, ambulation, PPI, IS, ambulation, pulmonary hygiene, etc. 02/27/18: POD#16. Seems to be improving; had increased stool from stoma but not much gas. NG tube isn't putting out much. KUB has not yet been done. Labs not yet done either. CT yesterday looks good without fluid collection, evidence of anastomotic leak or other issues other than ileus vs SBO (no transition point seen). Continue current management of bowel rest and TPN, decompression with NG tube. If KUB reveals decreasing small bowel dilation then may remove the NG tube later today vs tomorrow. O/W [facility]. 02/28/18: POD#17. Continued improvement. Stoma output is slowly increasing. KUB still with dilated small bowel but improving. Not a whole lot out of NG tube. Continue bowel rest, NG tube decompression, TPN, etc. Will remove NG tube hopefully in the next day or two if stoma output and KUB continue to improve. Continue PPI, lovenox, ambulation, IS, etc. 03/01/18: POD#18. Doing well. Small bowel maybe a little less dilated on KUB. Stoma output still marginal. NG not putting out much liquid but will keep it in to facilitate GI decompression (removal of enteric gas). Will have him chewing gum and suck on hard candy to try and facilitate bowel function through centrally mediated mechanisms. Continue TPN. Continue PPI, lovenox, amb ulation, IS, etc. TSH was a little high at just over 8, will go up on levothyroxine to 137mcg. Weight down a little and creatinine down as well. Will continue diuresis with a dose of furosemide 40mg IV and 40mEq of KCl IV today and follow weight, potassium, and creatinine. Will give him some calcium today as well. 03/02/18: POD#19. Doing well. Still poor bowel function, KUB still with dila xin small bowel loops. Stoma output is minimal. Will continue NG tube decompression, NPO, TPN, etc, PPI, lovenox, ambulation, IS, etc. 03/03/18: POD#20. Doing well. KUB a little better this morning. NG still with bilious output and stoma output (especially gas) is not as consistent as I would like for it to be. Continue NG tube, NPO, TPN, PPI, lovenox, ambulation, IS, etc. 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 ESR is mildly elevated, CRP is normal. Will repeat MRI of pelvis at 6 weeks after surgery. 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 Time Spent: < 30 min Exam Sepsis Risk: No Definite Risk Problem Qualifiers (1) Anemia: Anemia type: unspecified type Qualified Codes: D64.9 - Anemia, unspecified JOSE PERALTA MD Mar 03, 2018 08:12
[2018-03-03] MEDS: CALCIUM CARBONATE 600 MG TAB PO SCH ×2 (08:41→17:29)
[2018-03-03] MEDS: ENOXAPARIN 40 MG/0.4ML SYR SC SCH (08:43)
[2018-03-03] MEDS: PANTOPRAZOLE SOD 40 MG IV VIAL IVP SCH (08:44)
[2018-03-03] MEDS: ACETAMINOPHEN(*)1000 MG/100 ML 100 ML IVPB PRN (08:53)
[2018-03-03 09:11] VITALS: BP 116/69
[2018-03-03] MEDS: LEVOFLOXACIN/D5W*500 MG/100 ML 100 ML IVPB SCH (10:31)
[2018-03-03 12:56] VITALS: BP 113/69
[2018-03-03 14:44] VITALS: BP 115/71
[2018-03-03] MEDS: INS HUM REG* 100 U/ML(ER ONLY) 20 UNIT, MULTIVITAMINS(*) 10 ML VIAL 10 ML, TRACE METALS... IV SCH (15:05)
[2018-03-03] MEDS: FAT EMULSION 20% 250 ML BAG 250 ML IVPB SCH (16:18)
[2018-03-03 20:52] VITALS: BP 131/74
[2018-03-04 00:49] VITALS: BP 103/57
[2018-03-04] MEDS: metroNIDAZOLE* 500MG/100ML BAG 100 ML IVPB SCH ×4 (03:20→22:12)
[2018-03-04] MEDS: LEVOTHYROXINE SOD 0.137 MG TAB PO SCH (06:26)
--- NOTE | 2018-03-04 07:10 | RADIOLOGY IMAGING REPORT ---
FACILITY: [facility] [place] PATIENT NAME: Coral Voss : 1940 MR: [id number] V: [id number] EXAM DATE: ORDERING PHYSICIAN: JOSE PERALTA TECHNOLOGIST: Location: [facility] [place] Patient: Coral Voss : 1940 Visit/Account:[id number] Date of Sevice: 03/04/2018 INDICATION: SBO vs ileus EXAM DATE: 03/04/2018 5:00 AM COMPARISON: Yesterday and previous. FINDINGS: AP supine images of the abdomen. Persistent gaseous distention of the loop of bowel in the midabdomen, similar to prior Multiple surg ical clips. No acute osseous abnormality. IMPRESSION: No significant change Report Dictated By: Jordan Lambert MD at 03/04/2018 7:05 AM Report E-Signed By: Jordan Lambert MD at 03/04/2018 7:07 AM [id number]
--- NOTE | 2018-03-04 07:19 | General Surgery Progress Note ---
Subjective Progress Notes Subjective No complaints this morning other than irritation from the NG tube. Physical Exam Vital Signs Date Time Temp Pulse Resp B/P (MAP) Pulse Ox O2 Delivery O2 Flow Rate FiO2 03/04/18 00:49 98.4 81 16 103/57 (72) 93 Room Air Intake and Output 03/04/18 07:00 Intake Total 460 ml Output Total 650 ml Balance -190 ml IV Total 460 ml Gastric Drainage Total 650 ml # Voids 5 General Appearance: Alert, Awake, No Acute Distress, Afebrile GI: Soft and Non-Tender (Incisions are healing well without erythema or drainage. RLQ wound looks good without erythema and decreasing drainage. 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 Doing well. H/H down as expected. Will follow and transfuse if it gets below Hb of 8. Will start ice chips, popsickles, etc today but limit volume. PPI for GI prophylaxis, lovenox for VTE prophylaxis. Ambulate and OOB to chair today. PT/OT, pulmonary hygiene, IS. Await return of bowel function. 02/13/18: POD#2. Doing well. H/H stable. Stoma a little pale, will need to keep an eye on this. Continue current limited diet. Continue ambulation, IS, pulmonary hygiene, PT/OT, lovenox, PPI. Awaiting return of bowel function. Recommended removing jaffe this morning but pt reports feeling too weak to get up and use the restroom. Will continue PT today and will recommend removing the catheter tomorrow morning.' 02/14/18: POD#3. Doing well. H/H stable. Stoma looks good. No gas or stool in bag. Will continue current very limited diet as we await return of bowel function. Continue ambulation, IS, pulmonary hygiene, PT/OT, lovenox, PPI. Will see how he does today with PT and getting out of bed. Will, in any case, remove the jaffe later today or tomorrow morning. 02/15/2018 10am, POD#4: Continues to slowly improve. Stoma viable and functioning this morning, although not large volumes. Continue limited diet today. decrease intravenous fluids slightly. As above, continue ambulation, IS, lovenox. Voiding. Creatinine stable at 1.8 02/16/2018 11:30am POD#5: Slow progress. Improved stoma function. Advance diet to more full liquids/soft. Doing well with ambulation with less pain getting up. Lab repeat in am. 02/17/18: POD#6. Doing well but awaiting return of bowel function. Tolerating clear diet. Will try full liquid diet today. Continue ambulation, IS, PT/OT, lovenox, PPI, etc. Labs look good this morning. Will stop checking them unless clinically he is looking worse. Continue IV abx, will switch to PO abx when tolerating diet and will keep him on these for at least 30 days. 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 02/18/18: POD#7. Doing well. Bowel function returning. Will advance his diet to regular today. Convert meds to PO. Continue PT, OT, IS, ambulation, pulmonary hygiene, PPI. 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 Switch abx to PO today. He is looking very good today; his main concern is going home too soon although I've reassured him that he's doing very good and almost ready to go home, possibly even tomorrow, and he'll have help including his and home health nursing and PT and I'll be seeing him in the office. Will change his stoma appliance today and he can shower as well. 02/19/18: POD#8. Doing well. Still feeling weak. He's very tentative about going home. He would like to work on strength and testing out ADLs today. Tolerating diet. Stoma seems to be functioning well. Continue PT/OT, IS, pulmonary hygiene, ambulation, xarelto, PPI, etc. Hopeful for d/c to home tomorrow. 02/20/18: POD#9. Bowel function is worse and stoma isn't putting much out over the last 24 hours. Pt advised to decrease PO intake if bloated or nauseated and we'll have to follow this. He also has bilateral LE edema. I have him on xarelto for DVT prophylaxis given his h/o DVT. Will give him lasix and potassium today and will check BNP and electrolytes today and tomorrow morning. Continue inpatient care until GI function returns with consistently good stoma output. Continue PPI, xarelto, IS, PT/OT, pulmonary hygiene, ambulation, etc. 02/21/18: POD#10. Bowel function isn't great. Will place PICC line and start TPN, back off on PO intake and give bowel more time to recover. Will give more lasix and potassium today to decrease edema which may be affecting bowel as well. BNP normal so I think this is a postop inflammatory response causing his 3rd space fluids. No fevers and labs all look good, no WBC, etc. Continue xarelto, avoid narcotics, continue PPI, IS, pulmonary hygiene, ambulation, etc. Will await bowel function to improve. 02/22/18: POD#11. Bowel function possibly improving? Will restart clear liquid diet today. Continue TPN, will increase rate and add lipids per dietary's recs. Lasix and potassium dose today, wt today is 89kg down from 90kg yesterday..his baseline is 82kg. Labs, vitals all look good. Creatinine stable with the diuresis. Continue xarelto, avoid narcotics, continue PPI, IS, pulmonary hygiene, ambulation, etc. 02/23/18: POD#12. Doing better. Has some bowel function but wish it was putting out more gas. Will try regular diet today but will continue TPN/lipids until he's clearly tolerating regular diet. Will give him another round of lasix/KCl today to get more fluid off, he is still 6Kg above his baseline weight. Labs/vitals all look good. Creatinine is stable. Continue xarelto, PPI, IS, pulmonary hygiene, ambulation, etc. 02/24/18: POD#13. Continued improvement but still waiting for better bowel function as there's not much stool and almost no gas in the bag. Will continue regular diet, pt encourage to increase intake, will come down on TPN and will try prune juice and activia yogurt to see how his bowels respond to this. He still has LE edema and he's still 7kg above his baseline, even 1kg up from yesterday in spite if getting lasix although his creatinine is stable. H/H stable. WBC normal, no fevers. Will give another dose of lasix 40mg and 60mEq KCl since K is down this morning. Continue xarelto, PPI, IS, pulmonary hygiene, ambulation, etc. 02/25/18: POD#14. Pt has developed an SBO. Will place NG tube to decompress GI tract and stop diet, increase TPN to goal. Vitals and labs OK, no fevers although WBC is slightly elevated this morning, likely related to the obs truction and N/V. Will recheck tomorrow. If he fails to clinically improve over the next couple of days then will need to get an abdominal CT. Will convert blood thinner to lovenox and rest of meds to IV although will continue PO levothyroxine. Continue PPI, IS, pulmonary hygiene, ambulation, etc. 02/26/18: POD#15. Continued SBO without anything from stoma and KUB still with dilated small bowel and minimal gas in colon. Will continue bowel rest and TPN. Will get a CT abd/pelvis today. H/H is down a little but no other evidence of bleeding. Will follow this. Continue lovenox, ambulation, PPI, IS, ambulation, pulmonary hygiene, etc. 02/27/18: POD#16. Seems to be improving; had increased stool from stoma but not much gas. NG tube isn't putting out much. KUB has not yet been done. Labs not yet done either. CT yesterday looks good without fluid collection, evidence of anastomotic leak or other issues other than ileus vs SBO (no transition point seen). Continue current management of bowel rest and TPN, decompression with NG tube. If KUB reveals decreasing small bowel dilation then may remove the NG tube later today vs tomorrow. O/W [facility]. 02/28/18: POD#17. Continued improvement. Stoma output is slowly increasing. KUB still with dilated small bowel but improving. Not a whole lot out of NG tube. Continue bowel rest, NG tube decompression, TPN, etc. Will remove NG tube hopefully in the next day or two if stoma output and KUB continue to improve. Continue PPI, lovenox, ambulation, IS, etc. 03/01/18: POD#18. Doing well. Small bowel maybe a little less dilated on KUB. Stoma output still marginal. NG not putting out much liquid but will keep it in to facilitate GI decompression (removal of enteric gas). Will have him chewing gum and suck on hard candy to try and facilitate bowel function through centrally mediated mechanisms. Continue TPN. Continue PPI, lovenox, ambulation, IS, etc. TSH was a little high at just over 8, will go up on levot hyroxine to 137mcg. Weight down a little and creatinine down as well. Will continue diuresis with a dose of furosemide 40mg IV and 40mEq of KCl IV today and follow weight, potassium, and creatinine. Will give him some calcium today as well. 03/02/18: POD#19. Doing well. Still poor bowel function, KUB still with dilated small bowel loops. Stoma output is minimal. Will continue NG tube deco mpression, NPO, TPN, etc, PPI, lovenox, ambulation, IS, etc. 03/03/18: POD#20. Doing well. KUB a little better this morning. NG still with bilious output and stoma output (especially gas) is not as consistent as I would like for it to be. Continue NG tube, NPO, TPN, PPI, lovenox, ambulation, IS, etc. 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 ESR is mildly elevated, CRP is normal. Will repeat MRI of pelvis at 6 weeks after surgery. 03/04/18: POD#21. Doing well but persistent (improving?) SBO vs ileus. KUB this morning with single dilated small bowel loop, yesterday KUB was improving. Still marginal output from stoma. NG with increased but less bilious output. Will try NG tube clamp trials today and recheck KUB tomorrow morning. Continue TPN, and rest of plan as stated in yesterday's note. 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 Time Spent: < 30 min Exam Sepsis Risk: No Definite Risk Problem Qualifiers (1) Anemia: Anemia type: unspecified type Qualified Codes: D64.9 - Anemia, unspecified JOSE PERALTA MD Mar 04, 2018 07:19
[2018-03-04 07:39] VITALS: BP 107/64
[2018-03-04] MEDS: CALCIUM CARBONATE 600 MG TAB PO SCH ×2 (08:30→16:21)
[2018-03-04] MEDS: INS HUM REG* 100 U/ML(ER ONLY) 20 UNIT, MULTIVITAMINS(*) 10 ML VIAL 10 ML, TRACE METALS... IV SCH (08:30)
[2018-03-04] MEDS: PANTOPRAZOLE SOD 40 MG IV VIAL IVP SCH (08:30)
[2018-03-04] MEDS: ENOXAPARIN 40 MG/0.4ML SYR SC SCH (08:35)
[2018-03-04] MEDS ORDERED: NS(*) 0.9% 500 ML BAG 500 ML ONE (08:38)
[2018-03-04] MEDS: ACETAMINOPHEN(*)1000 MG/100 ML 100 ML IVPB PRN ×2 (08:51→23:37)
[2018-03-04] MEDS: LEVOFLOXACIN/D5W*500 MG/100 ML 100 ML IVPB SCH (10:22)
[2018-03-04 14:45] VITALS: BP 122/74
[2018-03-04] MEDS: FAT EMULSION 20% 250 ML BAG 250 ML IVPB SCH (16:21)
[2018-03-04 22:21] VITALS: BP 131/86
[2018-03-05] VITALS (7 sets, daily range): BP systolic 90–124; BP diastolic 51–80
[2018-03-05] MEDS: metroNIDAZOLE* 500MG/100ML BAG 100 ML IVPB SCH ×4 (03:53→21:16)
[2018-03-05] MEDS: LEVOTHYROXINE SOD 0.137 MG TAB PO SCH (05:28)
--- NOTE | 2018-03-05 06:38 | RADIOLOGY IMAGING REPORT ---
FACILITY: [facility] [place] PATIENT NAME: Coral Voss : 1940 MR: [id number] V: [id number] EXAM DATE: ORDERING PHYSICIAN: JOSE PERALTA TECHNOLOGIST: Location: [facility] [place] Patient: Coral Voss : 1940 Visit/Account:[id number] Date of Sevice: 03/05/2018 INDICATION: SBO vs ileus EXAM DATE: 03/05/2018 5:00 AM COMPARISON: Yesterday and previous. FINDINGS: Single supine image of the abdomen. Gaseous distention of the loop of bowel in the midabdomen is unchanged. No pneumatosis, pneumoperito neum or portal venous gas. No evidence of large volume ascites or mass. No acute osseous abnormality. IMPRESSION: No significant change. Report Dictated By: Jordan Lambert MD at 03/05/2018 6:32 AM Report E-Signed By: Jordan Lambert MD at 03/05/2018 6:33 AM [id number]
--- NOTE | 2018-03-05 07:08 | General Surgery Progress Note ---
Subjective Progress Notes Subjective No complaints this morning. Physical Exam Vital Signs Date Time Temp Pulse Resp B/P (MAP) Pulse Ox O2 Delivery O2 Flow Rate FiO2 03/04/18 23:30 93 Room Air 03/04/18 22:21 98.3 93 20 131/86 (101) Intake and Output 03/05/18 07:00 Intake Total 100 ml Output Total 225 ml Balance -125 ml IV Total 100 ml Stool Total 175 ml Gastric Drainage Total 50 ml # Voids 9 General Appearance: Alert, Awake, No Acute Distress, Afebrile GI: Soft and Non-Tender (Incisions are healing well. Stoma is pink with small amount of gas and stool in the bag) Extremities: Warm, Perfused Result Diagram: 03/03/18 0542 03/04/18 0513 Assessment and Plan Problems: (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 Doing well. H/H down as expected. Will follow and transfuse if it gets below Hb of 8. Will start ice chips, popsickles, etc today but limit volume. PPI for GI prophylaxis, lovenox for VTE prophylaxis. Ambulate and OOB to chair today. PT/OT, pulmonary hygiene, IS. Await return of bowel function. 02/13/18: POD#2. Doing well. H/H stable. Stoma a little pale, will need to keep an eye on this. Continue current limited diet. Continue ambulation, IS, pulmonary hygiene, PT/OT, lovenox, PPI. Awaiting return of bowel function. Recommended removing jaffe this morning but pt reports feeling too weak to get up and use the restroom. Will continue PT today and will recommend removing the catheter tomorrow morning.' 02/14/18: POD#3. Doing well. H/H stable. Stoma looks good. No gas or stool in bag. Will continue current very limited diet as we await return of bowel function. Continue ambulation, IS, pulmonary hygiene, PT/OT, lovenox, PPI. Will see how he does today with PT and getting out of bed. Will, in any case, remove the jaffe later today or tomorrow morning. 02/15/2018 10am, POD#4: Continues to slowly improve. Stoma viable and functioning this morning, although not large volumes. Continue limited diet today. decrease intravenous fluids slightly. As above, continue ambulation, IS, lovenox. Voiding. Creatinine stable at 1.8 02/16/2018 11:30am POD#5: Slow progress. Improved stoma function. Advance diet to more full liquids/soft. Doing well with ambulation with less pain getting up. Lab repeat in am. 02/17/18: POD#6. Doing well but awaiting return of bowel function. Tolerating clear diet. Will try full liquid diet today. Continue ambulation, IS, PT/OT, lovenox, PPI, etc. Labs look good this morning. Will stop checking them unless clinically he is looking worse. Continue IV abx, will switch to PO abx when tolerating diet and will keep him on these for at least 30 days. 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 02/18/18: POD#7. Doing well. Bowel function returning. Will advance his diet to regular today. Convert meds to PO. Continue PT, OT, IS, ambulation, pulmonary hygiene, PPI. 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 Switch abx to PO today. He is looking very good today; his main concern is going home too soon although I've reassured him that he's doing very good and almost ready to go home, possibly even tomorrow, and he'll have help including his and home health nursing and PT and I'll be seeing him in the office. Will change his stoma appliance today and he can shower as well. 02/19/18: POD#8. Doing well. Still feeling weak. He's very tentative about going home. He would like to work on strength and testing out ADLs today. Tolerating diet. Stoma seems to be functioning well. Continue PT/OT, IS, pulmonary hygiene, ambulation, xarelto, PPI, etc. Hopeful for d/c to home tomorrow. 02/20/18: POD#9. Bowel function is worse and stoma isn't putting much out over the last 24 hours. Pt advised to decrease PO intake if bloated or nauseated and we'll have to follow this. He also has bilateral LE edema. I have him on xarelto for DVT prophylaxis given his h/o DVT. Will give him lasix and potassium today and will check BNP and electrolytes today and tomorrow morning. Continue inpatient care until GI function returns with consistently good stoma output. Continue PPI, xarelto, IS, PT/OT, pulmonary hygiene, ambulation, etc. 02/21/18: POD#10. Bowel function isn't great. Will place PICC line and start TPN, back off on PO intake and give bowel more time to recover. Will give more lasix and potassium today to decrease edema which may be affecting bowel as well. BNP normal so I think this is a postop inflammatory response causing his 3rd space fluids. No fevers and labs all look good, no WBC, etc. Continue xarelto, avoid narcotics, continue PPI, IS, pulmonary hygiene, ambulation, etc. Will await bowel function to improve. 02/22/18: POD#11. Bowel function possibly improving? Will restart clear liquid diet today. Continue TPN, will increase rate and add lipids per dietary's recs. Lasix and potassium dose today, wt today is 89kg down from 90kg yesterday..his baseline is 82kg. Labs, vitals all look good. Creatinine stable with the diuresis. Continue xarelto, avoid narcotics, continue PPI, IS, pulmonary hygiene, ambulation, etc. 02/23/18: POD#12. Doing better. Has some bowel function but wish it was putting out more gas. Will try regular diet today but will continue TPN/lipids until he's clearly tolerating regular diet. Will give him another round of lasix/KCl today to get more fluid off, he is still 6Kg above his baseline weight. Labs/vitals all look good. Creatinine is stable. Continue xarelto, PPI, IS, pulmonary hygiene, ambulation, etc. 02/24/18: POD#13. Continued improvement but still waiting for better bowel function as there's not much stool and almost no gas in the bag. Will continue regular diet, pt encourage to increase intake, will come down on TPN and will try prune juice and activia yogurt to see how his bowels respond to this. He still has LE edema and he's still 7kg above his baseline, even 1kg up from yesterday in spite if getting lasix although his creatinine is stable. H/H stable. WBC normal, no fevers. Will give another dose of lasix 40mg and 60mEq KCl since K is down this morning. Continue xarelto, PPI, IS, pulmonary hygiene, ambulation, etc. 02/25/18: POD#14. Pt has developed an SBO. Will place NG tube to decompress GI tract and stop diet, increase TPN to goal. Vitals and labs OK, no fevers although WBC is slightly elevated this morning, likely related to the obstruction and N/V. Will recheck tomorrow. If he fails to clinically improve over the next couple of days then will need to get an abdominal CT. Will convert blood thinner to lovenox and rest of meds to IV although will continue PO levothyroxine. Continue PPI, IS, pulmonary hygiene, ambulation, etc. 02/26/18: POD#15. Continued SBO without anything from stoma and KUB still with dilated small bowel and minimal gas in colon. Will continue bowel rest and TPN. Will get a CT abd/pelvis today. H/H is down a little but no other evidence of bleeding. Will follow this. Continue lovenox, ambulation, PPI, IS, ambulation, pulmonary hygiene, etc. 02/27/18: POD#16. Seems to be improving; had increased stool from stoma but not much gas. NG tube isn't putting out much. KUB has not yet been done. Labs not yet done either. CT yesterday looks good without fluid collection, evidence of anastomotic leak or other issues other than ileus vs SBO (no transition point seen). Continue current management of bowel rest and TPN, decompression with NG tube. If KUB reveals decreasing small bowel dilation then may remove the NG tube later today vs tomorrow. O/W CCM. 02/28/18: POD#17. Continued improvement. Stoma output is slowly increasing. KUB still with dilated small bowel but improving. Not a whole lot out of NG tube. Continue bowel rest, NG tube decompression, TPN, etc. Will remove NG tube hopefully in the next day or two if stoma output and KUB continue to improve. Continue PPI, lovenox, ambulation, IS, etc. 03/01/18: POD#18. Doing well. Small bowel maybe a little less dilated on KUB. Stoma output still marginal. NG not putting out much liquid but will keep it in to facilitate GI decompression (removal of enteric gas). Will have him chewing gum and suck on hard candy to try and facilitate bowel function through centrally mediated mechanisms. Continue TPN. Continue PPI, lovenox, ambulation, IS, etc. TSH was a little high at just over 8, will go up on levothyroxine to 137mcg. Weight down a little and creatinine down as well. Will continue diuresis with a dose of furosemide 40mg IV and 40mEq of KCl IV today and follow weight, potassium, and creatinine. Will give him some calcium today as well. 03/02/18: POD#19. Doing well. Still poor bowel function, KUB still with dilated small bowel loops. Stoma output is minimal. Will continue NG tube decompression, NPO, TPN, etc, PPI, lovenox, ambulation, IS, etc. 03/03/18: POD#20. Doing well. KUB a little better this morning. NG still with bilious output and stoma output (especially gas) is not as consistent as I would like for it to be. Continue NG tube, NPO, TPN, PPI, lovenox, ambulation, IS, etc. 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 ESR is mildly elevated, CRP is normal. Will repeat MRI of pelvis at 6 weeks after surgery. 03/04/18: POD#21. Doing well but persistent (improving?) SBO vs ileus. KUB this morning with single dilated small bowel loop, yesterday KUB was improving. Still marginal output from stoma. NG with increased but less bilious output. Will try NG tube clamp trials today and recheck KUB tomorrow morning. Continue TPN, and rest of plan as stated in yesterday's note. 03/05/18: POD#22. Doing well but still with SBO vs ileus. KUB reveals more gas in colon but still with persistently dilated loop of small bowel. Stoma pink with poor output. NG clamp trials going OK, not much out of NG tube. Will get a water-soluble SBFT today. Continue TPN, CCM. 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 Time Spent: < 30 min Exam Sepsis Risk: No Definite Risk Problem Qualifiers (1) Anemia: Anemia type: unspecified type Qualified Codes: D64.9 - Anemia, unspecified JOSE PERALTA MD Mar 05, 2018 07:08
[2018-03-05 07:29] LABS: PLATELET COUNT, AUTOMATED 298 K/uL (150-450)
[2018-03-05] MEDS: CALCIUM CARBONATE 600 MG TAB PO SCH ×2 (08:00→16:16)
[2018-03-05] MEDS ORDERED: DIATRIZOATE MEGL/DIATRIZOA SOD 120 ML SOLN PO ONE (08:30)
[2018-03-05] MEDS: INS HUM REG* 100 U/ML(ER ONLY) 20 UNIT, MULTIVITAMINS(*) 10 ML VIAL 10 ML, TRACE METALS... IV SCH (09:10)
[2018-03-05] MEDS: ENOXAPARIN 40 MG/0.4ML SYR SC SCH (09:12)
[2018-03-05] MEDS: PANTOPRAZOLE SOD 40 MG IV VIAL IVP SCH (09:12)
[2018-03-05] MEDS: LEVOFLOXACIN/D5W*500 MG/100 ML 100 ML IVPB SCH (09:51)
--- NOTE | 2018-03-05 13:20 | RADIOLOGY IMAGING REPORT ---
FACILITY: [facility] [place] PATIENT NAME: Coral Voss : 1940 MR: [id number] V: [id number] EXAM DATE: ORDERING PHYSICIAN: JOSE PERALTA TECHNOLOGIST: Location: [facility] [place] Patient: Coral Voss : 1940 Visit/Account:[id number] Date of Sevice: 03/05/2018 Exam type: SMALL BOWEL SERIES History: SBO vs ileus, water soluble contrast only Comparison: KUB performed today. Findings: A Gastrografin suspension was instilled through the patient's NG tube. Multiple sequential images ov er the abdomen and pelvis were obtained at 45 minutes contrast was identified in the right-sided the colon. At one hour and five minutes contrast is identified in the distal colon.. There was a modera te amount of residual contrast remaining in the gastric fundus. The proximal small bowel loops did n ot appear dilated. There were several mildly dilated small bowel loops in the left-sided abdomen daniel suring up to 4.6 cm in diameter. The one prominent loop of bowel in the mid abdomen measured up to 5 .6 cm in diameter this bowel loop is never well opacified with contrast although a small amount contr ast is seen within the upper portion of this loop on the 45 minute image. This appears to represent a loop of small bowel and. Partially decompressed on the final one hour and five minute image. Ther e is an ostomy ring in the left lower quadrant. Fluoroscopy images were not obtained IMPRESSION: 1. Contrast passes through into the distal colon by one hour and five minutes. On the final image there was a moderate amount of contrast remaining within the gastric fundus. Ther e were several loops of mildly dilated small bowel bowel in the left-sided abdomen and a moderately d ilated loop in the midabdomen which appeared partially decompressed on the final image. Findings are likely related to an ileus as opposed to an obstruction Report Dictated By: Emmy Jordan MD at 03/05/2018 1:10 PM Report E-Signed By: Emmy Jordan MD at 03/05/2018 1:16 PM WSN:[id number]
[2018-03-05] MEDS: FAT EMULSION 20% 250 ML BAG 250 ML IVPB SCH (16:15)
--- NOTE | 2018-03-05 17:14 | Medical Nutrition Therapy ---
Nutrition Anthropometrics Height (Inches): 70.00 Height (Calculated Centimeters: 177.213844 Weight (Pounds): 192 Weight (Calculated Kilograms): 87.090 Eric Nutrition Score: Adequate Eric Nutrition Risk Score: 20 Dietary Referral Nutrition Risk Factors: Nutrition Risk Comment: Physical Findings Physical Appearance: Overweight BMI 25-29 Skin Appearance Skin Appearance: Edema Edema Location Modifier: Right Edema Location: Lower Extremity Type of Edema: Degree of Edema: 1+ Gastrointestinal Symptoms GI Symtoms: Change in Bowel Pattern Tube Present: NG Bowel Sounds: Recent Bowel Pattern: Stool Characteristics: Nutritional Diagnosis Nutritional Risk Acuity 1: TPN/PPN Nutritional Risk Acuity 2: Head/Neck/GI Cancer (rectal Ca), New Colostomy Nutritional Acuity: 1-High Nutrition Diagnosis: Altered GI Function Nutrition Etiology: Physiological Causes Nutrition Problem/Etiology/Sym: AEB dx SBO on TPN Energy Requirement: 2430 (M- StJ X 1.2 SF) Protein Requirement: 85 (1.1gm/kg) Fluid Requirement: 2580 (30ml/kg) Diet Type: NPO (Nothing by Mouth), TPN/PPN Nutrition Intervention: Nutrition support, Incr diet as tolerated Nutritional Support Current Enteral / Parental: TPN Current Tube Feeding Formula C: 83ml/hr + LIPIDS Current Duration: 24 Current Calories: 1760 Current Protein: 100 Current Lipids Calories: 500 Total Current Calories: 2260 Nutrition Monitoring & Eval RD Patient Assessment Time: [address] Assessment Type: RD Re-Assessment Patient Nutrition Acuity: 1-High Follow Up Date: Mar 08, 2018 Nutritional Comment: 02/12 Pt with dx rectal Ca and new colostomy. Currently NPO with hypoactive bowel sounds. BUN and creatinine elevated at 32 and 1.8. Will cont to monitor. 02/15 Pt cont 4th day NPO. Recommend nutr support unless diet advanced. TPN at 2L/24 hrs + lipids would provide 2260 kcal and 100gm protein which would meet 93% est kcal and 117% est protein needs. Will cont to monitor. BK 02/17 Diet advanced to med liquids/GI soft. Significant labs; Hgb 10.1, Hct 30.5, BUN 23, creatinine 1.7. Will offer nutr supplment to increase kcal and protein intake. BK 02/21 Bowel function poor per surgeon. Pt started on TPN and changed to NPO. Pt recieving TPN at 75ml/hr which is meeting 65% est kcal and 88% est protien needs Recommend increase to 83ml/hr and add lipids to provide additional 500 kcal and llewfrd08% est kcal and 117% est protein needs. Will cont to monitor. 02/24 Diet advanced to regular. Pt eating 75-100% of small portions. TPN tapered down to 50ml/hr plus lipid which meet 64% est kcal and 70% est protein needs. Pt cont hypoactive bowel with little output. Provideing prune ashley bid and yogurt 1X/ day. Pt agreed to try this. alb 2.3. Wt up 18#. Will cont to monitor and encourage intake. BK 02/25 Pt has SBO. TPN resumed to 83ml/hr plus lipids which is meeting 93% est kcal and 117% est protein needs. Will cont to monitor. BK 02/27 Pt cont TPN which is meeting 93% est kcal, 117% est protein needs. Alb stable at 2.3. Wt is up 21# probably r/t fluids. Will cont to monitor. BK 03/02 Pt cont TPN which is meeting 93% est kcal, 117% est protein needs. Alb stable at 2.3. Wt is stable at 200#, up from admitssion wt probably r/t fluids. Will cont to monitor. BK 03/05 Pt cont on TPN at 83ml/hr plus lipids. Wt cont above admitting wt but is down to 192#. Hgb 8.3, Hct 24.9, Na 135, BUN 32, creatinine 1.6, Alb 2.4. Cont to monitor. ARMOND HINTON Mar 05, 2018 17:14
[2018-03-06] MEDS: metroNIDAZOLE* 500MG/100ML BAG 100 ML IVPB SCH (04:41)
[2018-03-06] MEDS: LEVOTHYROXINE SOD 0.137 MG TAB PO SCH (05:31)
--- NOTE | 2018-03-06 06:39 | RADIOLOGY IMAGING REPORT ---
FACILITY: [facility] PATIENT NAME: Coral Voss : 1940 MR: [id number] V: [id number] EXAM DATE: ORDERING PHYSICIAN: JOSE PERALTA TECHNOLOGIST: Location: [facility] - [place] Patient: Coral Voss : 1940 Visit/Account:[id number] Date of Sevice: 03/06/2018 ADDENDUM #1 There is an error in the findings section of the original report. The heart and lungs were not inclu ded on this examination. Report Dictated By: Jordan Lambert MD at 03/06/2018 6:45 AM Report E-Signed By: Jordan Lambert MD at 03/06/2018 6:45 AM ORIGINAL REPORT INDICATION: SBO vs ileus EXAM DATE: 03/06/2018 5:00 AM COMPARISON: None. FINDINGS: Single AP supine images of the abdomen. The lungs are well-expanded and clear. No pleural effusion or pneumothorax. Heart size is normal. Distended loop of bowel in the midabdomen is not significantly changed. There is enteric contrast in the proximal to mid colon. No pneumatosis, pneumoperitoneum or portal venous gas. No evidence of la rge volume ascites or mass. IMPRESSION: No significant change. Report Dictated By: Jordan Lambert MD at 03/06/2018 6:33 AM Report E-Signed By: Jordan Lambert MD at 03/06/2018 6:35 AM WSN:[id number]
--- NOTE | 2018-03-06 07:47 | General Surgery Progress Note ---
Subjective Progress Notes Subjective No complaints. No pain. SBFT completed yesterday, he's had lots of stoma output since the procedure. Tapered off overnight. Physical Exam Vital Signs Date Time Temp Pulse Resp B/P (MAP) Pulse Ox O2 Delivery O2 Flow Rate FiO2 03/05/18 21:16 98.1 73 18 124/76 (92) 93 Room Air Intake and Output 03/06/18 07:00 Output Total 867 ml Balance -867 ml Stool Total 750 ml Gastric Drainage Total 110 ml Drainage Total 7 ml # Voids 3 General Appearance: Alert, Awake, No Acute Distress, Afebrile GI: Soft and Non-Tender (Stoma is pink with liquid stool in the bag, not much gas, RLQ stoma wound is healing, no erythema, decreasing serous drainage.) Extremities: Warm, Perfused Result Diagram: 03/05/18 0715 03/06/18 0608 Assessment and Plan Problems: (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 Doing well. H/H down as expected. Will follow and transfuse if it gets below Hb of 8. Will start ice chips, popsickles, etc today but limit volume. PPI for GI prophylaxis, lovenox for VTE prophylaxis. Ambulate and OOB to chair today. PT/OT, pulmonary hygiene, IS. Await return of bowel function. 02/13/18: POD#2. Doing well. H/H stable. Stoma a little pale, will need to keep an eye on this. Continue current limited diet. Continue ambulation, IS, pulmonary hygiene, PT/OT, lovenox, PPI. Awaiting return of bowel function. Rec ommended removing jaffe this morning but pt reports feeling too weak to get up and use the restroom. Will continue PT today and will recommend removing the catheter tomorrow morning.' 02/14/18: POD#3. Doing well. H/H stable. Stoma looks good. No gas or stool in bag. Will continue current very limited diet as we await return of bowel function. Continue ambulation, IS, pulmonary hygiene, PT/OT, lovenox, PPI. Will see how he does today with PT and getting out of bed. Will, in any case, r emove the jaffe later today or tomorrow morning. 02/15/2018 10am, POD#4: Continues to slowly improve. Stoma viable and functioning this morning, although not large volumes. Continue limited diet t ines. decrease intravenous fluids slightly. As above, continue ambulation, IS, lovenox. Voiding. Creatinine stable at 1.8 02/16/2018 11:30am POD#5: Slow progress. Improved stoma function. Advance diet to more full liquids/soft. Doing well with ambulation with less pain getting up. Lab repeat in am. 02/17/18: POD#6. Doing well but awaiting return of bowel function. Tolerating clear diet. Will try full liquid diet today. Continue ambulation, IS, PT/OT, lovenox, PPI, etc. Labs look good this morning. Will stop checking them unless clinically he is looking worse. Continue IV abx, will switch to PO abx when tolerating diet and will keep him on these for at least 30 days. 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 02/18/18: POD#7. Doing well. Bowel function returning. Will advance his diet to regular today. Convert meds to PO. Continue PT, OT, IS, ambulation, pulmonary hygiene, PPI. 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 Switch abx to PO today. He is looking very good today; his main concern is going home too soon although I've reassured him that he's doing very good and almost ready to go home, possibly even tomorrow, and he'll have help including his and home health nursing and PT and I'll be seeing him in the office. Will change his stoma appliance today and he can s hower as well. 02/19/18: POD#8. Doing well. Still feeling weak. He's very tentative about going home. He would like to work on strength and testing out ADLs today. Tolerating diet. Stoma seems to be functioning well. Continue PT/OT, IS, pulmonary hygiene, ambulation, xarelto, PPI, etc. Hopeful for d/c to home tomorrow. 02/20/18: POD#9. Bowel function is worse and stoma isn't putting much out over the last 24 hours. Pt advised to decrease PO intake if bloated or nauseated and we'll have to follow this. He also has bilateral LE edema. I have him on xarelto for DVT prophylaxis given his h/o DVT. Will give him lasix and potassium today and will check BNP and electrolytes today and tomorrow morning. Continue inpatient care until GI function returns with consistently good stoma output. Continue PPI, xarelto, IS, PT/OT, pulmonary hygiene, ambulation, etc. 02/21/18: POD#10. Bowel function isn't great. Will place PICC line and start TPN, back off on PO intake and give bowel more time to recover. Will give more lasix and potassium today to decrease edema which may be affecting bowel as well. BNP normal so I think this is a postop inflammatory response causing his 3rd space fluids. No fevers and labs all look good, no WBC, etc. Continue xarelto, avoid narcotics, continue PPI, IS, pulmonary hygiene, ambulation, etc. Will await bowel function to improve. 02/22/18: POD#11. Bowel function possibly improving? Will restart clear liquid diet today. Continue TPN, will increase rate and add lipids per dietary's recs. Lasix and potassium dose today, wt today is 89kg down from 90kg yesterday..his baseline is 82kg. Labs, vitals all look good. Creatinine stable with the diuresis. Continue xarelto, avoid narcotics, continue PPI, IS, pulmonary hygiene, ambulation, etc. 02/23/18: POD#12. Doing better. Has some bowel function but wish it was putting out more gas. Will try regular diet today but will continue TPN/lipids until he's clearly tolerating regular diet. Will give him another round of lasix/KCl today to get more fluid off, he is still 6Kg above his baseline weight. Labs/vitals all look good. Creatinine is stable. Continue xarelto, PPI, IS, pulmonary hygiene, ambulation, etc. 02/24/18: POD#13. Continued improvement but still waiting for better bowel function as there's not much stool and almost no gas in the bag. Will continue regular diet, pt encourage to increase intake, will come down on TPN and will try prune juice and activia yogurt to see how his bowels respond to this. He still has LE edema and he's still 7kg above his baseline, even 1kg up from yesterday in spite if getting lasix although his creatinine is stable. H/H stable. WBC normal, no fevers. Will give another dose of lasix 40mg and 60mEq KCl since K is down this morning. Continue xarelto, PPI, IS, pulmonary hygiene, ambulation, etc. 02/25/18: POD#14. Pt has developed an SBO. Will place NG tube to decompress GI tract and stop diet, increase TPN to goal. Vitals and labs OK, no fevers although WBC is slightly elevated this morning, likely related to the obstruction and N/V. Will recheck tomorrow. If he fails to clinically improve over the next couple of days then will need to get an abdominal CT. Will convert blood thinner to lovenox and rest of meds to IV although will continue PO levothyroxine. Continue PPI, IS, pulmonary hygiene, ambulation, etc. 02/26/18: POD#15. Continued SBO without anything from stoma and KUB still with dilated small bowel and minimal gas in colon. Will continue bowel rest and TPN. Will get a CT abd/pelvis today. H/H is down a little but no other evidence of bleeding. Will follow this. Continue lovenox, ambulation, PPI, IS, ambulation, pulmonary hygiene, etc. 02/27/18: POD#16. Seems to be improving; had increased stool from stoma but not much gas. NG tube isn't putting out much. KUB has not yet been done. Labs not yet done either. CT yesterday looks good without fluid collection, evidence of anastomotic leak or other issues other than ileus vs SBO (no transition point seen). Continue current management of bowel rest and TPN, decompression with NG tube. If KUB reveals decreasing small bowel dilation then may remove the NG tube later today vs tomorrow. O/W CCM. 02/28/18: POD#17. Continued improvement. Stoma output is slowly increasing. KUB still with dilated small bowel but improving. Not a whole lot out of NG tube. Continue bowel rest, NG tube decompression, TPN, etc. Will remove NG tube hopefully in the next day or two if stoma output and KUB continue to improve. Continue PPI, lovenox, ambulation, IS, etc. 03/01/18: POD#18. Doing well. Small bowel maybe a little less dilated on KUB. Stoma output still marginal. NG not putting out much liquid but will keep it in to facilitate GI decompression (removal of enteric gas). Will have him chewing gum and suck on hard candy to try and facilitate bowel function through centrally mediated mechanisms. Continue TPN. Continue PPI, lovenox, ambulation, IS, etc. TSH was a little high at just over 8, will go up on levothyroxine to 137mcg. Weight down a little and creatinine down as well. Will continue diuresis with a dose of furosemide 40mg IV and 40mEq of KCl IV today and follow weight, potassium, and creatinine. Will give him some calcium today as well. 03/02/18: POD#19. Doing well. Still poor bowel function, KUB still with dilated small bowel loops. Stoma output is minimal. Will continue NG tube decompression, NPO, TPN, etc, PPI, lovenox, ambulation, IS, etc. 03/03/18: POD#20. Doing well. KUB a little better this morning. NG still with bilious output and stoma output (especially gas) is not as consistent as I would like for it to be. Continue NG tube, NPO, TPN, PPI, lovenox, ambulation, IS, etc. 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 ESR is mildly elevated, CRP is normal. Will repeat MRI of pelvis at 6 weeks after surgery. 03/04/18: POD#21. Doing well but persistent (improving?) SBO vs ileus. KUB this morning with single dilated small bowel loop, yesterday KUB was improving. Still marginal output from stoma. NG with increased but less bilious output. Will try NG tube clamp trials today and recheck KUB tomorrow morning. Continue TPN, and rest of plan as stated in yesterday's note. 03/05/18: POD#22. Doing well but still with SBO vs ileus. KUB reveals more gas in colon but still with persistently dilated loop of small bowel. Stoma pink with poor output. NG clamp trials going OK, not much out of NG tube. Will get a water-soluble SBFT today. Continue TPN, CCM. 03/06/18: POD#23. Doing well. SBFT c/w ileus and no SBO. KUB still with dilated loops of small bowel but with contrast in colon. Remove NG tube and start sips and chips but will go VERY slow with advancing diet. Continue TPN. Continue levaquin/flagyl until Saturday which will be 30 days of treatment for the sacral osteomyelitis. ESR is mildly elevated and CRP is normal. No other signs of infection currently. Will convert to PO meds, convert lovenox to xarelto. PO PPI for GI prophylaxis. 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 Time Spent: < 30 min Exam Sepsis Risk: No Definite Risk Problem Qualifiers (1) Anemia: Anemia type: unspecified type Qualified Codes: D64.9 - Anemia, unspecified JOSE PERALTA MD Mar 06, 2018 07:47
[2018-03-06] MEDS: INS HUM REG* 100 U/ML(ER ONLY) 20 UNIT, MULTIVITAMINS(*) 10 ML VIAL 10 ML, TRACE METALS... IV SCH (08:20)
[2018-03-06] MEDS: PANTOPRAZOLE SOD 40 MG TABEC PO SCH (09:22)
[2018-03-06] MEDS: METRONIDAZOLE 500 MG TABLET PO SCH ×4 (09:22→21:10)
[2018-03-06] MEDS: CALCIUM CARBONATE 600 MG TAB PO SCH ×2 (09:22→17:45)
[2018-03-06] MEDS: LEVOFLOXACIN 500 MG TAB PO SCH (09:22)
[2018-03-06] MEDS: RIVAROXABAN 10 MG TAB PO SCH (09:23)
[2018-03-06 10:46] VITALS: BP 101/75
[2018-03-06] MEDS: FAT EMULSION 20% 250 ML BAG 250 ML IVPB SCH (16:25)
[2018-03-06 16:33] VITALS: BP 108/65
[2018-03-06 21:01] VITALS: BP 126/69
[2018-03-07 02:20] VITALS: BP 120/70
[2018-03-07 05:55] LABS: PLATELET COUNT, AUTOMATED 268 K/uL (150-450)
[2018-03-07] MEDS: LEVOTHYROXINE SOD 0.137 MG TAB PO SCH (05:55)
--- NOTE | 2018-03-07 06:26 | General Surgery Progress Note ---
Subjective Progress Notes Subjective No complaints this morning. EMR indicates bout of emesis last night but nursing staff indicates this was entered in error and pt denies any N/V. Physical Exam Vital Signs Date Time Temp Pulse Resp B/P (MAP) Pulse Ox O2 Delivery O2 Flow Rate FiO2 03/07/18 02:20 98.2 81 18 120/70 (87) 94 Room Air Intake and Output 03/07/18 07:00 Intake Total 2280 ml Output Total 307 ml Balance 1973 ml Intake Oral 60 ml IV Total 2220 ml Stool Total 300 ml Drainage Total 7 ml # Voids 5 # Bowel Movements 2 General Appearance: Alert, Awake, No Acute Distress, Afebrile GI: Soft and Non-Tender (Stoma is pink with some gas and stool in the bag. 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 Doing well. H/H down as expected. Will follow and transfuse if it gets below Hb of 8. Will start ice chips, popsickles, etc today but limit volume. PPI for GI prophylaxis, lovenox for VTE prophylaxis. Ambulate and OOB to chair today. PT/OT, pulmonary hygiene, IS. Await return of bowel function. 02/13/18: POD#2. Doing well. H/H stable. Stoma a little pale, will need to keep an eye on this. Continue current limited diet. Continue ambulation, IS, pulmonary hygiene, PT/OT, lovenox, PPI. Awaiting return of bowel function. Recommended removing jaffe this morning but pt reports feeling too weak to get up and use the restroom. Will continue PT today and will recommend removing the catheter tomorrow morning.' 02/14/18: POD#3. Doing well. H/H stable. Stoma looks good. No gas or stool in bag. Will continue current very limited diet as we await return of bowel function. Continue ambulation, IS, pulmonary hygiene, PT/OT, lovenox, PPI. Will see how he does today with PT and getting out of bed. Will, in any case, remove the jaffe later today or tomorrow morning. 02/15/2018 10am, POD#4: Continues to slowly improve. Stoma viable and funct ioning this morning, although not large volumes. Continue limited diet today. decrease intravenous fluids slightly. As above, continue ambulation, IS, lovenox. Voiding. Creatinine stable at 1.8 02/16/2018 11:30am POD#5: Slow progress. Improved stoma function. Advance diet to more full liquids/soft. Doing well with ambulation with less pain getting up. Lab repeat in am. 02/17/18: POD#6. Doing well but awaiting return of bowel function. Tolerating clear diet. Will try full liquid diet today. Continue ambulation, IS, PT/OT, lovenox, PPI, etc. Labs look good this morning. Will stop checking them unless clinically he is looking worse. Continue IV abx, will switch to PO abx when tolerating diet and will keep him on these for at least 30 days. 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 02/18/18: POD#7. Doing well. Bowel function returning. Will advance his diet to regular today. Convert meds to PO. Continue PT, OT, IS, ambulation, pulmonary hygiene, PPI. 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 Switch abx to PO today. He is looking very good today; his main concern is going home too soon although I've reassured him that he's doing very good and almost ready to go home, possibly even tomorrow, and he'll have help including his and home health nursing and PT and I'll be seeing him in the office. Will change his stoma appliance today and he can shower as well. 02/19/18: POD#8. Doing well. Still feeling weak. He's very tentative about going home. He would like to work on strength and testing out ADLs today. Tolerating diet. Stoma seems to be functioning well. Continue PT/OT, IS, pulmonary hygiene, ambulation, xarelto, PPI, etc. Hopeful for d/c to home tomorrow. 02/20/18: POD#9. Bowel function is worse and stoma isn't putting much out over the last 24 hours. Pt advised to decrease PO intake if bloated or nauseated and we'll have to follow this. He also has bilateral LE edema. I have him on xarelto for DVT prophylaxis given his h/o DVT. Will give him lasix and potassium today and will check BNP and electrolytes today and tomorrow morning. Continue inpatient care until GI function returns with consistently good stoma output. Continue PPI, xarelto, IS, PT/OT, pulmonary hygiene, ambulation, etc. 02/21/18: POD#10. Bowel function isn't great. Will place PICC line and start TPN, back off on PO intake and give bowel more time to recover. Will give more lasix and potassium today to decrease edema which may be affecting bowel as well. BNP normal so I think this is a postop inflammatory response causing his 3rd space fluids. No fevers and labs all look good, no WBC, etc. Continue xarelto, avoid narcotics, continue PPI, IS, pulmonary hygiene, ambulation, etc. Will await bowel function to improve. 02/22/18: POD#11. Bowel function possibly improving? Will restart clear liquid diet today. Continue TPN, will increase rate and add lipids per dietary's recs. Lasix and potassium dose today, wt today is 89kg down from 90kg yesterday..his baseline is 82kg. Labs, vitals all look good. Creatinine stable with the diuresis. Continue xarelto, avoid narcotics, continue PPI, IS, pulmonary hygiene, ambulation, etc. 02/23/18: POD#12. Doing better. Has some bowel function but wish it was putting out more gas. Will try regular diet today but will continue TPN/lipids until he's clearly tolerating regular diet. Will give him another round of lasix/KCl today to get more fluid off, he is still 6Kg above his baseline weight. Labs/vitals all look good. Creatinine is stable. Continue xarelto, PPI, IS, pulmonary hygiene, ambulation, etc. 02/24/18: POD#13. Continued improvement but still waiting for better bowel function as there's not much stool and almost no gas in the bag. Will continue regular diet, pt encourage to increase intake, will come down on TPN and will try prune juice and activia yogurt to see how his bowels respond to this. He still has LE edema and he's still 7kg above his baseline, even 1kg up from yesterday in spite if getting lasix although his creatinine is stable. H/H stable. WBC normal, no fevers. Will give another dose of lasix 40mg and 60mEq KCl since K is down this morning. Continue xarelto, PPI, IS, pulmonary hygiene, ambulation, etc. 02/25/18: POD#14. Pt has developed an SBO. Will place NG tube to decompress GI tract and stop diet, increase TPN to goal. Vitals and labs OK, no fevers although WBC is slightly elevated this morning, likely related to the obstruction and N/V. Will recheck tomorrow. If he fails to clinically improve over the next couple of days then will need to get an abdominal CT. Will convert blood thinner to lovenox and rest of meds to IV although will continue PO levothyroxine. Continue PPI, IS, pulmonary hygiene, ambulation, etc. 02/26/18: POD#15. Continued SBO without anything from stoma and KUB still with dilated small bowel and minimal gas in colon. Will continue bowel rest and TPN. Will get a CT abd/pelvis today. H/H is down a little but no other evidence of bleeding. Will follow this. Continue lovenox, ambulation, PPI, IS, ambulation, pulmonary hygiene, etc. 02/27/18: POD#16. Seems to be improving; had increased stool from stoma but not much gas. NG tube isn't putting out much. KUB has not yet been done. Labs not yet done either. CT yesterday looks good without fluid collection, evidence of anastomotic leak or other issues other than ileus vs SBO (no transition point seen). Continue current management of bowel rest and TPN, decompression with NG tube. If KUB reveals decreasing small bowel dilation then may remove the NG tube later today vs tomorrow. O/W CCM. 02/28/18: POD#17. Continued improvement. Stoma output is slowly increasing. KUB still with dilated small bowel but improving. Not a whole lot out of NG tube. Continue bowel rest, NG tube decompression, TPN, etc. Will remove NG tube hopefully in the next day or two if stoma output and KUB continue to improve. Continue PPI, lovenox, ambulation, IS, etc. 03/01/18: POD#18. Doing well. Small bowel maybe a little less dilated on KUB. Stoma output still marginal. NG not putting out much liquid but will keep it in to facilitate GI decompression (removal of enteric gas). Will have him chewing gum and suck on hard candy to try and facilitate bowel function through centrally mediated mechanisms. Continue TPN. Continue PPI, lovenox, ambulation, IS, etc. TSH was a little high at just over 8, will go up on levothyroxine to 137mcg. Weight down a little and creatinine down as well. Will continue diuresis with a dose of furosemide 40mg IV and 40mEq of KCl IV today and follow weight, potassium, and creatinine. Will give him some calcium today as well. 03/02/18: POD#19. Doing well. Still poor bowel function, KUB still with dilated small bowel loops. Stoma output is minimal. Will continue NG tube decompression, NPO, TPN, etc, PPI, lovenox, ambulation, IS, etc. 03/03/18: POD#20. Doing well. KUB a little better this morning. NG still with bilious output and stoma output (especially gas) is not as consistent as I would like for it to be. Continue NG tube, NPO, TPN, PPI, lovenox, ambulation, IS, etc. 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 ESR is mildly elevated, CRP is normal. Will repeat MRI of pelvis at 6 weeks after surgery. 03/04/18: POD#21. Doing well but persistent (improving?) SBO vs ileus. KUB this morning with single dilated small bowel loop, yesterday KUB was improving. Still marginal output from stoma. NG with increased but less bilious output. Will try NG tube clamp trials today and recheck KUB tomorrow morning. Continue TPN, and rest of plan as stated in yesterday's note. 10/31/18: POD#22. Doing well but still with SBO vs ileus. KUB reveals more gas in colon but still with persistently dilated loop of small bowel. Stoma pink with poor output. NG clamp trials going OK, not much out of NG tube. Will get a water-soluble SBFT today. Continue TPN, CCM. 18: POD#23. Doing well. SBFT c/w ileus and no SBO. KUB still with dilated loops of small bowel but with contrast in colon. Remove NG tube and start sips and chips but will go VERY slow with advancing diet. Continue TPN. Continue levaquin/flagyl until Saturday which will be 30 days of treatment for the sacral osteomyelitis. ESR is mildly elevated and CRP is normal. No other signs of infection currently. Will convert to PO meds, convert lovenox to xarelto. PO PPI for GI prophylaxis. 03/07/18: POD#24. Doing well. KUB still with dilated loops of small bowel but abdominal exam is benign. Continue current diet and TPN. Will await for there to be consistent (not intermittent) gas in the bag. Continue levaquin/flagyl until 03/11/18. ESR down even lower this morning and CRP is normal. Continue PPI, xarelto, etc. 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 Time Spent: < 30 min Exam Sepsis Risk: No Definite Risk Problem Qualifiers (1) Anemia: Anemia type: unspecified type Qualified Codes: D64.9 - Anemia, unspecified JOSE PERALTA MD Mar 07, 2018 06:26
--- NOTE | 2018-03-07 06:31 | RADIOLOGY IMAGING REPORT ---
FACILITY: [facility] PATIENT NAME: Coral Voss : 1940 MR: [id number] V: [id number] EXAM DATE: ORDERING PHYSICIAN: JOSE PERALTA TECHNOLOGIST: Location: [facility] Patient: Coral Voss : 1940 Visit/Account:[id number] Date of Sevice: 03/07/2018 KUB SINGLE VIEW ABDOMEN COMPARISONS: Single view abdomen dated March 06, 2018 ADDITIONAL PERTINENT HISTORY: Ileus, NG tube removed. FINDINGS: Lung bases: Negative. Supine evidence of free air: None. Bowel gas pattern: Continued dilated loop of bowel in the midabdomen with contrast noted within a dec ompressed colon. Bowel loops have a stable appearance when compared to previous exam. Surrounding soft tissues and solid organs: Surgical clips in the left midabdomen. Osseous structures: Spondylitic change involving the lower lumbar spine. IMPRESSION: No significant change since previous exam. Report Dictated By: Eliot Robledo MD at 03/07/2018 6:25 AM Report E-Signed By: Eliot Robledo MD at 03/07/2018 6:27 AM WSN:[id number]
[2018-03-07] MEDS: INS HUM REG* 100 U/ML(ER ONLY) 20 UNIT, MULTIVITAMINS(*) 10 ML VIAL 10 ML, TRACE METALS... IV SCH (07:39)
[2018-03-07] MEDS: PANTOPRAZOLE SOD 40 MG TABEC PO SCH (08:30)
[2018-03-07] MEDS: LEVOFLOXACIN 500 MG TAB PO SCH (08:30)
[2018-03-07] MEDS: RIVAROXABAN 10 MG TAB PO SCH (08:30)
[2018-03-07] MEDS: CALCIUM CARBONATE 600 MG TAB PO SCH ×2 (08:30→17:26)
[2018-03-07] MEDS: METRONIDAZOLE 500 MG TABLET PO SCH ×4 (08:30→21:22)
[2018-03-07] MEDS: FAT EMULSION 20% 250 ML BAG 250 ML IVPB SCH (16:10)
[2018-03-07 17:25] VITALS: BP 125/63
[2018-03-08] MEDS: ACETAMINOPHEN 325 MG TAB PO PRN (01:35)
[2018-03-08] MEDS: LEVOTHYROXINE SOD 0.137 MG TAB PO SCH (05:43)
[2018-03-08 05:53] LABS: PLATELET COUNT, AUTOMATED 291 K/uL (150-450)
--- NOTE | 2018-03-08 06:41 | RADIOLOGY IMAGING REPORT ---
FACILITY: [facility] PATIENT NAME: Coral Voss : 1940 MR: [id number] V: [id number] EXAM DATE: ORDERING PHYSICIAN: JOSE PERALTA TECHNOLOGIST: Location: [facility] Patient: Coral Voss : 1940 Visit/Account:[id number] Date of Sevice: 03/08/2018 EXAMINATION: AP abdomen HISTORY: Ileus. COMPARISON: 03/07/2018 and 03/06/2018. FINDINGS: There is persistent dilatation of an air-filled small bowel loop in the midabdomen, similar to the pr ior exam. Small amount of air present throughout normal caliber colon, with a small amount of residua l colonic contrast. Multiple surgical clips in the abdomen. No new osseous findings. Multilevel degenerative changes throughout the spine. IMPRESSION: Persistent dilatation of an air-filled small bowel loop in the midabdomen, likely related to ileus. T here is a small amount of air present throughout normal caliber colon, with a small amount of residua l colonic contrast. Report Dictated By: Isiah Biggs MD at 03/08/2018 6:32 AM Report E-Signed By: Isiah Biggs MD at 03/08/2018 6:37 AM WSN:[id number]
[2018-03-08 07:08] VITALS: BP 115/69
[2018-03-08] MEDS: LEVOFLOXACIN 500 MG TAB PO SCH (08:35)
[2018-03-08] MEDS: PANTOPRAZOLE SOD 40 MG TABEC PO SCH (08:35)
[2018-03-08] MEDS: METRONIDAZOLE 500 MG TABLET PO SCH ×4 (08:35→20:55)
[2018-03-08] MEDS: INS HUM REG* 100 U/ML(ER ONLY) 20 UNIT, MULTIVITAMINS(*) 10 ML VIAL 10 ML, TRACE METALS... IV SCH (08:35)
[2018-03-08] MEDS: RIVAROXABAN 10 MG TAB PO SCH (08:35)
[2018-03-08] MEDS: CALCIUM CARBONATE 600 MG TAB PO SCH ×2 (08:35→17:19)
[2018-03-08 12:40] VITALS: BP 121/71
--- NOTE | 2018-03-08 13:18 | Medical Nutrition Therapy ---
Nutrition Anthropometrics Height (Inches): 70.00 Height (Calculated Centimeters: 177.453169 Weight (Pounds): 198 Weight (Calculated Kilograms): 89.811 Eric Nutrition Score: Adequate Eric Nutrition Risk Score: 20 Dietary Referral Nutrition Risk Factors: Nutrition Risk Comment: Physical Findings Physical Appearance: Overweight BMI 25-29 Skin Appearance Skin Appearance: Edema Edema Location Modifier: Right Edema Location: Lower Extremity Type of Edema: Degree of Edema: 1+ Gastrointestinal Symptoms GI Symtoms: Change in Bowel Pattern Tube Present: NG Bowel Sounds: Recent Bowel Pattern: Stool Characteristics: Nutritional Diagnosis Nutritional Risk Acuity 1: TPN/PPN Nutritional Risk Acuity 2: Head/Neck/GI Cancer (rectal Ca), New Colostomy Nutritional Acuity: 1-High Nutrition Diagnosis: Altered GI Function Nutrition Etiology: Physiological Causes Nutrition Problem/Etiology/Sym: AEB dx SBO on TPN Energy Requirement: 2430 (M- StJ X 1.2 SF) Protein Requirement: 85 (1.1gm/kg) Fluid Requirement: 2580 (30ml/kg) Diet Type: NPO (Nothing by Mouth), TPN/PPN Nutrition Intervention: Nutrition support, Incr diet as tolerated Nutritional Support Current Enteral / Parental: TPN Current Tube Feeding Formula C: 83ml/hr + LIPIDS Current Duration: 24 Current Calories: 1760 Current Protein: 100 Current Lipids Calories: 500 Total Current Calories: 2260 Nutrition Monitoring & Eval RD Patient Assessment Time: [address] Assessment Type: RD Re-Assessment Patient Nutrition Acuity: 1-High Follow Up Date: Mar 11, 2018 Nutritional Comment: 02/12 Pt with dx rectal Ca and new colostomy. Currently NPO with hypoactive bowel sounds. BUN and creatinine elevated at 32 and 1.8. Will cont to monitor. 02/15 Pt cont 4th day NPO. Recommend nutr support unless diet advanced. TPN at 2L/24 hrs + lipids would provide 2260 kcal and 100gm protein which would meet 93% est kcal and 117% est protein needs. Will cont to monitor. BK 02/17 Diet advanced to med liquids/GI soft. Significant labs; Hgb 10.1, Hct 30.5, BUN 23, creatinine 1.7. Will offer nutr supplment to increase kcal and protein intake. BK 02/21 Bowel function poor per surgeon. Pt started on TPN and changed to NPO. Pt recieving TPN at 75ml/hr which is meeting 65% est kcal and 88% est protien needs Recommend increase to 83ml/hr and add lipids to provide additional 500 kcal and pdarjly82% est kcal and 117% est protein needs. Will cont to monitor. 02/24 Diet advanced to regular. Pt eating 75-100% of small portions. TPN tapered down to 50ml/hr plus lipid which meet 64% est kcal and 70% est protein needs. Pt cont hypoactive bowel with little output. Provideing prune ashley bid and yogurt 1X/ day. Pt agreed to try this. alb 2.3. Wt up 18#. Will cont to monitor and encourage intake. BK 02/25 Pt has SBO. TPN resumed to 83ml/hr plus lipids which is meeting 93% est kcal and 117% est protein needs. Will cont to monitor. BK 02/27 Pt cont TPN which is meeting 93% est kcal, 117% est protein needs. Alb stable at 2.3. Wt is up 21# probably r/t fluids. Will cont to monitor. BK 03/02 Pt cont TPN which is meeting 93% est kcal, 117% est protein needs. Alb stable at 2.3. Wt is stable at 200#, up from admitssion wt probably r/t fluids. Will cont to monitor. BK 03/05 Pt cont on TPN at 83ml/hr plus lipids. Wt cont above admitting wt but is down to 192#. Hgb 8.3, Hct 24.9, Na 135, BUN 32, creatinine 1.6, Alb 2.4. Cont to monitor. BK 03/08 Pt continues with dilated loops of small bowel. To continue with NPO/ice chips and TPN @ 83mL/hr with Intralipid. Low H/H, Glu 125, Alb 2.2. Follow for diet changes, labs, etc. -SANAZ MORRISON Mar 08, 2018 13:18
--- NOTE | 2018-03-08 13:24 | General Surgery Progress Note ---
Subjective Progress Notes Subjective Feels OK. Small amount of flatus in ostomy bag. Still feels distended. Physical Exam Vital Signs Date Time Temp Pulse Resp B/P (MAP) Pulse Ox O2 Delivery O2 Flow Rate FiO2 03/08/18 12:40 98.6 77 16 121/71 (88) 97 Room Air 76 Intake and Output 03/08/18 06:59 Intake Total 2239 ml Output Total 365 ml Balance 1874 ml IV Total 2239 ml Output Urine Total 1 ml Stool Total 350 ml Drainage Total 14 ml # Voids 5 General Appearance: Alert, Awake Neuro: No Gross deficits GI: Soft and Non-Tender Extremities: Soft and Non Tender Psych: Alert & Oriented X3, Appropriate Mood & Affect Result Diagram: 03/08/18 0541 03/08/18 0541 Assessment and Plan Problems: (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 Doing well. H/H down as expected. Will follow and transfuse if it gets below Hb of 8. Will start ice chips, popsickles, etc today but limit volume. PPI for GI prophylaxis, lovenox for VTE prophylaxis. Ambulate and OOB to chair today. PT/OT, pulmonary hygiene, IS. Await return of bowel function. 02/13/18: POD#2. Doing well. H/H stable. Stoma a little pale, will need to keep an eye on this. Continue current limited diet. Continue ambulation, IS, pulmonary hygiene, PT/OT, lovenox, PPI. Awaiting return of bowel function. Recommended removing jaffe this morning but pt reports feeling too weak to get up and use the restroom. Will continue PT today and will recommend removing the catheter tomorrow morning.' 02/14/18: POD#3. Doing well. H/H stable. Stoma looks good. No gas or stool in bag. Will continue current very limited diet as we await return of bowel function. Continue ambulation, IS, pulmonary hygiene, PT/OT, lovenox, PPI. Will see how he does today with PT and getting out of bed. Will, in any case, remove the jaffe later today or tomorrow morning. 02/15/2018 10am, POD#4: Continues to slowly improve. Stoma viable and functioning this morning, although not large volumes. Continue limited diet today. decrease intravenous fluids slightly. As above, continue ambulation, IS, lovenox. Voiding. Creatinine stable at 1.8 02/16/2018 11:30am POD#5: Slow progress. Improved stoma function. Advance diet to more full liquids/soft. Doing well with ambulation with less pain getting up. Lab repeat in am. 02/17/18: POD#6. Doing well but awaiting return of bowel function. Tolerating clear diet. Will try full liquid diet today. Continue ambulation, IS, PT/OT, lovenox, PPI, etc. Labs look good this morning. Will stop checking them unless clinically he is looking worse. Continue IV abx, will switch to PO abx when tolerating diet and will keep him on these for at least 30 days. 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 02/18/18: POD#7. Doing well. Bowel function returning. Will advance his diet to regular today. Convert meds to PO. Continue PT, OT, IS, ambulation, pulmonary hygiene, PPI. 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 Switch abx to PO today. He is looking very good today; his main concern is going home too soon although I've reassured him that he's doing very good and almost ready to go home, possibly even tomorrow, and he'll have help including his and home health nursing and PT and I'll be seeing him in the office. Will change his stoma appliance today and he can shower as well. 02/19/18: POD#8. Doing well. Still feeling weak. He's very tentative about going home. He would like to work on strength and testing out ADLs today. Tolerating diet. Stoma seems to be functioning well. Continue PT/OT, IS, pulmonary hygiene, ambulation, xarelto, PPI, etc. Hopeful for d/c to home tomorrow. 02/20/18: POD#9. Bowel function is worse and stoma isn't putting much out over the last 24 hours. Pt advised to decrease PO intake if bloated or nauseated and we'll have to follow this. He also has bilateral LE edema. I have him on xarelto for DVT prophylaxis given his h/o DVT. Will give him lasix and potassium today and will check BNP and electrolytes today and tomorrow morning. Continue inpatient care until GI function returns with consistently good stoma output. Continue PPI, xarelto, IS, PT/OT, pulmonary hygiene, ambulation, etc. 02/21/18: POD#10. Bowel function isn't great. Will place PICC line and start TPN, back off on PO intake and give bowel more time to recover. Will give more lasix and potassium today to decrease edema which may be affecting bowel as well. BNP normal so I think this is a postop inflammatory response causing his 3rd space fluids. No fevers and labs all look good, no WBC, etc. Continue xarelto, avoid narcotics, continue PPI, IS, pulmonary hygiene, ambulation, etc. Will await bowel function to improve. 02/22/18: POD#11. Bowel function possibly improving? Will restart clear liquid diet today. Continue TPN, will increase rate and add lipids per dietary's recs. Lasix and potassium dose today, wt today is 89kg down from 90kg yesterday..his baseline is 82kg. Labs, vitals all look good. Creatinine stable with the diuresis. Continue xarelto, avoid narcotics, continue PPI, IS, pulmonary hygiene, ambulation, etc. 02/23/18: POD#12. Doing better. Has some bowel function but wish it was putting out more gas. Will try regular diet today but will continue TPN/lipids until he's clearly tolerating regular diet. Will give him another round of lasix/KCl today to get more fluid off, he is still 6Kg above his baseline weight. Labs/vitals all look good. Creatinine is stable. Continue xarelto, PPI, IS, pulmonary hygiene, ambulation, etc. 02/24/18: POD#13. Continued improvement but still waiting for better bowel function as there's not much stool and almost no gas in the bag. Will continue regular diet, pt encourage to increase intake, will come down on TPN and will try prune juice and activia yogurt to see how his bowels respond to this. He still has LE edema and he's still 7kg above his baseline, even 1kg up from yesterday in spite if getting lasix although his creatinine is stable. H/H stable. WBC normal, no fevers. Will give another dose of lasix 40mg and 60mEq KCl since K is down this morning. Continue xarelto, PPI, IS, pulmonary hygiene, ambulation, etc. 02/25/18: POD#14. Pt has developed an SBO. Will place NG tube to decompress GI tract and stop diet, increase TPN to goal. Vitals and labs OK, no fevers although WBC is slightly elevated this morning, likely related to the obstruction and N/V. Will recheck tomorrow. If he fails to clinically improve over the next couple of days then will need to get an abdominal CT. Will convert blood thinner to lovenox and rest of meds to IV although will continue PO levothyroxine. Continue PPI, IS, pulmonary hygiene, ambulation, etc. 02/26/18: POD#15. Continued SBO without anything from stoma and KUB still with dilated small bowel and minimal gas in colon. Will continue bowel rest and TPN. Will get a CT abd/pelvis today. H/H is down a little but no other evidence of bleeding. Will follow this. Continue lovenox, ambulation, PPI, IS, ambulation, pulmonary hygiene, etc. 02/27/18: POD#16. Seems to be improving; had increased stool from stoma but not much gas. NG tube isn't putting out much. KUB has not yet been done. Labs not yet done either. CT yesterday looks good without fluid collection, evidence of anastomotic leak or other issues other than ileus vs SBO (no transition point seen). Continue current management of bowel rest and TPN, decompression with NG tube. If KUB reveals decreasing small bowel dilation then may remove the NG tube later today vs tomorrow. O/W CCM. 02/28/18: POD#17. Continued improvement. Stoma output is slowly increasing. KUB still with dilated small bowel but improving. Not a whole lot out of NG tube. Continue bowel rest, NG tube decompression, TPN, etc. Will remove NG tube hopefully in the next day or two if stoma output and KUB continue to improve. Continue PPI, lovenox, ambulation, IS, etc. 03/01/18: POD#18. Doing well. Small bowel maybe a little less dilated on KUB. Stoma output still marginal. NG not putting out much liquid but will keep it in to facilitate GI decompression (removal of enteric gas). Will have him chewing gum and suck on hard candy to try and facilitate bowel function through centrally mediated mechanisms. Continue TPN. Continue PPI, lovenox, ambula tion, IS, etc. TSH was a little high at just over 8, will go up on levothyroxine to 137mcg. Weight down a little and creatinine down as well. Will continue diuresis with a dose of furosemide 40mg IV and 40mEq of KCl IV today and follow weight, potassium, and creatinine. Will give him some calcium today as well. 03/02/18: POD#19. Doing well. Still poor bowel function, KUB still with dilated small bowel loops. Stoma output is minimal. Will continue NG tube decompression, NPO, TPN, etc, PPI, lovenox, ambulation, IS, etc. 03/03/18: POD#20. Doing well. KUB a little better this morning. NG still with bilious output and stoma output (especially gas) is not as consistent as I would like for it to be. Continue NG tube, NPO, TPN, PPI, lovenox, ambulation, IS, etc. 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 ESR is mildly elevated, CRP is normal. Will repeat MRI of pelvis at 6 weeks after surgery. 03/04/18: POD#21. Doing well but persistent (improving?) SBO vs ileus. KUB this morning with single dilated small bowel loop, yesterday KUB was improving. Still marginal output from stoma. NG with increased but less bilious output. Will try NG tube clamp trials today and recheck KUB tomorrow morning. Continue TPN, and rest of plan as stated in yesterday's note. 03/05/18: POD#22. Doing well but still with SBO vs ileus. KUB reveals more gas in colon but still with persistently dilated loop of small bowel. Stoma pink with poor output. NG clamp trials going OK, not much out of NG tube. Will get a water-soluble SBFT today. Continue TPN, CCM. 03/06/18: POD#23. Doing well. SBFT c/w ileus and no SBO. KUB still with dilated loops of small bowel but with contrast in colon. Remove NG tube and start sips and chips but will go VERY slow with advancing diet. Continue TPN. Continue levaquin/flagyl until Saturday which will be 30 days of treatment for the sacral osteomyelitis. ESR is mildly elevated and CRP is normal. No other signs of infection currently. Will convert to PO meds, convert lovenox to xarelto. PO PPI for GI prophylaxis. 03/07/18: POD#24. Doing well. KUB still with dilated loops of small bowel but abdominal exam is benign. Continue current diet and TPN. Will await for there to be consistent (not intermittent) gas in the bag. Continue levaquin/flagyl until 03/11/18. ESR down even lower this morning and CRP is normal. Continue PPI, xarelto, etc. 03/08/18: POD#25. Continued small amount of progress. Some flatus but ileus has not completely resolved. Continue TPN as he tries to advance his oral intake. Anemia improved today. Renal function stable with mild insufficiency BUN 34 Cr 1.6. No changes in plan. 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
[2018-03-08 16:09] VITALS: BP 107/68
[2018-03-08] MEDS: FAT EMULSION 20% 250 ML BAG 250 ML IVPB SCH (16:20)
[2018-03-08 20:34] VITALS: BP 125/75
[2018-03-09 00:07] VITALS: BP 138/69
[2018-03-09] MEDS: LEVOTHYROXINE SOD 0.137 MG TAB PO SCH (06:19)
[2018-03-09] MEDS: INS HUM REG* 100 U/ML(ER ONLY) 20 UNIT, MULTIVITAMINS(*) 10 ML VIAL 10 ML, TRACE METALS... IV SCH (08:08)
[2018-03-09] MEDS: CALCIUM CARBONATE 600 MG TAB PO SCH ×2 (08:54→17:25)
[2018-03-09] MEDS: PANTOPRAZOLE SOD 40 MG TABEC PO SCH (08:54)
[2018-03-09] MEDS: RIVAROXABAN 10 MG TAB PO SCH (08:56)
[2018-03-09] MEDS: METRONIDAZOLE 500 MG TABLET PO SCH ×4 (08:56→20:22)
[2018-03-09] MEDS: LEVOFLOXACIN 500 MG TAB PO SCH (08:56)
[2018-03-09 09:03] VITALS: BP 118/77
--- NOTE | 2018-03-09 10:22 | General Surgery Progress Note ---
Subjective Progress Notes Subjective Diuresed overnight, feels good Physical Exam Vital Signs Date Time Temp Pulse Resp B/P (MAP) Pulse Ox O2 Delivery O2 Flow Rate FiO2 03/09/18 09:03 98.0 77 16 118/77 (91) 95 Room Air Intake and Output 03/09/18 07:00 Intake Total 1024 ml Output Total 7 ml Balance 1017 ml Intake Oral 160 ml IV Total 864 ml Drainage Total 7 ml # Voids 6 General Appearance: Alert, Awake, No Acute Distress GI: Soft and Non-Tender (ostomy pink; no stool or flatus in bag) Extremities: Soft and Non Tender Psych: Alert & Oriented X3, Appropriate Mood & Affect Result Diagram: 03/08/18 0541 03/08/18 0541 Assessment and Plan Problems: (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 Doing well. H/H down as expected. Will follow and transfuse if it gets below Hb of 8. Will start ice chips, popsickles, etc today but limit volume. PPI for GI prophylaxis, lovenox for VTE prophylaxis. Ambulate and OOB to chair today. PT/OT, pulmonary hygiene, IS. Await return of bowel function. 02/13/18: POD#2. Doing well. H/H stable. Stoma a little pale, will need to keep an eye on this. Continue current limited diet. Continue ambulation, IS, pulmonary hygiene, PT/OT, lovenox, PPI. Awaiting return of bowel function. Recommended removing jaffe this morning but pt reports feeling too weak to get up and use the restroom. Will continue PT today and will recommend removing the catheter tomorrow morning.' 02/14/18: POD#3. Doing well. H/H stable. Stoma looks good. No gas or stool in bag. Will continue current very limited diet as we await return of bowel function. Continue ambulation, IS, pulmonary hygiene, PT/OT, lovenox, PPI. Will see how he does today with PT and getting out of bed. Will, in any case, remove the jaffe later today or tomorrow morning. 02/15/2018 10am, POD#4: Continues to slowly improve. Stoma viable and functioning this morning, although not large volumes. Continue limited diet today. decrease intravenous fluids slightly. As above, continue ambulation, IS, lovenox. Voiding. Creatinine stable at 1.8 02/16/2018 11:30am POD#5: Slow progress. Improved stoma function. Advance diet to more full liquids/soft. Doing well with ambulation with less pain getting up. Lab repeat in am. 02/17/18: POD#6. Doing well but awaiting return of bowel function. Tolerating clear diet. Will try full liquid diet today. Continue ambulation, IS, PT/OT, lovenox, PPI, etc. Labs look good this morning. Will stop checking them unless clinically he is looking worse. Continue IV abx, will switch to PO abx when tolerating diet and will keep him on these for at least 30 days. 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 02/18/18: POD#7. Doing well. Bowel function returning. Will advance his diet to regular today. Convert meds to PO. Continue PT, OT, IS, ambulation, pulmonary hygiene, PPI. 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 Switch abx to PO today. He is looking very good today; his main concern is going home too soon although I've reassured him that he's doing very good and almost ready to go home, possibly even tomorrow, and he'll have help including his and home health nursing and PT and I'll be seeing him in the office. Will change his stoma appliance today and he can shower as well. 02/19/18: POD#8. Doing well. Still feeling weak. He's very tentative about going home. He would like to work on strength and testing out ADLs today. Tolerating diet. Stoma seems to be functioning well. Continue PT/OT, IS, pulmonary hygiene, ambulation, xarelto, PPI, etc. Hopeful for d/c to home tomorrow. 02/20/18: POD#9. Bowel function is worse and stoma isn't putting much out over the last 24 hours. Pt advised to decrease PO intake if bloated or nauseated and we'll have to follow this. He also has bilateral LE edema. I have him on xarelto for DVT prophylaxis given his h/o DVT. Will give him lasix and potassium today and will check BNP and electrolytes today and tomorrow morning. Continue inpatient care until GI function returns with consistently good stoma output. Continue PPI, xarelto, IS, PT/OT, pulmonary hygiene, ambulation, etc. 02/21/18: POD#10. Bowel function isn't great. Will place PICC line and start TPN, back off on PO intake and give bowel more time to recover. Will give more lasix and potassium today to decrease edema which may be affecting bowel as well. BNP normal so I think this is a postop inflammatory response causing his 3rd space fluids. No fevers and labs all look good, no WBC, etc. Continue xarelto, avoid narcotics, continue PPI, IS, pulmonary hygiene, ambulation, etc. Will await bowel function to improve. 02/22/18: POD#11. Bowel function possibly improving? Will restart clear liquid diet today. Continue TPN, will increase rate and add lipids per dietary's recs. Lasix and potassium dose today, wt today is 89kg down from 90kg yesterday..his baseline is 82kg. Labs, vitals all look good. Creatinine stable with the diuresis. Continue xarelto, avoid narcotics, continue PPI, IS, pulmonary hygiene, ambulation, etc. 02/23/18: POD#12. Doing better. Has some bowel function but wish it was putting out more gas. Will try regular diet today but will continue TPN/lipids until he's clearly tolerating regular diet. Will give him another round of lasix/KCl today to get more fluid off, he is still 6Kg above his baseline weight. Labs/vitals all look good. Creatinine is stable. Continue xarelto, PPI, IS, pulmonary hygiene, ambulation, etc. 02/24/18: POD#13. Continued improvement but still waiting for better bowel function as there's not much stool and almost no gas in the bag. Will continue regular diet, pt encourage to increase intake, will come down on TPN and will try prune juice and activia yogurt to see how his bowels respond to this. He still has LE edema and he's still 7kg above his baseline, even 1kg up from yesterday in spite if getting lasix although his creatinine is stable. H/H stable. WBC normal, no fevers. Will give another dose of lasix 40mg and 60mEq KCl since K is down this morning. Continue xarelto, PPI, IS, pulmonary hygiene, ambulation, etc. 02/25/18: POD#14. Pt has developed an SBO. Will place NG tube to decompress GI tract and stop diet, increase TPN to goal. Vitals and labs OK, no fevers although WBC is slightly elevated this morning, likely related to the o bstruction and N/V. Will recheck tomorrow. If he fails to clinically improve over the next couple of days then will need to get an abdominal CT. Will convert blood thinner to lovenox and rest of meds to IV although will continue PO levothyroxine. Continue PPI, IS, pulmonary hygiene, ambulation, etc. 02/26/18: POD#15. Continued SBO without anything from stoma and KUB still with dilated small bowel and minimal gas in colon. Will continue bowel rest and TPN. Will get a CT abd/pelvis today. H/H is down a little but no other evidence of bleeding. Will follow this. Continue lovenox, ambulation, PPI, IS, ambulation, pulmonary hygiene, etc. 02/27/18: POD#16. Seems to be improving; had increased stool from stoma but not much gas. NG tube isn't putting out much. KUB has not yet been done. Labs not yet done either. CT yesterday looks good without fluid collection, evidence of anastomotic leak or other issues other than ileus vs SBO (no transition point seen). Continue current management of bowel rest and TPN, decompression with NG tube. If KUB reveals decreasing small bowel dilation then may remove the NG tube later today vs tomorrow. O/W CCM. 02/28/18: POD#17. Continued improvement. Stoma output is slowly increasing. KUB still with dilated small bowel but improving. Not a whole lot out of NG tube. Continue bowel rest, NG tube decompression, TPN, etc. Will remove NG tube hopefully in the next day or two if stoma output and KUB continue to improve. Continue PPI, lovenox, ambulation, IS, etc. 03/01/18: POD#18. Doing well. Small bowel maybe a little less dilated on KUB. Stoma output still marginal. NG not putting out much liquid but will keep it in to facilitate GI decompression (removal of enteric gas). Will have him chewing gum and suck on hard candy to try and facilitate bowel function through centrally mediated mechanisms. Continue TPN. Continue PPI, lovenox, ambulation, IS, etc. TSH was a little high at just over 8, will go up on lev othyroxine to 137mcg. Weight down a little and creatinine down as well. Will continue diuresis with a dose of furosemide 40mg IV and 40mEq of KCl IV today and follow weight, potassium, and creatinine. Will give him some calcium today as well. 03/02/18: POD#19. Doing well. Still poor bowel function, KUB still with dilated small bowel loops. Stoma output is minimal. Will continue NG tube de compression, NPO, TPN, etc, PPI, lovenox, ambulation, IS, etc. 03/03/18: POD#20. Doing well. KUB a little better this morning. NG still with bilious output and stoma output (especially gas) is not as consistent as I would like for it to be. Continue NG tube, NPO, TPN, PPI, lovenox, ambulation, IS, etc. 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 ESR is mildly elevated, CRP is normal. Will repeat MRI of pelvis at 6 weeks after surgery. 03/04/18: POD#21. Doing well but persistent (improving?) SBO vs ileus. KUB t his morning with single dilated small bowel loop, yesterday KUB was improving. Still marginal output from stoma. NG with increased but less bilious output. Will try NG tube clamp trials today and recheck KUB tomorrow morning. Continue TPN, and rest of plan as stated in yesterday's note. 03/05/18: POD#22. Doing well but still with SBO vs ileus. KUB reveals more gas in colon but still with persistently dilated loop of small bowel. Stoma pink with poor output. NG clamp trials going OK, not much out of NG tube. Will get a water-soluble SBFT today. Continue TPN, CCM. 03/06/18: POD#23. Doing well. SBFT c/w ileus and no SBO. KUB still with dilated loops of small bowel but with contrast in colon. Remove NG tube and start sips and chips but will go VERY slow with advancing diet. Continue TPN. Continue levaquin/flagyl until Saturday which will be 30 days of treatment for the sacral osteomyelitis. ESR is mildly elevated and CRP is normal. No other signs of infection currently. Will convert to PO meds, convert lovenox to xarelto. PO PPI for GI prophylaxis. 03/07/18: POD#24. Doing well. KUB still with dilated loops of small bowel but abdominal exam is benign. Continue current diet and TPN. Will await for there to be consistent (not intermittent) gas in the bag. Continue levaquin/flagyl until 03/11/18. ESR down even lower this morning and CRP is normal. Continue PPI, xarelto, etc. 03/08/18: POD#25. Continued small amount of progress. Some flatus but ileus has not completely resolved. Continue TPN as he tries to advance his oral intake. Anemia improved today. Renal function stable with mild insufficiency BUN 34 Cr 1.6. No changes in plan. 03/09/18: POD#26. Diuresed overnight which should indicate imminent resolution of his ileus. Discharge pending this. 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
[2018-03-09 16:13] VITALS: BP 113/81
[2018-03-09] MEDS: FAT EMULSION 20% 250 ML BAG 250 ML IVPB SCH (16:14)
[2018-03-09 19:03] VITALS: BP 124/73
[2018-03-09] MEDS: ACETAMINOPHEN 325 MG TAB PO PRN (21:30)
[2018-03-10 00:59] VITALS: BP 119/60
[2018-03-10] MEDS: LEVOTHYROXINE SOD 0.137 MG TAB PO SCH (05:44)
[2018-03-10 07:13] VITALS: BP 118/64
[2018-03-10] MEDS: CALCIUM CARBONATE 600 MG TAB PO SCH ×2 (07:52→16:23)
[2018-03-10] MEDS: INS HUM REG* 100 U/ML(ER ONLY) 20 UNIT, MULTIVITAMINS(*) 10 ML VIAL 10 ML, TRACE METALS... IV SCH (08:10)
[2018-03-10] MEDS: RIVAROXABAN 10 MG TAB PO SCH (09:02)
[2018-03-10] MEDS: METRONIDAZOLE 500 MG TABLET PO SCH ×4 (09:02→21:24)
[2018-03-10] MEDS: LEVOFLOXACIN 500 MG TAB PO SCH (09:03)
[2018-03-10] MEDS: PANTOPRAZOLE SOD 40 MG TABEC PO SCH (09:03)
[2018-03-10 15:53] VITALS: BP 120/78
[2018-03-10] MEDS: FAT EMULSION 20% 250 ML BAG 250 ML IVPB SCH (15:58)
--- NOTE | 2018-03-10 16:35 | General Surgery Progress Note ---
Subjective Progress Notes Subjective feels good, no complaint, no flatus or stool in ostomy Physical Exam Vital Signs Date Time Temp Pulse Resp B/P (MAP) Pulse Ox O2 Delivery O2 Flow Rate FiO2 03/10/18 15:53 97.7 87 18 120/78 (92) 97 Room Air Intake and Output 03/10/18 07:00 Intake Total 1139 ml Output Total 32 ml Balance 1107 ml Intake Oral 90 ml IV Total 1049 ml Stool Total 25 ml Drainage Total 7 ml # Voids 6 General Appearance: Alert, Awake, No Acute Distress Neuro: No Gross deficits Respiratory: No Respiratory Distress GI: Soft and Non-Tender, Other (ostomy pink, no stool or gas in ostomy bag) Result Diagram: 03/08/18 0541 03/08/18 0541 Assessment and Plan Problems: (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 Doing well. H/H down as expected. Will follow and transfuse if it gets below Hb of 8. Will start ice chips, popsickles, etc today but limit volume. PPI for GI prophylaxis, lovenox for VTE prophylaxis. Ambulate and OOB to chair today. PT/OT, pulmonary hygiene, IS. Await return of bowel function. 02/13/18: POD#2. Doing well. H/H stable. Stoma a little pale, will need to keep an eye on this. Continue current limited diet. Continue ambulation, IS, pulmonary hygiene, PT/OT, lovenox, PPI. Awaiting return of bowel function. Recommended removing jaffe this morning but pt reports feeling too weak to get up and use the restroom. Will continue PT today and will recommend removing the catheter tomorrow morning.' 02/14/18: POD#3. Doing well. H/H stable. Stoma looks good. No gas or stool in bag. Will continue current very limited diet as we await return of bowel function. Continue ambulation, IS, pulmonary hygiene, PT/OT, lovenox, PPI. Will see how he does today with PT and getting out of bed. Will, in any case, remove the jaffe later today or tomorrow morning. 02/15/2018 10am, POD#4: Continues to slowly improve. Stoma viable and functioning this morning, although not large volumes. Continue limited diet today. decrease intravenous fluids slightly. As above, continue ambulation, IS, lovenox. Voiding. Creatinine stable at 1.8 02/16/2018 11:30am POD#5: Slow progress. Improved stoma function. Advance diet to more full liquids/soft. Doing well with ambulation with less pain getting up. Lab repeat in am. 02/17/18: POD#6. Doing well but awaiting return of bowel function. Tolerating clear diet. Will try full liquid diet today. Continue ambulation, IS, PT/OT, lovenox, PPI, etc. Labs look good this morning. Will stop checking them unless clinically he is looking worse. Continue IV abx, will switch to PO abx when tolerating diet and will keep him on these for at least 30 days. 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 02/18/18: POD#7. Doing well. Bowel function returning. Will advance his diet to regular today. Convert meds to PO. Continue PT, OT, IS, ambulation, pulmonary hygiene, PPI. 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 Switch abx to PO today. He is looking very good today; his main concern is going home too soon although I've reassured him that he's doing very good and almost ready to go home, possibly even tomorrow, and he'll have help including his and home health nursing and PT and I'll be seeing him in the office. Will change his stoma appliance today and he can shower as well. 02/19/18: POD#8. Doing well. Still feeling weak. He's very tentative about going home. He would like to work on strength and testing out ADLs today. Tolerating diet. Stoma seems to be functioning well. Continue PT/OT, IS, pulmonary hygiene, ambulation, xarelto, PPI, etc. Hopeful for d/c to home tomorrow. 02/20/18: POD#9. Bowel function is worse and stoma isn't putting much out over the last 24 hours. Pt advised to decrease PO intake if bloated or nauseated and we'll have to follow this. He also has bilateral LE edema. I have him on xarelto for DVT prophylaxis given his h/o DVT. Will give him lasix and potassium today and will check BNP and electrolytes today and tomorrow morning. Continue inpatient care until GI function returns with consistently good stoma output. Continue PPI, xarelto, IS, PT/OT, pulmonary hygiene, ambulation, etc. 02/21/18: POD#10. Bowel function isn't great. Will place PICC line and start TPN, back off on PO intake and give bowel more time to recover. Will give more lasix and potassium today to decrease edema which may be affecting bowel as well. BNP normal so I think this is a postop inflammatory response causing his 3rd space fluids. No fevers and labs all look good, no WBC, etc. Continue xarelto, avoid narcotics, continue PPI, IS, pulmonary hygiene, ambulation, etc. Will await bowel function to improve. 02/22/18: POD#11. Bowel function possibly improving? Will restart clear liquid diet today. Continue TPN, will increase rate and add lipids per dietary's recs. Lasix and potassium dose today, wt today is 89kg down from 90kg yesterday..his baseline is 82kg. Labs, vitals all look good. Creatinine stable with the diuresis. Continue xarelto, avoid narcotics, continue PPI, IS, pulmo nary hygiene, ambulation, etc. 02/23/18: POD#12. Doing better. Has some bowel function but wish it was putting out more gas. Will try regular diet today but will continue TPN/lipids until he's clearly tolerating regular diet. Will give him another round of lasix/KCl today to get more fluid off, he is still 6Kg above his baseline weight. Labs/vitals all look good. Creatinine is stable. Continue xarelto, PPI, IS, pulmonary hygiene, ambulation, etc. 02/24/18: POD#13. Continued improvement but still waiting for better bowel function as there's not much stool and almost no gas in the bag. Will continue regular diet, pt encourage to increase intake, will come down on TPN and will try prune juice and activia yogurt to see how his bowels respond to this. He still has LE edema and he's still 7kg above his baseline, even 1kg up from yesterday in spite if getting lasix although his creatinine is stable. H/H stable. WBC normal, no fevers. Will give another dose of lasix 40mg and 60mEq KCl since K is down this morning. Continue xarelto, PPI, IS, pulmonary hygiene, ambulation, etc. 02/25/18: POD#14. Pt has developed an SBO. Will place NG tube to decompress GI tract and stop diet, increase TPN to goal. Vitals and labs OK, no fevers although WBC is slightly elevated this morning, likely related to the obstruction and N/V. Will recheck tomorrow. If he fails to clinically improve over the next couple of days then will need to get an abdominal CT. Will convert blood thinner to lovenox and rest of meds to IV although will continue PO levothyroxine. Continue PPI, IS, pulmonary hygiene, ambulation, etc. 02/26/18: POD#15. Continued SBO without anything from stoma and KUB still with dilated small bowel and minimal gas in colon. Will continue bowel rest and TPN. Will get a CT abd/pelvis today. H/H is down a little but no other evidence of bleeding. Will follow this. Continue lovenox, ambulation, PPI, IS, ambulation, pulmonary hygiene, etc. 02/27/18: POD#16. Seems to be improving; had increased stool from stoma but not much gas. NG tube isn't putting out much. KUB has not yet been done. Labs not yet done either. CT yesterday looks good without fluid collection, evidence of anastomotic leak or other issues other than ileus vs SBO (no transition point seen). Continue current management of bowel rest and TPN, decompression with NG tube. If KUB reveals decreasing small bowel dilation then may remove the NG tube later today vs tomorrow. O/W CCM. 02/28/18: POD#17. Continued improvement. Stoma output is slowly increasing. KUB still with dilated small bowel but improving. Not a whole lot out of NG tube. Continue bowel rest, NG tube decompression, TPN, etc. Will remove NG tube hopefully in the next day or two if stoma output and KUB continue to improve. Continue PPI, lovenox, ambulation, IS, etc. 03/01/18: POD#18. Doing well. Small bowel maybe a little less dilated on KUB. Stoma output still marginal. NG not putting out much liquid but will keep it in to facilitate GI decompression (removal of enteric gas). Will have him chewing gum and suck on hard candy to try and facilitate bowel function through centrally mediated mechanisms. Continue TPN. Continue PPI, lovenox, ambulation, IS, etc. TSH was a little high at just over 8, will go up on levothyroxine to 137mcg. Weight down a little and creatinine down as well. Will continue diuresis with a dose of furosemide 40mg IV and 40mEq of KCl IV today and follow weight, potassium, and creatinine. Will give him some calcium today as well. 03/02/18: POD#19. Doing well. Still poor bowel function, KUB still with dilated small bowel loops. Stoma output is minimal. Will continue NG tube decompression, NPO, TPN, etc, PPI, lovenox, ambulation, IS, etc. 03/03/18: POD#20. Doing well. KUB a little better this morning. NG still with bilious output and stoma output (especially gas) is not as consistent as I would like for it to be. Continue NG tube, NPO, TPN, PPI, lovenox, ambulation, IS, etc. 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 ESR is mildly elevated, CRP is normal. Will repeat MRI of pelvis at 6 weeks after surgery. 03/04/18: POD#21. Doing well but persistent (improving?) SBO vs ileus. KUB this morning with single dilated small bowel loop, yesterday KUB was improving. Still marginal output from stoma. NG with increased but less bilious output. Will try NG tube clamp trials today and recheck KUB tomorrow morning. Continue TPN, and rest of plan as stated in yesterday's note. 03/05/18: POD#22. Doing well but still with SBO vs ileus. KUB reveals more gas in colon but still with persistently dilated loop of small bowel. Stoma pink with poor output. NG clamp trials going OK, not much out of NG tube. Will get a water-soluble SBFT today. Continue TPN, CCM. 03/06/18: POD#23. Doing well. SBFT c/w ileus and no SBO. KUB still with dilated loops of small bowel but with contrast in colon. Remove NG tube and start sips and chips but will go VERY slow with advancing diet. Continue TPN. Continue levaquin/flagyl until Saturday which will be 30 days of treatment for the sacral osteomyelitis. ESR is mildly elevated and CRP is normal. No other signs of infection currently. Will convert to PO meds, convert lovenox to xarelto. PO PPI for GI prophylaxis. 03/07/18: POD#24. Doing well. KUB still with dilated loops of small bowel but abdominal exam is benign. Continue current diet and TPN. Will await for there to be consistent (not intermittent) gas in the bag. Continue levaquin/flagyl until 03/11/18. ESR down even lower this morning and CRP is normal. Continue PPI, xarelto, etc. 03/08/18: POD#25. Continued small amount of progress. Some flatus but ileus has not completely resolved. Continue TPN as he tries to advance his oral intake. Anemia improved today. Renal function stable with mild insufficiency BUN 34 Cr 1.6. No changes in plan. 03/09/18: POD#26. Diuresed overnight which should indicate imminent resolution of his ileus. Discharge pending this. 03/10/18: POD#27. continued ileus but no other signs for concern. Continue TPN. Complete course of Levoquin and Flagyl tomorrow. 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
[2018-03-10 19:20] VITALS: BP 130/79
[2018-03-11 00:21] VITALS: BP 132/76
[2018-03-11] MEDS: ACETAMINOPHEN 325 MG TAB PO PRN ×2 (00:42→20:48)
[2018-03-11] MEDS: LEVOTHYROXINE SOD 0.137 MG TAB PO SCH (05:49)
[2018-03-11 06:45] LABS: PLATELET COUNT, AUTOMATED 261 K/uL (150-450)
[2018-03-11 06:53] VITALS: BP 112/63
[2018-03-11] MEDS: INS HUM REG* 100 U/ML(ER ONLY) 20 UNIT, MULTIVITAMINS(*) 10 ML VIAL 10 ML, TRACE METALS... IV SCH (08:11)
[2018-03-11] MEDS: CALCIUM CARBONATE 600 MG TAB PO SCH ×2 (08:41→16:30)
[2018-03-11] MEDS: METRONIDAZOLE 500 MG TABLET PO SCH ×4 (08:41→20:48)
[2018-03-11] MEDS: PANTOPRAZOLE SOD 40 MG TABEC PO SCH (08:42)
[2018-03-11] MEDS: RIVAROXABAN 10 MG TAB PO SCH (08:42)
[2018-03-11] MEDS: LEVOFLOXACIN 500 MG TAB PO SCH (08:42)
[2018-03-11 11:19] VITALS: BP 115/77
[2018-03-11 15:10] VITALS: BP 111/88
--- NOTE | 2018-03-11 15:29 | Medical Nutrition Therapy ---
Nutrition Anthropometrics Height (Inches): 70.00 Height (Calculated Centimeters: 177.138829 Weight (Pounds): 197 Weight (Calculated Kilograms): 89.358 Eric Nutrition Score: Adequate Eric Nutrition Risk Score: 21 Dietary Referral Nutrition Risk Factors: Nutrition Risk Comment: Nutritional Diagnosis Nutritional Risk Acuity 1: TPN/PPN Nutritional Risk Acuity 2: Head/Neck/GI Cancer (rectal Ca), New Colostomy Nutritional Acuity: 1-High Nutrition Diagnosis: Altered GI Function Nutrition Etiology: Physiological Causes Nutrition Problem/Etiology/Sym: AEB dx SBO on TPN Energy Requirement: 2430 (M- StJ X 1.2 SF) Protein Requirement: 85 (1.1gm/kg) Fluid Requirement: 2580 (30ml/kg) Diet Type: NPO (Nothing by Mouth), TPN/PPN Nutrition Intervention: Nutrition support, Incr diet as tolerated Nutritional Support Current Enteral / Parental: TPN Current Tube Feeding Formula C: 83ml/hr + LIPIDS Current Duration: 24 Current Calories: 1760 Current Protein: 100 Current Lipids Calories: 500 Total Current Calories: 2260 Nutrition Monitoring & Eval Nutrition Goals: Eat 75-100% Meal RD Patient Assessment Time: [address] Assessment Type: RD Re-Assessment Patient Nutrition Acuity: 1-High Follow Up Date: Mar 14, 2018 Nutritional Comment: 02/12 Pt with dx rectal Ca and new colostomy. Currently NPO with hypoactive bowel sounds. BUN and creatinine elevated at 32 and 1.8. Will cont to monitor. 02/15 Pt cont 4th day NPO. Recommend nutr support unless diet advanced. TPN at 2L/24 hrs + lipids would provide 2260 kcal and 100gm protein which would meet 93% est kcal and 117% est protein needs. Will cont to monitor. BK 02/17 Diet advanced to med liquids/GI soft. Significant labs; Hgb 10.1, Hct 30.5, BUN 23, creatinine 1.7. Will offer nutr supplment to increase kcal and protein intake. BK 02/21 Bowel function poor per surgeon. Pt started on TPN and changed to NPO. Pt recieving TPN at 75ml/hr which is meeting 65% est kcal and 88% est protien needs Recommend increase to 83ml/hr and add lipids to provide additional 500 kcal and qvavsvd69% est kcal and 117% est protein needs. Will cont to monitor. 02/24 Diet advanced to regular. Pt eating 75-100% of small portions. TPN tapered down to 50ml/hr plus lipid which meet 64% est kcal and 70% est protein needs. Pt cont hypoactive bowel with little output. Provideing prune ashley bid and yogurt 1X/ day. Pt agreed to try this. alb 2.3. Wt up 18#. Will cont to monitor and encourage intake. BK 02/25 Pt has SBO. TPN resumed to 83ml/hr plus lipids which is meeting 93% est kcal and 117% est protein needs. Will cont to monitor. BK 02/27 Pt cont TPN which is meeting 93% est kcal, 117% est protein needs. Alb stable at 2.3. Wt is up 21# probably r/t fluids. Will cont to monitor. BK 03/02 Pt cont TPN which is meeting 93% est kcal, 117% est protein needs. Alb stable at 2.3. Wt is stable at 200#, up from admitssion wt probably r/t fluids. Will cont to monitor. BK 03/05 Pt cont on TPN at 83ml/hr plus lipids. Wt cont above admitting wt but is down to 192#. Hgb 8.3, Hct 24.9, Na 135, BUN 32, creatinine 1.6, Alb 2.4. Cont to monitor. BK 03/08 Pt continues with dilated loops of small bowel. To continue with NPO/ice chips and TPN @ 83mL/hr with Intralipid. Low H/H, Glu 125, Alb 2.2. Follow for diet changes, labs, etc. -DRT 03/11 Pt cont on TPN @ 83ml/hr plus lipids. BG ranging 92- 130. Pt has active bowel sounds and flatus but cont ileus. Will cont to monitor. ARMOND CASTILLO Mar 11, 2018 15:29
[2018-03-11] MEDS: FAT EMULSION 20% 250 ML BAG 250 ML IVPB SCH (16:30)
--- NOTE | 2018-03-11 17:32 | General Surgery Progress Note ---
Subjective Progress Notes Subjective No complaints. Still no flatus or stool in ostomy. No nausea. Physical Exam Vital Signs Date Time Temp Pulse Resp B/P (MAP) Pulse Ox O2 Delivery O2 Flow Rate FiO2 03/11/18 15:10 98.5 74 20 111/88 (96) 96 Room Air Intake and Output 03/11/18 07:00 Intake Total 370 ml Output Total 50 ml Balance 320 ml Intake Oral 120 ml IV Total 250 ml Stool Total 50 ml # Voids 9 General Appearance: Alert, Awake, No Acute Distress Neuro: No Gross deficits Respiratory: No Respiratory Distress GI: Soft and Non-Tender Psych: Alert & Oriented X3, Appropriate Mood & Affect Result Diagram: 03/11/1863203/11/18632 Assessment and Plan Problems: (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 Doing well. H/H down as expected. Will follow and transfuse if it gets below Hb of 8. Will start ice chips, po psickles, etc today but limit volume. PPI for GI prophylaxis, lovenox for VTE prophylaxis. Ambulate and OOB to chair today. PT/OT, pulmonary hygiene, IS. Await return of bowel function. 02/13/18: POD#2. Doing well. H/H stable. Stoma a little pale, will need to keep an eye on this. Continue current limited diet. Continue ambulation, IS, pulmonary hygiene, PT/OT, lovenox, PPI. Awaiting return of bowel function. Recommended removing jaffe this morning but pt reports feeling too weak to get up and use the restroom. Will continue PT today and will recommend removing the catheter tomorrow morning.' 02/14/18: POD#3. Doing well. H/H stable. Stoma looks good. No gas or stool in bag. Will continue current very limited diet as we await return of bowel function. Continue ambulation, IS, pulmonary hygiene, PT/OT, lovenox, PPI. Will see how he does today with PT and getting out of bed. Will, in any case, remove the jaffe later today or tomorrow morning. 02/15/2018 10am, POD#4: Continues to slowly improve. Stoma viable and functioning this morning, although not large volumes. Continue limited diet today. decrease intravenous fluids slightly. As above, continue ambulation, IS, lovenox. Voiding. Creatinine stable at 1.8 02/16/2018 11:30am POD#5: Slow progress. Improved stoma function. Advance diet to more full liquids/soft. Doing well with ambulation with less pain getting up. Lab repeat in am. 02/17/18: POD#6. Doing well but awaiting return of bowel function. Tolerating clear diet. Will try full liquid diet today. Continue ambulation, IS, PT/OT, lovenox, PPI, etc. Labs look good this morning. Will stop checking them unless clinically he is looking worse. Continue IV abx, will switch to PO abx when tolerating diet and will keep him on these for at least 30 days. 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 02/18/18: POD#7. Doing well. Bowel function returning. Will advance his diet to regular today. Convert meds to PO. Continue PT, OT, IS, ambulation, pulmonary hygiene, PPI. 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 Switch abx to PO today. He is looking very good today; his main concern is going home too soon although I've reassured him that he's doing very good and almost ready to go home, possibly even tomorrow, and he'll have help including his and home health nursing and PT and I'll be seeing him in the office. Will change his stoma appliance today and he can shower as well. 02/19/18: POD#8. Doing well. Still feeling weak. He's very tentative about going home. He would like to work on strength and testing out ADLs today. Tolerating diet. Stoma seems to be functioning well. Continue PT/OT, IS, pulmonary hygiene, ambulation, xarelto, PPI, etc. Hopeful for d/c to home tomorrow. 02/20/18: POD#9. Bowel function is worse and stoma isn't putting much out over the last 24 hours. Pt advised to decrease PO intake if bloated or nauseated and we'll have to follow this. He also has bilateral LE edema. I have him on xa relto for DVT prophylaxis given his h/o DVT. Will give him lasix and potassium today and will check BNP and electrolytes today and tomorrow morning. Continue inpatient care until GI function returns with consistently good stoma output. Continue PPI, xarelto, IS, PT/OT, pulmonary hygiene, ambulation, etc. 02/21/18: POD#10. Bowel function isn't great. Will place PICC line and start TPN, back off on PO intake and give bowel more time to recover. Will give more lasix and potassium today to decrease edema which may be affecting bowel as well. BNP normal so I think this is a postop inflammatory response causing his 3rd space fluids. No fevers and labs all look good, no WBC, etc. Continue xarelto, avoid narcotics, continue PPI, IS, pulmonary hygiene, ambulation, etc. Will await bowel function to improve. 02/22/18: POD#11. Bowel function possibly improving? Will restart clear liq uid diet today. Continue TPN, will increase rate and add lipids per dietary's recs. Lasix and potassium dose today, wt today is 89kg down from 90kg yesterday..his baseline is 82kg. Labs, vitals all look good. Creatinine stable with the diuresis. Continue xarelto, avoid narcotics, continue PPI, IS, pulmonary hygiene, ambulation, etc. 02/23/18: POD#12. Doing better. Has some bowel function but wish it was putting out more gas. Will try regular diet today but will continue TPN/lipids until he's clearly tolerating regular diet. Will give him another round of lasix/KCl today to get more fluid off, he is still 6Kg above his baseline weight. Labs/vitals all look good. Creatinine is stable. Continue xarelto, PPI, IS, pulmonary hygiene, ambulation, etc. 02/24/18: POD#13. Continued improvement but still waiting for better bowel function as there's not much stool and almost no gas in the bag. Will continue regular diet, pt encourage to increase intake, will come down on TPN and will try prune juice and activia yogurt to see how his bowels respond to this. He still has LE edema and he's still 7kg above his baseline, even 1kg up from yesterday in spite if getting lasix although his creatinine is stable. H/H stable. WBC normal, no fevers. Will give another dose of lasix 40mg and 60mEq KCl since K is down this morning. Continue xarelto, PPI, IS, pulmonary hygiene, ambulation, etc. 02/25/18: POD#14. Pt has developed an SBO. Will place NG tube to decompress GI tract and stop diet, increase TPN to goal. Vitals and labs OK, no fevers although WBC is slightly elevated this morning, likely related to the obstruction and N/V. Will recheck tomorrow. If he fails to clinically improve over the next couple of days then will need to get an abdominal CT. Will convert blood thinner to lovenox and rest of meds to IV although will continue PO levothyroxine. Continue PPI, IS, pulmonary hygiene, ambulation, etc. 02/26/18: POD#15. Continued SBO without anything from stoma and KUB still with dilated small bowel and minimal gas in colon. Will continue bowel rest and TPN. Will get a CT abd/pelvis today. H/H is down a little but no other evidence of bleeding. Will follow this. Continue lovenox, ambulation, PPI, IS, ambulation, pulmonary hygiene, etc. 02/27/18: POD#16. Seems to be improving; had increased stool from stoma but not much gas. NG tube isn't putting out much. KUB has not yet been done. Labs not yet done either. CT yesterday looks good without fluid collection, evidence of anastomotic leak or other issues other than ileus vs SBO (no transition point seen). Continue current management of bowel rest and TPN, decompression with NG tube. If KUB reveals decreasing small bowel dilation then may remove the NG tube later today vs tomorrow. O/W CCM. 02/28/18: POD#17. Continued improvement. Stoma output is slowly increasing. KUB still with dilated small bowel but improving. Not a whole lot out of NG tube. Continue bowel rest, NG tube decompression, TPN, etc. Will remove NG tube hopefully in the next day or two if stoma output and KUB continue to improve. Continue PPI, lovenox, ambulation, IS, etc. 03/01/18: POD#18. Doing well. Small bowel maybe a little less dilated on KUB. Stoma output still marginal. NG not putting out much liquid but will keep it in to facilitate GI decompression (removal of enteric gas). Will have him chewing gum and suck on hard candy to try and facilitate bowel function through centrally mediated mechanisms. Continue TPN. Continue PPI, lovenox, ambulation, IS, etc. TSH was a little high at just over 8, will go up on levothyroxine to 137mcg. Weight down a little and creatinine down as well. Will continue diuresis with a dose of furosemide 40mg IV and 40mEq of KCl IV today and follow weight, potassium, and creatinine. Will give him some calcium today as well. 03/02/18: POD#19. Doing well. Still poor bowel function, KUB still with dilated small bowel loops. Stoma output is minimal. Will continue NG tube decompression, NPO, TPN, etc, PPI, lovenox, ambulation, IS, etc. 03/03/18: POD#20. Doing well. KUB a little better this morning. NG still with bilious output and stoma output (especially gas) is not as consistent as I would like for it to be. Continue NG tube, NPO, TPN, PPI, lovenox, ambulation, IS, etc. 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 ESR is mildly elevated, CRP is n ormal. Will repeat MRI of pelvis at 6 weeks after surgery. 03/04/18: POD#21. Doing well but persistent (improving?) SBO vs ileus. KUB this morning with single dilated small bowel loop, yesterday KUB was improving. Still marginal output from stoma. NG with increased but less bilious output. W ill try NG tube clamp trials today and recheck KUB tomorrow morning. Continue TPN, and rest of plan as stated in yesterday's note. 03/05/18: POD#22. Doing well but still with SBO vs ileus. KUB reveals more gas in colon but still with persistently dilated loop of small bowel. Stoma pink with poor output. NG clamp trials going OK, not much out of NG tube. Will get a water-soluble SBFT today. Continue TPN, CCM. 03/06/18: POD#23. Doing well. SBFT c/w ileus and no SBO. KUB still with dil ated loops of small bowel but with contrast in colon. Remove NG tube and start sips and chips but will go VERY slow with advancing diet. Continue TPN. Continue levaquin/flagyl until Saturday which will be 30 days of treatment for the sacral osteomyelitis. ESR is mildly elevated and CRP is normal. No other signs of infection currently. Will convert to PO meds, convert lovenox to xarelto. PO PPI for GI prophylaxis. 03/07/18: POD#24. Doing well. KUB still with dilated loops of small bowel but abdominal exam is benign. Continue current diet and TPN. Will await for there to be consistent (not intermittent) gas in the bag. Continue levaquin/flagyl until 03/11/18. ESR down even lower this morning and CRP is normal. Continue PPI, xarelto, etc. 03/08/18: POD#25. Continued small amount of progress. Some flatus but ileus has not completely resolved. Continue TPN as he tries to advance his oral intake. Anemia improved today. Renal function stable with mild insufficiency BUN 34 Cr 1.6. No changes in plan. 03/09/18: POD#26. Diuresed overnight which should indicate imminent resolution of his ileus. Discharge pending this. 03/10/18: POD#27. continued ileus but no other signs for concern. Continue TPN. Complete course of Levoquin and Flagyl tomorrow. 03/11/18: POD#28. Continued ileus. No nausea. Labs today without concern. Will advance to clear liquids to help continue to stimulate the bowels. 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
[2018-03-11 19:33] VITALS: BP 131/67
[2018-03-12 00:43] VITALS: BP 125/67
[2018-03-12] MEDS: LEVOTHYROXINE SOD 0.137 MG TAB PO SCH (05:34)
[2018-03-12 06:38] VITALS: BP 105/63
[2018-03-12] MEDS: INS HUM REG* 100 U/ML(ER ONLY) 20 UNIT, MULTIVITAMINS(*) 10 ML VIAL 10 ML, TRACE METALS... IV SCH (07:10)
[2018-03-12] MEDS: RIVAROXABAN 10 MG TAB PO SCH (08:27)
[2018-03-12] MEDS: CALCIUM CARBONATE 600 MG TAB PO SCH ×2 (08:27→17:47)
[2018-03-12] MEDS: PANTOPRAZOLE SOD 40 MG TABEC PO SCH (08:28)
[2018-03-12] MEDS: METRONIDAZOLE 500 MG TABLET PO SCH ×4 (08:28→20:24)
[2018-03-12] MEDS: LEVOFLOXACIN 500 MG TAB PO SCH (08:28)
--- NOTE | 2018-03-12 08:32 | General Surgery Progress Note ---
Subjective Progress Notes Subjective No complaints, anxious to try more PO Physical Exam Vital Signs Date Time Temp Pulse Resp B/P (MAP) Pulse Ox O2 Delivery O2 Flow Rate FiO2 03/12/18 06:38 98.9 82 20 105/63 (77) 95 Room Air Intake and Output 03/12/18 07:00 Intake Total 2261 ml Balance 2261 ml IV Total 2261 ml # Voids 5 General Appearance: Alert, Awake, No Acute Distress, Afebrile Neuro: No Gross deficits Eyes: PERRLA ENT: Moist Mucous Membranes Respiratory: No Respiratory Distress, Clear to Auscultation GI: Soft and Non-Tender (Stoma functioning) Extremities: Soft and Non Tender Psych: Alert & Oriented X3 Result Diagram: 03/11/18 0633 03/11/18 0633 Assessment and Plan Problems: (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 Doing well. H/H down as expected. Will follow and transfuse if it gets below Hb of 8. Will start ice chips, popsickles, etc today but limit volume. PPI for GI prophylaxis, lovenox for VTE prophylaxis. Ambulate and OOB to chair today. PT/OT, pulmonary hygiene, IS. Await return of bowel function. 02/13/18: POD#2. Doing well. H/H stable. Stoma a little pale, will need to keep an eye on this. Continue current limited diet. Continue ambulation, IS, pulmonary hygiene, PT/OT, lovenox, PPI. Awaiting return of bowel function. Recommended removing jaffe this morning but pt reports feeling too weak to get up and use the restroom. Will continue PT today and will recommend removing the catheter tomorrow morning.' 02/14/18: POD#3. Doing well. H/H stable. Stoma looks good. No gas or stool in bag. Will continue current very limited diet as we await return of bowel function. Continue ambulation, IS, pulmonary hygiene, PT/OT, lovenox, PPI. Will see how he does today with PT and getting out of bed. Will, in any case, remove the jaffe later today or tomorrow morning. 02/15/2018 10am, POD#4: Continues to slowly improve. Stoma viable and functioning this morning, although not large volumes. Continue limited diet today. decrease intravenous fluids slightly. As above, continue ambulation, IS, lovenox. Voiding. Creatinine stable at 1.8 02/16/2018 11:30am POD#5: Slow progress. Improved stoma function. Advance diet to more full liquids/soft. Doing well with ambulation with less pain getting up. Lab repeat in am. 02/17/18: POD#6. Doing well but awaiting return of bowel function. Tolerating clear diet. Will try full liquid diet today. Continue ambulation, IS, PT/OT, lovenox, PPI, etc. Labs look good this morning. Will stop checking them unless clinically he is looking worse. Continue IV abx, will switch to PO abx when tolerating diet and will keep him on these for at least 30 days. 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 02/18/18: POD#7. Doing well. Bowel function returning. Will advance his diet to regular today. Convert meds to PO. Continue PT, OT, IS, ambulation, pulmonary hygiene, PPI. 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 Switch abx to PO today. He is looking very good today; his main concern is going home too soon although I've reassured him that he's doing very good and almost ready to go home, possibly even tomorrow, and he'll have help including his and home health nursing and PT and I'll be seeing him in the office. Will change his stoma appliance today and he can shower as well. 02/19/18: POD#8. Doing well. Still feeling weak. He's very tentative about going home. He would like to work on strength and testing out ADLs today. Tolerating diet. Stoma seems to be functioning well. Continue PT/OT, IS, pulmonary hygiene, ambulation, xarelto, PPI, etc. Hopeful for d/c to home tomorrow. 02/20/18: POD#9. Bowel function is worse and stoma isn't putting much out over the last 24 hours. Pt advised to decrease PO intake if bloated or nauseated and we'll have to follow this. He also has bilateral LE edema. I have him on xarelto for DVT prophylaxis given his h/o DVT. Will give him lasix and potassium today and will check BNP and electrolytes today and tomorrow morning. Continue inpatient care until GI function returns with consistently good stoma output. Continue PPI, xarelto, IS, PT/OT, pulmonary hygiene, ambulation, etc. 02/21/18: POD#10. Bowel function isn't great. Will place PICC line and start TPN, back off on PO intake and give bowel more time to recover. Will give more lasix and potassium today to decrease edema which may be affecting bowel as well. BNP normal so I think this is a postop inflammatory response causing his 3rd space fluids. No fevers and labs all look good, no WBC, etc. Continue xarelto, avoid narcotics, continue PPI, IS, pulmonary hygiene, ambulation, etc. Will await bowel function to improve. 02/22/18: POD#11. Bowel function possibly improving? Will restart clear liquid diet today. Continue TPN, will increase rate and add lipids per dietary's recs. Lasix and potassium dose today, wt today is 89kg down from 90kg yesterday..his baseline is 82kg. Labs, vitals all look good. Creatinine stable with the diuresis. Continue xarelto, avoid narcotics, continue PPI, IS, pulmonary hygiene, ambulation, etc. 02/23/18: POD#12. Doing better. Has some bowel function but wish it was put ting out more gas. Will try regular diet today but will continue TPN/lipids until he's clearly tolerating regular diet. Will give him another round of lasix/KCl today to get more fluid off, he is still 6Kg above his baseline weight. Labs/vitals all look good. Creatinine is stable. Continue xarelto, PPI, IS, pulmonary hygiene, ambulation, etc. 02/24/18: POD#13. Continued improvement but still waiting for better bowel function as there's not much stool and almost no gas in the bag. Will continue regular diet, pt encourage to increase intake, will come down on TPN and will try prune juice and activia yogurt to see how his bowels respond to this. He still has LE edema and he's still 7kg above his baseline, even 1kg up from yesterday in spite if getting lasix although his creatinine is stable. H/H stable. WBC normal, no fevers. Will give another dose of lasix 40mg and 60mEq KCl since K is down this morning. Continue xarelto, PPI, IS, pulmonary hygiene, ambulation, etc. 02/25/18: POD#14. Pt has developed an SBO. Will place NG tube to decompress GI tract and stop diet, increase TPN to goal. Vitals and labs OK, no fevers although WBC is slightly elevated this morning, likely related to the obstruction and N/V. Will recheck tomorrow. If he fails to clinically improve over the next couple of days then will need to get an abdominal CT. Will convert blood thinner to lovenox and rest of meds to IV although will continue PO levothyroxine. Continue PPI, IS, pulmonary hygiene, ambulation, etc. 02/26/18: POD#15. Continued SBO without anything from stoma and KUB still with dilated small bowel and minimal gas in colon. Will continue bowel rest and TPN. Will get a CT abd/pelvis today. H/H is down a little but no other evidence of bleeding. Will follow this. Continue lovenox, ambulation, PPI, IS, ambulation, pulmonary hygiene, etc. 02/27/18: POD#16. Seems to be improving; had increased stool from stoma but not much gas. NG tube isn't putting out much. KUB has not yet been done. Labs not yet done either. CT yesterday looks good without fluid collection, evidence of anastomotic leak or other issues other than ileus vs SBO (no transition point seen). Continue current management of bowel rest and TPN, decompression with NG tube. If KUB reveals decreasing small bowel dilation then may remove the NG tube later today vs tomorrow. O/W CCM. 02/28/18: POD#17. Continued improvement. Stoma output is slowly increasing. KUB still with dilated small bowel but improving. Not a whole lot out of NG tube. Continue bowel rest, NG tube decompression, TPN, etc. Will remove NG tube hopefully in the next day or two if stoma output and KUB continue to improve. Continue PPI, lovenox, ambulation, IS, etc. 03/01/18: POD#18. Doing well. Small bowel maybe a little less dilated on KUB. Stoma output still marginal. NG not putting out much liquid but will keep it in to facilitate GI decompression (removal of enteric gas). Will have him chewing gum and suck on hard candy to try and facilitate bowel function through centrally mediated mechanisms. Continue TPN. Continue PPI, lovenox, ambulation, IS, etc. TSH was a little high at just over 8, will go up on levothyroxine to 137mcg. Weight down a little and creatinine down as well. Will continue diuresis with a dose of furosemide 40mg IV and 40mEq of KCl IV today and follow weight, potassium, and creatinine. Will give him some calcium today as well. 03/02/18: POD#19. Doing well. Still poor bowel function, KUB still with dilated small bowel loops. Stoma output is minimal. Will continue NG tube decompression, NPO, TPN, etc, PPI, lovenox, ambulation, IS, etc. 03/03/18: POD#20. Doing well. KUB a little better this morning. NG still with bilious output and stoma output (especially gas) is not as consistent as I would like for it to be. Continue NG tube, NPO, TPN, PPI, lovenox, ambulation, IS, etc. 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 ESR is mildly elevated, CRP is normal. Will repeat MRI of pelvis at 6 weeks after surgery. 03/04/18: POD#21. Doing well but persistent (improving?) SBO vs ileus. KUB this morning with single dilated small bowel loop, yesterday KUB was improving. Still marginal output from stoma. NG with increased but less bilious output. Will try NG tube clamp trials today and recheck KUB tomorrow morning. Continue TPN, and rest of plan as stated in yesterday's note. 03/05/18: POD#22. Doing well but still with SBO vs ileus. KUB reveals more gas in colon but still with persistently dilated loop of small bowel. Stoma pink with poor output. NG clamp trials going OK, not much out of NG tube. Will get a water-soluble SBFT today. Continue TPN, CCM. 03/06/18: POD#23. Doing well. SBFT c/w ileus and no SBO. KUB still with dilated loops of small bowel but with contrast in colon. Remove NG tube and start sips and chips but will go VERY slow with advancing diet. Continue TPN. Continue levaquin/flagyl until Saturday which will be 30 days of treatment for the sacral osteomyelitis. ESR is mildly elevated and CRP is normal. No other signs of infection currently. Will convert to PO meds, convert lovenox to xarelto. PO PPI for GI prophylaxis. 03/07/18: POD#24. Doing well. KUB still with dilated loops of small bowel but abdominal exam is benign. Continue current diet and TPN. Will await for there to be consistent (not intermittent) gas in the bag. Continue levaquin/flagyl until 03/11/18. ESR down even lower this morning and CRP is normal. Continue PPI, xarelto, etc. 03/08/18: POD#25. Continued small amount of progress. Some flatus but ileus has not completely resolved. Continue TPN as he tries to advance his oral intake. Anemia improved today. Renal function stable with mild insufficiency BUN 34 Cr 1.6. No changes in plan. 03/09/18: POD#26. Diuresed overnight which should indicate imminent resolution of his ileus. Discharge pending this. 03/10/18: POD#27. continued ileus but no other signs for concern. Continue TPN. Complete course of Levoquin and Flagyl tomorrow. 03/11/18: POD#28. Continued ileus. No nausea. Labs today without concern. Will advance to clear liquids to help continue to stimulate the bowels. 03/12/2018: POD#29. Tolerating clear liquids, will advance to full liquids. Stomal output, Once tolerating PO then DC TPN. Encouraged to ambulate QID. 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
[2018-03-12 11:14] VITALS: BP 120/70
[2018-03-12 15:02] VITALS: BP 113/73
[2018-03-12] MEDS: FAT EMULSION 20% 250 ML BAG 250 ML IVPB SCH (15:50)
[2018-03-13 04:06] VITALS: BP 124/70
[2018-03-13] MEDS: LEVOTHYROXINE SOD 0.137 MG TAB PO SCH (06:30)
[2018-03-13 06:54] VITALS: BP 105/63
[2018-03-13] MEDS: INS HUM REG* 100 U/ML(ER ONLY) 20 UNIT, MULTIVITAMINS(*) 10 ML VIAL 10 ML, TRACE METALS... IV SCH (07:32)
--- NOTE | 2018-03-13 07:38 | General Surgery Progress Note ---
Subjective Progress Notes Subjective No complaints. No pain. Not much of an appetite. No N/V, no bloating or belching. Tolerating clear liquid diet for the last 2 days. Physical Exam Vital Signs Date Time Temp Pulse Resp B/P (MAP) Pulse Ox O2 Delivery O2 Flow Rate FiO2 03/13/18 06:54 98.7 71 16 105/63 (77) 94 Room Air Intake and Output 03/13/18 07:00 Intake Total 2937 ml Output Total 75 ml Balance 2862 ml Intake Oral 810 ml IV Total 2127 ml Stool Total 75 ml # Voids 8 # Bowel Movements 1 General Appearance: Alert, Awake, No Acute Distress, Afebrile GI: Soft and Non-Tender (RLQ stoma takedown wound is healing well without erythema and decreasing drainage. 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 Doing well. H/H down as expected. Will follow and transfuse if it gets below Hb of 8. Will start ice chips, popsickles, etc today but limit volume. PPI for GI prophylaxis, lovenox for VTE prophylaxis. Ambulate and OOB to chair today. PT/OT, pulmonary hygiene, IS. Await return of bowel function. 02/13/18: POD#2. Doing well. H/H stable. Stoma a little pale, will need to keep an eye on this. Continue current limited diet. Continue ambulation, IS, pulmonary hygiene, PT/OT, lovenox, PPI. Awaiting return of bowel function. Recommended removing jaffe this morning but pt reports feeling too weak to get up and use the restroom. Will continue PT today and will recommend removing the catheter tomorrow morning.' 02/14/18: POD#3. Doing well. H/H stable. Stoma looks good. No gas or stool in bag. Will continue current very limited diet as we await return of bowel function. Continue ambulation, IS, pulmonary hygiene, PT/OT, lovenox, PPI. Will see how he does today with PT and getting out of bed. Will, in any case, remove the jaffe later today or tomorrow morning. 02/15/2018 10am, POD#4: Continues to slowly improve. Stoma viable and functioning this morning, although not large volumes. Continue limited diet today. decrease intravenous fluids slightly. As above, continue ambulation, IS, lovenox. Voiding. Creatinine stable at 1.8 02/16/2018 11:30am POD#5: Slow progress. Improved stoma function. Advance diet to more full liquids/soft. Doing well with ambulation with less pain getting up. Lab repeat in am. 02/17/18: POD#6. Doing well but awaiting return of bowel function. Tolerating clear diet. Will try full liquid diet today. Continue ambulation, IS, PT/OT, lovenox, PPI, etc. Labs look good this morning. Will stop checking them unless clinically he is looking worse. Continue IV abx, will switch to PO abx when tolerating diet and will keep him on these for at least 30 days. 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 02/18/18: POD#7. Doing well. Bowel function returning. Will advance his diet to regular today. Convert meds to PO. Continue PT, OT, IS, ambulation, pulmonary hygiene, PPI. 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 Switch abx to PO today. He is looking very good today; his main concern is going home too soon although I've reassured him that he's doing very good and almost ready to go home, possibly even tomorrow, and he'll have help including his and home health nursing and PT and I'll be seeing him in the office. Will change his stoma appliance today and he can shower as well. 02/19/18: POD#8. Doing well. Still feeling weak. He's very tentative about going home. He would like to work on strength and testing out ADLs today. Tolerating diet. Stoma seems to be functioning well. Continue PT/OT, IS, p ulmonary hygiene, ambulation, xarelto, PPI, etc. Hopeful for d/c to home tomorrow. 02/20/18: POD#9. Bowel function is worse and stoma isn't putting much out over the last 24 hours. Pt advised to decrease PO intake if bloated or nauseated and we'll have to follow this. He also has bilateral LE edema. I have him on xarelto for DVT prophylaxis given his h/o DVT. Will give him lasix and potass ium today and will check BNP and electrolytes today and tomorrow morning. Continue inpatient care until GI function returns with consistently good stoma output. Continue PPI, xarelto, IS, PT/OT, pulmonary hygiene, ambulation, etc. 02/21/18: POD#10. Bowel function isn't great. Will place PICC line and start TPN, back off on PO intake and give bowel more time to recover. Will give more lasix and potassium today to decrease edema which may be affecting bowel as well. BNP normal so I think this is a postop inflammatory response causing his 3rd space fluids. No fevers and labs all look good, no WBC, etc. Continue xarelto, avoid narcotics, continue PPI, IS, pulmonary hygiene, ambulation, etc. Will await bowel function to improve. 02/22/18: POD#11. Bowel function possibly improving? Will restart clear liquid diet today. Continue TPN, will increase rate and add lipids per dietary 's recs. Lasix and potassium dose today, wt today is 89kg down from 90kg yesterday..his baseline is 82kg. Labs, vitals all look good. Creatinine stable with the diuresis. Continue xarelto, avoid narcotics, continue PPI, IS, pulmonary hygiene, ambulation, etc. 02/23/18: POD#12. Doing better. Has some bowel function but wish it was putting out more gas. Will try regular diet today but will continue TPN/lipids until he's clearly tolerating regular diet. Will give him another round of lasi x/KCl today to get more fluid off, he is still 6Kg above his baseline weight. Labs/vitals all look good. Creatinine is stable. Continue xarelto, PPI, IS, pulmonary hygiene, ambulation, etc. 02/24/18: POD#13. Continued improvement but still waiting for better bowel function as there's not much stool and almost no gas in the bag. Will continue regular diet, pt encourage to increase intake, will come down on TPN and will try prune juice and activia yogurt to see how his bowels respond to this. He still has LE edema and he's still 7kg above his baseline, even 1kg up from yesterday in spite if getting lasix although his creatinine is stable. H/H stable. WBC normal, no fevers. Will give another dose of lasix 40mg and 60mEq KCl since K is down this morning. Continue xarelto, PPI, IS, pulmonary hygiene, ambulation, etc. 02/25/18: POD#14. Pt has developed an SBO. Will place NG tube to decompress GI tract and stop diet, increase TPN to goal. Vitals and labs OK, no fevers although WBC is slightly elevated this morning, likely related to the obstruction and N/V. Will recheck tomorrow. If he fails to clinically improve over the next couple of days then will need to get an abdominal CT. Will convert blood thinner to lovenox and rest of meds to IV although will continue PO levothyroxine. Continue PPI, IS, pulmonary hygiene, ambulation, etc. 02/26/18: POD#15. Continued SBO without anything from stoma and KUB still with dilated small bowel and minimal gas in colon. Will continue bowel rest and TPN. Will get a CT abd/pelvis today. H/H is down a little but no other evidence of bleeding. Will follow this. Continue lovenox, ambulation, PPI, IS, ambulation, pulmonary hygiene, etc. 02/27/18: POD#16. Seems to be improving; had increased stool from stoma but not much gas. NG tube isn't putting out much. KUB has not yet been done. Labs not yet done either. CT yesterday looks good without fluid collection, evidence of anastomotic leak or other issues other than ileus vs SBO (no transition point seen). Continue current management of bowel rest and TPN, decompression with NG tube. If KUB reveals decreasing small bowel dilation then may remove the NG tub e later today vs tomorrow. O/W CCM. 02/28/18: POD#17. Continued improvement. Stoma output is slowly increasing. KUB still with dilated small bowel but improving. Not a whole lot out of NG tube. Continue bowel rest, NG tube decompression, TPN, etc. Will remove NG tube hopefully in the next day or two if stoma output and KUB continue to improve. Continue PPI, lovenox, ambulation, IS, etc. 03/01/18: POD#18. Doing well. Small bowel maybe a little less dilated on KUB. Stoma output still marginal. NG not putting out much liquid but will keep it in to facilitate GI decompression (removal of enteric gas). Will have him chewing gum and suck on hard candy to try and facilitate bowel function through centrally mediated mechanisms. Continue TPN. Continue PPI, lovenox, ambulation, IS, etc. TSH was a little high at just over 8, will go up on levothyroxine to 137mcg. Weight down a little and creatinine down as well. Will continue diuresis with a dose of furosemide 40mg IV and 40mEq of KCl IV today and follow weight, potassium, and creatinine. Will give him some calcium today as well. 03/02/18: POD#19. Doing well. Still poor bowel function, KUB still with dilated small bowel loops. Stoma output is minimal. Will continue NG tube decompression, NPO, TPN, etc, PPI, lovenox, ambulation, IS, etc. 03/03/18: POD#20. Doing well. KUB a little better this morning. NG still with bilious output and stoma output (especially gas) is not as consistent as I would like for it to be. Continue NG tube, NPO, TPN, PPI, lovenox, ambulation, IS, etc. 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 ESR is mildly elevated, CRP is normal. Will repeat MRI of pelvis at 6 weeks after surgery. 03/04/18: POD#21. Doing well but persistent (improving?) SBO vs ileus. KUB this morning with single dilated small bowel loop, yesterday KUB was improving. Still marginal output from stoma. NG with increased but less bilious output. Will try NG tube clamp trials today and recheck KUB tomorrow morning. Continue TPN, and rest of plan as stated in yesterday's note. 03/05/18: POD#22. Doing well but still with SBO vs ileus. KUB reveals more gas in colon but still with persistently dilated loop of small bowel. Stoma pink with poor output. NG clamp trials going OK, not much out of NG tube. Will get a water-soluble SBFT today. Continue TPN, CCM. 03/06/18: POD#23. Doing well. SBFT c/w ileus and no SBO. KUB still with dilated loops of small bowel but with contrast in colon. Remove NG tube and st art sips and chips but will go VERY slow with advancing diet. Continue TPN. Continue levaquin/flagyl until Saturday which will be 30 days of treatment for the sacral osteomyelitis. ESR is mildly elevated and CRP is normal. No other signs of infection currently. Will convert to PO meds, convert lovenox to xarelto. PO PPI for GI prophylaxis. 03/07/18: POD#24. Doing well. KUB still with dilated loops of small bowel but abdominal exam is benign. Continue current diet and TPN. Will await for there to be consistent (not intermittent) gas in the bag. Continue levaquin/flagyl until 03/11/18. ESR down even lower this morning and CRP is normal. Continue PPI, xarelto, etc. 03/08/18: POD#25. Continued small amount of progress. Some flatus but ileus has not completely resolved. Continue TPN as he tries to advance his oral intake. Anemia improved today. Renal function stable with mild insufficiency BUN 34 Cr 1.6. No changes in plan. 03/09/18: POD#26. Diuresed overnight which should indicate imminent resolution of his ileus. Discharge pending this. 03/10/18: POD#27. continued ileus but no other signs for concern. Continue TPN. Complete course of Levoquin and Flagyl tomorrow. 03/11/18: POD#28. Continued ileus. No nausea. Labs today without concern. Will advance to clear liquids to help continue to stimulate the bowels. 03/12/2018: POD#29. Tolerating clear liquids, will advance to full liquids. Stomal output, Once tolerating PO then DC TPN. Encouraged to ambulate QID. 11/8/18: POD#30. Doing well. Tolerating clear liquid diet. Will try medical liquid/GI soft diet today. Continue TPN until tolerating regular diet. O/W continue xarelto, PPI, ambulation, etc. Will stop levaquin/flagyl as he has completed course for osteo. Will check ESR and CRP with labs in am tomorrow. 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 Time Spent: < 30 min Exam Sepsis Risk: No Definite Risk Problem Qualifiers (1) Anemia: Anemia type: unspecified type Qualified Codes: D64.9 - Anemia, unspecified JOSE PERALTA MD Mar 13, 2018 07:38
[2018-03-13] MEDS: PANTOPRAZOLE SOD 40 MG TABEC PO SCH (09:16)
[2018-03-13] MEDS: RIVAROXABAN 10 MG TAB PO SCH (09:16)
[2018-03-13] MEDS: CALCIUM CARBONATE 600 MG TAB PO SCH ×2 (09:16→17:48)
[2018-03-13 12:07] VITALS: BP 108/66
[2018-03-13] MEDS: FAT EMULSION 20% 250 ML BAG 250 ML IVPB SCH (15:23)
[2018-03-13 15:28] VITALS: BP 122/68
[2018-03-13 19:34] VITALS: BP 118/71
[2018-03-14 03:13] VITALS: BP 122/62
[2018-03-14] MEDS: LEVOTHYROXINE SOD 0.137 MG TAB PO SCH (05:38)
[2018-03-14 06:16] LABS: PLATELET COUNT, AUTOMATED 227 K/uL (150-450)
[2018-03-14] MEDS: INS HUM REG* 100 U/ML(ER ONLY) 20 UNIT, MULTIVITAMINS(*) 10 ML VIAL 10 ML, TRACE METALS... IV SCH (07:45)
[2018-03-14 08:07] VITALS: BP 108/70
[2018-03-14] MEDS: PANTOPRAZOLE SOD 40 MG TABEC PO SCH (08:15)
[2018-03-14] MEDS: RIVAROXABAN 10 MG TAB PO SCH (08:16)
[2018-03-14] MEDS: CALCIUM CARBONATE 600 MG TAB PO SCH ×2 (08:16→16:23)
--- NOTE | 2018-03-14 09:23 | General Surgery Progress Note ---
Subjective Progress Notes Subjective No complaints this morning. No pain. Tolerating soft diet. No N/V or bloating/belching. Physical Exam Vital Signs Date Time Temp Pulse Resp B/P (MAP) Pulse Ox O2 Delivery O2 Flow Rate FiO2 03/14/18 08:07 98.1 72 16 108/70 (83) 95 Room Air Intake and Output 03/14/18 06:59 Intake Total 2450 ml Output Total 100 ml Balance 2350 ml Intake Oral 220 ml IV Total 2230 ml Stool Total 100 ml # Voids 2 General Appearance: Alert, Awake, No Acute Distress, Afebrile GI: Soft and Non-Tender (Stoma is pink with stool and gas in the bag. 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 Doing well. H/H down as expected. Will follow and transfuse if it gets below Hb of 8. Will start ice chips, popsickles, etc today but limit volume. PPI for GI prophylaxis, lovenox for VTE prophylaxis. Ambulate and OOB to chair today. PT/OT, pulmonary hygiene, IS. Await return of bowel function. 02/13/18: POD#2. Doing well. H/H stable. Stoma a little pale, will need to keep an eye on this. Continue current limited diet. Continue ambulation, IS, pulmonary hygiene, PT/OT, lovenox, PPI. Awaiting return of bowel function. Recommended removing jaffe this morning but pt reports feeling too weak to get up and use the restroom. Will continue PT today and will recommend removing the catheter tomorrow morning.' 02/14/18: POD#3. Doing well. H/H stable. Stoma looks good. No gas or stool in bag. Will continue current very limited diet as we await return of bowel function. Continue ambulation, IS, pulmonary hygiene, PT/OT, lovenox, PPI. Will see how he does today with PT and getting out of bed. Will, in any case, remove the jaffe later today or tomorrow morning. 02/15/2018 10am, POD#4: Continues to slowly improve. Stoma viable and functioning this morning, although not large volumes. Continue limited diet today. decrease intravenous fluids slightly. As above, continue ambulation, IS, lovenox. Voiding. Creatinine stable at 1.8 02/16/2018 11:30am POD#5: Slow progress. Improved stoma function. Advance diet to more full liquids/soft. Doing well with ambulation with less pain getting up. Lab repeat in am. 02/17/18: POD#6. Doing well but awaiting return of bowel function. Tolerating clear diet. Will try full liquid diet today. Continue ambulation, IS, PT/OT, lovenox, PPI, etc. Labs look good this morning. Will stop checking them unless clinically he is looking worse. Continue IV abx, will switch to PO abx when tolerating diet and will keep him on these for at least 30 days. 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 02/18/18: POD#7. Doing well. Bowel function returning. Will advance his diet to regular today. Convert meds to PO. Continue PT, OT, IS, ambulation, pulmonary hygiene, PPI. 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 Switch abx to PO today. He is looking very good today; his main concern is going home too soon although I've reassured him that he's doing very good and almost ready to go home, possibly even tomorrow, and he'll have help including his and home health nursing and PT and I'll be seeing him in the office. Will change his stoma appliance today and he can shower as well. 02/19/18: POD#8. Doing well. Still feeling weak. He's very tentative about going home. He would like to work on strength and testing out ADLs today. Tolerating diet. Stoma seems to be functioning well. Continue PT/OT, IS, pulmonary hygiene, ambulation, xarelto, PPI, etc. Hopeful for d/c to home tomorrow. 02/20/18: POD#9. Bowel function is worse and stoma isn't putting much out over the last 24 hours. Pt advised to decrease PO intake if bloated or nauseated and we'll have to follow this. He also has bilateral LE edema. I have him on xarelto for DVT prophylaxis given his h/o DVT. Will give him lasix and potassium today and will check BNP and electrolytes today and tomorrow morning. Continue inpatient care until GI function returns with consistently good stoma output. Continue PPI, xarelto, IS, PT/OT, pulmonary hygiene, ambulation, etc. 02/21/18: POD#10. Bowel function isn't great. Will place PICC line and start TPN, back off on PO intake and give bowel more time to recover. Will give more lasix and potassium today to decrease edema which may be affecting bowel as well. BNP normal so I think this is a postop inflammatory response causing his 3rd space fluids. No fevers and labs all look good, no WBC, etc. Continue xarelto, avoid narcotics, continue PPI, IS, pulmonary hygiene, ambulation, etc. Will await bowel function to improve. 02/22/18: POD#11. Bowel function possibly improving? Will restart clear liquid diet today. Continue TPN, will increase rate and add lipids per dietary's recs. Lasix and potassium dose today, wt today is 89kg down from 90kg yesterday..his baseline is 82kg. Labs, vitals all look good. Creatinine stable with the diuresis. Continue xarelto, avoid narcotics, continue PPI, IS, pulmonary hygiene, ambulation, etc. 02/23/18: POD#12. Doing better. Has some bowel function but wish it was putting out more gas. Will try regular diet today but will continue TPN/lipids until he's clearly tolerating regular diet. Will give him another round of lasix/KCl today to get more fluid off, he is still 6Kg above his baseline weight. Labs/vitals all look good. Creatinine is stable. Continue xarelto, PPI, IS, pulmonary hygiene, ambulation, etc. 02/24/18: POD#13. Continued improvement but still waiting for better bowel function as there's not much stool and almost no gas in the bag. Will continue regular diet, pt encourage to increase intake, will come down on TPN and will try prune juice and activia yogurt to see how his bowels respond to this. He still has LE edema and he's still 7kg above his baseline, even 1kg up from yesterday in spite if getting lasix although his creatinine is stable. H/H stable. WBC normal, no fevers. Will give another dose of lasix 40mg and 60mEq KCl since K is down this morning. Continue xarelto, PPI, IS, pulmonary hygiene, ambulation, etc. 02/25/18: POD#14. Pt has developed an SBO. Will place NG tube to decompress GI tract and stop diet, increase TPN to goal. Vitals and labs OK, no fevers although WBC is slightly elevated this morning, likely related to the obstruction and N/V. Will recheck tomorrow. If he fails to clinically improve over the next couple of days then will need to get an abdominal CT. Will convert blood thinner to lovenox and rest of meds to IV although will continue PO levothyroxine. Continue PPI, IS, pulmonary hygiene, ambulation, etc. 02/26/18: POD#15. Continued SBO without anything from stoma and KUB still with dilated small bowel and minimal gas in colon. Will continue bowel rest and TPN. Will get a CT abd/pelvis today. H/H is down a little but no other evidence of bleeding. Will follow this. Continue lovenox, ambulation, PPI, IS, ambulation, pulmonary hygiene, etc. 02/27/18: POD#16. Seems to be improving; had increased stool from stoma but not much gas. NG tube isn't putting out much. KUB has not yet been done. Labs not yet done either. CT yesterday looks good without fluid collection, evidence of anastomotic leak or other issues other than ileus vs SBO (no transition point seen). Continue current management of bowel rest and TPN, decompression with NG tube. If KUB reveals decreasing small bowel dilation then may remove the NG tube later today vs tomorrow. O/W CCM. 02/28/18: POD#17. Continued improvement. Stoma output is slowly increasing. KUB still with dilated small bowel but improving. Not a whole lot out of NG tube. Continue bowel rest, NG tube decompression, TPN, etc. Will remove NG tube hopefully in the next day or two if stoma output and KUB continue to improve. Continue PPI, lovenox, ambulation, IS, etc. 03/01/18: POD#18. Doing well. Small bowel maybe a little less dilated on KUB. Stoma output still marginal. NG not putting out much liquid but will keep it in to facilitate GI decompression (removal of enteric gas). Will have him chewing gum and suck on hard candy to try and facilitate bowel function through centrally mediated mechanisms. Continue TPN. Continue PPI, lovenox, ambulation, IS, etc. TSH was a little high at just over 8, will go up on levothyroxine to 137mcg. Weight down a little and creatinine down as well. Will continue diuresis with a dose of furosemide 40mg IV and 40mEq of KCl IV today and follow weight, potassium, and creatinine. Will give him some calcium today as well. 03/02/18: POD#19. Doing well. Still poor bowel function, KUB still with dilated small bowel loops. Stoma output is minimal. Will continue NG tube decompression, NPO, TPN, etc, PPI, lovenox, ambulation, IS, etc. 03/03/18: POD#20. Doing well. KUB a little better this morning. NG still with bilious output and stoma output (especially gas) is not as consistent as I would like for it to be. Continue NG tube, NPO, TPN, PPI, lovenox, ambulation, IS, etc. 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 ESR is mildly elevated, CRP is normal. Will repeat MRI of pelvis at 6 weeks after surgery. 03/04/18: POD#21. Doing well but persistent (improving?) SBO vs ileus. KUB this morning with single dilated small bowel loop, yesterday KUB was improving. Still marginal output from stoma. NG with increased but less bilious output. Will try NG tube clamp trials today and recheck KUB tomorrow morning. Continue TPN, and rest of plan as stated in yesterday's note. 03/05/18: POD#22. Doing well but still with SBO vs ileus. KUB reveals more gas in colon but still with persistently dilated loop of small bowel. Stoma pi nk with poor output. NG clamp trials going OK, not much out of NG tube. Will get a water-soluble SBFT today. Continue TPN, CCM. 03/06/18: POD#23. Doing well. SBFT c/w ileus and no SBO. KUB still with dilated loops of small bowel but with contrast in colon. Remove NG tube and start sips and chips but will go VERY slow with advancing diet. Continue TPN. Continue levaquin/flagyl until Saturday which will be 30 days of treatment for the sacral osteomyelitis. ESR is mildly elevated and CRP is normal. No other signs of infection currently. Will convert to PO meds, convert lovenox to xare lto. PO PPI for GI prophylaxis. 03/07/18: POD#24. Doing well. KUB still with dilated loops of small bowel but abdominal exam is benign. Continue current diet and TPN. Will await for there to be consistent (not intermittent) gas in the bag. Continue levaquin/flagyl until 03/11/18. ESR down even lower this morning and CRP is normal. Continue PPI, xarelto, etc. 03/08/18: POD#25. Continued small amount of progress. Some flatus but ileus has not completely resolved. Continue TPN as he tries to advance his oral intake. Anemia improved today. Renal function stable with mild insufficiency BUN 34 Cr 1.6. No changes in plan. 03/09/18: POD#26. Diuresed overnight which should indicate imminent resolution of his ileus. Discharge pending this. 03/10/18: POD#27. continued ileus but no other signs for concern. Continue TPN. Complete course of Levoquin and Flagyl tomorrow. 03/11/18: POD#28. Continued ileus. No nausea. Labs today without concern. Will advance to clear liquids to help continue to stimulate the bowels. 03/12/2018: POD#29. Tolerating clear liquids, will advance to full liquids. Stomal output, Once tolerating PO then DC TPN. Encouraged to ambulate QID. 03/13/18: POD#30. Doing well. Tolerating clear liquid diet. Will try medical liquid/GI soft diet today. Continue TPN until tolerating regular diet. O/W continue xarelto, PPI, ambulation, etc. Will stop levaquin/flagyl as he has completed course for osteo. Will check ESR and CRP with labs in am tomorrow. 03/14/18: POD#31. Doing well. Tolerating soft diet. Will continue current diet today and if he does well then will try regular diet tomorrow. Will come down on TPN when tolerating regular diet. Continue xarelto, PPI, ambulation, etc. ESR and CRP are normal and pt without fevers and with normal WBC. Abx stopped yesterday. Continue to follow for signs of infection. 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 Time Spent: < 30 min Exam Sepsis Risk: No Definite Risk Problem Qualifiers (1) Anemia: Anemia type: unspecified type Qualified Codes: D64.9 - Anemia, unspecified JOSE PERALTA MD Mar 14, 2018 09:23
[2018-03-14] MEDS ORDERED: FUROSEMIDE 40 MG/4 ML VIAL IVP ONE (09:30)
--- NOTE | 2018-03-14 10:03 | Medical Nutrition Therapy ---
Nutrition Anthropometrics Height (Inches): 70.00 Height (Calculated Centimeters: 177.325504 Weight (Pounds): 198 Weight (Calculated Kilograms): 89.811 Eric Nutrition Score: Adequate Eric Nutrition Risk Score: 21 Dietary Referral Nutrition Risk Factors: Nutrition Risk Comment: Physical Findings Physical Appearance: Overweight BMI 25-29 Skin Appearance Skin Appearance: Edema Edema Location Modifier: Right Edema Location: Upper Extremity Type of Edema: Degree of Edema: 3+ Gastrointestinal Symptoms GI Symtoms: Diarrhea Tube Present: NG Bowel Sounds: Recent Bowel Pattern: Stool Characteristics: Nutritional Diagnosis Nutritional Risk Acuity 1: TPN/PPN Nutritional Risk Acuity 2: Head/Neck/GI Cancer (rectal Ca), New Colostomy Nutritional Acuity: 1-High Nutrition Diagnosis: Altered GI Function Nutrition Etiology: Physiological Causes Nutrition Problem/Etiology/Sym: Altered GI function r/t physiologival causes AEB dx SBO on TPN Energy Requirement: 2430 (M- StJ X 1.2 SF) Protein Requirement: 85 (1.1gm/kg) Fluid Requirement: 2580 (30ml/kg) Diet Type: Medical Liquid/GI soft, TPN/PPN Nutrition Intervention: Encourage intake, Nutrition support, Incr diet as tolerated Additional Diet Restrictions: OFFER NUTRITION SUPPLEMENT Nutritional Support Current Enteral / Parental: TPN Current Tube Feeding Formula C: 83ml/hr + LIPIDS Current Duration: 24 Current Calories: 1760 Current Protein: 100 Current Lipids Calories: 500 Total Current Calories: 2260 Nutrition Monitoring & Eval RD Patient Assessment Time: [address] Assessment Type: RD Re-Assessment Patient Nutrition Acuity: 1-High Follow Up Date: Mar 14, 2018 Nutritional Comment: 02/12 Pt with dx rectal Ca and new colostomy. Currently NPO with hypoactive bowel sounds. BUN and creatinine elevated at 32 and 1.8. Will cont to monitor. 02/15 Pt cont 4th day NPO. Recommend nutr support unless diet advanced. TPN at 2L/24 hrs + lipids would provide 2260 kcal and 100gm protein which would meet 93% est kcal and 117% est protein needs. Will cont to monitor. BK 02/17 Diet advanced to med liquids/GI soft. Significant labs; Hgb 10.1, Hct 30.5, BUN 23, creatinine 1.7. Will offer nutr supplment to increase kcal and protein intake. BK 02/21 Bowel function poor per surgeon. Pt started on TPN and changed to NPO. Pt recieving TPN at 75ml/hr which is meeting 65% est kcal and 88% est protien needs Recommend increase to 83ml/hr and add lipids to provide additional 500 kcal and ezsvhog32% est kcal and 117% est protein needs. Will cont to monitor. 02/24 Diet advanced to regular. Pt eating 75-100% of small portions. TPN tapered down to 50ml/hr plus lipid which meet 64% est kcal and 70% est protein needs. Pt cont hypoactive bowel with little output. Provideing prune ashley bid and yogurt 1X/ day. Pt agreed to try this. alb 2.3. Wt up 18#. Will cont to monitor and encourage intake. BK 02/25 Pt has SBO. TPN resumed to 83ml/hr plus lipids which is meeting 93% est kcal and 117% est protein needs. Will cont to monitor. BK 02/27 Pt cont TPN which is meeting 93% est kcal, 117% est protein needs. Alb stable at 2.3. Wt is up 21# probably r/t fluids. Will cont to monitor. BK 03/02 Pt cont TPN which is meeting 93% est kcal, 117% est protein needs. Alb stable at 2.3. Wt is stable at 200#, up from admitssion wt probably r/t fluids. Will cont to monitor. BK 03/05 Pt cont on TPN at 83ml/hr plus lipids. Wt cont above admitting wt but is down to 192#. Hgb 8.3, Hct 24.9, Na 135, BUN 32, creatinine 1.6, Alb 2.4. Cont to monitor. BK 03/08 Pt continues with dilated loops of small bowel. To continue with NPO/ice chips and TPN @ 83mL/hr with Intralipid. Low H/H, Glu 125, Alb 2.2. Follow for diet changes, labs, etc. -DRT 03/11 Pt cont on TPN @ 83ml/hr plus lipids. BG ranging 92- 130. Pt has active bowel sounds and flatus but cont ileus. Will cont to monitor. BK 03/14 Pt moved to GI soft/liquid diet. Pt ate 100% of dinner on 03/13. No complaints of n/v/d, abd pain or bloating. Alb is low at 2.4. Pt cont on TPN+lipids. Will encourage intake, offer nutrition supplement and cont to monitor. TB CAT PATINO Mar 14, 2018 09:48
[2018-03-14] MEDS: KCL (*) 20 MEQ/100 ML PREMIX 100 ML IV SCH ×2 (11:11→13:58)
[2018-03-14] MEDS ORDERED: NS(*) 0.9% 250 ML BAG 250 ML ONE (11:21)
[2018-03-14 14:01] VITALS: BP 125/70
[2018-03-14] MEDS: FAT EMULSION 20% 250 ML BAG 250 ML IVPB SCH (16:10)
[2018-03-14] MEDS: ACETAMINOPHEN 325 MG TAB PO PRN (16:11)
[2018-03-14 18:24] VITALS: BP 103/65
[2018-03-14 23:28] VITALS: BP 126/73
[2018-03-15] MEDS: LEVOTHYROXINE SOD 0.137 MG TAB PO SCH (06:34)
[2018-03-15] MEDS: INS HUM REG* 100 U/ML(ER ONLY) 20 UNIT, MULTIVITAMINS(*) 10 ML VIAL 10 ML, TRACE METALS... IV SCH (07:59)
[2018-03-15] MEDS: CALCIUM CARBONATE 600 MG TAB PO SCH ×2 (07:59→18:26)
[2018-03-15 08:06] VITALS: BP 107/68
--- NOTE | 2018-03-15 08:35 | General Surgery Progress Note ---
Subjective Progress Notes Subjective no complaints, up in chair Physical Exam Vital Signs Date Time Temp Pulse Resp B/P (MAP) Pulse Ox O2 Delivery O2 Flow Rate FiO2 03/15/18 08:06 98.0 80 18 107/68 (81) 95 Room Air Intake and Output 03/15/18 07:00 Intake Total 3371 ml Output Total 107 ml Balance 3264 ml Intake Oral 930 ml IV Total 2441 ml Stool Total 100 ml Drainage Total 7 ml # Voids 16 General Appearance: Alert, Awake, No Acute Distress, Afebrile Neuro: No Gross deficits Cardiovascular: Normal Rhythm & Peripheral Pulses Respiratory: No Respiratory Distress, Clear to Auscultation GI: Soft and Non-Tender, Other (colostomy patent LLQ, prior ileostomy site clean RLQ) Musculoskeletal: No Weakness/Pain Integumentary: Skin Intact without Lesion / Mass Psych: Alert & Oriented X3, Appropriate Mood & Affect Result Diagram: 03/14/18 0536 03/14/18 0536 Assessment and Plan Problems: (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 Doing well. H/H down as expected. Will follow and transfuse if it gets below Hb of 8. Will start ice chips, popsickles, etc today but limit volume. PPI for GI prophylaxis, lovenox for VTE prophylaxis. Ambulate and OOB to chair today. PT/OT, pulmonary hygiene, IS. Await return of bowel function. 02/13/18: POD#2. Doing well. H/H stable. Stoma a little pale, will need to keep an eye on this. Continue current limited diet. Continue ambulation, IS, pulmonary hygiene, PT/OT, lovenox, PPI. Awaiting return of bowel function. Recommended removing jaffe this morning but pt reports feeling too weak to get up and use the restroom. Will continue PT today and will recommend removing the catheter tomorrow morning.' 02/14/18: POD#3. Doing well. H/H stable. Stoma looks good. No gas or stool in bag. Will continue current very limited diet as we await return of bowel function. Continue ambulation, IS, pulmonary hygiene, PT/OT, lovenox, PPI. Will see how he does today with PT and getting out of bed. Will, in any case, remove the jaffe later today or tomorrow morning. 02/15/2018 10am, POD#4: Continues to slowly improve. Stoma viable and functioning this morning, although not large volumes. Continue limited diet today. decrease intravenous fluids slightly. As above, continue ambulation, IS, lovenox. Voiding. Creatinine stable at 1.8 02/16/2018 11:30am POD#5: Slow progress. Improved stoma function. Advance diet to more full liquids/soft. Doing well with ambulation with less pain gett ing up. Lab repeat in am. 02/17/18: POD#6. Doing well but awaiting return of bowel function. Tolerating clear diet. Will try full liquid diet today. Continue ambulation, IS, PT/OT, lovenox, PPI, etc. Labs look good this morning. Will stop checking them unless clinically he is looking worse. Continue IV abx, will switch to PO abx when tolerating diet and will keep him on these for at least 30 days. 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 02/18/18: POD#7. Doing well. Bowel function returning. Will advance his diet to regular today. Convert meds to PO. Continue PT, OT, IS, ambulation, pulmonary hygiene, PPI. 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 Switch abx to PO today. He is looking very go od today; his main concern is going home too soon although I've reassured him that he's doing very good and almost ready to go home, possibly even tomorrow, and he'll have help including his and home health nursing and PT and I'll be seeing him in the office. Will change his stoma appliance today and he can shower as well. 02/19/18: POD#8. Doing well. Still feeling weak. He's very tentative about going home. He would like to work on strength and testing out ADLs today. Tolerating diet. Stoma seems to be functioning well. Continue PT/OT, IS, pulmonary hygiene, ambulation, xarelto, PPI, etc. Hopeful for d/c to home tomorrow. 02/20/18: POD#9. Bowel function is worse and stoma isn't putting much out over the last 24 hours. Pt advised to decrease PO intake if bloated or nauseated and we'll have to follow this. He also has bilateral LE edema. I have him on xarelto for DVT prophylaxis given his h/o DVT. Will give him lasix and potassium today and will check BNP and electrolytes today and tomorrow morning. Continue inpatient care until GI function returns with consistently good stoma output. Continue PPI, xarelto, IS, PT/OT, pulmonary hygiene, ambulation, etc. 02/21/18: POD#10. Bowel function isn't great. Will place PICC line and start TPN, back off on PO intake and give bowel more time to recover. Will give more lasix and potassium today to decrease edema which may be affecting bowel as well. BNP normal so I think this is a postop inflammatory response causing his 3rd space fluids. No fevers and labs all look good, no WBC, etc. Continue xarelto, avoid narcotics, continue PPI, IS, pulmonary hygiene, ambulation, etc. Will await bowel function to improve. 02/22/18: POD#11. Bowel function possibly improving? Will restart clear liquid diet today. Continue TPN, will increase rate and add lipids per dietary's recs. Lasix and potassium dose today, wt today is 89kg down from 90kg yesterday..his baseline is 82kg. Labs, vitals all look good. Creatinine stable with the diuresis. Continue xarelto, avoid narcotics, continue PPI, IS, pulmonary hygiene, ambulation, etc. 02/23/18: POD#12. Doing better. Has some bowel function but wish it was putting out more gas. Will try regular diet today but will continue TPN/lipids until he's clearly tolerating regular diet. Will give him another round of lasix/KCl today to get more fluid off, he is still 6Kg above his baseline weight. Labs/vitals all look good. Creatinine is stable. Continue xarelto, PPI, IS, pulmonary hygiene, ambulation, etc. 02/24/18: POD#13. Continued improvement but still waiting for better bowel function as there's not much stool and almost no gas in the bag. Will continue regular diet, pt encourage to increase intake, will come down on TPN and will try prune juice and activia yogurt to see how his bowels respond to this. He still has LE edema and he's still 7kg above his baseline, even 1kg up from yesterday in spite if getting lasix although his creatinine is stable. H/H stable. WBC normal, no fevers. Will give another dose of lasix 40mg and 60mEq KCl since K is down this morning. Continue xarelto, PPI, IS, pulmonary hygiene, ambulation, etc. 02/25/18: POD#14. Pt has developed an SBO. Will place NG tube to decompress GI tract and stop diet, increase TPN to goal. Vitals and labs OK, no fevers although WBC is slightly elevated this morning, likely related to the obstruction and N/V. Will recheck tomorrow. If he fails to clinically improve over the next couple of days then will need to get an abdominal CT. Will convert blood thinner to lovenox and rest of meds to IV although will continue PO levothyroxine. Continue PPI, IS, pulmonary hygiene, ambulation, etc. 02/26/18: POD#15. Continued SBO without anything from stoma and KUB still with dilated small bowel and minimal gas in colon. Will continue bowel rest and TPN. Will get a CT abd/pelvis today. H/H is down a little but no other evidence of bleeding. Will follow this. Continue lovenox, ambulation, PPI, IS, ambulation, pulmonary hygiene, etc. 02/27/18: POD#16. Seems to be improving; had increased stool from stoma but not much gas. NG tube isn't putting out much. KUB has not yet been done. Labs not yet done either. CT yesterday looks good without fluid collection, evidence of anastomotic leak or other issues other than ileus vs SBO (no transition point seen). Continue current management of bowel rest and TPN, decompression with NG tube. If KUB reveals decreasing small bowel dilation then may remove the NG tube later today vs tomorrow. O/[facility]. 02/28/18: POD#17. Continued improvement. Stoma output is slowly increasing. KUB still with dilated small bowel but improving. Not a whole lot out of NG tube. Continue bowel rest, NG tube decompression, TPN, etc. Will remove NG tube hopefully in the next day or two if stoma output and KUB continue to improve. Continue PPI, lovenox, ambulation, IS, etc. 03/01/18: POD#18. Doing well. Small bowel maybe a little less dilated on KUB. Stoma output still marginal. NG not putting out much liquid but will keep it in to facilitate GI decompression (removal of enteric gas). Will have him chewing gum and suck on hard candy to try and facilitate bowel function through centrally mediated mechanisms. Continue TPN. Continue PPI, lovenox, ambulation, IS, etc. TSH was a little high at just over 8, will go up on levothyroxine to 137mcg. Weight down a little and creatinine down as well. Will continue diuresis with a dose of furosemide 40mg IV and 40mEq of KCl IV today and follow weight, potassium, and creatinine. Will give him some calcium today as well. 03/02/18: POD#19. Doing well. Still poor bowel function, KUB still with dilated small bowel loops. Stoma output is minimal. Will continue NG tube decompression, NPO, TPN, etc, PPI, lovenox, ambulation, IS, etc. 03/03/18: POD#20. Doing well. KUB a little better this morning. NG still with bilious output and stoma output (especially gas) is not as consistent as I would like for it to be. Continue NG tube, NPO, TPN, PPI, lovenox, ambulation, IS, etc. 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 ESR is mildly elevated, CRP is normal. Will repeat MRI of pelvis at 6 weeks after surgery. 03/04/18: POD#21. Doing well but persistent (improving?) SBO vs ileus. KUB this morning with single dilated small bowel loop, yesterday KUB was improving. Still marginal output from stoma. NG with increased but less bilious output. Will try NG tube clamp trials today and recheck KUB tomorrow morning. Continue TPN, and rest of plan as stated in yesterday's note. 03/05/18: POD#22. Doing well but still with SBO vs ileus. KUB reveals more ga s in colon but still with persistently dilated loop of small bowel. Stoma pink with poor output. NG clamp trials going OK, not much out of NG tube. Will get a water-soluble SBFT today. Continue TPN, CCM. 03/06/18: POD#23. Doing well. SBFT c/w ileus and no SBO. KUB still with dilated loops of small bowel but with contrast in colon. Remove NG tube and start sips and chips but will go VERY slow with advancing diet. Continue TPN. Continue levaquin/flagyl until Saturday which will be 30 days of treatment for the sacral osteomyelitis. ESR is mildly elevated and CRP is normal. No other signs of infection currently. Will convert to PO meds, convert lovenox to xarelto. PO PPI for GI prophylaxis. 03/07/18: POD#24. Doing well. KUB still with dilated loops of small bowel but abdominal exam is benign. Continue current diet and TPN. Will await for there to be consistent (not intermittent) gas in the bag. Continue levaquin/flagyl until 03/11/18. ESR down even lower this morning and CRP is normal. Continue PPI, xarelto, etc. 03/08/18: POD#25. Continued small amount of progress. Some flatus but ileus has not completely resolved. Continue TPN as he tries to advance his oral intake. Anemia improved today. Renal function stable with mild insufficiency BUN 34 Cr 1.6. No changes in plan. 03/09/18: POD#26. Diuresed overnight which should indicate imminent resolution of his ileus. Discharge pending this. 03/10/18: POD#27. continued ileus but no other signs for concern. Continue TPN. Complete course of Levoquin and Flagyl tomorrow. 03/11/18: POD#28. Continued ileus. No nausea. Labs today without concern. Will advance to clear liquids to help continue to stimulate the bowels. 03/12/2018: POD#29. Tolerating clear liquids, will advance to full liquids. St omal output, Once tolerating PO then DC TPN. Encouraged to ambulate QID. 03/13/18: POD#30. Doing well. Tolerating clear liquid diet. Will try medical liquid/GI soft diet today. Continue TPN until tolerating regular diet. O/W continue xarelto, PPI, ambulation, etc. Will stop levaquin/flagyl as he has completed course for osteo. Will check ESR and CRP with labs in am tomorrow. 03/14/18: POD#31. Doing well. Tolerating soft diet. Will continue current diet today and if he does well then will try regular diet tomorrow. Will come down on TPN when tolerating regular diet. Continue xarelto, PPI, ambulation, etc. ESR and CRP are normal and pt without fevers and with normal WBC. Abx s topped yesterday. Continue to follow for signs of infection. 03/15/2018: POD#32. Stable overnight, will advance diet. Wean TPN if dimple PO. Check labs in the am. 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
[2018-03-15] MEDS: PANTOPRAZOLE SOD 40 MG TABEC PO SCH (09:32)
[2018-03-15] MEDS: RIVAROXABAN 10 MG TAB PO SCH (09:33)
[2018-03-15] MEDS: ACETAMINOPHEN 325 MG TAB PO PRN (11:33)
[2018-03-15] MEDS: FAT EMULSION 20% 250 ML BAG 250 ML IVPB SCH (16:00)
[2018-03-15 18:43] VITALS: BP 121/66
[2018-03-16 06:08] LABS: PLATELET COUNT, AUTOMATED 240 K/uL (150-450)
[2018-03-16] MEDS: LEVOTHYROXINE SOD 0.137 MG TAB PO SCH (06:09)
[2018-03-16] MEDS ORDERED: INS HUM REG* 100 U/ML(ER ONLY) 20 UNIT, MULTIVITAMINS(*) 10 ML VIAL 10 ML, TRACE METALS... IV SCH (07:30)
[2018-03-16 08:23] VITALS: BP 102/71
[2018-03-16] MEDS: PANTOPRAZOLE SOD 40 MG TABEC PO SCH (08:47)
[2018-03-16] MEDS: RIVAROXABAN 10 MG TAB PO SCH (08:47)
[2018-03-16] MEDS: CALCIUM CARBONATE 600 MG TAB PO SCH ×2 (08:47→17:26)
--- NOTE | 2018-03-16 09:04 | General Surgery Progress Note ---
Subjective Progress Notes Subjective no complaints Physical Exam Vital Signs Date Time Temp Pulse Resp B/P (MAP) Pulse Ox O2 Delivery O2 Flow Rate FiO2 03/16/18 08:23 98.2 84 16 102/71 (81) 96 Room Air Intake and Output 03/16/18 07:00 Intake Total 1386.5 ml Output Total 307 ml Balance 1079.5 ml Intake Oral 540 ml IV Total 846.5 ml Stool Total 125 ml Emesis 175 ml Drainage Total 7 ml # Voids 10 # Bowel Movements 2 General Appearance: Alert, Awake, No Acute Distress, Afebrile Neuro: No Gross deficits Cardiovascular: Normal Rhythm & Peripheral Pulses, Regular Rate and Rhythm Respiratory: No Respiratory Distress, Clear to Auscultation GI: Soft and Non-Tender, Other (stoma patent, RLQ incision clean and nearly healed) Extremities: Other (LUE PICC site erythematous and swollen) Integumentary: Skin Intact without Lesion / Mass Psych: Alert & Oriented X3, Appropriate Mood & Affect Result Diagram: 03/16/18 0555 03/16/18 0555 Monitor Interpretation: Normal Sinus Rhythm Assessment and Plan Problems: (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 Doing well. H/H down as expected. Will follow and transfuse if it gets below Hb of 8. Will start ice chips, popsickles, etc today but limit volume. PPI for GI prophylaxis, lovenox for VTE prophylaxis. Ambulate and OOB to chair today. PT/OT, pulmonary hygiene, IS. Await return of bowel function. 02/13/18: POD#2. Doing well. H/H stable. Stoma a little pale, will need to keep an eye on this. Continue current limited diet. Continue ambulation, IS, pulmonary hygiene, PT/OT, lovenox, PPI. Awaiting return of bowel function. Recommended removing jaffe this morning but pt reports feeling too weak to get up and use the restroom. Will continue PT today and will recommend removing the catheter tomorrow morning.' 02/14/18: POD#3. Doing well. H/H stable. Stoma looks good. No gas or stool in bag. Will continue current very limited diet as we await return of bowel function. Continue ambulation, IS, pulmonary hygiene, PT/OT, lovenox, PPI. Will see how he does today with PT and getting out of bed. Will, in any case, remove the jaffe later today or tomorrow morning. 02/15/2018 10am, POD#4: Continues to slowly improve. Stoma viable and functioning this morning, although not large volumes. Continue limited diet today. decrease intravenous fluids slightly. As above, continue ambulation, IS, lovenox. Voiding. Creatinine stable at 1.8 02/16/2018 11:30am POD#5: Slow progress. Improved stoma function. Advance diet to more full liquids/soft. Doing well with ambulation with less pain getting up. Lab repeat in am. 02/17/18: POD#6. Doing well but awaiting return of bowel function. Tolerating clear diet. Will try full liquid diet today. Continue ambulation, IS, PT/OT, lovenox, PPI, etc. Labs look good this morning. Will stop checking them unless clinically he is looking worse. Continue IV abx, will switch to PO abx when tolerating diet and will keep him on these for at least 30 days. 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 02/18/18: POD#7. Doing well. Bowel function returning. Will advance his diet to regular today. Convert meds to PO. Continue PT, OT, IS, ambulation, pulmonary hygiene, PPI. 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 Switch abx to PO today. He is looking very good today; his main concern is going home too soon although I've reassured him that he's doing very good and almost ready to go home, possibly even tomorrow, and he'll have help including his and home health nursing and PT and I'll be seeing him in the office. Will change his stoma appliance today and he can shower as well. 02/19/18: POD#8. Doing well. Still feeling weak. He's very tentative about going home. He would like to work on strength and testing out ADLs today. Tolerating diet. Stoma seems to be functioning well. Continue PT/OT, IS, pulmonary hygiene, ambulation, xarelto, PPI, etc. Hopeful for d/c to home tomorrow. 02/20/18: POD#9. Bowel function is worse and stoma isn't putting much out over the last 24 hours. Pt advised to decrease PO intake if bloated or nauseated and we'll have to follow this. He also has bilateral LE edema. I have him on xarelto for DVT prophylaxis given his h/o DVT. Will give him lasix and potassium today and will check BNP and electrolytes today and tomorrow morning. Continue inpatient care until GI function returns with consistently good stoma output. Continue PPI, xarelto, IS, PT/OT, pulmonary hygiene, ambulation, etc. 02/21/18: POD#10. Bowel function isn't great. Will place PICC line and start TPN, back off on PO intake and give bowel more time to recover. Will give more lasix and potassium today to decrease edema which may be affecting bowel as well. BNP normal so I think this is a postop inflammatory response causing his 3rd space fluids. No fevers and labs all look good, no WBC, etc. Continue xarelto, avoid narcotics, continue PPI, IS, pulmonary hygiene, ambulation, etc. Will await bowel function to improve. 02/22/18: POD#11. Bowel function possibly improving? Will restart clear liquid diet today. Continue TPN, will increase rate and add lipids per dietary's recs. Lasix and potassium dose today, wt today is 89kg down from 90kg yesterday..his baseline is 82kg. Labs, vitals all look good. Creatinine stable with the diuresis. Continue xarelto, avoid narcotics, continue PPI, IS, pulmonary hygiene, ambulation, etc. 02/23/18: POD#12. Doing better. Has some bowel function but wish it was putting out more gas. Will try regular diet today but will continue TPN/lipids until he's clearly tolerating regular diet. Will give him another round of lasix/KCl today to get more fluid off, he is still 6Kg above his baseline weight. Labs/vitals all look good. Creatinine is stable. Continue xarelto, PPI, IS, pulmonary hygiene, ambulation, etc. 02/24/18: POD#13. Continued improvement but still waiting for better bowel function as there's not much stool and almost no gas in the bag. Will continue regular diet, pt encourage to increase intake, will come down on TPN and will try prune juice and activia yogurt to see how his bowels respond to this. He still has LE edema and he's still 7kg above his baseline, even 1kg up from yesterday in spite if getting lasix although his creatinine is stable. H/H stable. WBC normal, no fevers. Will give another dose of lasix 40mg and 60mEq KCl since K is down this morning. Continue xarelto, PPI, IS, pulmonary hygiene, ambulation, etc. 02/25/18: POD#14. Pt has developed an SBO. Will place NG tube to decompress GI tract and stop diet, increase TPN to goal. Vitals and labs OK, no fevers although WBC is slightly elevated this morning, likely related to the obstruction and N/V. Will recheck tomorrow. If he fails to clinically improve over the next couple of days then will need to get an abdominal CT. Will convert blood thinner to lovenox and rest of meds to IV although will continue PO levothyroxine. Continue PPI, IS, pulmonary hygiene, ambulation, etc. 02/26/18: POD#15. Continued SBO without anything from stoma and KUB still with dilated small bowel and minimal gas in colon. Will continue bowel rest and TPN. Will get a CT abd/pelvis today. H/H is down a little but no other evidence of bleeding. Will follow this. Continue lovenox, ambulation, PPI, IS, ambulation, pulmonary hygiene, etc. 02/27/18: POD#16. Seems to be improving; had increased stool from stoma but not much gas. NG tube isn't putting out much. KUB has not yet been done. Labs not yet done either. CT yesterday looks good without fluid collection, evidence of anastomotic leak or other issues other than ileus vs SBO (no transition point seen). Continue current management of bowel rest and TPN, decompression with NG tube. If KUB reveals decreasing small bowel dilation then may remove the NG tube later today vs tomorrow. O/W CCM. 02/28/18: POD#17. Continued improvement. Stoma output is slowly increasing. KUB still with dilated small bowel but improving. Not a whole lot out of NG tube. Continue bowel rest, NG tube decompression, TPN, etc. Will remove NG tube hopefully in the next day or two if stoma output and KUB continue to improve. Continue PPI, lovenox, ambulation, IS, etc. 03/01/18: POD#18. Doing well. Small bowel maybe a little less dilated on KUB. Stoma output still marginal. NG not putting out much liquid but will keep it in to facilitate GI decompression (removal of enteric gas). Will have him chewing gum and suck on hard candy to try and facilitate bowel function through centrally mediated mechanisms. Continue TPN. Continue PPI, lovenox, amb ulation, IS, etc. TSH was a little high at just over 8, will go up on levothyroxine to 137mcg. Weight down a little and creatinine down as well. Will continue diuresis with a dose of furosemide 40mg IV and 40mEq of KCl IV today and follow weight, potassium, and creatinine. Will give him some calcium today as well. 03/02/18: POD#19. Doing well. Still poor bowel function, KUB still with dila xin small bowel loops. Stoma output is minimal. Will continue NG tube decompression, NPO, TPN, etc, PPI, lovenox, ambulation, IS, etc. 03/03/18: POD#20. Doing well. KUB a little better this morning. NG still with bilious output and stoma output (especially gas) is not as consistent as I would like for it to be. Continue NG tube, NPO, TPN, PPI, lovenox, ambulation, IS, etc. 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 ESR is mildly elevated, CRP is normal. Will repeat MRI of pelvis at 6 weeks after surgery. 03/04/18: POD#21. Doing well but persistent (improving?) SBO vs ileus. KUB this morning with single dilated small bowel loop, yesterday KUB was improving. Still marginal output from stoma. NG with increased but less bilious output. Will try NG tube clamp trials today and recheck KUB tomorrow morning. Continue TPN, and rest of plan as stated in yesterday's note. 03/05/18: POD#22. Doing well but still with SBO vs ileus. KUB reveals more gas in colon but still with persistently dilated loop of small bowel. Stoma pink with poor output. NG clamp trials going OK, not much out of NG tube. Will get a water-soluble SBFT today. Continue TPN, CCM. 03/06/18: POD#23. Doing well. SBFT c/w ileus and no SBO. KUB still with dilated loops of small bowel but with contrast in colon. Remove NG tube and start sips and chips but will go VERY slow with advancing diet. Continue TPN. Continue levaquin/flagyl until Saturday which will be 30 days of treatment for the sacral osteomyelitis. ESR is mildly elevated and CRP is normal. No other signs of infection currently. Will convert to PO meds, convert lovenox to xarelto. PO PPI for GI prophylaxis. 03/07/18: POD#24. Doing well. KUB still with dilated loops of small bowel but abdominal exam is benign. Continue current diet and TPN. Will await for there to be consistent (not intermittent) gas in the bag. Continue levaquin/flagyl until 03/11/18. ESR down even lower this morning and CRP is normal. Continue PPI, xarelto, etc. 03/08/18: POD#25. Continued small amount of progress. Some flatus but ileus has not completely resolved. Continue TPN as he tries to advance his oral intake. Anemia improved today. Renal function stable with mild insufficiency BUN 34 Cr 1.6. No changes in plan. 03/09/18: POD#26. Diuresed overnight which should indicate imminent resolution of his ileus. Discharge pending this. 03/10/18: POD#27. continued ileus but no other signs for concern. Continue TPN. Complete course of Levoquin and Flagyl tomorrow. 03/11/18: POD#28. Continued ileus. No nausea. Labs today without concern. Will advance to clear liquids to help continue to stimulate the bowels. 03/12/2018: POD#29. Tolerating clear liquids, will advance to full liquids. Stomal output, Once tolerating PO then DC TPN. Encouraged to ambulate QID. 03/13/18: POD#30. Doing well. Tolerating clear liquid diet. Will try medical liquid/GI soft diet today. Continue TPN until tolerating regular diet. O/W continue xarelto, PPI, ambulation, etc. Will stop levaquin/flagyl as he has completed course for osteo. Will check ESR and CRP with labs in am tomorrow. 03/14/18: POD#31. Doing well. Tolerating soft diet. Will continue current diet today and if he does well then will try regular diet tomorrow. Will come down on TPN when tolerating regular diet. Continue xarelto, PPI, ambulation, etc. ESR and CRP are normal and pt without fevers and with normal WBC. Abx stopped yesterday. Continue to follow for signs of infection. 03/15/2018: POD#32. Stable overnight, will advance diet. Wean TPN if dimple PO. Check labs in the am. 03/16/2018: POD#33. continues to improved, dimple reg diet, will add Boost. DC TPN and DC PICC. Prealbumin pending. Anemia is stable and asymptomatic. 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
--- NOTE | 2018-03-16 11:45 | Medical Nutrition Therapy ---
Nutrition Anthropometrics Height (Inches): 70.00 Height (Calculated Centimeters: 177.038105 Weight (Pounds): 200 Weight (Calculated Kilograms): 90.718 BMI: 28.7 Eric Nutrition Score: Adequate Eric Nutrition Risk Score: 20 Dietary Referral Nutrition Risk Factors: Nutrition Risk Comment: Physical Findings Physical Appearance: Overweight BMI 25-29 Skin Appearance Skin Appearance: Edema Edema Location Modifier: Right Edema Location: Upper Extremity Type of Edema: Degree of Edema: 1+ Gastrointestinal Symptoms GI Symtoms: Change in Bowel Pattern Tube Present: NG Bowel Sounds: Recent Bowel Pattern: Stool Characteristics: Nutritional Diagnosis Nutritional Risk Acuity 2: Head/Neck/GI Cancer (rectal Ca), New Colostomy Nutritional Acuity: 1-High Nutrition Diagnosis: Altered GI Function Nutrition Etiology: Physiological Causes Nutrition Problem/Etiology/Sym: Altered GI function r/t physiologival causes AEB dx SBO on TPN Energy Requirement: 2430 (M- StJ X 1.2 SF) Protein Requirement: 85 (1.1gm/kg) Fluid Requirement: 2580 (30ml/kg) Diet Type: Diet as Tolerated YUDITH/REG Nutrition Intervention: Encourage intake, Incr diet as tolerated Additional Diet Restrictions: OFFER NUTRITION SUPPLEMENT Nutrition Monitoring & Eval Nutrition Goals: Eat 75-100% Meal RD Patient Assessment Time: [address] Assessment Type: RD Re-Assessment Patient Nutrition Acuity: 2-Moderate Follow Up Date: Mar 19, 2018 Nutritional Comment: 02/12 Pt with dx rectal Ca and new colostomy. Currently NPO with hypoactive bowel sounds. BUN and creatinine elevated at 32 and 1.8. Will cont to monitor. 02/15 Pt cont 4th day NPO. Recommend nutr support unless diet advanced. TPN at 2L/24 hrs + lipids would provide 2260 kcal and 100gm protein which would meet 93% est kcal and 117% est protein needs. Will cont to monitor. BK 02/17 Diet advanced to med liquids/GI soft. Significant labs; Hgb 10.1, Hct 30.5, BUN 23, creatinine 1.7. Will offer nutr supplment to increase kcal and protein intake. BK 02/21 Bowel function poor per surgeon. Pt started on TPN and changed to NPO. Pt recieving TPN at 75ml/hr which is meeting 65% est kcal and 88% est protien needs Recommend increase to 83ml/hr and add lipids to provide additional 500 kcal and % est kcal and 117% est protein needs. Will cont to monitor. 02/24 Diet advanced to regular. Pt eating 75-100% of small portions. TPN tapered down to 50ml/hr plus lipid which meet 64% est kcal and 70% est protein needs. Pt cont hypoactive bowel with little output. Provideing prune ashley bid and yogurt 1X/ day. Pt agreed to try this. alb 2.3. Wt up 18#. Will cont to monitor and encourage intake. BK 02/25 Pt has SBO. TPN resumed to 83ml/hr plus lipids which is meeting 93% est kcal and 117% est protein needs. Will cont to monitor. BK 02/27 Pt cont TPN which is meeting 93% est kcal, 117% est protein needs. Alb stable at 2.3. Wt is up 21# probably r/t fluids. Will cont to monitor. BK 03/02 Pt cont TPN which is meeting 93% est kcal, 117% est protein needs. Alb stable at 2.3. Wt is stable at 200#, up from admitssion wt probably r/t fluids. Will cont to monitor. BK 03/05 Pt cont on TPN at 83ml/hr plus lipids. Wt cont above admitting wt but is down to 192#. Hgb 8.3, Hct 24.9, Na 135, BUN 32, creatinine 1.6, Alb 2.4. Cont to monitor. BK 03/08 Pt continues with dilated loops of small bowel. To continue with NPO/ice chips and TPN @ 83mL/hr with Intralipid. Low H/H, Glu 125, Alb 2.2. Follow for diet changes, labs, etc. -DRT 03/11 Pt cont on TPN @ 83ml/hr plus lipids. BG ranging 92- 130. Pt has active bowel sounds and flatus but cont ileus. Will cont to monitor. BK 03/14 Pt moved to GI soft/liquid diet. Pt ate 100% of dinner on 03/13. No complaints of n/v/d, abd pain or bloating. Alb is low at 2.4. Pt cont on TPN+lipids. Will encourage intake, offer nutrition supplement and cont to monitor. TB 03/16/18 Glu 101, High BUN/Creat, Ca+ 8.1. Wt 200#, up 16# from 02/10. TPN discontinued 03/16. Pt now receiving YUDITH and consuming 50-100% of meals. Will continue to offer nutritional supplements. Encourage intake, follow labs, etc. -SANAZ MORRISON Mar 16, 2018 11:45
[2018-03-16 19:19] VITALS: BP 118/74
[2018-03-16 19:59] VITALS: BP 137/77
[2018-03-17] MEDS: LEVOTHYROXINE SOD 0.137 MG TAB PO SCH (05:20)
--- NOTE | 2018-03-17 07:17 | General Surgery Progress Note ---
Subjective Progress Notes Subjective Main complaint this morning is urinary frequency. He is only able to dribble urine every hour. No sense of a full bladder or that he can't empty his bladder, only that there is not much force behind the stream and he is urinating every hour around the clock. No dysuria or hematuria. No abdominal pain. Stoma output is really increasing with gas and soft stool. He's tolerating a regular diet, no N/V/belching, no abdominal bloating. Physical Exam Vital Signs Date Time Temp Pulse Resp B/P (MAP) Pulse Ox O2 Delivery O2 Flow Rate FiO2 03/16/18 19:49 95 Room Air 03/16/18 19:19 97.9 87 118/74 (89) 03/16/18 08:23 16 Intake and Output 03/17/18 07:00 Intake Total 927 ml Output Total 967 ml Balance -40 ml Intake Oral 927 ml Stool Total 960 ml Drainage Total 7 ml # Voids 5 # Bowel Movements 3 General Appearance: Alert, Awake, No Acute Distress, Afebrile GI: Soft and Non-Tender (stoma is pink with gas and soft stool in the bag, RLQ stoma takedown wound is clean and dry, no erythema or drainage) Extremities: Warm, Perfused Result Diagram: 03/16/18 0555 03/16/18 0555 Monitor Interpretation: Normal Sinus Rhythm Assessment and Plan Problems: (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 Doing well. H/H down as expected. Will follow and transfuse if it gets below Hb of 8. Will start ice chips, popsickles, etc today but limit volume. PPI for GI prophylaxis, lovenox for VTE prophylaxis. Ambulate and OOB to chair today. PT/OT, pulmonary hygiene, IS. Await return of bowel function. 02/13/18: POD#2. Doing well. H/H stable. Stoma a little pale, will need to keep an eye on this. Continue current limited diet. Continue ambulation, IS, pulmonary hygiene, PT/OT, lovenox, PPI. Awaiting return of bowel function. Recommended removing jaffe this morning but pt reports feeling too weak to get up and use the restroom. Will continue PT today and will recommend removing the catheter tomorrow morning.' 02/14/18: POD#3. Doing well. H/H stable. Stoma looks good. No gas or stool in bag. Will continue current very limited diet as we await return of bowel function. Continue ambulation, IS, pulmonary hygiene, PT/OT, lovenox, PPI. Will see how he does today with PT and getting out of bed. Will, in any case, remove the jaffe later today or tomorrow morning. 02/15/2018 10am, POD#4: Continues to slowly improve. Stoma viable and functioning this morning, although not large volumes. Continue limited diet today. decrease intravenous fluids slightly. As above, continue ambulation, IS, lovenox. Voiding. Creatinine stable at 1.8 02/16/2018 11:30am POD#5: Slow progress. Improved stoma function. Advance diet to more full liquids/soft. Doing well with ambulation with less pain getting up. Lab repeat in am. 02/17/18: POD#6. Doing well but awaiting return of bowel function. Tolerating clear diet. Will try full liquid diet today. Continue ambulation, IS, PT/OT, lovenox, PPI, etc. Labs look good this morning. Will stop checking them unless clinically he is looking worse. Continue IV abx, will switch to PO abx when tolerating diet and will keep him on these for at least 30 days. 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 02/18/18: POD#7. Doing well. Bowel function returning. Will advance his diet to regular today. Convert meds to PO. Continue PT, OT, IS, ambulation, pulmonary hygiene, PPI. 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 Switch abx to PO today. He is looking very good today; his main concern is going home too soon although I've reassured him that he's doing very good and almost ready to go home, possibly even tomorrow, and he'll have help including his and home health nursing and PT and I'll be seeing him in the office. Will change his stoma appliance today and he can shower as well. 02/19/18: POD#8. Doing well. Still feeling weak. He's very tentative about going home. He would like to work on strength and testing out ADLs today. Tolerating diet. Stoma seems to be functioning well. Continue PT/OT, IS, p ulmonary hygiene, ambulation, xarelto, PPI, etc. Hopeful for d/c to home tomorrow. 02/20/18: POD#9. Bowel function is worse and stoma isn't putting much out over the last 24 hours. Pt advised to decrease PO intake if bloated or nauseated and we'll have to follow this. He also has bilateral LE edema. I have him on xarelto for DVT prophylaxis given his h/o DVT. Will give him lasix and potass ium today and will check BNP and electrolytes today and tomorrow morning. Continue inpatient care until GI function returns with consistently good stoma output. Continue PPI, xarelto, IS, PT/OT, pulmonary hygiene, ambulation, etc. 02/21/18: POD#10. Bowel function isn't great. Will place PICC line and start TPN, back off on PO intake and give bowel more time to recover. Will give more lasix and potassium today to decrease edema which may be affecting bowel as well. BNP normal so I think this is a postop inflammatory response causing his 3rd space fluids. No fevers and labs all look good, no WBC, etc. Continue xarelto, avoid narcotics, continue PPI, IS, pulmonary hygiene, ambulation, etc. Will await bowel function to improve. 02/22/18: POD#11. Bowel function possibly improving? Will restart clear liquid diet today. Continue TPN, will increase rate and add lipids per dietary 's recs. Lasix and potassium dose today, wt today is 89kg down from 90kg yesterday..his baseline is 82kg. Labs, vitals all look good. Creatinine stable with the diuresis. Continue xarelto, avoid narcotics, continue PPI, IS, pulmonary hygiene, ambulation, etc. 02/23/18: POD#12. Doing better. Has some bowel function but wish it was putting out more gas. Will try regular diet today but will continue TPN/lipids until he's clearly tolerating regular diet. Will give him another round of lasi x/KCl today to get more fluid off, he is still 6Kg above his baseline weight. Labs/vitals all look good. Creatinine is stable. Continue xarelto, PPI, IS, pulmonary hygiene, ambulation, etc. 02/24/18: POD#13. Continued improvement but still waiting for better bowel function as there's not much stool and almost no gas in the bag. Will continue regular diet, pt encourage to increase intake, will come down on TPN and will try prune juice and activia yogurt to see how his bowels respond to this. He still has LE edema and he's still 7kg above his baseline, even 1kg up from yesterday in spite if getting lasix although his creatinine is stable. H/H stable. WBC normal, no fevers. Will give another dose of lasix 40mg and 60mEq KCl since K is down this morning. Continue xarelto, PPI, IS, pulmonary hygiene, ambulation, etc. 02/25/18: POD#14. Pt has developed an SBO. Will place NG tube to decompress GI tract and stop diet, increase TPN to goal. Vitals and labs OK, no fevers although WBC is slightly elevated this morning, likely related to the obstruction and N/V. Will recheck tomorrow. If he fails to clinically improve over the next couple of days then will need to get an abdominal CT. Will convert blood thinner to lovenox and rest of meds to IV although will continue PO levothyroxine. Continue PPI, IS, pulmonary hygiene, ambulation, etc. 02/26/18: POD#15. Continued SBO without anything from stoma and KUB still with dilated small bowel and minimal gas in colon. Will continue bowel rest and TPN. Will get a CT abd/pelvis today. H/H is down a little but no other evidence of bleeding. Will follow this. Continue lovenox, ambulation, PPI, IS, ambulation, pulmonary hygiene, etc. 02/27/18: POD#16. Seems to be improving; had increased stool from stoma but not much gas. NG tube isn't putting out much. KUB has not yet been done. Labs not yet done either. CT yesterday looks good without fluid collection, evidence of anastomotic leak or other issues other than ileus vs SBO (no transition point seen). Continue current management of bowel rest and TPN, decompression with NG tube. If KUB reveals decreasing small bowel dilation then may remove the NG tub e later today vs tomorrow. O/W CCM. 02/28/18: POD#17. Continued improvement. Stoma output is slowly increasing. KUB still with dilated small bowel but improving. Not a whole lot out of NG tube. Continue bowel rest, NG tube decompression, TPN, etc. Will remove NG tube hopefully in the next day or two if stoma output and KUB continue to improve. Continue PPI, lovenox, ambulation, IS, etc. 03/01/18: POD#18. Doing well. Small bowel maybe a little less dilated on KUB. Stoma output still marginal. NG not putting out much liquid but will keep it in to facilitate GI decompression (removal of enteric gas). Will have him chewing gum and suck on hard candy to try and facilitate bowel function through centrally mediated mechanisms. Continue TPN. Continue PPI, lovenox, ambulation, IS, etc. TSH was a little high at just over 8, will go up on levothyroxine to 137mcg. Weight down a little and creatinine down as well. Will continue diuresis with a dose of furosemide 40mg IV and 40mEq of KCl IV today and follow weight, potassium, and creatinine. Will give him some calcium today as well. 03/02/18: POD#19. Doing well. Still poor bowel function, KUB still with dilated small bowel loops. Stoma output is minimal. Will continue NG tube decompression, NPO, TPN, etc, PPI, lovenox, ambulation, IS, etc. 03/03/18: POD#20. Doing well. KUB a little better this morning. NG still with bilious output and stoma output (especially gas) is not as consistent as I would like for it to be. Continue NG tube, NPO, TPN, PPI, lovenox, ambulation, IS, etc. 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 ESR is mildly elevated, CRP is normal. Will repeat MRI of pelvis at 6 weeks after surgery. 10/30/18: POD#21. Doing well but persistent (improving?) SBO vs ileus. KUB this morning with single dilated small bowel loop, yesterday KUB was improving. Still marginal output from stoma. NG with increased but less bilious output. Will try NG tube clamp trials today and recheck KUB tomorrow morning. Continue TPN, and rest of plan as stated in yesterday's note. 03/05/18: POD#22. Doing well but still with SBO vs ileus. KUB reveals more gas in colon but still with persistently dilated loop of small bowel. Stoma pink with poor output. NG clamp trials going OK, not much out of NG tube. Will get a water-soluble SBFT today. Continue TPN, CCM. 03/06/18: POD#23. Doing well. SBFT c/w ileus and no SBO. KUB still with dilated loops of small bowel but with contrast in colon. Remove NG tube and st art sips and chips but will go VERY slow with advancing diet. Continue TPN. Continue levaquin/flagyl until Saturday which will be 30 days of treatment for the sacral osteomyelitis. ESR is mildly elevated and CRP is normal. No other signs of infection currently. Will convert to PO meds, convert lovenox to xarelto. PO PPI for GI prophylaxis. 03/07/18: POD#24. Doing well. KUB still with dilated loops of small bowel but abdominal exam is benign. Continue current diet and TPN. Will await for there to be consistent (not intermittent) gas in the bag. Continue levaquin/flagyl until 03/11/18. ESR down even lower this morning and CRP is normal. Continue PPI, xarelto, etc. 03/08/18: POD#25. Continued small amount of progress. Some flatus but ileus has not completely resolved. Continue TPN as he tries to advance his oral intake. Anemia improved today. Renal function stable with mild insufficiency BUN 34 Cr 1.6. No changes in plan. 03/09/18: POD#26. Diuresed overnight which should indicate imminent resolution of his ileus. Discharge pending this. 03/10/18: POD#27. continued ileus but no other signs for concern. Continue TPN. Complete course of Levoquin and Flagyl tomorrow. 03/11/18: POD#28. Continued ileus. No nausea. Labs today without concern. Will advance to clear liquids to help continue to stimulate the bowels. 03/12/2018: POD#29. Tolerating clear liquids, will advance to full liquids. Stomal output, Once tolerating PO then DC TPN. Encouraged to ambulate QID. 03/13/18: POD#30. Doing well. Tolerating clear liquid diet. Will try medical liquid/GI soft diet today. Continue TPN until tolerating regular diet. O/W continue xarelto, PPI, ambulation, etc. Will stop levaquin/flagyl as he has completed course for osteo. Will check ESR and CRP with labs in am tomorrow. 03/14/18: POD#31. Doing well. Tolerating soft diet. Will continue current diet today and if he does well then will try regular diet tomorrow. Will come down on TPN when tolerating regular diet. Continue xarelto, PPI, ambulation, etc. ESR and CRP are normal and pt without fevers and with normal WBC. Abx stopped yesterday. Continue to follow for signs of infection. 03/15/2018: POD#32. Stable overnight, will advance diet. Wean TPN if dimple PO. Check labs in the am. 03/16/2018: POD#33. continues to improved, dimple reg diet, will add Boost. DC TPN and DC PICC. Prealbumin pending. Anemia is stable and asymptomatic. 03/17/18: POD#34. Doing well from GI standpoint. His main issue at the moment is urinary frequency and he is resistant to being discharged today until this is improved as he feels that he's constantly having to urinate. Will send UA and will start tamsulosin today. I also recommend inserting a urinary catheter to quantify how much urine is in his bladder after attempting to void and leaving the catheter in for 24-48 hours to rest his bladder but he's not sure he wants a catheter. Will try the medication and see how he responds to this. I am hopeful that he can go home tomorrow. 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
[2018-03-17 07:37] VITALS: BP 111/70
[2018-03-17] MEDS: CALCIUM CARBONATE 600 MG TAB PO SCH ×2 (08:46→17:23)
[2018-03-17] MEDS: RIVAROXABAN 10 MG TAB PO SCH (08:46)
[2018-03-17] MEDS: PANTOPRAZOLE SOD 40 MG TABEC PO SCH (08:46)
[2018-03-17] MEDS: TAMSULOSIN HCL 0.4 MG CAP PO SCH (08:46)
[2018-03-17 11:36] VITALS: BP 117/68
[2018-03-17] MEDS: ACETAMINOPHEN 325 MG TAB PO PRN (13:04)
[2018-03-17 15:38] VITALS: BP 117/68
[2018-03-17 19:18] VITALS: BP 127/66
[2018-03-18] MEDS: LEVOTHYROXINE SOD 0.137 MG TAB PO SCH (05:57)
[2018-03-18] MEDS ORDERED: LEVO137T23 PO (08:17)
[2018-03-18] MEDS ORDERED: TAMS0.4C70 PO (08:17)
[2018-03-18] MEDS ORDERED: RIVA20TA PO (08:17)
--- NOTE | 2018-03-18 08:22 | Short(Outpt) Discharge Summary ---
Discharge Summary Reason for Hosp/Final Diag: (1) Colostomy in place Status: Acute Hospital Course & Plan: 02/12/18: POD#1. Doing well. H/H down as expected. Will follow and transfuse if it gets below Hb of 8. Will start ice chips, popsickles, etc today but limit volume. PPI for GI prophylaxis, lovenox for VTE prophylaxis. Ambulate and OOB to chair today. PT/OT, pulmonary hygiene, IS. Await return of bowel function. 02/13/18: POD#2. Doing well. H/H stable. Stoma a little pale, will need to keep an eye on this. Continue current limited diet. Continue ambulation, IS, pulmonary hygiene, PT/OT, lovenox, PPI. Awaiting return of bowel function. Recommended removing jaffe this morning but pt reports feeling too weak to get up and use the restroom. Will continue PT today and will recommend removing the catheter tomorrow morning.' 02/14/18: POD#3. Doing well. H/H stable. Stoma looks good. No gas or stool in bag. Will continue current very limited diet as we await return of bowel function. Continue ambulation, IS, pulmonary hygiene, PT/OT, lovenox, PPI. Will see how he does today with PT and getting out of bed. Will, in any case, remove the jaffe later today or tomorrow morning. 02/15/2018 10am, POD#4: Continues to slowly improve. Stoma viable and functioning this morning, although not large volumes. Continue limited diet today. decrease intravenous fluids slightly. As above, continue ambulation, IS, lovenox. Voiding. Creatinine stable at 1.8 02/16/2018 11:30am POD#5: Slow progress. Improved stoma function. Advance diet to more full liquids/soft. Doing well with ambulation with less pain getting up. Lab repeat in am. 02/17/18: POD#6. Doing well but awaiting return of bowel function. Tolerating clear diet. Will try full liquid diet today. Continue ambulation, IS, PT/OT, lovenox, PPI, etc. Labs look good this morning. Will stop checking them unless clinically he is looking worse. Continue IV abx, will switch to PO abx when tolerating diet and will keep him on these for at least 30 days. 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 02/18/18: POD#7. Doing well. Bowel function returning. Will advance his diet to regular today. Convert meds to PO. Continue PT, OT, IS, ambulation, pulmonary hygiene, PPI. 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 Switch abx to PO today. He is looking very good today; his main concern is going home too soon although I've reassured him that he's doing very good and almost ready to go home, possibly even tomorrow, and he'll have help including his and home health nursing and PT and I'll be seeing him in the office. Will change his stoma appliance today and he can shower as well. 02/19/18: POD#8. Doing well. Still feeling weak. He's very tentative about going home. He would like to work on strength and testing out ADLs today. Tolerating diet. Stoma seems to be functioning well. Continue PT/OT, IS, pulmonary hygiene, ambulation, xarelto, PPI, etc. Hopeful for d/c to home tomorrow. 02/20/18: POD#9. Bowel function is worse and stoma isn't putting much out over the last 24 hours. Pt advised to decrease PO intake if bloated or nauseated and we'll have to follow this. He also has bilateral LE edema. I have him on xarelto for DVT prophylaxis given his h/o DVT. Will give him lasix and potassium today and will check BNP and electrolytes today and tomorrow morning. Continue inpatient care until GI function returns with consistently good stoma output. Continue PPI, xarelto, IS, PT/OT, pulmonary hygiene, ambulation, etc. 02/21/18: POD#10. Bowel function isn't great. Will place PICC line and start TPN, back off on PO intake and give bowel more time to recover. Will give more lasix and potassium today to decrease edema which may be affecting bowel as well. BNP normal so I think this is a postop inflammatory response causing his 3rd space fluids. No fevers and labs all look good, no WBC, etc. Continue xarelto, avoid narcotics, continue PPI, IS, pulmonary hygiene, ambulation, etc. Will await bowel function to improve. 02/22/18: POD#11. Bowel function possibly improving? Will restart clear liquid diet today. Continue TPN, will increase rate and add lipids per dietary's recs. Lasix and potassium dose today, wt today is 89kg down from 90kg yesterday..his baseline is 82kg. Labs, vitals all look good. Creatinine stable with the diuresis. Continue xarelto, avoid narcotics, continue PPI, IS, pulmonary hygiene, ambulation, etc. 02/23/18: POD#12. Doing better. Has some bowel function but wish it was putting out more gas. Will try regular diet today but will continue TPN/lipids until he's clearly tolerating regular diet. Will give him another round of lasix/KCl today to get more fluid off, he is still 6Kg above his baseline weight. Labs/vitals all look good. Creatinine is stable. Continue xarelto, PPI, IS, pulmonary hygiene, ambulation, etc. 02/24/18: POD#13. Continued improvement but still waiting for better bowel function as there's not much stool and almost no gas in the bag. Will continue regular diet, pt encourage to increase intake, will come down on TPN and will try prune juice and activia yogurt to see how his bowels respond to this. He still has LE edema and he's still 7kg above his baseline, even 1kg up from yesterday in spite if getting lasix although his creatinine is stable. H/H stable. WBC normal, no fevers. Will give another dose of lasix 40mg and 60mEq KCl since K is down this morning. Continue xarelto, PPI, IS, pulmonary hygiene, ambulation, etc. 02/25/18: POD#14. Pt has developed an SBO. Will place NG tube to decompress GI tract and stop diet, increase TPN to goal. Vitals and labs OK, no fevers although WBC is slightly elevated this morning, likely related to the obstruction and N/V. Will recheck tomorrow. If he fails to clinically improve over the next couple of days then will need to get an abdominal CT. Will convert blood thinner to lovenox and rest of meds to IV although will continue PO levothyroxine. Continue PPI, IS, pulmonary hygiene, ambulation, etc. 02/26/18: POD#15. Continued SBO without anything from stoma and KUB still with dilated small bowel and minimal gas in colon. Will continue bowel rest and TPN. Will get a CT abd/pelvis today. H/H is down a little but no other evidence of bleeding. Will follow this. Continue lovenox, ambulation, PPI, IS, ambulation, pulmonary hygiene, etc. 02/27/18: POD#16. Seems to be improving; had increased stool from stoma but not much gas. NG tube isn't putting out much. KUB has not yet been done. Labs not yet done either. CT yesterday looks good without fluid collection, evidence of anastomotic leak or other issues other than ileus vs SBO (no transition point seen). Continue current management of bowel rest and TPN, decompression with NG tube. If KUB reveals decreasing small bowel dilation then may remove the NG tu be later today vs tomorrow. O/W CCM. 02/28/18: POD#17. Continued improvement. Stoma output is slowly increasing. KUB still with dilated small bowel but improving. Not a whole lot out of NG tube. Continue bowel rest, NG tube decompression, TPN, etc. Will remove NG tube hopefully in the next day or two if stoma output and KUB continue to improve. Continue PPI, lovenox, ambulation, IS, etc. 03/01/18: POD#18. Doing well. Small bowel maybe a little less dilated on KUB. Stoma output still marginal. NG not putting out much liquid but will keep it in to facilitate GI decompression (removal of enteric gas). Will have him ch gil gum and suck on hard candy to try and facilitate bowel function through centrally mediated mechanisms. Continue TPN. Continue PPI, lovenox, ambulation, IS, etc. TSH was a little high at just over 8, will go up on levothyroxine to 137mcg. Weight down a little and creatinine down as well. Will continue diuresis with a dose of furosemide 40mg IV and 40mEq of KCl IV today and follow weight, potassium, and creatinine. Will give him some calcium today as well. 03/02/18: POD#19. Doing well. Still poor bowel function, KUB still with dilated small bowel loops. Stoma output is minimal. Will continue NG tube decompression, NPO, TPN, etc, PPI, lovenox, ambulation, IS, etc. 03/03/18: POD#20. Doing well. KUB a little better this morning. NG still wi th bilious output and stoma output (especially gas) is not as consistent as I would like for it to be. Continue NG tube, NPO, TPN, PPI, lovenox, ambulation, IS, etc. 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 ESR is mildly elevated, CRP is normal. Will repeat MRI of pelvis at 6 weeks after surgery. 03/04/18: POD#21. Doing well but persistent (improving?) SBO vs ileus. KUB this morning with single dilated small bowel loop, yesterday KUB was improving. Still marginal output from stoma. NG with increased but less bilious output. Will try NG tube clamp trials today and recheck KUB tomorrow morning. Continue TPN, and rest of plan as stated in yesterday's note. 03/05/18: POD#22. Doing well but still with SBO vs ileus. KUB reveals more gas in colon but still with persistently dilated loop of small bowel. Stoma pink with poor output. NG clamp trials going OK, not much out of NG tube. Will get a water-soluble SBFT today. Continue TPN, CCM. 03/06/18: POD#23. Doing well. SBFT c/w ileus and no SBO. KUB still with dilated loops of small bowel but with contrast in colon. Remove NG tube and start sips and chips but will go VERY slow with advancing diet. Continue TPN. Continue levaquin/flagyl until Saturday which will be 30 days of treatment for the sacral osteomyelitis. ESR is mildly elevated and CRP is normal. No other signs of infection currently. Will convert to PO meds, convert lovenox to xarelto. PO PPI for GI prophylaxis. 03/07/18: POD#24. Doing well. KUB still with dilated loops of small bowel but abdominal exam is benign. Continue current diet and TPN. Will await for there to be consistent (not intermittent) gas in the bag. Continue levaquin/flagyl until 03/11/18. ESR down even lower this morning and CRP is normal. Continue PPI, xarelto, etc. 03/08/18: POD#25. Continued small amount of progress. Some flatus but ileus has not completely resolved. Continue TPN as he tries to advance his oral intake. Anemia improved today. Renal function stable with mild insufficiency BUN 34 Cr 1.6. No changes in plan. 03/09/18: POD#26. Diuresed overnight which should indicate imminent resolution of his ileus. Discharge pending this. 03/10/18: POD#27. continued ileus but no other signs for concern. Continue TPN. Complete course of Levoquin and Flagyl tomorrow. 03/11/18: POD#28. Continued ileus. No nausea. Labs today without concern. Will advance to clear liquids to help continue to stimulate the bowels. 03/12/2018: POD#29. Tolerating clear liquids, will advance to full liquids. Stomal output, Once tolerating PO then DC TPN. Encouraged to ambulate QID. 03/13/18: POD#30. Doing well. Tolerating clear liquid diet. Will try medical liquid/GI soft diet today. Continue TPN until tolerating regular diet. O/W continue xarelto, PPI, ambulation, etc. Will stop levaquin/flagyl as he has completed course for osteo. Will check ESR and CRP with labs in am tomorrow. 03/14/18: POD#31. Doing well. Tolerating soft diet. Will continue current diet today and if he does well then will try regular diet tomorrow. Will come down on TPN when tolerating regular diet. Continue xarelto, PPI, ambulation, etc. ESR and CRP are normal and pt without fevers and with normal WBC. Abx stopped yesterday. Continue to follow for signs of infection. 03/15/2018: POD#32. Stable overnight, will advance diet. Wean TPN if dimple PO. Check labs in the am. 03/16/2018: POD#33. continues to improved, dimple reg diet, will add Boost. DC TPN and DC PICC. Prealbumin pending. Anemia is stable and asymptomatic. 11: POD#34. Doing well from GI standpoint. His main issue at the moment is urinary frequency and he is resistant to being discharged today until this is improved as he feels that he's constantly having to urinate. Will send UA and will start tamsulosin today. I also recommend inserting a urinary catheter to quantify how much urine is in his bladder after attempting to void and leaving the catheter in for 24-48 hours to rest his bladder but he's not sure he wants a catheter. Will try the medication and see how he responds to this. I am hopeful that he can go home tomorrow. 03/18/18: POD#35. Doing well. Will d/c to home today. Will continue tamsulosin and follow his urinary frequency. If no improvement over the next couple of weeks then will refer to urology. UA normal. Pt agreeable with discharge today with home health nursing and PT. 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 Prov:JOSE JOSE MD 03/18/18 Levothyroxine Sodium (LEVOTHYROXINE SODIUM) 137 Mcg Tablet, 1 TAB PO QDAY, #60 TAB 6 Refills Prov:JOSE JOSE MD 03/18/18 Ferrous Sulfate (IRON) 325 Mg Tablet, 1 TAB PO TID, #90 TAB 3 Refills Prov:JOSE JOSE MD 01/27/18 Reported Medications Levothyroxine Sodium (LEVOTHYROXINE SODIUM) 0.125 Mg Tab, 125 MCG PO DAILY 02/08/17 Vitamin B Complex (VITAMIN B COMPLEX) 1 Each Capsule, 1 EACH PO QDAY, CAPSULE 02/04/17 Multivitamin (MULTI VITAMIN DAILY) 1 Each Tablet, 1 EACH PO 12/19/14 Follow up Referrals: General Surgery - 03/24/18 @ Surgery, General with JOSE JOSE MD You have a follow up appointment scheduled with Dr. Jose on 03/24/18, at 4:30pm. Diet: Regular Activity: As Tolerated Special Instructions: You may shower and bath as desired. You may perform any activity that you feel comfortable doing without restrictions. Take the xarelto for 30 days and then stop when you run out of pills. I increased your levothyroxine medication from 125 to 137mcg a day during your hospitalization since your TSH was a little elevated so take the higher dose once every day. Problem Qualifiers (1) Anemia: Anemia type: unspecified type Qualified Codes: D64.9 - Anemia, unspecified JOSE JOSE MD Mar 18, 2018 08:21
[2018-03-18 08:43] VITALS: BP 122/78
[2018-03-18] MEDS: TAMSULOSIN HCL 0.4 MG CAP PO SCH (09:51)
[2018-03-18] MEDS: PANTOPRAZOLE SOD 40 MG TABEC PO SCH (09:51)
[2018-03-18] MEDS: CALCIUM CARBONATE 600 MG TAB PO SCH (09:51)
[2018-03-18] MEDS: RIVAROXABAN 10 MG TAB PO SCH (09:51)
[2018-03-18] MEDS: ACETAMINOPHEN 325 MG TAB PO PRN (09:53)
== END 2018-03-18 14:30 | disposition home or self-care (01) | DRG 330 ==
LOC: OR 00:08 → MED 20:20
PROVIDERS: ADMIT Surgery; ATTEND Surgery
PROC: 0DBB4ZZ Excision of Ileum, Percutaneous Endoscopic Approach (ICD-10-PCS; 2018-02-11)
PROC: 8E0W4CZ Robotic Assisted Procedure of Trunk Region, Percutaneous Endoscopic Approach (ICD-10-PCS; 2018-02-11)
PROC: 0D1M0Z4 Bypass Descending Colon to Cutaneous, Open Approach (ICD-10-PCS; principal; 2018-02-11 10:41)
PROC: 02HV33Z Insertion of Infusion Device into Superior Vena Cava, Percutaneous Approach (ICD-10-PCS; 2018-02-21)
PROC: B548ZZA Ultrasonography of Superior Vena Cava, Guidance (ICD-10-PCS; 2018-02-21)
PROC: 0D9670Z Drainage of Stomach with Drainage Device, Via Natural or Artificial Opening (ICD-10-PCS; 2018-02-21)
PROC: 3E0G76Z Introduction of Nutritional Substance into Upper GI, Via Natural or Artificial Opening (ICD-10-PCS; 2018-02-21)
DX: Z43.2 Encounter for attention to ileostomy (principal); T81.31XA Disruption of external operation (surgical) wound, not elsewhere classified, initial encounter; M86.9 Osteomyelitis, unspecified; K91.89 Other postprocedural complications and disorders of digestive system; K56.7 Ileus, unspecified; K60.3 Anal fistula; R60.0 Localized edema; D64.9 Anemia, unspecified; R35.0 Frequency of micturition; Y83.8 Other surgical procedures as the cause of abnormal reaction of the patient, or of later complication, without mention of misadventure at the time of the procedure; Y73.3 Surgical instruments, materials and gastroenterology and urology devices (including sutures) associated with adverse incidents; Z85.038 Personal history of other malignant neoplasm of large intestine; Z85.048 Personal history of other malignant neoplasm of rectum, rectosigmoid junction, and anus; Z86.718 Personal history of other venous thrombosis and embolism
CPT/HCPCS: 36415; 36416; 36569; 71045; 74018; 74176; 74250; 76937; 81001; 82040; 82247; 82248; 82310; 82374; 82378; 82435; 82565; 82947; 82948; 83690; 83735; 83880; 84075; 84100; 84132; 84134; 84155; 84295; 84443; 84450; 84460; 84520; 85025; 85651; 86140; 86850; 86900; 86901; 88305; 88307; 97161; 97166; A4371; A4406; C1751; C9113; J0131; J1100; J1170; J1642; J1650; J1815; J1940; J1956; J2001; J2270; J2405; J2704; J2795; J3010; J3480; J3490; J7030; J7040; J7050

== ENCOUNTER 2018-02-21 08:00 | Outpatient (RCR) | payer MEDICARE ==
[2017-06-27 11:46] VITALS: BMI 26.5
[2017-12-30 10:05] VITALS: BP 117/68
== END 2018-02-21 08:01 | disposition home or self-care (01) ==
LOC: SPU 08:00
PROVIDERS: ATTEND Internal Medicine Hematology
DX: C20 Malignant neoplasm of rectum (principal)
CPT/HCPCS: 82378

== ENCOUNTER → 2018-05-08 | Outpatient (CLI) | payer MEDICARE ==
[2017-06-27 11:46] VITALS: BMI 26.5
[~2018-05-08] MED LIST changes: +LEVO137T23 PO
== END ==
LOC: SPU 08:16
PROVIDERS: ATTEND Surgery
DX: D50.9 Iron deficiency anemia, unspecified (principal); C20 Malignant neoplasm of rectum; E03.9 Hypothyroidism, unspecified
CPT/HCPCS: 84443

== ENCOUNTER → 2018-05-23 | Outpatient (CLI) | payer MEDICARE ==
[2017-06-27 11:46] VITALS: BMI 26.5
[~2018-05-23] MED LIST changes: +FERR-41 PO
--- NOTE | 2018-05-23 09:33 | RADIOLOGY IMAGING REPORT ---
FACILITY: [facility] PATIENT NAME: Coral Voss : 1940 MR: [id number] V: [id number] EXAM DATE: ORDERING PHYSICIAN: JOSE PERALTA TECHNOLOGIST: Location: [facility] [place] Patient: Coral Voss : 1940 Visit/Account:[id number] Date of Sevice: 05/23/2018 MR SPINE CERVICAL W/O CON COMPARISON: None Additional pertinent history: Neck pain Technique: Multiplanar multisequence cervical spine MRI was performed without gadolinium enhancement. FINDINGS: Vertebral body height and alignment: Mild anterior listhesis of C6 on C7 and C7 on T1. Vertebral marrow signal: Type one degenerative endplate changes at C5-C6 Vertebral bodies: Anteriorly and posteriorly directed osteophytes at multiple levels. Cervical spinal cord signal, craniocervical junction and visualized posterior fossa: Negative Surrounding soft tissues: Negative Inspection of the disc spaces reveal the following: C1-C2: Negative C2-C3: Negative C3-C4: Circumferential disc bulging with facet hypertrophic changes. Mild bilateral neural foraminal narrowing without canal stenosis. C4-C5: Circumferential disc bulging with facet and uncovertebral degenerative changes. Moderate bilat eral neural foraminal narrowing with mild canal stenosis. C5-C6: Posterior broad-based disc protrusion with a superimposed right neural foraminal disc extrusio n. Severe right-sided neural foraminal narrowing. Moderate left-sided neural foraminal narrowing. Sev ere canal stenosis. C6-C7: Posterior broad-based disc protrusion with facet hypertrophic changes. Mild anterior listhesis of C6 on C7. Mild bilateral neural foraminal narrowing without canal stenosis. C7-T1: Mild anterior listhesis of C7 on T1. Minimal circumferential disc bulging without significant canal or neural foraminal narrowing. Impression: 1. Multilevel spondylitic change as discussed above. 2. Findings felt to be potentially most significant at C5-C6 with moderate left-sided neural foramina l narrowing, severe right-sided neural foraminal narrowing and severe canal stenosis. Report Dictated By: Eliot Robledo MD at 05/23/2018 9:17 AM Report E-Signed By: Eliot Robledo MD at 05/23/2018 9:24 AM WSN:[email or web address]
--- NOTE | 2018-05-23 18:19 | RADIOLOGY IMAGING REPORT ---
FACILITY: [facility] - [place] PATIENT NAME: oCral Voss : 1940 MR: [id number] V: [id number] EXAM DATE: ORDERING PHYSICIAN: JOSE PERALTA TECHNOLOGIST: [facility] Patient: Coral Voss : 1940 Visit/Account:[id number] Date of Sevice: 05/23/2018 MRI left shoulder Indication: Left shoulder pain Comparison: None available. Technique: Multiplanar multisequence MR images were obtained through the left shoulder. Findings: Rotator cuff: Evidence of a massive rotator cuff tear complete tearing supraspinatus and infraspinatus with medial retraction level the AC joint. Overall, there is evidence of approximately 4.7 cm medial traction of both tendons. Teres minor shows mild undersurface tearing of the distal fibers. There is moderate ten dinopathy and partial tearing superior fibers of subscapularis as well. There is moderate fatty atrophy supraspinatus and infraspinatus. Biceps tendon: Attenuated appearance of the intracranial portion of biceps tendon which is otherwise intact. AC joint and acromion: There are moderate chromic clavicular degenerative changes undersurface spurring noted. Labrum and capsular ligaments: Irregular degenerative tearing superior labrum seen without displacement tearing extending to the mid posterior and the posterior inferior labrum as well. Capsular ligaments are intact with no evidence of focal abnormality. Bones and cartilage: No acute fracture-dislocation. Chondral thinning throughout the glenohumeral joint cartilage noted mi ld marginal osteophytosis at the superior and inferior margins of the bony glenoid as well. No focal chondral defect glenohumeral joint cartilage.. Humeral head abuts the undersurface of the ac romion secondary to the massive rotator cuff tear. Effusion, bursitis: No significant glenohumeral joint effusion. Moderate amount of fluid seen within the subacromial/subdeltoid bursa. IMPRESSION: 1. Massive rotator cuff tear. 2. Significant degenerative tearing superior and posterior inferior labrum. 3. Moderate osteoarthritic changes glenohumeral joint. Report Dictated By: Roberto Pathak MD at 05/23/2018 6:12 PM Report E-Signed By: Roberto Pathak MD at 05/23/2018 6:16 PM WSN:[id number]
== END ==
LOC: MRI 01:45
PROVIDERS: ATTEND Surgery
DX: M75.122 Complete rotator cuff tear or rupture of left shoulder, not specified as traumatic (principal); M19.012 Primary osteoarthritis, left shoulder; S43.492A Other sprain of left shoulder joint, initial encounter; M47.892 Other spondylosis, cervical region
CPT/HCPCS: 72141

== ENCOUNTER 2018-06-19 10:05 | Outpatient (RCR) | payer MEDICARE ==
[2017-06-27 11:46] VITALS: Wt 91.6 kg
[2018-05-08 08:19] VITALS: BP 144/77
[2018-05-08 08:38] LABS: PLATELET COUNT, AUTOMATED 236 K/uL (150-450)
--- NOTE | 2018-05-08 09:34 | [facility] ONCOLOGY NOTE ---
EVENT DATE: May 08, 2018 DIAGNOSES 1. 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 2. Hypothyroidism. 3. Hayfever. CHIEF COMPLAINT Patient is here today for followup of his rectal adenocarcinoma. ONCOLOGY HISTORY Patient is a 77-year-old male who presented with passing small amounts of bright red blood when he passes a bowel movement. CT pelvis, chest, abdomen done on September 13, 2016 did reveal soft tissue defect within the rectum consistent with clinical history of rectal mass measuring about 6.1 cm. There was moderate narrowing of the rectosigmoid junction. There was 4 mm noncalcified nodule in the right middle lobe of the lung. MRI of the pelvis done on September 14, 2016 did reveal rectal mass measuring 5 cm with findings suggesting of transmural extension of the tumor into the posterior perirectal fat, but no evidence of organ invasion or distant metastatic disease. Patient had a colonoscopy with biopsy of the rectal mass done on September 12, 2016. A polyp was removed from the hepatic flexure of the colon with hyperplastic polyp. Two polyps from the splenic flexure, one was hyperplastic polyp and the other one was tubular adenoma. Biopsy of the rectal mass came back positive for invasive colonic adenocarcinoma. MLH1, MSH2, MSH6, and PMAC2 all came back positive. This is not consistent with microsatellite instability. Patient started chemoradiation on October 08, 2016 with weekly 5-FU intravenous continuous infusion. Patient received six weekly doses of 5FU intravenous continuous infusion completed on November 16, 2016. Patient had rectal resection done on February 07, 2017, and the pathology came back negative for residual cancer. HISTORY OF PRESENT ILLNESS Patient is here today for followup of his rectal adenocarcinoma. He has been in the hospital recently for a change of his ostomy and he stayed about a month in the hospital. He is doing fine currently. He is complaining of some watering of his eyes. He has pain in his left shoulder and left upper arm recently. He started to have numbness in the left hand and fingers for about two months now since his surgery. He has some occasional headache. PAST MEDICAL HISTORY 1. Hypothyroidism. 2. Hayfever. PAST SURGICAL HISTORY 1. Right rotator cuff surgery. 2. Bilateral carpal tunnel surgery. 3. Bilateral cataract surgery. 4. Rectal excision done on February 07, 2017. FAMILY HISTORY Patient does not know about his family history. SOCIAL HISTORY The patient is with four children. 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 He is never a smoker, never a drinker. Denies any abuse of illicit drugs. CURRENT MEDICATIONS 1. Levothyroxine 125 mcg daily. 2. Michelle 60 mg daily. ALLERGIES No known drug allergies. REVIEW OF SYSTEMS CONSTITUTIONAL: No appetite or weight change. No fever or sweating. Patient has some chills. No recent infection. HEENT: Ears: No tinnitus or hearing problem. Nose: He has occasional epistaxis. Throat: He has sore throat. Eyes: He has watering of the eyes. RESPIRATORY: No shortness of breath. No cough, expectoration or hemoptysis. CARDIOVASCULAR: No chest pain, orthopnea, or paroxysmal nocturnal dyspnea (PND). No edema. No palpitations. GASTROINTESTINAL: The ileostomy is working well. He has some dark stools sometimes, but he is taking iron. He still has bloody drainage from s seroma after his surgery. GENITOURINARY: He has urgency of urine. MUSCULOSKELETAL: He has pain in the left shoulder and the left upper arm. NEUROLOGICAL: He has numbness in the left hand and fingers for about two months now, which is getting worse. HEMATOLOGIC/LYMPHATIC: He bruises easily. He is weak, tired and fatigued. SKIN: He has a skin rash over the forearms bilaterally. PSYCHIATRIC: No anxiety or depression. PHYSICAL EXAMINATION GENERAL: Looks stable. Well-developed, well-nourished, and in no acute distress. VITAL SIGNS: Blood pressure 144/77, pulse 67 per minute, respirations 17 per minute, temperature 98.4, pulse ox 97% on room air. HEENT: Head: Atraumatic. No sinus tenderness to palpation. Eyes: No icterus or conjunctivitis. Mouth and throat: No oral thrush or mucositis. NECK: Supple. No cervical or supraclavicular lymphadenopathy. LUNGS: Clear to auscultation and percussion bilaterally. HEART: Regular rate and rhythm. No gallops, murmurs, clicks or rubs. ABDOMEN: Stoma is noted and working well. Also the bag from the drainage is also noted. EXTREMITIES: No cyanosis, clubbing or edema. LYMPHATICS: No peripheral lymphadenopathy. NEUROLOGICAL: Conscious, alert and oriented times three. No focal motor or sensory deficits. PSYCHIATRIC: Mood and affect appear normal. SKIN: No skin rash, bruise or purpuric eruption. DIAGNOSTIC DATA CBC showed white count 4.4, hemoglobin 11.6, hematocrit 34.5, platelets 256,000. Chem panel totally normal except chloride 114, BUN 29, creatinine 1.7. CEA is still pending. ASSESSMENT 1. Rectal adenocarcinoma with stage T3 lesion by MRI of the pelvis done September 14, 2016, which showed 5 cm rectal mass with findings suggestive of transmural extension of the tumor into the posterior perirectal fat. There is no evidence of organ invasion or metastatic disease. Colonoscopy with biopsy done September 12, 2016, did reveal three polyps, one from the hepatic flexure which was hyperplastic polyp, two from the splenic flexure, one was hyperplastic polyp, the other one was tubular adenoma. The rectal mass biopsy came back positive for invasive colonic adenocarcinoma. Patient received neoadjuvant chemoradiation between October 08, 2016 through November 16, 2016. He finished radiation therapy November 19, 2016. He had rectal resection of the tumor February 07, 2017. Pathology came back negative for residual disease. He had a seroma after surgery which continues to drain. He had recent surgery with change of his colostomy and he is doing fine currently. His CEA today is still pending. The patient is doing very well currently. I am planning to see him again in three months with CBC, chem panel and CEA. 2. Some neuropathic symptoms with stinging and numbness in the left hand and fingers for the last two months after his recent surgery. I advised the patient to try vitamin B6 100 mg twice daily and lutein 20 mg three times daily besides vitamin B complex. 2. Anemia due to previous chemotherapy and surgery. His current hemoglobin is 111.6, which is nearly stable. We will continue to monitor. 3. Hypothyroidism, on supplement. PLAN 1. Continue followup. 2. Patient to return in three months with CBC, chem panel and CEA. 3. Patient to contact us for any new concerns or complaints. [facility]
[2018-06-19 10:14] VITALS: BP 123/87
[2018-06-19] MEDS ORDERED: WATER FOR INJ,STERILE 20 ML IVP PRN (10:15)
[2018-06-19] MEDS ORDERED: LIDOCAINE/SOD BICARB 8.4% SYR ID PRN (10:15)
[2018-06-19] MEDS ORDERED: DEXTROSE 5%(*) 100 ML BAG 100 ML IVPB PRN (10:15)
[2018-06-19] MEDS ORDERED: HEPARIN FLSH (PORT) 500 UN/5ML IVP PRN (10:15)
[2018-06-19] MEDS ORDERED: ALTEPLASE RECOMB 2 MG VIAL IVP PRN (10:15)
[2018-06-19] MEDS ORDERED: NS(*) 0.9% 100 ML BAG 100 ML IVPB PRN (10:15)
[2018-06-19] MEDS ORDERED: NS(*) 0.9% 500 ML BAG 500 ML IV PRN (10:15)
== END 2018-07-06 ==
LOC: SPU 10:05
PROVIDERS: ATTEND Internal Medicine Hematology
DX: C20 Malignant neoplasm of rectum (principal); E03.9 Hypothyroidism, unspecified; J30.9 Allergic rhinitis, unspecified; D64.81 Anemia due to antineoplastic chemotherapy; Z92.3 Personal history of irradiation
CPT/HCPCS: 36415; 82378; 84443; 85025; 96523; G0463; J1642; 82040; 82247; 82310; 82374; 82435; 82565; 82947; 84075; 84132; 84155; 84295; 84450; 84460; 84520; 99212

== ENCOUNTER → 2018-06-19 | Outpatient (CLI) | payer MEDICARE ==
[2017-06-27 11:46] VITALS: BMI 26.5
[2018-06-19 09:57] LABS: PLATELET COUNT, AUTOMATED 230 K/uL (150-450)
== END ==
LOC: LAB 09:47
PROVIDERS: ATTEND Surgery
DX: D64.9 Anemia, unspecified (principal); C20 Malignant neoplasm of rectum; E03.9 Hypothyroidism, unspecified; N18.9 Chronic kidney disease, unspecified
CPT/HCPCS: 36415; 82310; 82374; 82435; 82565; 82947; 84132; 84295; 84443; 84520; 85025

== ENCOUNTER 2018-07-10 09:45 | Outpatient (RCR) | payer MEDICARE ==
[2017-06-27 11:46] VITALS: BMI 26.5
--- NOTE | 2018-05-14 12:01 | PT INITIAL EVALUATION ---
MEDICAL DIAGNOSIS: L shoulder impingement TREATMENT DIAGNOSIS: same, shoulder pain DATE OF ONSET: 03/21/19 SUBJECTIVE: Coral Voss presents to physical therapy with complaints of neck pain, L shoulder pain, and numbness and tingling that started approximately 6-8 weeks ago. He reports that the 2nd and 3rd digits are worse than than the 4th and 5th digits. He rates his neck pain to be about a 3/10. He reports that his L shoulder is more bothersome because he cannot move it as high as he can move the R shoulder and it has decreased when the numbness and tingling came on about the 6-8 weeks ago. He would like to get rid of the numbness and tingling along with the neck pain and the shoulder pain and increase his L shoulder AROM to where it used to be. . . Pain location is cervical spine: C6-7 central, L shoulder anterior superior aspect and described as achy and numbness and tingling. Pain scale is 3 on a ten point pain scale. Pain is worse with and better with . REHAB PROBLEM LIST: Increased Pain Decreased ROM Decreased Strength Decreased Endurance Decreased Balance Decreased Function Decreased Gait PREVIOUS MEDICAL HISTORY: See EMR OCCUPATION: Retired OBJECTIVE: Posture: He demonstrates forward head, B rounded shoulders, increased thoracic kyphosis, and no evidence of wry neck. ROM: Cervical AROM: protrusion: NIL with muscular end feel. flexion: NIL with muscular end feel. retraction: NIL with normal end feel. extension: moderate restriction with muscular end feel. Lateral flexion R/L: moderate restriction with muscular end feel. Rotation R/L: minimal restriction with pain with the L rotation and muscular end feel with the R rotation. L shoulder: flexion, abduction, scaption: 70 degrees R shoulder: flexion, abduction, scaption: 100 degrees. Palpation: TTP: cervical spine: C6-7 central, L shoulder anterior superior aspect Special Tests: Repeated cervical RET with extension abolished his neck pain and radiating pain over his shoulder; however, it did not affect the numbness and tingling. L shoulder has muscular issues with his RTC's as they do not function correctly. Mobility: Independent Gait: He demonstrated the following gait mechanics: normal B feet clearance, normal B step length, increased base of support, no LOB's, decreased pelvic mobility, and decreased velocity. ASSESSMENT: Coral will benefit from skilled physical therapy addressing the listed impairments to improve function and QOL. His cervical classification is a posterior derangement that responded well to extension based principles; however, it abolished the pain of his L shoulder but it did not increase his L shoulder AROM in all directions. Therefore, I think that he has two different issues. One with his cervical spine and one with his L shoulder Short Term Goals 2 weeks: Pt will demonstrate directional preference with cervical spine to improve function and QOL. 4 weeks: Pt will demonstrate abolished cervical pain to improve function and QOL. 6 weeks: Pt will return to prior level of function with abolished low back pain to return to prior level of function. Patient's Goals increase shoulder motion and get rid of pain PLAN: Patient to be seen for Manual Therapy/STM/MET Strengthening/condition Range of Motion Spinal Stabilization Work Hardening/Cond Stretching Neuromuscular Re-ed Closed Chain Program Posture/Body mechanics Gait Trg/Balance Trg Home Exercise Program Therapeutic Activities 2x/Week for 6 Weeks If you have any questions, comments, or concerns about this report or plan, please contact me at . If you have any questions, please contact me at [phone]. Thank you, Roberto Louis, PT, DPT MTDD
--- NOTE | 2018-06-18 11:57 | PT PLAN OF CARE ---
Physician: Mateus Jose MD Patient is being seen: 2x/week Therapist: Roberto Louis, PT, DPT Medical Diagnosis: L shoulder impingement Treatment Diagnosis: same, shoulder pain Date of Onset: 03/21/19 Date of Initial Evaluation: 05/13/18 Date patient was last seen: 06/17/18 Number of treatments: 10 Number of cancellations/No shows: 0 INTERVENTIONS: Manual Therapy/STM/MET Strengthening/condition Range of Motion Spinal Stabilization Work Hardening/Cond Stretching Neuromuscular Re-ed Closed Chain Program Posture/Body mechanics Gait Trg/Balance Trg Home Exercise Program Therapeutic Activities GOALS: 2 weeks: Pt will demonstrate directional preference with cervical spine to improve function and QOL. 4 weeks: Pt will demonstrate abolished cervical pain to improve function and QOL. 6 weeks: Pt will return to prior level of function with abolished low back pain to return to prior level of function. PATIENT'S GOAL: increase shoulder motion and get rid of pain Status of Patient's Goals: minimal progress with shoulder and further progressing with low back and strength Patient Compliance: Good Prognosis: Good Reasons for continuing therapy: This is a progress note for Coral Voss. He reports that he feels like he can move his L shoulder a little bit higher; however, he continues to have the L hand numbness and it has not changed since starting PT. He also reports that he is starting to notice that his low back pain is getting worse. He demonstrates significant improvements in L shoulder PROM, but no significant changes in AAROM or AROM. Based on his damage within his shoulder, I do not believe that he will ever achieve increased AROM along with abolishing his hand numbness unless a surgical intervention is performed. Furthermore, we were able to switch directions with his low back region and he demonstrated abolished low back pain and increased trunk AROM and we will see if those gains are maintained with his specific exercise that he is performing. He has demonstrated improvements with strength; therefore we will continue to improve strength, reduce pain, and return to prior level with everything except his shoulder (as the shoulder is in bad shape). Posture: He demonstrates forward head, B rounded shoulders, increased thoracic kyphosis, and no evidence of wry neck. ROM: Cervical AROM: protrusion: NIL with muscular end feel. flexion: NIL with muscular end feel. retraction: NIL with normal end feel. extension: moderate restriction with muscular end feel. Lateral flexion R/L: moderate restriction with muscular end feel. Rotation R/L: minimal restriction with pain with the L rotation and muscular end feel with the R rotation. L shoulder: flexion, abduction, scaption: 70 degrees R shoulder: flexion, abduction, scaption: 100 degrees. L shoulder PROM: flexion: 158 deg, scaption: 160 deg, abduction: 120 deg, ER: 65 deg, IR: 90 deg. Strength: Palpation: TTP: L shoulder anterior superior aspect Special Tests: Repeated cervical RET with extension abolished his neck pain and radiating pain over his shoulder; however, it did not affect the numbness and tingling. L shoulder has muscular issues with his RTC's as they do not function correctly. Mobility: Independent If you have any questions, please contact me at [phone]. Thank you, Roberto Louis, PT, DPT NEREYDA
[2018-07-21] MEDS ORDERED: LEVO137T23 PO (14:02)
[2018-07-21] MEDS ORDERED: FERR-41 PO (14:02)
[2018-07-21] MEDS ORDERED: VITA-197 PO (14:14)
[2018-07-21] MEDS ORDERED: ASCO-182 PO (14:14)
[2018-07-21] MEDS ORDERED: CHOL10005 PO (14:14)
--- NOTE | 2018-08-07 14:13 | PT PLAN OF CARE ---
Physician: Joe Wilkinson MD Patient is being seen: 2x/week Therapist: Roberto Louis, PT, DPT Medical Diagnosis: L shoulder impingement Treatment Diagnosis: same, shoulder pain Date of Onset: 03/21/19 Date of Initial Evaluation: 05/13/18 Date patient was last seen: 07/10/18 Number of treatments: 16 Number of cancellations/No shows: 0 INTERVENTIONS: Manual Therapy/STM/MET Strengthening/condition Range of Motion Spinal Stabilization Work Hardening/Cond Stretching Neuromuscular Re-ed Closed Chain Program Posture/Body mechanics Gait Trg/Balance Trg Home Exercise Program Therapeutic Activities GOALS: 2 weeks: Pt will demonstrate directional preference with cervical spine to improve function and QOL. 4 weeks: Pt will demonstrate abolished cervical pain to improve function and QOL. 6 weeks: Pt will return to prior level of function with abolished low back pain to return to prior level of function. PATIENT'S GOAL: increase shoulder motion and get rid of pain Status of Patient's Goals: Progressed Patient Compliance: Good Prognosis: Good Reasons for continuing therapy: This is a discharge note for Coral Voss. On our last contact with him the reported the following: He reports that he will see Dr. Arizmendi tomorrow. He reports that he is feeling less sore and doing much better. He continues to progress with increased tolerance placed on his core and B LE's along with his periscapular musculature. Furthermore, he continues to demonstrate increased PROM in all directions and is equal to R shoulder or better in all directions. However, he has not returned or scheduled following his visit with Dr. Arizmendi. As a result, he will be discharged from PT. Posture: He demonstrates forward head, B rounded shoulders, increased thoracic kyphosis, and no evidence of wry neck. ROM: Cervical AROM: protrusion: NIL with muscular end feel. flexion: NIL with muscular end feel. retraction: NIL with normal end feel. extension: moderate restriction with muscular end feel. Lateral flexion R/L: moderate restriction with muscular end feel. Rotation R/L: minimal restriction with pain with the L rotation and muscular end feel with the R rotation. L shoulder: flexion, abduction, scaption: 70 degrees R shoulder: flexion, abduction, scaption: 100 degrees. L shoulder PROM: flexion: 158 deg, scaption: 160 deg, abduction: 120 deg, ER: 65 deg, IR: 90 deg. Strength: Palpation: TTP: L shoulder anterior superior aspect Special Tests: Repeated cervical RET with extension abolished his neck pain and radiating pain over his shoulder; however, it did not affect the numbness and tingling. L shoulder has muscular issues with his RTC's as they do not function correctly. Mobility: Independent If you have any questions, please contact me at [phone]. Thank you, Roberto Louis, PT, DPT NEREYDA
== END 2018-07-10 18:00 | disposition home or self-care (01) ==
LOC: PT 09:45
PROVIDERS: ATTEND Internal Medicine Hematology
DX: M75.42 Impingement syndrome of left shoulder (principal); M25.512 Pain in left shoulder
CPT/HCPCS: 97163

== ENCOUNTER 2018-08-07 10:00 | Outpatient (RCR) | payer MEDICARE ==
[2017-06-27 11:46] VITALS: Wt 88.1 kg
[2018-07-22 10:40] VITALS: BP 136/93
[2018-08-04 13:58] VITALS: BP 151/87
[2018-08-04 13:59] LABS: PLATELET COUNT, AUTOMATED 212 K/uL (150-450)
[~2018-08-07 10:00] MED LIST changes: +ALTEPLASE RECOMB 2 MG VIAL IVP PRN; +DEXTROSE 5%(*) 100 ML BAG 100 ML IVPB PRN; +HEPARIN FLSH (PORT) 500 UN/5ML IVP PRN; +LIDOCAINE/SOD BICARB 8.4% SYR ID PRN; +NS(*) 0.9% 100 ML BAG 100 ML IVPB PRN; +NS(*) 0.9% 500 ML BAG 500 ML IV PRN; +WATER FOR INJ,STERILE 20 ML IVP PRN
[2018-08-07 10:06] VITALS: BP 147/79
--- NOTE | 2018-08-07 14:39 | [facility] ONCOLOGY NOTE ---
EVENT DATE: August 07, 2018 DIAGNOSES 1. 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 2. Hypothyroidism. 3. Hayfever. CHIEF COMPLAINT Patient is here today for followup of his rectal adenocarcinoma. ONCOLOGY HISTORY Patient is a 77-year-old male who presented with passing small amounts of bright red blood when he passes a bowel movement. CT pelvis, chest, abdomen done on September 13, 2016, did reveal soft tissue defect within the rectum consistent with clinical history of rectal mass measuring about 6.1 cm. There was moderate narrowing of the rectosigmoid junction. There was a 4 mm noncalcified nodule in the right middle lobe of the lung. MRI of the pelvis done on September 14, 2016, did reveal rectal mass measuring 5 cm with findings suggestive of transmural extension of the tumor into the posterior perirectal fat, but no evidence of organ invasion or distant metastatic disease. Patient had a colonoscopy with biopsy of the rectal mass done on September 12, 2016. A polyp was removed from the hepatic flexure of the colon with hyperplastic polyp. Two polyps from the splenic flexure, one was hyperplastic polyp, and the other one was tubular adenoma. Biopsy of the rectal mass came back positive for invasive colonic adenocarcinoma. MLH1, MSH2, MSH6, and PMAC2 all came back positive. This is not consistent with microsatellite instability. Patient started chemoradiation on October 08, 2016, with weekly 5-FU intravenous continuous infusion. Patient received six weekly doses of 5-FU intravenous continuous infusion, completed on November 16, 2016. Patient had rectal resection done on February 07, 2017, and the pathology came back negative for residual cancer. HISTORY OF PRESENT ILLNESS Patient is here today for followup of his rectal adenocarcinoma. He is doing fine currently except for having tingling and numbness in his left hand, and the patient under evaluation currently. He has also occasional headache. He bruises easily. He is weak, tired, and fatigued sometimes, but generally speaking, he is doing fine, and he is recuperating after his surgery better. PAST MEDICAL HISTORY 1. Hypothyroidism. 2. Hayfever. PAST SURGICAL HISTORY 1. Right rotator cuff surgery. 2. Bilateral carpal tunnel surgery. 3. Bilateral cataract surgery. 4. Rectal excision done on February 07, 2017. FAMILY HISTORY Patient does not know about his family history. SOCIAL HISTORY The patient is with four children. 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 He is never a smoker, never a drinker. Denies any abuse of illicit drugs. CURRENT MEDICATIONS 1. Levothyroxine 125 mcg daily. 2. Michelle 60 mg daily. ALLERGIES No known drug allergies. REVIEW OF SYSTEMS CONSTITUTIONAL: No appetite or weight change. No fever, chills, or sweating. No recent infection. HEENT: Ears: No tinnitus or hearing problem. Nose: No nasal discharge or epistaxis. Throat: No sore throat or mouth ulcers. Eyes: No diplopia or visual changes. RESPIRATORY: No shortness of breath. No cough, expectoration, or hemoptysis. CARDIOVASCULAR: No chest pain, orthopnea, or paroxysmal nocturnal dyspnea (PND). No edema. No palpitations. GASTROINTESTINAL: No nausea or vomiting. No diarrhea or constipation. No change in bowel movements. No heartburn or swallowing difficulties. No abdominal pain. No jaundice. No hematemesis, melena, or rectal bleeding. GENITOURINARY: No hematuria or dysuria. MUSCULOSKELETAL: Patient has some pain in his left hand. NEUROLOGICAL: He has tingling and numbness in the left hand, under investigation currently. He has also headaches. No convulsions. HEMATOLOGIC/LYMPHATIC: No bleeding. He bruises easily. He has tiredness and fatigue. No enlarged lymph nodes. SKIN: No skin rash or lumps. PSYCHIATRIC: No anxiety or depression. PHYSICAL EXAMINATION GENERAL: Looks stable. Well developed, well nourished, and in no acute distress. VITAL SIGNS: Blood pressure 147/79, pulse 65 per minute, respirations 16 per minute, temperature 97, pulse ox 95% on room air. HEENT: Head: Atraumatic. No sinus tenderness to palpation. Eyes: No icterus or conjunctivitis. Mouth and throat: No oral thrush or mucositis. NECK: Supple. No cervical or supraclavicular lymphadenopathy. LUNGS: Clear to auscultation and percussion bilaterally. HEART: Regular rate and rhythm. No gallops, murmurs, clicks, or rubs. ABDOMEN: Soft and lax. No tenderness. No hepatosplenomegaly. No masses. Colostomy bag is noted. EXTREMITIES: No cyanosis, clubbing, or edema. LYMPHATICS: No peripheral lymphadenopathy. NEUROLOGICAL: Conscious, alert, and oriented times three. No focal motor or sensory deficits. PSYCHIATRIC: Mood and affect appear normal. SKIN: No skin rash, bruise, or purpuric eruption. DIAGNOSTIC DATA CBC showed white count 5.9, hemoglobin 12.3, hematocrit 37, platelets 212,000. Chem panel totally normal except BUN 32, creatinine 1.6, glomerular filtration rate 42 mL/min, blood sugar 121. CEA is normal at 1.8. ASSESSMENT 1. Rectal adenocarcinoma, stage T3 lesion by MRI of the pelvis done September 14, 2016, which showed 5 cm rectal mass with findings suggestive of transmural extension of the tumor into the posterior perirectal fat. There is no evidence of organ invasion or metastatic disease. Colonoscopy with biopsy done September 12, 2016, did reveal three polyps, one from the hepatic flexure which was hyperplastic polyp, and two from the splenic flexure, one was hyperplastic polyp and the other one was tubular adenoma. The rectal mass biopsy came back positive for invasive colonic adenocarcinoma. Patient received neoadjuvant chemoradiation between October 08, 2016, through November 16, 2016. He finished radiation therapy November 19, 2016. He had rectal resection of the tumor February 07, 2017. Pathology came back negative for residual disease. He had a seroma after surgery which resolved with time. CEA today is normal at 1.8. I am planning to continue followup. I am planning to see him in three months with CBC, chemistry panel, and CEA. 2. Tingling and numbness of the left hand, under investigation currently. Will continue to see what is the diagnosis. Carpal tunnel is suspected as his MRI spine did not show any abnormality to explain his pain, tingling, and numbness. 3. Anemia due to previous chemotherapy and surgery. His hemoglobin is improving gradually. It is currently 12.4, and last visit, it was 11.6. Will continue to monitor. 4. Hypothyroidism, on supplement. PLAN 1. Continue followup. 2. Patient to return in three months with CBC, chem panel, and CEA. 3. Patient to contact us for any new concerns or complaints. NEREYDA
== END 2018-10-20 ==
LOC: ONC 10:00
PROVIDERS: ATTEND Internal Medicine Hematology
DX: Z85.048 Personal history of other malignant neoplasm of rectum, rectosigmoid junction, and anus (principal); Z92.21 Personal history of antineoplastic chemotherapy; Z92.3 Personal history of irradiation; G62.9 Polyneuropathy, unspecified; D64.81 Anemia due to antineoplastic chemotherapy; E03.9 Hypothyroidism, unspecified; Z79.899 Other long term (current) drug therapy
CPT/HCPCS: 36415; 71250; 74176; 82378; 85025; 96523; G0463; 82040; 82247; 82310; 82374; 82435; 82565; 82947; 84075; 84132; 84155; 84295; 84450; 84460; 84520; 99212

== ENCOUNTER → 2018-08-07 | Outpatient (CLI) | payer MEDICARE ==
[2017-06-27 11:46] VITALS: BMI 26.5
[~2018-08-07] MED LIST changes: +CHOL10005 PO; +VITA-197 PO
--- NOTE | 2018-08-07 10:57 | RADIOLOGY IMAGING REPORT ---
FACILITY: [facility] PATIENT NAME: Coral Voss : 1940 MR: [id number] V: [id number] EXAM DATE: ORDERING PHYSICIAN: JOSE PERALTA TECHNOLOGIST: Location: [facility] - [place] Patient: Coral Voss : 1940 Visit/Account:[id number] Date of Sevice: 08/07/2018 CT CHEST ABDOMEN PELVIS W/O CON HISTORY: Rectal cancer surveillance ADDITIONAL HISTORY: None. TECHNIQUE: Contiguous axial images acquired through the chest abdomen and pelvis without IV contrast. Coronal and sagittal reformatting was also performed.Dose Lowering Technique One of the following dose optimization techniques was utilized in the performance of this exam: Autom ated exposure control; adjustment of the mA and/or kV according to the patient's size; or use of an i terative reconstruction technique. Specific details can be referenced in the facility's radiology C T exam operational policy. COMPARISON: CT Chest abdomen pelvis September 13, [address] of abdomen pelvis February 26, 2018 FINDINGS: CHEST: Lungs/Pleura: There is mild pleural thickening with adjacent septal thickening in the anterior right upper lobe which may represent scarring. Similar changes but to a lesser extent are seen in the med ial lower lobes is a 5 mm calcified granuloma in the right middle lobe Mediastinum/lymph nodes: Negative Heart/vessels: There is an implanted right-sided port with the distal tip in the superior vena cava. There are extensive coronary artery calcifications. Mild calcifications at the aortic arch Bones/soft tissues: Dextroconvex scoliosis of the thoracic spine with associated spondylotic changes . ABDOMEN AND PELVIS: Hepatobiliary: Negative. Spleen: Negative. Pancreas: Negative. Adrenals: There is mild nodular thickening the left adrenal gland that appears similar to the prior study Kidneys ureters and bladder : There is mild to moderate perinephric stranding bilaterally 1 mm nonobs tructing calculus again seen in the lower pole calyx of the left kidney 1.2 cm lower pole left renal cyst appears unchanged 9 mm anterior cortical mass lower pole left kidne y also appears unchanged although is too small to characterize Genitalia: Negative. GI: There is a descending colon ostomy in the left lower quadrant with peristomal hernia containing fat. This appears larger than the prior study although the fat appears less edematous. Again noted are several small bowel anastomoses low within the pelvis. There is no evidence of a bowel obstruct ion. Surgical clips also noted is an anastomosis at the rectum Vessels/spaces/nodes: Soft tissue thickening in the presacral space appears similar to the prior bola dy There are moderate vascular calcifications in the abdominal aorta and branch vessels Bones/soft tissues: There is a levoconvex scoliosis of the lumbar spine. Arthritic changes at the S I joints appear unchanged. Sclerotic changes in the upper pelvis and hips appear unchanged . Additional findings: None pertinent. IMPRESSION: Extensive coronary artery calcifications. There is a descending colon ostomy in the left lower quadrant with peristomal hernia containing fat. This hernia has increased in size since the prior study. Anastomoses the rectum and in several loops of small bowel. There is no evidence of bowel obstructio n at this time Soft tissue thickening the presacral space appears similar to the prior study. Additional chronic findings as described Report Dictated By: Emmy Jordan MD at 08/07/2018 10:08 AM Report E-Signed By: Emmy Jordan MD at 08/07/2018 10:49 AM WSN:[id number]
== END ==
LOC: CT 01:09
PROVIDERS: ATTEND Surgery
DX: I25.10 Atherosclerotic heart disease of native coronary artery without angina pectoris (principal); Z93.3 Colostomy status
CPT/HCPCS: 71250; 74176

== ENCOUNTER 2018-08-27 00:05 | Day surgery (SDC) | payer MEDICARE ==
[2017-06-27 11:46] VITALS: Ht 177.8 cm; Wt 83.5 kg
[~2018-08-27] VITALS: Ht 177.8 cm; Wt 83.5 kg
[~2018-08-27 00:05] MED LIST changes: -ALTEPLASE RECOMB 2 MG VIAL IVP PRN; -DEXTROSE 5%(*) 100 ML BAG 100 ML IVPB PRN; -HEPARIN FLSH (PORT) 500 UN/5ML IVP PRN; -LIDOCAINE/SOD BICARB 8.4% SYR ID PRN; -NS(*) 0.9% 100 ML BAG 100 ML IVPB PRN; -NS(*) 0.9% 500 ML BAG 500 ML IV PRN; -WATER FOR INJ,STERILE 20 ML IVP PRN
[2018-08-27 09:52] VITALS: BP 133/87
[2018-08-27] MEDS ORDERED: ROPIVACAINE 0.5% 20 ML VIAL ONE (10:05)
[2018-08-27] MEDS ORDERED: PROPOFOL EMUL(*) 10MG/ML 20 ML 40 ML ONE (10:16)
[2018-08-27] MEDS ORDERED: LIDOCAINE MPF 1% 5 ML VIAL ONE (10:16)
[2018-08-27] MEDS ORDERED: NORMOSOL R SOLN(*) 1000 ML BAG 1,000 ML IV PRN (10:45)
[2018-08-27] MEDS ORDERED: LIDOCAINE/SOD BICARB 8.4% SYR ID ONE (10:45)
[2018-08-27] MEDS ORDERED: ceFAZolin(*) 2GM/D5W 50ML 50 ML IVPB ONE (10:45)
[2018-08-27] MEDS ORDERED: LIDO/EPI 1% MDV 1:100,000 20ML INFIL ONE (10:46)
[2018-08-27 11:25] VITALS: BP 117/64
--- NOTE | 2018-08-27 11:33 | Short(Outpt) Discharge Summary ---
Discharge Summary Reason for Hosp/Final Diag: (1) Rectal cancer Status: Chronic Hospital Course & Plan: Colonoscopy completed without problems. No polyps. (2) Radiation proctitis Status: Chronic Hospital Course & Plan: Will start steroid enemas when I see him back in the office. Departure Discharge to: Home, Self Care Discharge Instructions Home Meds Active Scripts Ferrous Sulfate (FERROUS SULFATE) 325 Mg Tablet.dr, 1 TAB PO BID, #60 TAB 3 Refills Prov:JOSE PERALTA MD 07/21/18 Levothyroxine Sodium (LEVOTHYROXINE SODIUM) 137 Mcg Tablet, 1 TAB PO QDAY, #30 TAB 0 Refills Prov:JOSE PERALTA MD 07/21/18 Reported Medications Ascorbic Acid (VITAMIN C) 500 Mg Tablet, 1000 MG PO DAILY, TAB 07/21/18 Vitamin E Mixed (VITAMIN E) 400 Unit Capsule, 400 UNIT PO QDAY, CAPSULE 07/21/18 Cholecalciferol (Vitamin D3) (VITAMIN D3) 1,000 Unit Tablet, 1000 UNIT PO QDAY, TAB 07/21/18 Vitamin B Complex (VITAMIN B COMPLEX) 1 Each Capsule, 1 EACH PO QDAY, CAPSULE 02/04/17 Multivitamin (MULTI VITAMIN DAILY) 1 Each Tablet, 1 EACH PO 12/19/14 Diet: Regular Activity: As Tolerated Special Instructions: Your colonoscopy was completed without any problems and your prep was excellent (Good Job!!). I didn't find any polyps or cancer in your rectal stump or your colon. You do have inflammation in your rectum due to radiation proctitis. When I see you back in my office we'll try some enemas to improve this inflammation which may also help to decrease the anal discharge you've been experiencing. Your port was also removed without problems. You can remove the white surgical dressing on 08/29/18, then you can shower. After showering, leave the incision open to air but leave the steristrips in place until they fall off on their own. Do not immerse the incision for 2 weeks. You should have another colonoscopy in 1 years for continued cancer surveillance. JOSE PERALTA MD Aug 27, 2018 11:33
[2018-08-27 12:00] VITALS: BP 138/78
[2018-08-27 12:30] VITALS: BP 146/85
[2018-08-27 12:39] VITALS: BP 129/96
[2018-08-27 12:41] VITALS: BP 137/94
--- NOTE | 2018-08-27 12:47 | NUR ---
1125 PT REC'D IN SD VIA CART, IN SF POSITION, RESTING, VSS, DORY BROUGHT TO BEDSIDE 1130 DOWN TO 2L MASK, DR. PERALTA AT BEDSIDE 1145 PT TOLERATING COFFEE AND PUDDING 1200 VSS 1230 ULTRASOUND HAS ARRIVED AT BEDSIDE 1239 PT NEEDS TO USE RESTROOM, ORTHOSTATICS DONE, STABLE, D/C IV TUBING, 650ML UP, PT UP TO BATHROOM, RETURNED TO BED FOR US OF OTHER LEG
--- NOTE | 2018-08-27 12:53 | NUR ---
1250 PT RETURNED FORM RESTROOM, DESCRIBES LARGE AMOUNT OF RED/BLOODY DISCHARGE FROM RECTUM, STATES PREVIOUS DISCHARGE HAS NO BLOOD IN IT. GIVEN MESH BRIEFS AND PAD, WILL CONTINUE TO MONITOR.
--- NOTE | 2018-08-27 13:40 | NUR ---
1315 ULTRASOUND COMPLETED, PT WOULD LIKE TO GET DRESSED AND GO HOME 1330 D/C INSTRUCTIONS COVERED, ALL QUESTIONS ANSWERED, ADVISED TO WATCH RECTAL BLEEDING FOR DECREASES, IF NO DECREASE OR IF IT HAS INCREASED BY TOMORROW CONTACT DR. PERALTA'S OFFICE. PT AN VERBALIZE UNDERSTANDING. ALSO EMPHASIZED SIGNS OF INFECTIONS TO WATCH OUT FOR. REASSESSED, UNREMARKABLE, EXTREMELY HYPERACTIVE BS. IV OUT, PRESSURE DRESSING APPLIED. PT AMBULATED TO VEHICLE OUTSIDE OF ER, TRANSFERRED WITHOUT INCIDENT, ALL BELONGINGS WITH PT.
--- NOTE | 2018-08-27 13:45 | RADIOLOGY IMAGING REPORT ---
FACILITY: [facility] [place] PATIENT NAME: Coral Voss : 1940 MR: [id number] V: [id number] EXAM DATE: ORDERING PHYSICIAN: JOSE PERALTA TECHNOLOGIST: Location: [facility] Patient: Coral Voss : 1940 Visit/Account:[id number] Date of Sevice: 08/27/2018 Exam type: US VENOGRAM EXTREMITY, BILATERAL History: H/O DVT, bilateral LE edema Comparison: November 22, 2017. Findings: The lower extremity veins were imaged bilaterally including the common femoral veins greater saphenou s vein superficial femoral veins popliteal veins posterior tibial veins peroneal veins enter tibial v eins revealing no evidence of intraluminal thrombi. The veins were compressible and demonstrated aug mentation IMPRESSION: 1. No sonographic evidence DVT involving the lower extremity veins bilaterally Report Dictated By: Emmy Jordan MD at 08/27/2018 1:41 PM Report E-Signed By: Emmy Jordan MD at 08/27/2018 1:42 PM WSN:[email or web address]
== END 2018-08-27 13:30 | disposition home or self-care (01) ==
LOC: OR 00:05
PROVIDERS: ATTEND Surgery
DX: K62.89 Other specified diseases of anus and rectum (principal); Z93.3 Colostomy status; E03.9 Hypothyroidism, unspecified; I10 Essential (primary) hypertension; Z86.718 Personal history of other venous thrombosis and embolism
CPT/HCPCS: 00811; 44388; 93970; J2001; J2704; J0690; J2795

== ENCOUNTER → 2018-09-10 | Outpatient (CLI) | payer MEDICARE ==
[2017-06-27 11:46] VITALS: BMI 26.5
== END ==
LOC: US 01:01
PROVIDERS: ATTEND Surgery
DX: R60.0 Localized edema (principal)
CPT/HCPCS: 93306

== ENCOUNTER → 2018-12-11 | Outpatient (CLI) | payer MEDICARE ==
[2017-06-27 11:46] VITALS: BMI 26.5
[2018-12-11 09:53] LABS: PLATELET COUNT, AUTOMATED 185 K/uL (150-450)
== END ==
LOC: LAB 09:22
PROVIDERS: ATTEND Surgery
DX: D64.9 Anemia, unspecified (principal); N17.9 Acute kidney failure, unspecified; E03.9 Hypothyroidism, unspecified; Z85.048 Personal history of other malignant neoplasm of rectum, rectosigmoid junction, and anus
CPT/HCPCS: 36415; 82040; 82247; 82248; 82310; 82374; 82378; 82435; 82565; 82947; 84075; 84132; 84155; 84295; 84443; 84450; 84460; 84520; 85025